=== PATIENT | male | born 1940 | race Caucasian/White ===

== ENCOUNTER 2023-05-28 14:34 | Inpatient (IN) | payer MEDICARE, SELFPAY ==
[2023-05-28] VITALS (15 sets, daily range): BP systolic 109–127; BP diastolic 56–66; BMI 28.3
--- NOTE | 2023-05-28 11:34 | ED.GENMED ---
History of Present Illness
General
Chief Complaint: Swallowing Problem
Source: patient
Exam Limitations: none
Time Seen by Provider: 05/28/23 11:19
Nursing documentation reviewed up to this point in time: agreed with
Travel History
Have you had any contact with someone who has COVID-19?: No
Do you have any symptoms of coronavirus? Fever > 100 degrees, chills, cough, shortness of breath, sore throat, loss of taste or smell, muscle aches, or headache?: No
History of Present Illness
History of Present Illness:
Patient presents to ED secondary to inability to tolerate water/food over the past 3 days. Patient had an outpatient CT performed this morning which revealed significant abnormal findings, and was subsequently referred to ED for evaluation. Per
daughter who lives with the patient, patient has had difficulty eating in the past, but never to this extent. Denies fever or chills. Patient has been coughing recently. Denies diarrhea. Denies abdominal pain. Denies chest pain. Denies back
pain. Patient takes Eliquis chronically, along with history of heart failure.
Past History
Past History
ED Past Medical History: Arrthythmia, CHF, COPD, HTN, Hypercholesterolemia and NIDDM
ED Past Surgical History: Orthopedic (Right hip, bilateral arm tendons)
Social History
Tobacco: Non-smoker
Alcohol: None
Drug: None
Living: with family
Review of Systems
Review of Systems
Allergies reviewed?: Yes
All Other Systems: ROS reviewed and negative except as documented in HPI and ROS
Constitutional: Reports no symptoms
EENT: Reports no symptoms
Respiratory: Reports cough and trouble breathing
Cardiac: Reports no symptoms; Denies chest pain
ABD/GI: Reports other (Difficulty swallowing)
: Reports no symptoms
Musculoskeletal: Reports no symptoms
Skin: Reports no symptoms
Neurological: Reports no symptoms
Phy Exam
Physical Exam
Physical Exam:
Physical Exam
General: mild distress, not acutely ill. afebrile
Head: nc/at. eomi
Neck: supple. no meningeal signs.
Heart: s1/s2 regular rate and rhythm, no murmur. equal radial pulses.
Lungs: mild respiratory distress. crackles bilaterally
Abdomen: normal bowel sounds. not tender.
Neuro: alert and oriented. no focal neurological deficits
Skin: no rash
Psychiatric: well kept. interactive and cooperative
Extremities: le b/l edema, nonpitting. no calf tenderness.
Course
Orders/Labs/Results
Orders:
Orders
05/28/23 11:29
Furosemide [Lasix] 40 mg IV NOW STA
Piperacillin/Tazo 3.375 Gram [Zosyn] 3.375 gram in 50 ml IV NOW
05/28/23 11:38
Electrocardiogram (*1) Urgent
Reason for Study: Shortness of Breath
EKG- Treatment ONCE
05/28/23 11:57
COVID-19 Antigen Urgent
Source: Nasal Swab
Complete Blood Count/With Diff Urgent
Comprehensive Metabolic Panel Urgent
Lactic Acid Q4H
Comment: CANCEL 2nd LACTIC ACID IF 1st LACTIC ACID IS LESS THAN 2
Magnesium Urgent
NT-proBNP Urgent
Blood Culture Q30M
EMMA Source: Blood/Venous
Specimen Description:
05/28/23 14:22
Admit/Transfer Patient As Directed
Co-Sign Provider:
Level of Care: Inpatient admission
Assign to:: Telemetry
Physician / Group: Arriola
Diagnosis: Dysphagia
Reason for Telemetry: Arrhythmia
Date to Stop Telemetry: 05/31/23
Time to Stop Telemetry: 11:00
Reason for Hospitalization: see progress note
Expected length of stay greater than two midnights?: Yes
ELOS- Estimated Length of Stay in days: 3
I certify the patient meets the requirements for IP care: Yes
05/28/23 14:24
Code Status As Directed
Resuscitation Status: Full Code
05/28/23 14:34
INR [Prothrombin Time] Stat
Blood Culture Q30M
EMMA Source: Blood/Venous
Specimen Description:
05/28/23 16:57
0.9% Sodium Chloride 1000 ml [Nss] 1,000 ml IV 80 mls/hr
Dextrose 50%-Water [Dextrose 50% Syringe] 12.5 grams IV [id number] PRN
Glucagon [GlucaGen] 1 mg IM PRN PRN
Insulin Aspart Corrective Low [Novolog Flexpen-Low Resistance] See Protocol SC AC
05/28/23 16:57
GASTROINTESTINAL CONSULT Routine
Consulting Provider: Canelo Cueto
Was physician already notified: Yes
Reason for consult: dysphagia
Activity As Directed
Activity Level: As Tolerated
Bedside Glucose Monitoring As Directed
Frequency: AC&HS
Comment: Change to q6h if pt on TPN, tube feeding or not eating
Bladder Scan As Directed
Follow Bladder Retention/Intermittent Cath Algorithm?: Yes
PRN if no void in __ hours: 6
Frequency: Per Retention Algorithm
If Bladder Scan Result >: 400
then:: Straight cath
I&O [Intake/ Output] As Directed
Frequency: q12h
Sequential Compression Device [Pneumatic Compression Sleeves] As Directed
Type: Knee high
Straight Cath As Directed
Frequency: Per Retention Algorithm
Additional Instructions: straight cath as needed per acute urinary retention algorithm for 24 hrs
Additional Instructions: for bladder scan greater than 400 mL
Weight As Directed
Frequency: Daily
Oxygen Therapy [O2 Therapy] [RESP] Routine
Titrate/Wean O2 to maintain O2 sat greater than (%): 93
DX Deep Vein Thrombosis Video Routine
05/28/23 18:00
Ampicillin/Sulbactam 1.5 G [Unasyn] 1.5 gm 0.9% Sodium Chloride [Nss] 50 ml IV Q12H
05/29/23 05:43
CBC/No Diff [Complete Blood Count/No Diff] IN AM
Glycohemoglobin (HgbA1c) IN AM
Abnormal Lab Results
05/28/23 05/28/23
11:57 14:34
RBC 3.15 L 10^6/uL
(4.70-6.10)
Hgb 10.5 L g/dL
(13.0-18.0)
Hct 30.6 L %
(39.0-52.0)
MCV 97.1 H fL
(80.0-94.0)
MCH 33.3 H pg
(27.0-31.0)
RDW 15.9 H %
(11.5-14.5)
MPV 10.5 H fL
(7.4-10.4)
Absolute Lymphs (auto) 0.6 L 10^3/uL
(1.2-3.4)
Neutrophils % 78.5 H %
(42.2-75.2)
Lymphocytes % 10.5 L %
(20.5-51.1)
Monocytes % 9.9 H %
(1.7-9.3)
PT 17.9 H Sec
(11.4-14.6)
Carbon Dioxide 31 H mmol/L
(22-30)
BUN 93 H mg/dl
(9-20)
Creatinine 3.4 H mg/dL
(0.7-1.3)
Magnesium 2.7 H mg/dl
(1.6-2.3)
Total Bilirubin 1.8 H mg/dl
(0.2-1.3)
Alkaline Phosphatase 181 H U/L
(38-126)
Total Protein 5.8 L g/dl
(6.3-8.2)
Albumin 3.2 L g/dl
(3.5-5.0)
05/28/23 11:57
05/28/23 11:57
Vital Signs
Initial and Last Documented VS:
Initial Vital Signs
Temp Pulse Resp BP Pulse Ox
97.9 F 72 16 117/59 94
05/28/23 10:59 05/28/23 10:59 05/28/23 10:59 05/28/23 10:59 05/28/23 10:59
Last Documented Vital Signs
Temp Pulse Resp BP Pulse Ox
97.6 F 66 20 134/54 96
05/29/23 07:25 05/29/23 07:25 05/29/23 07:25 05/29/23 07:25 05/29/23 09:08
MDM/Problems Addressed
MDM/Problems Addressed:
CT report from today reviewed and discussed with patient. Findings concerning for esophageal obstruction along with aspiration pneumonia. In light of patient's ongoing cough with shortness of breath, patient will be admitted for IV antibiotics and
GI consultation.
Blood culture pending.
*Critical Care Note
Total Time (30-74mins, 75-104mins- exclusive of procedures): Not Applicable
ED Attending Note
-
Portions of this chart may have been created with voice recognition software.� Occasional wrong word or��sound alike� substitutions may have occurred due to the inherent limitations of voice recognition software.
Discharge Plan
Departure
Patient Disposition: Admit
Date of Disposition: 05/28/23
Time of Disposition: 12:32
Admit to: Telemetry
Presentation/result/management discussed w/ accepting MD/DO: Hospitalist
Condition: Fair
Discharge Problem:
Esophageal obstruction due to food impaction, Aspiration pneumonia
Interventions
Interventions:
*Risk Screen - Suicide Last Done: 05/28/23 18:28
*General Assessment Last Done: 05/28/23 11:47
*Neglect/Abuse Screening Last Done: 05/28/23 11:47
ED- Fall Risk Assessment Last Done: 05/28/23 11:47
*ED COVID-19 Vaccine History Last Done: 05/28/23 18:28
*Nursing Disposition Last Done: 05/28/23 15:59
ED-EENT Assessment Last Done: 05/28/23 11:47
BM-Ibdpkf-Vpyiunhips Assessment Last Done: 05/28/23 11:47
ED- Pulmonary Assessment Last Done: 05/28/23 11:47
ED- Neurological Assessment Last Done: 05/28/23 11:47
ED Swallowing Screen Last Done: 05/28/23 11:47
Discharge Date and Time
Discharge Date/Time: 05/28/23 16:00
[2023-05-28] MEDS: LASIX 40 MG IV (12:06)
[2023-05-28] MEDS: ZOSYN 50 IV (12:10)
[2023-05-28 12:34] LABS: % Basophils 0.5 % (0-2); % Eosinophils 0.3 % (0-6); % Immature Granulocytes 0.3 % (0-0.5); % Lymphocytes 10.5 % (20.5-51.1); % Monocytes 9.9 % (1.7-9.3); % Neutrophils 78.5 % (42.2-75.2); Absolute Lymphocytes 0.6 10^3/uL (1.2-3.4); Absolute Monocytes 0.6 10^3/uL (0.1-0.6); Absolute Neutrophils 4.6 10^3/uL (1.4-6.5); Hematocrit 30.6 % (39.0-52.0); Hemoglobin 10.5 g/dL (13.0-18.0); Mean Corp Hgb Conc. 34.3 g/dL (33.0-37.0); Mean Corpuscular Hgb 33.3 pg (27.0-31.0); Mean Corpuscular Volume 97.1 fL (80.0-94.0); Mean Platelet Volume 10.5 fL (7.4-10.4); Nucleated Red Blood Cells % 0 % (-); Platelet Count 169 10^3/uL (130-400); Red Blood Cell Count 3.15 10^6/uL (4.70-6.10); Red Cell Dist. Width 15.9 % (11.5-14.5); White Blood Cell Count 5.9 10^3/uL (4.8-10.8)
[2023-05-28 12:35] LABS: COVID-19 Antigen Negative (Negative)
[2023-05-28 12:42] LABS: Lactic Acid 1.3 mmol/L (0.7-2.0)
[2023-05-28 12:43] LABS: ALT (SGPT) 22 U/L (0-50); AST (SGOT) 42 U/L (17-59); Albumin 3.2 g/dl (3.5-5.0); Alkaline Phosphatase 181 U/L (38-126); Blood Urea Nitrogen 93 mg/dl (9-20); Calcium 9.2 mg/dl (8.4-10.2); Carbon Dioxide 31 mmol/L (22-30); Chloride 101 mmol/L (98-107); Estimated Creatinine Clearance 19 ml/min; Glucose 95 mg/dl (70-99); Magnesium 2.7 mg/dl (1.6-2.3); Potassium 3.8 mmol/L (3.5-5.1); Sodium 142 mmol/L (135-145); Total Bilirubin 1.8 mg/dl (0.2-1.3); Total Protein 5.8 g/dl (6.3-8.2); eGFR 17.41
[2023-05-28 12:52] LABS: NT-proBNP 4140 pg/ml
--- NOTE | 2023-05-28 13:13 | CON.GI ---
Addendum entered and electronically signed by Canelo Cueto MD 05/28/23 15:06:
I saw and examined the patient.
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
--dysphagia/ food impaction
--afib - last eliquis 3 days back
-- pleural effusion
-- gastric sleeve sx
plan
NPO
EGD today ( discussed with patient/ patient's daughter at bed side )
Original Note:
Consultation
-
Date/Time Consultation Requested: 05/28/23 1230
Date/Time Consultation Performed: 05/28/23 1315
Requesting Provider: Mauro Rosa MD
Performing Provider: BRYAN Conner, Canelo Cueto MD
Reason for Consultation: diffuculty swallowing
Medical History
Chief Complaint / HPI
Chief Complaint: dysphagia
History of Present Illness:
Pt is a 82yo presents with hx afib on Eliquis, gastric sleeve for wt loss 7-8 years ago, CAD, CHF, CKD, HTN, hip fx with repair 2022 with wt loss over few months with recovery from fracture. He admits to dysphagia on a regular basis with feeling of
food sticking in upper esophagus then eventually pass vs per family occasional regurgitation of food. No hx food impaction in past. Now noted with 3 days of inability to eat. He would take food but regurgitate after eating. Also noted with
cough. This AM pt went to CT chest with concern for moderate to large effusion on right and esophagus with incomplete distention with food debris to level of GE junction at level of prior gastric sleeve. There is also small to moderate amount of
ascites.
At this time pt also admits to odynophagia with irritation of trying to eat last few days. He denies NSAID use. He denies GERD, nausea, vomiting, abdominal pain, diarrhea, constipation or bleeding. ? last EGD with gastric sleeve in past.
Colonoscopy years ago with polyps.
Past Medical History
Past Medical History: Arrhythmias (afib on Eliquis), CAD, CHF, HTN, NIDDM, Renal Failure (CKD) and Other (RBBB, former tobacco and ETOH use last 40 years ago, polyps)
Past Surgical History: Orthopedic (hip fx with repair 2022 ) and Other (gastric sleeve for weight loss)
Social History
Tobacco: Former Smoker (last 40 years ago)
Alcohol: Former (last 40 years ago)
Drug: None
Living: With Family
Employment: Retired
Family History
Family History: Reviewed & Not Pertinent
Allergies / Home Medications
Allergy/AdvReac Type Severity Reaction Status Date / Time
No Known Allergies Allergy Unverified 05/28/23 11:03
Medication Instructions Recorded
apixaban 2.5 mg tablet (Eliquis) 2.5 mg PO BID Blood Clot 11/16/22
Prevention/Tx
atorvastatin 20 mg tablet 20 mg PO DAILY High Cholesterol 11/16/22
allopurinol 300 mg tablet 300 mg PO DAILY Gout #0 tabs 04/22/23
amiodarone 200 mg tablet 200 mg PO DAILY Arrhythmia #0 tabs 04/22/23
furosemide 80 mg tablet 80 mg PO BID Fluid 04/22/23
retention/Swelling #0 tabs
hydralazine 25 mg tablet 25 mg PO BID Blood pressure #0 tabs 04/22/23
linagliptin 5 mg tablet (Tradjenta) 5 mg PO DAILY Diabetes #0 tabs 04/22/23
ascorbic acid (vitamin C) 1,000 mg 1,000 mg PO DAILY 05/28/23
tablet
gabapentin 100 mg capsule 200 mg PO HS 05/28/23
Review of Systems
-
History Source: Patient
Constitutional: Reports Weight Loss (over time)
EENT: Reports No Symptoms
Respiratory: Reports Cough
Cardiac: Reports Chest Pain (last PM with feeling of food sticking )
Abdomen/GI: Reports No Symptoms
: Reports No Symptoms
Musculoskeletal: Reports No Symptoms
Skin: Reports No Symptoms
Neurological: Reports Weakness
Endocrine: Reports No Symptoms
Hematologic/Lymphatic: Reports No Symptoms
Vital Signs
Temp Pulse Resp BP Pulse Ox
97.9 F 64 12 127/66 90
05/28/23 10:59 05/28/23 12:06 05/28/23 12:00 05/28/23 12:06 05/28/23 12:00
Physical Exam
Exam
General: Other (elderly male calm to feeling of food sticking in esophagus )
HEENT: Normocephalic and Anicteric
Respiratory: Other (decreased 92 % on RA in ER)
Cardiac: Regular Rhythm (bradicardia 55-60 in ER)
GI: Soft, Non Tender and Non Distended
Genito-urinary: No Costovertebral Tender
Musculoskeletal: No Clubbing and No Cyanosis
Skin: Warm and Dry
Neuro: Awake
Psych: Calm
Results
WBC 5.9 10^3/uL (4.8-10.8) 05/28/23 11:57
Hgb 10.5 g/dL (13.0-18.0) L 05/28/23 11:57
Hct 30.6 % (39.0-52.0) L 05/28/23 11:57
MCV 97.1 fL (80.0-94.0) H 05/28/23 11:57
Plt Count 169 10^3/uL (130-400) 05/28/23 11:57
Absolute Neuts (auto) 4.6 10^3/uL (1.4-6.5) 05/28/23 11:57
Sodium 142 mmol/L (135-145) 05/28/23 11:57
Potassium 3.8 mmol/L (3.5-5.1) 05/28/23 11:57
Chloride 101 mmol/L (98-107) 05/28/23 11:57
Carbon Dioxide 31 mmol/L (22-30) H 05/28/23 11:57
BUN 93 mg/dl (9-20) H 05/28/23 11:57
Creatinine 3.4 mg/dL (0.7-1.3) H 05/28/23 11:57
Calcium 9.2 mg/dl (8.4-10.2) 05/28/23 11:57
Total Bilirubin 1.8 mg/dl (0.2-1.3) H 05/28/23 11:57
AST 42 U/L (17-59) 05/28/23 11:57
ALT 22 U/L (0-50) 05/28/23 11:57
Alkaline Phosphatase 181 U/L (38-126) H 05/28/23 11:57
Diagnostic Image Results:
05/28/23 CT Chest/abd/pel Wo Iv Cont
1. � Moderately large bilateral pleural effusions right greater than left with bibasilar consolidation right greater than left. Does the patient aspirate? Faint opacity in the right upper lung zone, also suggests early pneumonic process which could
be associated with aspiration.
2. � The esophagus is incompletely distended with food debris. This extends to the level of the GE junction, at the level of the previous surgical procedure for gastric sleeve. The obstruction of the esophagus is likely due to the previous surgical
procedure, however without IV and oral contrast it is impossible to evaluate for a small occult lesion. Follow-up with GI to evaluate the gastric sleeve and further evaluate the appearance of the distal esophagus.
3. � There is a small to moderate amount of ascites within the abdomen and pelvis.
4. � Cholelithiasis. Diverticulosis.
5. � Limited evaluation of the solid organs without IV contrast. No focal abnormality identified.
6. � Appendix normal.
7. � Limited evaluation of the pelvis due to artifact from the right total hip replacement.
8. � Incomplete healing of the complex comminuted fracture of the left acetabulum seen on prior pelvis CT.
Prior GI Procedures:
EGD: years ago ? with gastric sleeve
Colonoscopy: years ago with polyps
Assessment / Plan
-
Pt is a 82yo presents with hx afib on Eliquis, gastric sleeve for wt loss 7-8 years ago, CAD, CHF, CKD, HTN, hip fx with repair 2022 with wt loss over few months with recovery from fracture. He admits to dysphagia on a regular basis with feeling of
food sticking in upper esophagus then eventually pass vs per family occasional regurgitation of food. No hx food impaction in past. Now noted with 3 days of inability to eat. He would take food but regurgitate after eating. Also noted with
cough. This AM pt went to CT chest with concern for moderate to large effusion on right and esophagus with incomplete distention with food debris to level of GE junction at level of prior gastric sleeve. There is also small to moderate amount of
ascites.
-chronic dysphagia with concern for food impaction
-CT with effusion
-ascites per CT
-afib on Eliquis
-hx gastric sleeve
-wt loss with hx hip fracture 2022
-acute on chronic CKD
other medical problems:
-CAD
-CHF
-HTN
-NIDDM
PLAN:
Etiology of symptoms with concern for food impaction with inability to eat last 3 days with regurgitation
plan for EGD today for impaction and eval gastric sleeve
last Eliquis 3 days ago
monitor resp status with possible aspiration -- currently 92 % on room air
will review with Dr. Arriola with effusion
NPO
IV Zosyn given in ER
updated family
-
-
Thank you for consultation and allowing me to participate in the patient's care. Please call the [facility] GI physician during the after hours with any questions or concerns.
--- NOTE | 2023-05-28 14:30 | HPS.HSE ---
Addendum entered and electronically signed by Margarito Arriola MD 05/28/23 14:44:
From medical standpoint ok for his EGD today
Original Note:
Family Physician
-
Family Physician: Francine Randolph MD
Chief Complaint
-
Dysphagia
History of Present Illness
Patient has been experiencing dysphagia for many weeks got worse in the last [address] abdomen pelvis was requested by PCP which picks up significantly esophageal food debris.
Patient had remote history of gastric sleeve surgery. In the last few weeks has been having trouble with the swallowing and regurgitation. Really got worse lately and in the last 3 days he could not eat anything and he could not drink anything.
He cannot even take his medications.
He was also having cough with his regurgitation. He was having chest pains from the cough. Denies any shortness of breath.
No fever or chills.
Since discharge in April after heart failure treatment he states his weight has been okay. No significant swelling in the legs.
Medical History
Past Medical History
Past Medical History: Reports Arrhythmia (Atrial fibrillation), CHF (Diastolic), GERD, HTN, Hypercholesterolemia, IDDM, Renal Failure (Chronic kidney disease) and Other (Sleep apnea)
Past Surgical History: Reports Other (Gastric sleeve)
Social History
Tobacco: Former Smoker
Alcohol: None
Drug: None
Living: With Family
Family History
Family History: Not pertinent
Allergies / Home Medications
Allergies reflects when Allergies were last updated in [facility].
Home Medications with original date entered in [facility]
Allergy/Medication List:
Allergies
Allergy/AdvReac Type Severity Reaction Status Date / Time
No Known Allergies Allergy Unverified 05/28/23 11:03
Home Medications
apixaban 2.5 mg tablet (Eliquis) 2.5 mg PO BID Blood Clot Prevention/Tx 11/16/22
atorvastatin 20 mg tablet 20 mg PO DAILY High Cholesterol 11/16/22
allopurinol 300 mg tablet 300 mg PO DAILY Gout #0 tabs 04/22/23
amiodarone 200 mg tablet 200 mg PO DAILY Arrhythmia #0 tabs 04/22/23
furosemide 80 mg tablet 80 mg PO BID Fluid retention/Swelling #0 tabs 04/22/23
hydralazine 25 mg tablet 25 mg PO BID Blood pressure #0 tabs 04/22/23
linagliptin 5 mg tablet (Tradjenta) 5 mg PO DAILY Diabetes #0 tabs 04/22/23
ascorbic acid (vitamin C) 1,000 mg tablet 1,000 mg PO DAILY 05/28/23
gabapentin 100 mg capsule 200 mg PO HS 05/28/23
Review of Systems
-
A 12 point ROS was completed and negative except as noted: Yes
Physical Exam
Vital Signs
Vital Signs
Temp Pulse Resp BP Pulse Ox
97.9 F 63 14 120/60 90
05/28/23 10:59 05/28/23 14:00 05/28/23 14:00 05/28/23 14:00 05/28/23 14:00
Physical Exam
General: No Apparent Distress
HEENT: Moist mucous membranes
Respiratory: Non Labored Respirations and Other (Decreased breath sounds in the bases and bronchial breathing in the right base); No Wheezes or Accessory Resp Muscle Use
GI: Soft, Non Tender, Non Distended and Normal Bowel Sounds
Musculoskeletal: Edema, Left Lower Extremity and Edema, Right Lower Extremity
Neuro: AO x 3 and No Motor Deficits
Psych: Calm; No Confused or Agitated
Laboratory Results
-
05/28/23 11:57
05/28/23 11:57
Laboratory Results
Lactic Acid Cancelled 05/28/23 15:30
Total Bilirubin 1.8 mg/dl (0.2-1.3) H 05/28/23 11:57
AST 42 U/L (17-59) 05/28/23 11:57
ALT 22 U/L (0-50) 05/28/23 11:57
Alkaline Phosphatase 181 U/L (38-126) H 05/28/23 11:57
Data Reviewed
-
CT Scan: Report Reviewed by me (ct scan )
Lab Data: Labs Reviewed by me
Impression/Plan
-
Severe dysphagia with esophageal food debris and regurgitation and concern for aspiration. Patient had a prior history of gastric sleeve and now over many weeks has been having dysphagia. Keep him n.p.o. Consult GI for endoscopy to help him with
his food debris and as well as for diagnostic testing.
Possible aspiration-patient CT shows bilateral pleural effusion right more than left with bibasilar consolidation right more than left concerning for aspiration. There is also faint opacity in the right upper zone. He has been having cough with
regurgitation. No afebrile and white count is okay and clinically concerned about aspiration. Will cover him with empirical Unasyn and follow.
Chronic diastolic heart failure. Weight is 4 pounds above his most recent discharge weight. He has not been having anything to eat or drink for the last 3 days. Clinically more concerned about volume depletion. The bilateral pleural effusions
could be chronic from heart failure or related to aspiration. Hold diuretics. Cautious IV fluid. Patient without any respiratory distress saturations are variable but around 90-93 on room air in the ER currently.
No JVD noted.
Acute kidney injury on chronic kidney disease stage IV-suspect volume depletion with no oral intake for the last 3 days. Cautious IV fluids and follow creatinine. Check urine lites for sodium and creatinine. Check bladder scan. If any worsening
consult nephrology.
Paroxysmal to permanent atrial fibrillation-currently in A-fib with rate control. Resume amiodarone after EGD if stable and resume Eliquis when okay from GI standpoint.
DM - hold Tradjenta and start on SSI
Full code
[2023-05-28 15:02] LABS: INR 1.45; PT 17.9 Sec (11.4-14.6)
[2023-05-28 16:54] LABS: Glucose - Point of Care 92 mg/dl (70-99)
--- NOTE | 2023-05-28 18:00 | PTCARENOTE ---
Received pt from PACU.Report from Stu FELIZ.Pt awake, alert and oriented x3. Pt has no c/o pain at this time. VSS 100% on 10L simple mask, will wean as tolerated. Pt Afib with BBBc rates slow, Pt has occasional MPC for thick orozco secretions, Yankauer
used as needed. Pt oriented to room, call branch within reach, cont pulse ox in place, POC ongoing.
[2023-05-28] MEDS: NSS 1000 IV (18:20)
[2023-05-28] MEDS: NOVOLOG FLEXPEN-LOW RESISTANCE SC (18:20)
[2023-05-28] MEDS: CARAFATE 1 GRAM PO ×2 (18:22→21:00)
[2023-05-28] MEDS: UNASYN IV (19:26)
[2023-05-28] MEDS: NSS (PRESERVATIVE FREE) 10 ML IV (20:56)
[2023-05-28] MEDS: PROTONIX IV 40 MG IV (20:57)
[2023-05-28 21:40] LABS: Glucose - Point of Care 269 mg/dl (70-99)
[2023-05-29] VITALS (9 sets, daily range): BP systolic 100–134; BP diastolic 47–60; PULSE 59–67; O2SAT 96; BMI 29.8
[2023-05-29] MEDS: NSS 1000 IV (05:00)
[2023-05-29] MEDS: UNASYN IV ×2 (05:01→17:43)
[2023-05-29 06:43] LABS: Hematocrit 30.3 % (39.0-52.0); Hemoglobin 10.2 g/dL (13.0-18.0); Mean Corp Hgb Conc. 33.7 g/dL (33.0-37.0); Mean Corpuscular Hgb 33.1 pg (27.0-31.0); Mean Corpuscular Volume 98.4 fL (80.0-94.0); Platelet Count 162 10^3/uL (130-400); Red Blood Cell Count 3.08 10^6/uL (4.70-6.10); Red Cell Dist. Width 15.9 % (11.5-14.5)
[2023-05-29 07:08] LABS: Glucose - Point of Care 159 mg/dl (70-99)
[2023-05-29] MEDS: CARAFATE 1 GRAM PO ×4 (09:19→20:56)
[2023-05-29] MEDS: PROTONIX IV 40 MG IV ×2 (09:19→20:34)
[2023-05-29] MEDS: NSS (PRESERVATIVE FREE) 10 ML IV ×2 (09:19→20:34)
[2023-05-29] MEDS: NOVOLOG FLEXPEN-LOW RESISTANCE 1 UNITS SC ×3 (09:39→17:42)
[2023-05-29 09:48] LABS: Glycohemoglobin (HgbA1c) 5.7 % (4.0-5.6)
--- NOTE | 2023-05-29 10:18 | W.PN.HOSP.TC ---
Today's Communication/Plan
-
Resume his home medications
DC IV fluids
Follow creatinine
Advance diet per GI
Assessment / Plan
Assessment / Plan
Severe dysphagia with esophageal food debris and regurgitation and concern for aspiration.� Patient had a prior history of gastric sleeve and now over many weeks has been having dysphagia.� s/p EGD and clearance of his esophagus . No masses/tumor
found. Sharp angulation of GE junction ,grade c esophagitis probably from food stasis noted.
-Continue with PPI
-Advance diet per GI
-Consider barium swallow if not tolerating his diet.
Possible aspiration-patient CT shows bilateral pleural effusion right more than left with bibasilar consolidation right more than left concerning for aspiration.� There is also faint opacity in the right upper zone.� He has been having cough with
regurgitation.� No afebrile and white count is okay and clinically concerned about aspiration.� cw empirical Unasyn and follow.
Chronic HFpEF.� Weight is 4 pounds above his most recent discharge weight.� He has not been having anything to eat or drink for the last 3 days.� Clinically more concerned about volume depletion.� The bilateral pleural effusions could be chronic
from heart failure or related to aspiration.� DC further IV fluids.�
No JVD noted.
Acute hypoxic respiratory insufficiency - possibly from above -wean O2
Acute kidney injury on chronic kidney disease stage IV-suspect volume depletion with no oral intake for the last 3 days.� s/p IV fluids -hold further .Follow Cr .� urine lites for sodium and creatinine pending.�Follow bladder scan.� If any worsening
consult nephrology.
Paroxysmal to permanent atrial fibrillation-currently in A-fib with� rate control.� Resume amiodarone and Eliquis
DM - hold Tradjenta and cw SSI
PIO - CPAP at HS
Full code
Anticipated Discharge: 24 - 48 hours
Subjective/Interval History
-
Date of Service: May 29, 2023
Feels better from cognition standpoint. He is aware that last night after anesthesia he was confused and agitated. This morning he is alert and oriented to place, day of the week.
Denies any chest or abdominal pain. No nausea vomiting. Currently on clear liquids.
Denies any shortness of breath or cough. Currently on 2 L of oxygen.
He states he has sleep apnea and a CPAP was recently ordered but has not arrived yet. He thinks it is 12 mmHg pressure.
Objective Data
-
Labs:
Laboratory Results
05/29/23 05/29/23
05:43 08:29
WBC 6.0
Hgb 10.2 L
Hct 30.3 L
Plt Count 162
Sodium Cancelled Pending
Potassium Cancelled Pending
Chloride Cancelled Pending
Carbon Dioxide Cancelled Pending
BUN Cancelled Pending
Creatinine Cancelled Pending
Glucose Cancelled Pending
Calcium Cancelled Pending
Total Bilirubin Cancelled Pending
AST Cancelled Pending
ALT Cancelled Pending
Alkaline Phosphatase Cancelled Pending
Vital Signs:
Vital Signs
Temp Pulse Resp BP Pulse Ox
97.6 F 66 20 134/54 96
05/29/23 07:25 05/29/23 07:25 05/29/23 07:25 05/29/23 07:25 05/29/23 09:08
I&O
05/28/23 05/29/23 05/30/23
06:59 06:59 06:59
Intake Total 2444 / 2444
Output Total 625 / 625
Balance 1819 / 1819
Review of Systems
-
Constitutional: Denies Fever or Chills
EENT: Denies Sore Throat
Neuro: Denies Dizzy
Physical Exam
-
General: No Apparent Distress
HEENT: Moist Mucous Membranes
Respiratory: Non Labored Respirations and Decreased Breath Sounds (both bases ); Negative Wheezes, Crackles or Accessory Resp Muscle Use
Cardiac: S1/S2 and Irregular Rhythm; Negative Tachycardic
GI: Soft and Nontender
Neuro: AO x 3
Psych: Calm; Negative Confused or Agitated
Data Reviewed
-
Labs: Labs Reviewed by me
[2023-05-29 10:20] LABS: ALT (SGPT) 22 U/L (0-50); AST (SGOT) 40 U/L (17-59); Albumin 3.2 g/dl (3.5-5.0); Alkaline Phosphatase 156 U/L (38-126); Blood Urea Nitrogen 88 mg/dl (9-20); Calcium 8.5 mg/dl (8.4-10.2); Carbon Dioxide 29 mmol/L (22-30); Chloride 102 mmol/L (98-107); Estimated Creatinine Clearance 20 ml/min; Glucose 218 mg/dl (70-99); Potassium 4.2 mmol/L (3.5-5.1); Sodium 139 mmol/L (135-145); Total Bilirubin 1.1 mg/dl (0.2-1.3); Total Protein 5.9 g/dl (6.3-8.2); eGFR 18.72
[2023-05-29] MEDS: ELIQUIS 2.5 MG PO ×2 (11:12→20:34)
[2023-05-29] MEDS: PACERONE 200 MG PO (11:12)
[2023-05-29 11:19] LABS: Glucose - Point of Care 170 mg/dl (70-99)
--- NOTE | 2023-05-29 11:47 | W.PN.GI.CBS2 ---
Today's Communication / Plan
-
Continue Protonix/Carafate
Speech eval
Assessment / Plan
-
Pt is a 82yo presents with hx afib on Eliquis, gastric sleeve for wt loss 7-8 years ago, CAD, CHF, CKD, HTN, hip fx with repair 2022 with wt loss over few months with recovery from fracture. He admits to dysphagia on a regular basis with feeling of
food sticking in upper esophagus then eventually pass vs per family occasional regurgitation of food. No hx food impaction in past. Now noted with 3 days of inability to eat. He would take food but regurgitate after eating. Also noted with
cough. This AM pt went to CT chest with concern for moderate to large effusion on right and esophagus with incomplete distention with food debris to level of GE junction at level of prior gastric sleeve. There is also small to moderate amount of
ascites.
-chronic dysphagia with concern for food impaction- s/p EGD with removal of food bolus 05/28/2023
-CT with effusion
-ascites per CT
-afib on Eliquis
-hx gastric sleeve
-wt loss with hx hip fracture 2022
-acute on chronic CKD
other medical problems:
-CAD
-CHF
-HTN
-NIDDM
PLAN:
Recommends speech evaluation prior to advance diet ( as per medical team)
Continue Protonix 40 mg twice daily for 8 weeks
Carafate 1 g 4 times daily for 2 weeks
Okay to restart Eliquis
Recommend follow-up in GI as outpatient with repeat EGD in 8 weeks
At this juncture no further recommendation. GI will sign off. Please call us back if any question
Total Time Spent with Patient (in minutes): 35
Subjective
Subjective
Date of Service: May 29, 2023
Tolerating full liquid diet. Denies any vomiting or difficulty swallowing. RN reports coughing with eating
Objective
Data Reviewed
Laboratory Data:
Laboratory Results
05/29/23 05:43
05/29/23 08:29
Laboratory Results
PT 17.9 Sec (11.4-14.6) H 05/28/23 14:34
INR 1.45 05/28/23 14:34
Magnesium 2.7 mg/dl (1.6-2.3) H 05/28/23 11:57
Total Bilirubin 1.1 mg/dl (0.2-1.3) 05/29/23 08:29
AST 40 U/L (17-59) 05/29/23 08:29
ALT 22 U/L (0-50) 05/29/23 08:29
Alkaline Phosphatase 156 U/L (38-126) H 05/29/23 08:29
Vital Signs and I&O:
Vital Signs
Temp Pulse Resp BP Pulse Ox
97.6 F 65 18 100/49 95
05/29/23 11:45 05/29/23 11:45 05/29/23 11:45 05/29/23 11:45 05/29/23 11:45
I&O
05/28/23 05/29/23 05/30/23
06:59 06:59 06:59
Intake Total 2444 / 2444
Output Total 625 / 625
Balance 1819 / 1819
Physical Exam
Physical Exam
GI: Soft, Non Distended and Non Tender
[2023-05-29 13:33] LABS: Urine Sodium 19 mmol/L (30-90)
--- NOTE | 2023-05-29 14:11 | PN.CDI ---
CDI
- -
CDI:
Physician Documentation Request
Admit Date: 05/28/23 14:34
Dear Doctor Flako,
Please review the following and provide your response in the progress notes.
Clinical Indicators:
- per H&P 'Chronic diastolic heart failure. Weight is 4 pounds above his most recent discharge weight'
- 'bilateral pleural effusions could be chronic from heart failure or related to aspiration'
- 05/28 40mg IV Lasix given
- proBNP 4140
Please clarify which of the following accurately represents the acuity of the HFpEF:
Acute on chronic HFpEF
Chronic HFpEF
Other
Use of terms such as suspected, likely, concern for, or probable (associated with a specific diagnosis that is being evaluated, monitored, or treated as if it exists) are acceptable and can be coded in the inpatient setting, when documented at the
time of discharge.
Thank you,
Nara Tony RN
CDI Specialist
Please use your independent medical judgment in providing your response.
--- NOTE | 2023-05-29 15:13 | PTOTSP ---
Dysphagia Evaluation
Patient presents with signs concerning for unspecified pharyngoesophageal dysphagia.
Suspect changes to CT of Chest/Abdomen/Pelvis 05/28/2023 concerning for aspiration may have been bottom up aspiration related given patient's history of food impaction this admission and GERD. However, during this clinical bedside swallowing
evaluation, patient had throat clearing with consecutive drinking of liquids and audible throat gurgling with intermittent throat clearing between trials - which may be concerning for aspiration. Cannot rule out bottom up vs top down aspiration at
the bedside. Consider video swallow study to objectively assess pharyngeal stage of swallowing.
Oral stage was functional for regular solids. Consider picking soft/moist foods and using precautions below given recent food impaction. Patient was cleared per GI to advance solids.
Recommend:
1. Regular (pick soft/moist foods), Thin Liquids
2. Medications as best tolerated
3. Strategies: upright to 90 degrees and/or OOB to chair, pick soft/moist foods, small single sips/bites, slow rate, chew foods well, alternate solids/liquids, small frequent meals, remain upright for 30 minutes after PO as a reflux precaution
4. Oral care 3-5x daily
5. Consider video swallow study to rule out pharyngeal dysphagia
6. Continue to follow with GI
--- NOTE | 2023-05-29 16:00 | PTCARENOTE ---
Pt had decreased urine output, bladder scanned for 92ml, MD made aware, plan of care ongoing.
--- NOTE | 2023-05-29 16:18 | CM ---
Alert awake oriented patient who lives with his daughter Olinda Avilez who lives in a 2 story home with 1 step to enter and 14 steps to bed and bathroom. He is independent in driving and in all activities of daily living.He was offered VN he
said he was unsure. Will need PT OT for dc plan.
Cane CPAP
No VN hx / Jignesh hx
Pharmacy [facility]
PCP DR Randolph
PLAN Will need PT OT to determine dc plan
[2023-05-29 16:39] LABS: Glucose - Point of Care 153 mg/dl (70-99)
[2023-05-29] MEDS: APRESOLINE PO (20:55)
[2023-05-29] MEDS: NEURONTIN 200 MG PO (20:58)
[2023-05-29 21:31] LABS: Glucose - Point of Care 119 mg/dl (70-99)
[2023-05-30] VITALS (7 sets, daily range): BP systolic 102–116; BP diastolic 46–60; PULSE 63; BMI 29.6
[2023-05-30] MEDS: UNASYN IV ×2 (05:02→17:24)
[2023-05-30 07:08] LABS: Blood Urea Nitrogen 99 mg/dl (9-20); Calcium 8.4 mg/dl (8.4-10.2); Carbon Dioxide 28 mmol/L (22-30); Chloride 98 mmol/L (98-107); Estimated Creatinine Clearance 18 ml/min; Glucose 114 mg/dl (70-99); Potassium 4.4 mmol/L (3.5-5.1); Sodium 137 mmol/L (135-145); eGFR 16.82
[2023-05-30 07:19] LABS: Glucose - Point of Care 118 mg/dl (70-99)
--- NOTE | 2023-05-30 08:00 | PTCARENOTE ---
Bladder scanned for 164 mls. Patient voided clear dameon urine, 150 mls.
[2023-05-30] MEDS: ELIQUIS 2.5 MG PO ×2 (08:37→21:10)
[2023-05-30] MEDS: CARAFATE 1 GRAM PO ×4 (08:37→21:10)
[2023-05-30] MEDS: NOVOLOG FLEXPEN-LOW RESISTANCE SC ×2 (08:37→16:43)
[2023-05-30] MEDS: LIPITOR 20 MG PO (08:37)
[2023-05-30] MEDS: VITAMIN C 1000 MG PO (08:38)
[2023-05-30] MEDS: NSS (PRESERVATIVE FREE) 10 ML IV ×2 (08:38→21:16)
[2023-05-30] MEDS: PROTONIX IV 40 MG IV ×2 (08:38→21:16)
[2023-05-30] MEDS: PACERONE 200 MG PO (08:38)
[2023-05-30] MEDS: APRESOLINE 25 MG PO (08:39)
[2023-05-30] MEDS: FLUSH (NSS) 1 FLUSH IV ×3 (08:39→17:24)
--- NOTE | 2023-05-30 09:00 | PTOTSP ---
Speech Language Pathology
Pt seen for dysphagia tx. Spoke with MD who would like to defer VSE (recommended to be considered 05/29) and consider esophagram if needed based on tolerance of diet. Eating breakfast on arrival. Pt eating dry belarusian toast and thin liquids.
Suggested using syrup to moisten belarusian toast, but pt stated he hates syrup. Slight effortful swallow noted at times, and pt stated swallowing is not fully back to normal yet, but is significantly improved. He denied any globus sensation. No
overt signs of aspiration or wet voice noted. Appears to have improved from yesterday.
Recommend:
(1) Continue regular solids/thin liquids
(2) Choose softer items given known esophageal issues
(3) Precautions: sit upright during meals and for at least 30 minutes post meals, slow rate, alternate solids and liquids, eat smaller more frequent meals, take liquid and/or break from P.O. if globus sensation noted
(4) Meds as tolerated
(5) MARKET RELATIONSHIP MANAGER to sign off. Please reconsult as indicated.
--- NOTE | 2023-05-30 10:26 | W.PN.HOSP.TC ---
Today's Communication/Plan
-
Resume IV fluids
Consult nephrology
Switch to oral Augmentin
Assessment / Plan
Assessment / Plan
Severe dysphagia with esophageal food debris and regurgitation and concern for aspiration.� Patient had a prior history of gastric sleeve and now over many weeks has been having dysphagia.� s/p EGD and clearance of his esophagus . No masses/tumor
found. Sharp angulation of GE junction ,grade c esophagitis probably from food stasis noted.
-Continue with PPI
-Advance diet per GI
-Consider barium swallow if not tolerating his diet. If tolerating diet the plan is PPI, Carafate and repeat endoscopy in 8 weeks. He is tolerating diet so far.
Possible aspiration-patient CT shows bilateral pleural effusion right more than left with bibasilar consolidation right more than left concerning for aspiration.� There is also faint opacity in the right upper zone.� He has been having cough with
regurgitation.� No afebrile and white count is okay and clinically concerned about aspiration.� Switch to oral Augmentin since taking p.o.'s.
Chronic HFpEF.� Weight is 4 pounds above his most recent discharge weight.� He has not been having anything to eat or drink for the last 3 days.� Clinically more concerned about volume depletion.� The bilateral pleural effusions could be chronic
from heart failure or related to aspiration.� DC further IV fluids.�
No JVD noted.
Acute hypoxic respiratory insufficiency - possibly from above -wean O2
Acute kidney injury on chronic kidney disease stage IV-suspect volume depletion with no oral intake for the last 3 days.� s/p IV fluids -with holding fluids as he was taking p.o.'s his creatinine is up again. His Fena on admission was 0.41. Will
give fluids back cautiously and follow creatinine. Consult nephrology.�Follow bladder scan no retention but decreased output noted.�
Paroxysmal to permanent atrial fibrillation-currently in A-fib with� rate control.� Resumed amiodarone and Eliquis
DM - hold Tradjenta and cw SSI
PIO - CPAP at HS
Full code
DW Nephro via TT
Anticipated Discharge: 24 - 48 hours
Subjective/Interval History
-
Date of Service: May 30, 2023
Eating okay without any reflux or regurgitation.
Thinks he is eating and drinking adequately.
Denies any shortness of breath has some cough. No chest pain.
Objective Data
-
Labs:
Laboratory Results
05/30/23
05:40
Sodium 137
Potassium 4.4
Chloride 98
Carbon Dioxide 28
BUN 99 H
Creatinine 3.5 H
Glucose 114 H
Calcium 8.4
Vital Signs:
Vital Signs
Temp Pulse Resp BP Pulse Ox
97.5 F 62 20 112/60 96
05/30/23 07:15 05/30/23 08:39 05/30/23 07:15 05/30/23 08:39 05/30/23 08:33
I&O
05/29/23 05/30/23 05/31/23
06:59 06:59 06:59
Intake Total 2444 / 2444 1350 / 1350
Output Total 625 / 625 200 / 200 100 / 100
Balance 1819 / 1819 1150 / 1150 -100 / -100
Review of Systems
-
Constitutional: Denies Fever or Chills
EENT: Denies Sore Throat
Neuro: Denies Dizzy
Physical Exam
-
General: No Apparent Distress
HEENT: Moist Mucous Membranes
Respiratory: Decreased Breath Sounds (At bases); Negative Wheezes or Crackles
Cardiac: Regular Rhythm and S1/S2
GI: Soft
Musculoskeletal: Edema, Right Lower Extrem and Edema, Left Lower Extrem (Trace bilateral)
Neuro: AO x 3
Psych: Calm
Data Reviewed
-
Labs: Labs Reviewed by me
[2023-05-30 11:17] LABS: Glucose - Point of Care 150 mg/dl (70-99)
[2023-05-30] MEDS: NSS 1000 IV ×2 (11:51→22:45)
[2023-05-30] MEDS: NOVOLOG FLEXPEN-LOW RESISTANCE 1 UNITS SC (12:43)
--- NOTE | 2023-05-30 13:59 | CON.MD ---
Consultation - Medical
-
IMP:
Severe dysphagia with esophageal food debris and regurgitation and concern for aspiration.�
history of gastric sleeve s/p EGD No masses/tumor found. Sharp angulation of GE junction ,grade c esophagitis
Chronic HFpEF.�
Acute kidney injury on chronic kidney disease stage 4-baseline cr 2-
Paroxysmal to permanent atrial fibrillation
DM
PIO CPAP at HS
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
non obst bilat renal caliculi
HLD
Plan:
A/w severe dysphagia from esophageal issues and concern of aspiration
BULMARO -suspect prerenal with poor po intake, U sodium low
BNP higher but in setting of BULMARO
agree to hold lasix, check UA
CT showed no hydro with non obst renal caliculi
ok for gentle IVF today
BP stable on home meds
follow bladder scan 165cc
no emergent indication of CHIEF METEOROLOGIST
[id number]
[2023-05-30 15:24] LABS: Urine Albumin Trace (Neg - Trace); Urine Bilirubin Negative (Negative); Urine Character Clear (Clear); Urine Color Yellow; Urine Glucose Negative (Negative); Urine Ketone Negative (Negative); Urine Leukocyte Trace (Negative); Urine Nitrite Negative (Negative); Urine Occult Blood 3+ (Negative); Urine Urobilinogen 2+ (Neg - 1+)
--- NOTE | 2023-05-30 15:25 | PTCARENOTE ---
Pt AAO x3; sl forgetful at times. MAHAJAN; Stands at bedside with assist x1/walker, tires easily; legs weak. Refused offer of OOB to chair activity. VSS. Telemetry:A fib/zuly to 50's. On nc 2 lpm- pulse ox 97%, pt with (+) slight SHER; denies SOB.
Abd large, soft, felicity PO well. Voids small amts clear yellow urine in urinal; denies urgency/discomfort; pt bladder-scanned x 1 for PVR 19 ml (voided 150 ml). IV NSS @ 80 ml/hr infusing via Rt forearm site without sx of infiltration. Resting in
bed at present, no c/o. Will continue to monitor.
[2023-05-30 15:50] LABS: Urine Hyaline Cast 0-2 /LPF (0-2); Urine Squamous Cell 0-2 /LPF (Few)
[2023-05-30 15:52] LABS: Urine Bacteria Few (Negative); Urine Mucus Few; Urine Red Blood Cell 50-60 /HPF (0-2)
[2023-05-30 15:53] LABS: Urine Calcium Oxalate Crystals Present
--- NOTE | 2023-05-30 15:56 | CM ---
Addendum entered by Brittany Kaur 05/30/23 16:24:
[facility] only accepts their own residents
Addendum entered by Brittany Kaur 05/30/23 16:10:
Spoke with patient's daughter; reports she and her work and no one is at home to care for her father
She reports that he father will resist going to SNF; but requested that we send referral to the following facilities: #1 [facility], [facility], and [facility] in [place], [place]
Plan: discharge to SNF pending Auth approval from [facility]
Original Note:
PT recommends SNF
[2023-05-30 16:17] LABS: Urine Sodium 6 mmol/L (30-90)
[2023-05-30 16:35] LABS: Glucose - Point of Care 143 mg/dl (70-99)
[2023-05-30] MEDS: NEURONTIN 200 MG PO (21:10)
[2023-05-30 21:17] LABS: Glucose - Point of Care 127 mg/dl (70-99)
[2023-05-30] MEDS: APRESOLINE PO (21:24)
--- NOTE | 2023-05-31 00:26 | RESPNOTE ---
Pt refused HS CPAP.
[2023-05-31 03:08] VITALS: BP 110/62
[2023-05-31] MEDS: UNASYN IV (05:26)
[2023-05-31 05:44] VITALS: BMI 28.8
[2023-05-31 06:19] LABS: Blood Urea Nitrogen 104 mg/dl (9-20); Calcium 8.4 mg/dl (8.4-10.2); Carbon Dioxide 29 mmol/L (22-30); Chloride 97 mmol/L (98-107); Estimated Creatinine Clearance 18 ml/min; Glucose 113 mg/dl (70-99); Potassium 4.7 mmol/L (3.5-5.1); Sodium 136 mmol/L (135-145); eGFR 16.26
[2023-05-31 07:00] VITALS: BP 113/59
--- NOTE | 2023-05-31 07:49 | PTCARENOTE ---
Pt able to make his needs known, pt lab called with BUN of 104 & cr-3.6. BRYAN Jung made aware. No new orders at this time. Pt asymptomatic,resting comfortably.call branch in reach.
[2023-05-31 08:36] LABS: Glucose - Point of Care 108 mg/dl (70-99)
[2023-05-31] MEDS: NOVOLOG FLEXPEN-LOW RESISTANCE SC ×2 (08:40→11:41)
[2023-05-31] MEDS: CARAFATE 1 GRAM PO ×4 (09:04→21:08)
[2023-05-31] MEDS: PACERONE 200 MG PO (09:05)
[2023-05-31] MEDS: LIPITOR 20 MG PO (09:05)
[2023-05-31] MEDS: APRESOLINE 25 MG PO ×2 (09:05→20:45)
[2023-05-31] MEDS: ELIQUIS 2.5 MG PO ×2 (09:05→20:46)
[2023-05-31] MEDS: NSS (PRESERVATIVE FREE) 10 ML IV ×2 (09:06→20:46)
[2023-05-31] MEDS: VITAMIN C 1000 MG PO (09:06)
[2023-05-31] MEDS: PROTONIX IV 40 MG IV ×2 (09:06→20:46)
[2023-05-31 11:00] VITALS: BP 112/55
--- NOTE | 2023-05-31 11:34 | W.PN.HOSP.TC ---
Today's Communication/Plan
-
see plan above
Assessment / Plan
Assessment / Plan
Severe dysphagia with esophageal food debris and regurgitation and concern for aspiration.� Patient had a prior history of gastric sleeve and now over many weeks has been having dysphagia.� s/p EGD and clearance of his esophagus . No masses/tumor
found. Sharp angulation of GE junction ,grade c esophagitis probably from food stasis noted.
-Continue with PPI
-Advance diet per GI
-Consider barium swallow if not tolerating his diet. If tolerating diet the plan is PPI, Carafate and repeat endoscopy in 8 weeks. He is tolerating diet so far.
Possible aspiration-patient CT shows bilateral pleural effusion right more than left with bibasilar consolidation right more than left concerning for aspiration.� There is also faint opacity in the right upper zone.� He has been having cough with
regurgitation.� No afebrile and white count is okay and clinically concerned about aspiration.� Switch to oral Augmentin since taking p.o.'s.
Chronic HFpEF.� Weight is 4 pounds above his most recent discharge weight.� He has not been having anything to eat or drink for the last 3 days.� Clinically more concerned about volume depletion.� The bilateral pleural effusions could be chronic
from heart failure or related to aspiration.� DC further IV fluids.�
No JVD noted.
Acute hypoxic respiratory insufficiency - possibly from above -wean O2
Acute kidney injury on chronic kidney disease stage IV-suspect volume depletion with no oral intake for the last 3 days.� s/p IV fluids -with holding fluids as he was taking p.o.'s his creatinine is up again. His Fena on admission was 0.41. Will
give fluids back cautiously and follow creatinine. Consult nephrology.�Follow bladder scan no retention but decreased output noted.�
Paroxysmal to permanent atrial fibrillation-currently in A-fib with� rate control.� Resumed amiodarone and Eliquis
DM - hold Tradjenta and cw SSI
PIO - CPAP at HS
Full code
DW Nephro via TT
Anticipated Discharge: > 48 hours
Subjective/Interval History
-
Date of Service: May 31, 2023
Tolerating all meals without any dysphagia and not a agitation.
Denies any shortness of breath. Currently on oxygen via nasal cannula comfortable.
Denies much of cough. No chest pain.
Objective Data
-
Labs:
Laboratory Results
05/31/23
05:22
Sodium 136
Potassium 4.7
Chloride 97 L
Carbon Dioxide 29
BUN 104 H*
Creatinine 3.6 H
Glucose 113 H
Calcium 8.4
Vital Signs:
Vital Signs
Temp Pulse Resp BP Pulse Ox
97.8 F 60 18 113/59 98
05/31/23 07:00 05/31/23 07:00 05/31/23 07:00 05/31/23 07:00 05/31/23 07:00
I&O
05/30/23 05/31/23 06/01/23
06:59 06:59 06:59
Intake Total 1350 / 1350 1620 / 1620
Output Total 200 / 200 730 / 730
Balance 1150 / 1150 890 / 890
Review of Systems
-
Constitutional: Denies Fever or Chills
Abdomen/GI: Denies Abdominal Pain, Nausea or Vomiting
Neuro: Denies Dizzy
Physical Exam
-
HEENT: Moist Mucous Membranes
Respiratory: Non Labored Respirations and Decreased Breath Sounds (Both bases with some bronchial breathing in the left base); Negative Wheezes, Crackles or Accessory Resp Muscle Use
GI: Soft, Nontender, Nondistended and Normal Bowel Sounds
Neuro: AO x 3
Psych: Calm
Data Reviewed
-
Labs: Labs Reviewed by me
[2023-05-31 11:42] LABS: Glucose - Point of Care 140 mg/dl (70-99)
[2023-05-31] MEDS: NSS 1000 IV (12:57)
--- NOTE | 2023-05-31 14:35 | W.PN.NEPH.PH ---
Today's Communication / Plan
-
d/c IVF , lasix IV
Assessment/Plan
-
IMP:
Severe dysphagia with esophageal food debris and regurgitation and concern for aspiration.�
�history of gastric sleeve s/p EGD No masses/tumor found. Sharp angulation of GE junction ,grade c esophagitis
Chronic HFpEF.�
Acute kidney injury on chronic kidney disease stage 4-baseline cr 2-
Paroxysmal to permanent atrial fibrillation
DM
PIO� CPAP at HS
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
non obst bilat renal caliculi
HLD
Plan:
A/w severe dysphagia from esophageal issues and concern of aspiration
BULMARO -suspect prerenal with poor po intake, U sodium low
BNP higher but in setting of BULMARO
micorscopic hematuria on AC and stones, check serologies
CT non obs K stones, bladder scan only 7cc
cr and BUN cont to rise despite IVF and now he seem mild hypervolemic, CXR Noted
will d/c IVF and give low dose lasix, pt noted decreased UOP
BP stable
no emergent indication of PRECISION CROP MANAGER, but reviewed that if renal function cont to worsen likely need
will dsicuss more tomorrow base don labs
d/w daughter at bedside and answered all questions
high risk encounter
-
-
Date of Service: May 31, 2023
CC / HPI / ROS
-
Chief Complaint:
BULMARO with CKD
History of Present Illness:
cr increasing still 3.6, BUN up at 104
no h/h
BP stable, non oliguric with out hayward
wt is down but per family is more puffy
on 3lit of O2
Review of Systems:
no cp or sob at rest
no n/v
Labs
-
Labs:
WBC 6.0 10^3/uL (4.8-10.8) 05/29/23 05:43
RBC 3.08 10^6/uL (4.70-6.10) L 05/29/23 05:43
Hgb 10.2 g/dL (13.0-18.0) L 05/29/23 05:43
Hct 30.3 % (39.0-52.0) L 05/29/23 05:43
Plt Count 162 10^3/uL (130-400) 05/29/23 05:43
Sodium 136 mmol/L (135-145) 05/31/23 05:22
Potassium 4.7 mmol/L (3.5-5.1) 05/31/23 05:22
Chloride 97 mmol/L (98-107) L 05/31/23 05:22
Carbon Dioxide 29 mmol/L (22-30) 05/31/23 05:22
BUN 104 mg/dl (9-20) H* 05/31/23 05:22
Creatinine 3.6 mg/dL (0.7-1.3) H 05/31/23 05:22
eGFR 16.26 05/31/23 05:22
Glucose 113 mg/dl (70-99) H 05/31/23 05:22
Calcium 8.4 mg/dl (8.4-10.2) 05/31/23 05:22
Oma-L-Didwbvxrkjb Pept 4140 pg/ml 05/28/23 11:57
Albumin 3.2 g/dl (3.5-5.0) L 05/29/23 08:29
Physical Exam
-
Vital Signs:
Vital Signs
Temp Pulse Resp BP Pulse Ox
98.3 F 64 18 112/55 97
05/31/23 11:00 05/31/23 11:00 05/31/23 11:00 05/31/23 11:00 05/31/23 11:00
Cardiovascular:: Regular rate and rhythm
Respiratory:: Bilateral: Rales
Lung Excursion:: Normal
Abdomen:: Nontender and Soft
Extremity Edema:: +1: Bilateral:
Hayward Catheter: No
[2023-05-31] MEDS: LASIX 40 MG IV (15:26)
[2023-05-31 17:35] LABS: Glucose - Point of Care 167 mg/dl (70-99)
[2023-05-31] MEDS: NOVOLOG FLEXPEN-LOW RESISTANCE 1 UNITS SC (17:35)
[2023-05-31 18:28] LABS: Protein/creatinine Ratio 1.1; Urine Protein 141 mg/dl
[2023-05-31 19:24] VITALS: BP 116/57
[2023-05-31] MEDS: AUGMENTIN 500 MG/125 MG 1 TABLET PO (20:46)
[2023-05-31 21:07] LABS: Glucose - Point of Care 132 mg/dl (70-99)
[2023-05-31] MEDS: NEURONTIN 200 MG PO (21:08)
[2023-05-31 23:44] VITALS: BP 113/54
[2023-06-01] VITALS (7 sets, daily range): BP systolic 103–126; BP diastolic 50–62; PULSE 71–73; BMI 30.7
[2023-06-01 05:44] LABS: Hematocrit 30.2 % (39.0-52.0); Mean Corp Hgb Conc. 33.1 g/dL (33.0-37.0); Mean Corpuscular Hgb 33.2 pg (27.0-31.0); Mean Corpuscular Volume 100.3 fL (80.0-94.0); Mean Platelet Volume 10.7 fL (7.4-10.4); Platelet Count 150 10^3/uL (130-400); Red Blood Cell Count 3.01 10^6/uL (4.70-6.10); Red Cell Dist. Width 15.6 % (11.5-14.5); White Blood Cell Count 6.2 10^3/uL (4.8-10.8)
[2023-06-01 06:07] LABS: Blood Urea Nitrogen 103 mg/dl (9-20); Calcium 8.3 mg/dl (8.4-10.2); Carbon Dioxide 29 mmol/L (22-30); Chloride 100 mmol/L (98-107); Estimated Creatinine Clearance 19 ml/min; Glucose 109 mg/dl (70-99); Potassium 5.2 mmol/L (3.5-5.1); Sodium 133 mmol/L (135-145); eGFR 15.24
[2023-06-01 07:14] LABS: Glucose - Point of Care 134 mg/dl (70-99)
[2023-06-01] MEDS: NOVOLOG FLEXPEN-LOW RESISTANCE SC ×3 (07:29→18:05)
[2023-06-01] MEDS: VITAMIN C 1000 MG PO (07:55)
[2023-06-01] MEDS: LIPITOR 20 MG PO (07:55)
[2023-06-01] MEDS: APRESOLINE 25 MG PO ×2 (07:55→21:09)
[2023-06-01] MEDS: PACERONE 200 MG PO (07:55)
[2023-06-01] MEDS: ELIQUIS 2.5 MG PO ×2 (07:55→21:09)
[2023-06-01] MEDS: CARAFATE 1 GRAM PO ×3 (07:55→21:10)
[2023-06-01] MEDS: AUGMENTIN 500 MG/125 MG 1 TABLET PO ×2 (07:55→21:08)
[2023-06-01] MEDS: PROTONIX IV 40 MG IV ×2 (07:56→21:10)
[2023-06-01] MEDS: NSS (PRESERVATIVE FREE) 10 ML IV ×2 (07:56→21:09)
[2023-06-01 11:25] LABS: Glucose - Point of Care 136 mg/dl (70-99)
--- NOTE | 2023-06-01 12:26 | W.PN.NEPH.PH ---
Today's Communication / Plan
-
see plan
Assessment/Plan
-
IMP:
Severe dysphagia with esophageal food debris and regurgitation and concern for aspiration.�
�history of gastric sleeve s/p EGD No masses/tumor found. Sharp angulation of GE junction ,grade c esophagitis
Chronic HFpEF.�
Acute kidney injury on chronic kidney disease stage 4-baseline cr 2-
Paroxysmal to permanent atrial fibrillation
DM
PIO� CPAP at HS
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
non obst bilat renal caliculi
HLD
hyponatremia
Plan:
A/w severe dysphagia from esophageal issues
BULMARO -suspect prerenal with poor po intake, U sodium low
micorscopic hematuria on AC and stones, check serologies, consider repeat US
tubular proteinuria-check paraprotein w/u
CT non obs K stones, bladder scan only 7cc
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
cr and BUN cont to rise despite IVF stopped on 05/31 with mild CHF
no response to IV lasix , since he is stable will use as prn
UOP decreasing, monitor closely
reviewed wiht pt in detail if renal function cont to worse likely need of HD in next few days
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
BP stable
adjust diet for hyponatremia and hyperkalemia
high risk encounter
d/w nursing
-
-
Date of Service: June 01, 2023
CC / HPI / ROS
-
Chief Complaint:
BULMARO with CKD
History of Present Illness:
cr increasing still 3.8, BUN high still at 103
hb at 10 stable
BP stable, UOP decreasing-dark per staff
wt is up
on 2lit of O2 -no change
Review of Systems:
no cp or sob at rest
no n/v
Labs
-
Labs:
WBC 6.2 10^3/uL (4.8-10.8) 06/01/23 05:22
RBC 3.01 10^6/uL (4.70-6.10) L 06/01/23 05:22
Hgb 10.0 g/dL (13.0-18.0) L 06/01/23 05:22
Hct 30.2 % (39.0-52.0) L 06/01/23 05:22
Plt Count 150 10^3/uL (130-400) 06/01/23 05:22
Sodium 133 mmol/L (135-145) L 06/01/23 05:22
Potassium 5.2 mmol/L (3.5-5.1) H 06/01/23 05:22
Chloride 100 mmol/L (98-107) 06/01/23 05:22
Carbon Dioxide 29 mmol/L (22-30) 06/01/23 05:22
BUN 103 mg/dl (9-20) H* 06/01/23 05:22
Creatinine 3.8 mg/dL (0.7-1.3) H 06/01/23 05:22
eGFR 15.24 06/01/23 05:22
Glucose 109 mg/dl (70-99) H 06/01/23 05:22
Calcium 8.3 mg/dl (8.4-10.2) L 06/01/23 05:22
Gph-S-Wntjsxxklcu Pept 4140 pg/ml 05/28/23 11:57
Albumin 3.2 g/dl (3.5-5.0) L 05/29/23 08:29
Physical Exam
-
Vital Signs:
Vital Signs
Temp Pulse Resp BP Pulse Ox
97.5 F 73 20 109/50 95
06/01/23 11:13 06/01/23 11:13 06/01/23 11:13 06/01/23 11:13 06/01/23 11:13
Cardiovascular:: Regular rate and rhythm
Respiratory:: Bilateral: CTA
Lung Excursion:: Normal
Abdomen:: Nontender and Soft
Extremity Edema:: +3: Bilateral:
Calvin Catheter: No
--- NOTE | 2023-06-01 13:21 | W.PN.HOSP.TC ---
Today's Communication/Plan
-
IV Lasix
Follow weight and fluid status
Follow BMP
Assessment / Plan
Assessment / Plan
Severe dysphagia with esophageal food debris and regurgitation and concern for aspiration.� Patient had a prior history of gastric sleeve and now over many weeks has been having dysphagia.� s/p EGD and clearance of his esophagus . No masses/tumor
found. Sharp angulation of GE junction ,grade c esophagitis probably from food stasis noted.
-Continue with PPI
- Tolerating diet
-Consider barium swallow if not tolerating his diet. If tolerating diet the plan is PPI, Carafate and repeat endoscopy in 8 weeks. He is tolerating diet so far.
Possible aspiration-patient CT shows bilateral pleural effusion right more than left with bibasilar consolidation right more than left concerning for aspiration.� There is also faint opacity in the right upper zone.� He has been having cough with
regurgitation.� No afebrile and white count is okay and clinically concerned about aspiration.� Switch to oral Augmentin since taking p.o.'s.
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
effusions could be chronic from heart failure or related to aspiration.�
Now weight going up .
Rpt CXR 05/31 shows
Small-moderate bilateral pleural effusions with associated compressive atelectasis at both lung bases
Cardiomegaly with cephalization of the pulmonary vasculature suggesting borderline pulmonary edema�
With continued worsening of renal function and now with a rising weight is clinically concerned about fluid overload.
Will rechallenge with IV Lasix today
Acute hypoxic respiratory insufficiency - possibly from above -wean O2
Acute kidney injury on chronic kidney disease stage IV-suspect volume depletion with no oral intake for the last 3 days.� s/p IV fluids without improvement in creatinine, in fact got worse. Hold further IV fluids. Lasix as above.� CT abdomen
pelvis imaging on admission showed no obstructive uropathy. Serologies are being requested by nephrology. Follow fluid status and electrolytes closely. If needed patient is okay for dialysis.
Paroxysmal to permanent atrial fibrillation-currently in A-fib with� rate control.� Resumed amiodarone and Eliquis
DM - hold Tradjenta and cw SSI
PIO - CPAP at HS
Full code
Anticipated Discharge: > 48 hours
Subjective/Interval History
-
Date of Service: June 01, 2023
Tolerating diet without any issues.
Daughter at bedside feels that he is looking better and sounding better.
Objective Data
-
Labs:
Laboratory Results
06/01/23
05:22
WBC 6.2
Hgb 10.0 L
Hct 30.2 L
Plt Count 150
Sodium 133 L
Potassium 5.2 H
Chloride 100
Carbon Dioxide 29
BUN 103 H*
Creatinine 3.8 H
Glucose 109 H
Calcium 8.3 L
Vital Signs:
Vital Signs
Temp Pulse Resp BP Pulse Ox
97.5 F 73 20 109/50 95
06/01/23 11:13 06/01/23 11:13 06/01/23 11:13 06/01/23 11:13 06/01/23 11:13
I&O
05/31/23 06/01/23 06/02/23
06:59 06:59 06:59
Intake Total 1620 / 1620 720 / 720
Output Total 730 / 730 500 / 500
Balance 890 / 890 220 / 220
Review of Systems
-
Constitutional: Denies Fever
EENT: Denies Sore Throat
Respiratory: Denies Cough or Trouble Breathing (at rest)
Cardiac: Denies Chest Pain
Abdomen/GI: Denies Abdominal Pain, Nausea or Vomiting
Neuro: Denies Dizzy
Physical Exam
-
General: No Apparent Distress
HEENT: Moist Mucous Membranes
Respiratory: Non Labored Respirations and Decreased Breath Sounds (at bases); Negative Accessory Resp Muscle Use
Cardiac: Regular Rhythm and S1/S2
GI: Soft
Neuro: AO x 3
Psych: Calm
Data Reviewed
-
Labs: Labs Reviewed by me
[2023-06-01] MEDS: LASIX 60 MG IV (14:14)
[2023-06-01 18:04] LABS: Glucose - Point of Care 323 mg/dl (70-99)
[2023-06-01 18:04] LABS: Glucose - Point of Care 136 mg/dl (70-99)
[2023-06-01] MEDS: CARAFATE PO (18:05)
[2023-06-01] MEDS: NEURONTIN 200 MG PO (21:10)
[2023-06-01 21:22] LABS: Glucose - Point of Care 193 mg/dl (70-99)
[2023-06-01 21:52] LABS: Body Fluid for Eosinophils No Eosinophils seen
[2023-06-02] VITALS (7 sets, daily range): BP systolic 89–127; BP diastolic 45–69; PULSE 66; O2SAT 96; BMI 31.0
[2023-06-02 01:04] LABS: Complement C3 72 mg/dl (88-165)
[2023-06-02 06:01] LABS: Hematocrit 29.6 % (39.0-52.0); Hemoglobin 9.9 g/dL (13.0-18.0); Mean Corp Hgb Conc. 33.4 g/dL (33.0-37.0); Mean Corpuscular Hgb 33.4 pg (27.0-31.0); Mean Platelet Volume 11.1 fL (7.4-10.4); Platelet Count 151 10^3/uL (130-400); Red Blood Cell Count 2.96 10^6/uL (4.70-6.10); Red Cell Dist. Width 15.3 % (11.5-14.5); White Blood Cell Count 5.2 10^3/uL (4.8-10.8)
[2023-06-02 07:06] LABS: Glucose - Point of Care 126 mg/dl (70-99)
[2023-06-02] MEDS: NOVOLOG FLEXPEN-LOW RESISTANCE SC ×2 (08:06→11:19)
[2023-06-02] MEDS: AUGMENTIN 500 MG/125 MG 1 TABLET PO ×2 (08:24→21:39)
[2023-06-02] MEDS: CARAFATE 1 GRAM PO ×4 (08:24→21:40)
[2023-06-02] MEDS: LIPITOR 20 MG PO (08:24)
[2023-06-02] MEDS: VITAMIN C 1000 MG PO (08:25)
[2023-06-02] MEDS: ELIQUIS 2.5 MG PO (08:25)
[2023-06-02] MEDS: NSS (PRESERVATIVE FREE) 10 ML IV ×2 (08:26→21:40)
[2023-06-02] MEDS: PROTONIX IV 40 MG IV ×2 (08:26→21:40)
[2023-06-02] MEDS: PACERONE 200 MG PO (08:27)
[2023-06-02] MEDS: APRESOLINE 25 MG PO ×2 (08:27→21:39)
[2023-06-02 09:30] LABS: Blood Urea Nitrogen 109 mg/dl (9-20); Calcium 8.4 mg/dl (8.4-10.2); Carbon Dioxide 30 mmol/L (22-30); Chloride 98 mmol/L (98-107); Estimated Creatinine Clearance 18 ml/min; Glucose 108 mg/dl (70-99); Potassium 4.9 mmol/L (3.5-5.1); Sodium 132 mmol/L (135-145); eGFR 14.77
--- NOTE | 2023-06-02 09:51 | W.PN.HOSP.TC ---
Addendum entered and electronically signed by Ever Merida MD 06/02/23 18:26:
Patient seen and examined
Discussed with resident
Discussed with gastroenterology
Impression:
Esophageal food impaction.
Status post EGD with grade C esophagitis. Biopsy report positive for Liberty.
Diet has been advanced and patient remains asymptomatic
Pending gastroenterology input on possible treatment for esophageal candidiasis.
Concern for aspiration pneumonia versus pneumonitis.
Pneumonia ruled out.
Stable respiratory status.
Monitor closely
CKD stage IV with rising creatinine.
Pending serology.
May require renal biopsy.
Monitor volume status closely. Weight is up, although stable respiratory status with no evidence of distress. Minimally supplemented with oxygen at the 1-2 L.
Currently off Lasix
Original Note:
Today's Communication/Plan
-
- Monitor Weight, I & O
- Monitor renal function
- Suture removal done
- Continue current medications.
Assessment / Plan
Assessment / Plan
Impression:
82 yo M presents to the ER with Severe Dysphagia found to have esophageal food debris and regurgitation, concern for aspiration pneumonia.�Remote H/o gastric sleeve.
Esophageal Food Debris
Aspiration Pneumonia
Acute on chronic CHF
BULMARO on CKD stage 4
Plan:
Esophageal Food Debris -
s/p EGD and clearance esophagus . No masses/tumor found. Sharp angulation of GE junction ,grade c esophagitis probably from food stasis noted. Biopsy positive for candidal esophagitis.
Continue with PPI
Tolerating diet so far. If tolerating diet the plan is PPI, Carafate and repeat endoscopy in 8 weeks.
If not tolerating diet, consider getting a Barium swallow.
Sutures from the left leg above the left medial malleolus removed, and wound dressed with a 2x2 gauge.
Aspiration Pneumonia-
CT Chest -b/l pleural effusion right more than left with bibasilar consolidation right more than left concerning for aspiration.� There is also faint opacity in the right upper zone.�
H/o cough with regurgitation in the setting of b/l pleural effusion favors clinical suspicion of aspiration pneumonia.
Afebrile, WBC count normal.�
On oral augmentin.
Acute on chronic HFpEF.�
Weight at admission - 94 kgs,
Weight today 06/02 - 103.5 kgs.
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
The bilateral pleural effusions could be chronic from heart failure or related to aspiration.�
Rpt CXR 05/31 shows
Small-moderate bilateral pleural effusions with associated compressive atelectasis at both lung bases
Cardiomegaly with cephalization of the pulmonary vasculature suggesting borderline pulmonary edema�
With continued worsening of renal function and now with a rising weight is clinically concerned about fluid overload.
rechallenged with IV Lasix, and Sr Cr elevated.
Disontinued IV lasix
Monitor patient closely.
Acute hypoxic respiratory insufficiency-
Likely secondary to Aspiration pneumonia and acute on chronic CHF.
BULMARO on CKD stage 4 -
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
S/p - IV fluids no response, creatinine worsening. Hold further IV fluids. Lasix as above.�
CT abdomen pelvis imaging on admission showed no obstructive uropathy.
Sr. Cr - 3.8(06/01) - 3.9(06/02)
Nephrology on Board. Serologies awaiting, Plan is to perform a biopsy and perform dialysis if needed.
Follow fluid status and electrolytes closely.
Paroxysmal to Permanent A fib -
currently in A-fib with�rate control.
On amiodarone and Eliquis
Eliquis renal dosing
DM
hold Tradjenta
Insulin Basal bolus regimen
PIO
CPAP at HS
DVT prophylaxis
Eliquis -renal dosing.
Code status
Full code
Anticipated Discharge: > 48 hours
Subjective/Interval History
-
Date of Service: June 02, 2023
patient reports not having symptoms. Underwent dermatological procedure x 2weeks ago, asks if sutures can be removed.
Denies CP, SOB, palpitations, Dizziness.
Reports to have passed a little urine.
Objective Data
-
Labs:
Laboratory Results
06/02/23 06/02/23
05:20 06:00
WBC 5.2
Hgb 9.9 L
Hct 29.6 L
Plt Count 151
Sodium 132 L
Potassium 4.9
Chloride 98
Carbon Dioxide 30
BUN 109 H*
Creatinine 3.9 H
Glucose 108 H
Calcium 8.4
Vital Signs:
Vital Signs
Temp Pulse Resp BP Pulse Ox
98.1 F 68 18 120/57 95
06/02/23 06:45 06/02/23 08:27 06/02/23 06:45 06/02/23 08:27 06/02/23 06:45
I&O
06/01/23 06/02/23 06/03/23
06:59 06:59 06:59
Intake Total 720 / 720 840 / 840
Output Total 500 / 500 580 / 580
Balance 220 / 220 260 / 260
Review of Systems
-
History Source: Patient
Constitutional: Reports No Symptoms
Skin: Reports Other (sutures on left leg above the medial malleolus -3 )
Neuro: Reports No Symptoms
Hematologic / Lymphatic: Reports No Symptoms
Physical Exam
-
General: Comfortable (on 2l nasal cannula flow)
HEENT: Normocephalic and Atraumatic
Respiratory: Other (b/l lower lobe crackles)
Cardiac: Regular Rhythm, S1/S2 and Other (no murmur, rubs and gallops)
GI: Soft, Nontender, Nondistended and Normal Bowel Sounds
Musculoskeletal: Edema, Right Lower Extrem (2+ pitting) and Edema, Left Lower Extrem (2+ pitting)
Neuro: AO x 3 and Nonfocal/Grossly Intact
Psych: Calm
--- NOTE | 2023-06-02 10:41 | W.PN.NEPH.PH ---
Today's Communication / Plan
-
bx
Assessment/Plan
-
IMP:
Severe dysphagia with esophageal food debris and regurgitation and concern for aspiration.�
�history of gastric sleeve s/p EGD No masses/tumor found. Sharp angulation of GE junction ,grade c esophagitis
Chronic HFpEF.�
Acute kidney injury on chronic kidney disease stage 4-baseline cr 2-
Paroxysmal to permanent atrial fibrillation
DM
PIO� CPAP at HS
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
non obst bilat renal caliculi
HLD
hyponatremia
Plan:
-await serologies
-pt amenable to bx
-hold eliquis
-follow BMP
-
-
Date of Service: June 02, 2023
CC / HPI / ROS
-
Chief Complaint:
BULMARO with CKD
History of Present Illness:
cr increasing still 3.9
hb stable
BP stable
wt is up
on supplemental O2 -no change
Review of Systems:
no cp or sob at rest
no n/v
says no issues swallowing
Labs
-
Labs:
WBC 5.2 10^3/uL (4.8-10.8) 06/02/23 05:20
RBC 2.96 10^6/uL (4.70-6.10) L 06/02/23 05:20
Hgb 9.9 g/dL (13.0-18.0) L 06/02/23 05:20
Hct 29.6 % (39.0-52.0) L 06/02/23 05:20
Plt Count 151 10^3/uL (130-400) 06/02/23 05:20
Sodium 132 mmol/L (135-145) L 06/02/23 06:00
Potassium 4.9 mmol/L (3.5-5.1) 06/02/23 06:00
Chloride 98 mmol/L (98-107) 06/02/23 06:00
Carbon Dioxide 30 mmol/L (22-30) 06/02/23 06:00
BUN 109 mg/dl (9-20) H* 06/02/23 06:00
Creatinine 3.9 mg/dL (0.7-1.3) H 06/02/23 06:00
eGFR 14.77 06/02/23 06:00
Glucose 108 mg/dl (70-99) H 06/02/23 06:00
Calcium 8.4 mg/dl (8.4-10.2) 06/02/23 06:00
Foh-M-Uwsfcaneegb Pept 4140 pg/ml 05/28/23 11:57
Albumin 3.2 g/dl (3.5-5.0) L 05/29/23 08:29
Physical Exam
-
Vital Signs:
Vital Signs
Temp Pulse Resp BP Pulse Ox
98.1 F 68 18 120/57 95
06/02/23 06:45 06/02/23 08:27 06/02/23 06:45 06/02/23 08:27 06/02/23 06:45
Cardiovascular:: Regular rate and rhythm
Respiratory:: Bilateral: Coarse
Lung Excursion:: Normal
Abdomen:: Nontender and Soft
Bowel Sounds:: Normal
Extremity Edema:: +1: Bilateral:
[2023-06-02 11:15] LABS: Glucose - Point of Care 148 mg/dl (70-99)
[2023-06-02 16:27] LABS: Glucose - Point of Care 159 mg/dl (70-99)
[2023-06-02] MEDS: NOVOLOG FLEXPEN-LOW RESISTANCE 1 UNITS SC (16:29)
--- NOTE | 2023-06-02 16:37 | CM ---
Chart reviewed. Spoke with pt at bedside
Pt for snf - Jignesh Villegas requesting additional info - will pt bring own CPAP
Per pt he will not be able to bring personal CPAP - needs to be fitted
Additional inf sent to facility
Awaiting responses from other facilities.
CM will continue to follow for d/c needs
[2023-06-02] MEDS: NEURONTIN 200 MG PO (21:38)
[2023-06-02 22:36] LABS: Glucose - Point of Care 121 mg/dl (70-99)
[2023-06-03] VITALS (7 sets, daily range): BP systolic 108–136; BP diastolic 56–71; PULSE 70; O2SAT 95; BMI 31.2
[2023-06-03 07:16] LABS: Hematocrit 28.4 % (39.0-52.0); Hemoglobin 9.8 g/dL (13.0-18.0); Mean Corp Hgb Conc. 34.5 g/dL (33.0-37.0); Mean Corpuscular Hgb 33.3 pg (27.0-31.0); Mean Corpuscular Volume 96.6 fL (80.0-94.0); Mean Platelet Volume 11.2 fL (7.4-10.4); Platelet Count 142 10^3/uL (130-400); Red Blood Cell Count 2.94 10^6/uL (4.70-6.10); Red Cell Dist. Width 15.2 % (11.5-14.5)
[2023-06-03 07:26] LABS: Blood Urea Nitrogen 117 mg/dl (9-20); Calcium 8.7 mg/dl (8.4-10.2); Carbon Dioxide 28 mmol/L (22-30); Chloride 96 mmol/L (98-107); Estimated Creatinine Clearance 19 ml/min; Glucose 105 mg/dl (70-99); Potassium 4.7 mmol/L (3.5-5.1); Sodium 133 mmol/L (135-145); eGFR 15.24
[2023-06-03 07:56] LABS: Glucose - Point of Care 112 mg/dl (70-99)
[2023-06-03] MEDS: NOVOLOG FLEXPEN-LOW RESISTANCE SC ×2 (08:06→11:39)
[2023-06-03] MEDS: NSS (PRESERVATIVE FREE) 10 ML IV ×2 (08:14→19:45)
[2023-06-03] MEDS: PROTONIX IV 40 MG IV ×2 (08:14→19:45)
[2023-06-03] MEDS: PACERONE 200 MG PO (08:16)
[2023-06-03] MEDS: CARAFATE 1 GRAM PO ×4 (08:17→21:57)
[2023-06-03] MEDS: AUGMENTIN 500 MG/125 MG 1 TABLET PO (08:17)
[2023-06-03] MEDS: APRESOLINE 25 MG PO ×2 (08:17→19:44)
[2023-06-03] MEDS: LIPITOR 20 MG PO (08:17)
[2023-06-03] MEDS: VITAMIN C 1000 MG PO (08:17)
[2023-06-03 08:58] LABS: ANA, IgG Reflex to HEp-2 None Detected (None Detected)
[2023-06-03 11:38] LABS: Glucose - Point of Care 130 mg/dl (70-99)
[2023-06-03] MEDS: DIFLUCAN 200 MG PO (11:39)
--- NOTE | 2023-06-03 12:07 | W.PN.NEPH.PH ---
Today's Communication / Plan
-
lasix
Assessment/Plan
-
IMP:
Severe dysphagia with esophageal food debris and regurgitation and concern for aspiration.�
�history of gastric sleeve s/p EGD No masses/tumor found. Sharp angulation of GE junction ,grade c esophagitis
Chronic HFpEF.�
Acute kidney injury on chronic kidney disease stage 4-baseline cr 2-
Paroxysmal to permanent atrial fibrillation
DM
PIO� CPAP at HS
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
non obst bilat renal caliculi
HLD
hyponatremia
Plan:
-await serologies
-pt amenable to bx, IRAD consulted
-hold eliquis (last dose )
-lasix 80mg IV today
-follow BMP
-
-
Date of Service: June 03, 2023
CC / HPI / ROS
-
Chief Complaint:
BULMARO with CKD
History of Present Illness:
cr stable at 3.8
hb stable
BP stable
wt is up, edema up
on supplemental O2 -no change
Review of Systems:
no cp or sob at rest
no n/v
says no issues swallowing
Labs
-
Labs:
WBC 5.0 10^3/uL (4.8-10.8) 06/03/23 06:25
RBC 2.94 10^6/uL (4.70-6.10) L 06/03/23 06:25
Hgb 9.8 g/dL (13.0-18.0) L 06/03/23 06:25
Hct 28.4 % (39.0-52.0) L 06/03/23 06:25
Plt Count 142 10^3/uL (130-400) 06/03/23 06:25
Sodium 133 mmol/L (135-145) L 06/03/23 06:25
Potassium 4.7 mmol/L (3.5-5.1) 06/03/23 06:25
Chloride 96 mmol/L (98-107) L 06/03/23 06:25
Carbon Dioxide 28 mmol/L (22-30) 06/03/23 06:25
BUN 117 mg/dl (9-20) H* 06/03/23 06:25
Creatinine 3.8 mg/dL (0.7-1.3) H 06/03/23 06:25
eGFR 15.24 06/03/23 06:25
Glucose 105 mg/dl (70-99) H 06/03/23 06:25
Calcium 8.7 mg/dl (8.4-10.2) 06/03/23 06:25
Tqe-H-Pnmwwpibzds Pept 4140 pg/ml 05/28/23 11:57
Albumin 3.2 g/dl (3.5-5.0) L 05/29/23 08:29
Physical Exam
-
Vital Signs:
Vital Signs
Temp Pulse Resp BP Pulse Ox
97.4 F 72 18 124/64 90
06/03/23 11:17 06/03/23 11:17 06/03/23 11:17 06/03/23 11:17 06/03/23 11:17
Cardiovascular:: Regular rate and rhythm
Respiratory:: Bilateral: Coarse
Lung Excursion:: Normal
Abdomen:: Nontender and Soft
Bowel Sounds:: Normal
Extremity Edema:: +3: Bilateral:
Other Findings::
scrotal edema
[2023-06-03] MEDS: LASIX 80 MG IV (12:57)
--- NOTE | 2023-06-03 15:31 | W.PN.HOSP.TC ---
Addendum entered and electronically signed by Ever Merida MD 06/03/23 16:33:
Patient seen and examined
Discussed with resident
Discussed with nephrology
Impression/plan:
Presented with dysphagia/odynophagia and food impaction.
EGD with grade C esophagitis due to above.
Biopsy from EGD positive for Liberty.
Discussed with GI.
Will initiate course of Diflucan 200 mg daily for 14 days.
Baseline EKG with QTc 540 ms.
On amiodarone.
Monitor closely with serial EKGs
BULMARO.
Volume overload.
Creatinine plateaued at 3.8.
Serology pending.
Contemplating a renal biopsy.
I agree with Lasix as per nephrology.
Original Note:
Today's Communication/Plan
-
- continue holding Eliquis
- Restart IV lasix
- Monitor Sr Cr and RFT
- Monitor I & O, and weight closely.
Assessment / Plan
Assessment / Plan
Impression:
82 yo M presents to the ER with Severe Dysphagia found to have esophageal food debris and regurgitation, concern for aspiration pneumonia.�Remote H/o gastric sleeve.
Esophageal Food Debris
Aspiration Pneumonia
Acute on chronic CHF
BULMARO on CKD stage 4, with Anasarca
Plan:
Esophageal Food Debris -
s/p EGD and clearance esophagus . No masses/tumor found. Sharp angulation of GE junction ,grade c esophagitis probably from food stasis noted. Biopsy positive for candidal esophagitis.
Continue with PPI
Tolerating diet so far. If tolerating diet the plan is PPI, Carafate and repeat endoscopy in 8 weeks.
If not tolerating diet, consider getting a Barium swallow.
Sutures from the left leg above the left medial malleolus removed, and wound dressed with a 2x2 gauge on 06/02, wound dressing intact.
Aspiration Pneumonia-
CT Chest -b/l pleural effusion right more than left with bibasilar consolidation right more than left concerning for aspiration.� There is also faint opacity in the right upper zone.�
H/o cough with regurgitation in the setting of b/l pleural effusion favors clinical suspicion of aspiration pneumonia.
Afebrile, WBC count normal.�
On oral augmentin.
Acute on chronic HFpEF.�
Weight at admission - 94 kgs,
Weight today 06/03 - 104.5kgs
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
The bilateral pleural effusions could be chronic from heart failure or related to aspiration.�
Rpt CXR 05/31 shows
Small-moderate bilateral pleural effusions with associated compressive atelectasis at both lung bases
Cardiomegaly with cephalization of the pulmonary vasculature suggesting borderline pulmonary edema�
With continued worsening of renal function and now with a rising weight is clinically concerned about fluid overload.
rechallenged with IV Lasix, and Sr Cr elevated.
Disontinued IV lasix on 05/31.
Patient developed ansarca - restarted IV lasix on him.
Acute hypoxic respiratory insufficiency-
Likely secondary to Aspiration pneumonia Vs acute on chronic CHF Vs BULMARO on CKD stage 4
Anasarca from volume overload.
BULMARO on CKD stage 4 -
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
S/p - IV fluids no response, creatinine worsening. Hold further IV fluids. Lasix as above.�
CT abdomen pelvis imaging on admission showed no obstructive uropathy.
Sr. Cr - 3.8(06/01) - 3.9(06/02)- 3.8(06/03) - plateaued
Nephrology on Board. Serologies awaiting, Plan is to perform a biopsy and perform dialysis if needed.
Follow fluid status and electrolytes closely.
Hold eliquis for renal biopsy.
Paroxysmal to Permanent A fib -
currently in A-fib with�rate control.
On amiodarone and Eliquis
Eliquis renal dosing - Hold for now
DM
hold Tradjenta
Insulin Basal bolus regimen
PIO
CPAP at HS
DVT prophylaxis
Eliquis -renal dosing.
Code status
Full code
Anticipated Discharge: > 48 hours
Subjective/Interval History
-
Date of Service: June 03, 2023
Patient complains of scrotal swelling
reports to have SOB today upon exertion, failed oxygen weaning yesterday
Objective Data
-
Labs:
Laboratory Results
06/03/23
06:25
WBC 5.0
Hgb 9.8 L
Hct 28.4 L
Plt Count 142
Sodium 133 L
Potassium 4.7
Chloride 96 L
Carbon Dioxide 28
BUN 117 H*
Creatinine 3.8 H
Glucose 105 H
Calcium 8.7
Vital Signs:
Vital Signs
Temp Pulse Resp BP Pulse Ox
97.6 F 66 18 128/68 96
06/03/23 15:30 06/03/23 15:30 06/03/23 15:30 06/03/23 15:30 06/03/23 15:30
I&O
06/02/23 06/03/23 06/04/23
06:59 06:59 06:59
Intake Total 840 / 840 575 / 575
Output Total 580 / 580
Balance 260 / 260 575 / 575
Review of Systems
-
History Source: Patient
Constitutional: Reports Fatigue and Weakness
Respiratory: Reports Trouble Breathing
Cardiac: Reports Orthopnea
Abdomen/GI: Reports No Symptoms
Genitourinary: Reports Dark Urine (< 100ml)
Musculoskeletal: Reports No Symptoms
Skin: Reports No Symptoms
Neuro: Reports No Symptoms
Endocrine: Reports No Symptoms
Physical Exam
-
General: Comfortable (on 1l nasal cannula flow,)
HEENT: Normocephalic, Atraumatic and Moist Mucous Membranes
Respiratory: Other (b/l crackles in all lobes)
Cardiac: Regular Rhythm, S1/S2 and Other (Gallop/s4 present, no murmurs, rubs)
GI: Soft, Nontender, Normal Bowel Sounds and Distended
Genito-urinary: Other
Musculoskeletal: Other (Anasarca, pitting)
Skin: Warm
Neuro: AO x 3 and Nonfocal/Grossly Intact
Psych: Calm
--- NOTE | 2023-06-03 15:45 | CM ---
Chart reviewed
Nephrology following. Creat increasing
CM will continue to follow
For snf when medically ready
Accepted to [facility] pending bed when medially stable
Will need auth
[2023-06-03 16:45] LABS: Glucose - Point of Care 151 mg/dl (70-99)
[2023-06-03] MEDS: NOVOLOG FLEXPEN-LOW RESISTANCE 1 UNITS SC (16:54)
[2023-06-03 21:08] LABS: Glucose - Point of Care 167 mg/dl (70-99)
[2023-06-03] MEDS: NEURONTIN 200 MG PO (21:57)
[2023-06-04 01:52] LABS: Myeloperoxidase Antibody 0 AU/mL (0-19); Serine Protease-3, IgG 0 AU/mL (0-19)
[2023-06-04 03:57] VITALS: BP 121/61
[2023-06-04 07:00] VITALS: BP 139/72
[2023-06-04 07:50] LABS: Glucose - Point of Care 117 mg/dl (70-99)
[2023-06-04 08:02] LABS: % Basophils 0.4 % (0-2); % Eosinophils 2.1 % (0-6); % Immature Granulocytes 0.2 % (0-0.5); % Lymphocytes 15.9 % (20.5-51.1); % Monocytes 11.2 % (1.7-9.3); % Neutrophils 70.2 % (42.2-75.2); Absolute Eosinophils 0.1 10^3/uL (0-0.7); Absolute Lymphocytes 0.9 10^3/uL (1.2-3.4); Absolute Monocytes 0.6 10^3/uL (0.1-0.6); Hematocrit 29.7 % (39.0-52.0); Hemoglobin 10.2 g/dL (13.0-18.0); Mean Corp Hgb Conc. 34.3 g/dL (33.0-37.0); Mean Corpuscular Hgb 33.3 pg (27.0-31.0); Mean Corpuscular Volume 97.1 fL (80.0-94.0); Mean Platelet Volume 11.3 fL (7.4-10.4); Nucleated Red Blood Cells % 0 % (-); Platelet Count 144 10^3/uL (130-400); Red Blood Cell Count 3.06 10^6/uL (4.70-6.10); Red Cell Dist. Width 15.5 % (11.5-14.5); White Blood Cell Count 5.7 10^3/uL (4.8-10.8)
[2023-06-04] MEDS: NOVOLOG FLEXPEN-LOW RESISTANCE SC ×3 (08:02→17:01)
[2023-06-04] MEDS: NSS (PRESERVATIVE FREE) 10 ML IV ×2 (08:04→20:50)
[2023-06-04] MEDS: PROTONIX IV 40 MG IV ×2 (08:04→20:50)
[2023-06-04] MEDS: VITAMIN C 1000 MG PO (08:05)
[2023-06-04] MEDS: APRESOLINE 25 MG PO ×2 (08:05→20:49)
[2023-06-04] MEDS: PACERONE 200 MG PO (08:05)
[2023-06-04] MEDS: CARAFATE 1 GRAM PO ×4 (08:05→21:13)
[2023-06-04] MEDS: LIPITOR 20 MG PO (08:05)
[2023-06-04] MEDS: DIFLUCAN 200 MG PO (08:06)
[2023-06-04 08:30] VITALS: BMI 31.2
[2023-06-04 08:52] LABS: Blood Urea Nitrogen 113 mg/dl (9-20); Calcium 8.7 mg/dl (8.4-10.2); Carbon Dioxide 27 mmol/L (22-30); Chloride 98 mmol/L (98-107); Estimated Creatinine Clearance 20 ml/min; Glucose 100 mg/dl (70-99); Potassium 4.6 mmol/L (3.5-5.1); Sodium 133 mmol/L (135-145); eGFR 16.26
[2023-06-04 11:00] VITALS: BP 127/61
[2023-06-04 11:51] LABS: Glucose - Point of Care 119 mg/dl (70-99)
--- NOTE | 2023-06-04 14:08 | W.PN.HOSP.TC ---
Addendum entered and electronically signed by Ever Merida MD 06/04/23 18:53:
Patient seen and examined
Discussed with resident.
Discussed with nephrology
Renal function plateaued.
BULMARO on CKD, concern remains ATN versus glomerular process.
Noted slightly decreased C3 level.
Plan is for renal biopsy in AM.
Continue diuresis.
Food impaction with esophagitis
Biopsy positive for Liberty
Initiated on Diflucan
Reduce dose by 50% as per renal recommendation (renal clearance also potential interaction with amiodarone.
Monitor QTc interval, remained stable at 500 ms.
Original Note:
Documented by User: Penny Post MD, Resident 06/04/23 16:40
Today's Communication/Plan
-
- IV lasix,
- Monitor I & 0
- Monitor weight
- Kidney biopsy tomorrow
- SCD for DVT prophylaxis
Assessment / Plan
Assessment / Plan
Impression:
82 yo M presents to the ER with Severe Dysphagia found to have esophageal food debris and regurgitation, concern for aspiration pneumonia.�Remote H/o gastric sleeve.
Esophageal Food Debris
Aspiration Pneumonia
Acute on chronic CHF
BULMARO on CKD stage 4, with Anasarca
QT prolongation with fluconazole - resolved today.
Plan:
Esophageal Food Debris -
s/p EGD and clearance esophagus . No masses/tumor found. Sharp angulation of GE junction ,grade c esophagitis probably from food stasis noted. Biopsy positive for candidal esophagitis, currently on fluconazole.
Continue with PPI
Tolerating diet so far. If tolerating diet the plan is PPI, Carafate and repeat endoscopy in 8 weeks.
If not tolerating diet, consider getting a Barium swallow.
Sutures from the left leg above the left medial malleolus removed, and wound dressed with a 2x2 gauge on 06/02, wound dressing intact.
Aspiration Pneumonia-
CT Chest -b/l pleural effusion right more than left with bibasilar consolidation right more than left concerning for aspiration.� There is also faint opacity in the right upper zone.�
H/o cough with regurgitation in the setting of b/l pleural effusion favors clinical suspicion of aspiration pneumonia.
Afebrile, WBC count normal.�
On oral Augmentin.
Acute on chronic HFpEF.�
Weight at admission - 94 kgs,
Weight today 06/03 - 104.5kgs
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
The bilateral pleural effusions could be chronic from heart failure or related to aspiration.�
Rpt CXR 05/31 shows
Small-moderate bilateral pleural effusions with associated compressive atelectasis at both lung bases
Cardiomegaly with cephalization of the pulmonary vasculature suggesting borderline pulmonary edema�
With continued worsening of renal function and now with a rising weight is clinically concerned about fluid overload.
rechallenged with IV Lasix, and Sr Cr elevated.
Disontinued IV lasix on 05/31.
Patient developed anasarca - restarted IV Lasix (06/03) on him, continue lasix today
Plan is to get Kidney biopsy tomorrow.
Acute hypoxic respiratory insufficiency-
Likely secondary to Aspiration pneumonia Vs acute on chronic CHF Vs BULMARO on CKD stage 4
Anasarca from volume overload.
BULMARO on CKD stage 4 -
Volume Depletion 3 days PLANETARIUM TECHNICIAN.
S/p - IV fluids no response, creatinine worsening. Hold further IV fluids. Lasix as above.�
CT abdomen pelvis imaging on admission showed no obstructive uropathy.
Sr. Cr - 3.8(06/01) - 3.9(06/02)- 3.8(06/03) - plateaued
IV Lasix yesterday -80 IV, Sr cr - improved, 06/04 - 3.6
Nephrology on Board. Serologies awaiting, Plan is to perform a biopsy and perform dialysis if needed.
Follow fluid status and electrolytes closely.
Hold Eliquis for renal biopsy.
Paroxysmal to Permanent A fib -
currently in A-fib with�rate control.
On amiodarone and Eliquis
Eliquis renal dosing - Hold for now
DM
hold Tradjenta
Insulin Basal bolus regimen
PIO
CPAP at HS
DVT prophylaxis
Eliquis - on Hold
SCD for now
Code status
Full code
Anticipated Discharge: > 48 hours
Subjective/Interval History
-
Date of Service: June 04, 2023
Reports to have improved color of urine
Orthopnea, and exertional dyspnea present
Objective Data
-
Labs:
Laboratory Results
06/04/23
06:32
WBC 5.7
Hgb 10.2 L
Hct 29.7 L
Plt Count 144
Sodium 133 L
Potassium 4.6
Chloride 98
Carbon Dioxide 27
BUN 113 H*
Creatinine 3.6 H
Glucose 100 H
Calcium 8.7
Vital Signs:
Vital Signs
Temp Pulse Resp BP Pulse Ox
97.4 F 63 18 127/61 98
06/04/23 11:00 06/04/23 11:00 06/04/23 11:00 06/04/23 11:00 06/04/23 11:00
I&O
06/03/23 06/04/23 06/05/23
06:59 06:59 06:59
Intake Total 1295 / 1295
Output Total 975 / 975
Balance 320 / 320
Review of Systems
-
History Source: Patient
Constitutional: Reports Fatigue and Weakness
Respiratory: Reports Cough and Trouble Breathing
Cardiac: Reports Orthopnea and Other (exertional dyspnea)
Abdomen/GI: Reports No Symptoms
Genitourinary: Reports Dark Urine (improved)
Musculoskeletal: Reports No Symptoms
Neuro: Reports Weakness
Physical Exam
-
HEENT: Normocephalic, Atraumatic and Moist Mucous Membranes
Respiratory: Other (b/l wheezing and crackles across all lobes)
Cardiac: Regular Rhythm, S1/S2, Gallop and Other (Gallop/s4)
GI: Soft, Nontender, Nondistended and Normal Bowel Sounds
Genito-urinary: No Costovertebral Tender
Skin: Warm and Other (dressing changed in the area of suture removal)
Neuro: AO x 3
Psych: Calm

Documented by User: Ever Merida MD 06/04/23 18:51
Physical Exam
-
General: Well Developed and No Apparent Distress
Rectal: Deferred by Provider
Musculoskeletal: No Clubbing, No Cyanosis and No Edema
[2023-06-04 15:00] VITALS: BP 121/64
[2023-06-04 15:30] LABS: 24 Hour Urine Total Volume Random mL; Urine Collection Length Random hr; Urine Free Lambda Light Chains 4.88 mg/L (0.00-3.79)
--- NOTE | 2023-06-04 16:02 | W.PN.NEPH.PH ---
Today's Communication / Plan
-
lasix 80mg IV now
for K biopsy tomorrow
Assessment/Plan
-
IMP:
Severe dysphagia with esophageal food debris and regurgitation and concern for aspiration.�
�history of gastric sleeve s/p EGD No masses/tumor found. Sharp angulation of GE junction ,grade c esophagitis
Chronic HFpEF.�
Acute kidney injury on chronic kidney disease stage 4-baseline cr 2-
Paroxysmal to permanent atrial fibrillation
DM
PIO� CPAP at HS
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
non obst bilat renal caliculi
HLD
hyponatremia
Plan:
BULMARO no clear etiology, cr slight improvement today at 3.6, nonoliguric
UA microhematuria, and subnephrotic tubular proteinuria 1.1gm/gm of cr
serologies all negative, but c3 mildly low, UPEP neg
for biopsy tomorrow once Eliquis wash out
cont lasix still 80mg
-follow BMP
-
-
Date of Service: June 04, 2023
CC / HPI / ROS
-
Chief Complaint:
BULMARO with CKD
History of Present Illness:
cr better at 3.6
hb stable 10.2
BP stable
wt is up-no change today, edema up
on supplemental O2 -no change
Review of Systems:
no cp or sob at rest
no n/v
Labs
-
Labs:
WBC 5.7 10^3/uL (4.8-10.8) 06/04/23 06:32
RBC 3.06 10^6/uL (4.70-6.10) L 06/04/23 06:32
Hgb 10.2 g/dL (13.0-18.0) L 06/04/23 06:32
Hct 29.7 % (39.0-52.0) L 06/04/23 06:32
Plt Count 144 10^3/uL (130-400) 06/04/23 06:32
Sodium 133 mmol/L (135-145) L 06/04/23 06:32
Potassium 4.6 mmol/L (3.5-5.1) 06/04/23 06:32
Chloride 98 mmol/L (98-107) 06/04/23 06:32
Carbon Dioxide 27 mmol/L (22-30) 06/04/23 06:32
BUN 113 mg/dl (9-20) H* 06/04/23 06:32
Creatinine 3.6 mg/dL (0.7-1.3) H 06/04/23 06:32
eGFR 16.26 06/04/23 06:32
Glucose 100 mg/dl (70-99) H 06/04/23 06:32
Calcium 8.7 mg/dl (8.4-10.2) 06/04/23 06:32
Ehj-F-Ybusywpcjfq Pept 4140 pg/ml 05/28/23 11:57
Albumin 3.2 g/dl (3.5-5.0) L 05/29/23 08:29
Physical Exam
-
Vital Signs:
Vital Signs
Temp Pulse Resp BP Pulse Ox
97.4 F 72 16 121/64 96
06/04/23 15:00 06/04/23 15:00 06/04/23 15:00 06/04/23 15:00 06/04/23 15:00
Cardiovascular:: Regular rate and rhythm
Respiratory:: Bilateral: CTA
Lung Excursion:: Normal
Abdomen:: Nontender and Soft
Extremity Edema:: +3: Bilateral:
Calvin Catheter: No
[2023-06-04] MEDS: LASIX 80 MG IV (16:07)
--- NOTE | 2023-06-04 16:36 | CM ---
Nephrology involved Bun and Creat elevated.
Had EGD today.
Maintained on oxygen 2 liters Pox 96%.
PT OT indicated SNF.
IV Lasix today
As per care port [facility] accepted patient pending bed when medially stable. Also will need auth.
Will need auth
PLAN To [place] after stable with auth obtained
[2023-06-04 16:56] LABS: Glucose - Point of Care 134 mg/dl (70-99)
[2023-06-04] MEDS: FLUSH (NSS) 1 FLUSH IV (20:50)
[2023-06-04 21:05] LABS: Glucose - Point of Care 141 mg/dl (70-99)
[2023-06-04] MEDS: NEURONTIN 200 MG PO (21:13)
[2023-06-04 21:31] LABS: Albumin 3.32 g/dL (3.75-5.01); Alpha 1 Globulin 0.29 g/dL (0.19-0.46); Alpha 2 Globulin 0.53 g/dL (0.48-1.05); SPEP IFE Reflex Not Done
[2023-06-04] MEDS: MELATONIN 5 MG PO (22:00)
[2023-06-04 23:09] VITALS: BP 113/58
[2023-06-05] VITALS (9 sets, daily range): BP systolic 66–132; BP diastolic 51–65; BMI 31.0
[2023-06-05 05:29] LABS: Glucose - Point of Care 111 mg/dl (70-99)
[2023-06-05] MEDS: NOVOLOG FLEXPEN-LOW RESISTANCE SC ×2 (07:32→17:35)
[2023-06-05] MEDS: VITAMIN C 1000 MG PO (07:33)
[2023-06-05] MEDS: PROTONIX IV 40 MG IV ×2 (07:33→20:18)
[2023-06-05] MEDS: NSS (PRESERVATIVE FREE) 10 ML IV ×2 (07:33→20:19)
[2023-06-05] MEDS: DIFLUCAN 100 MG PO (07:34)
[2023-06-05] MEDS: CARAFATE 1 GRAM PO ×4 (07:35→20:23)
[2023-06-05] MEDS: LIPITOR 20 MG PO (07:35)
[2023-06-05] MEDS: APRESOLINE 25 MG PO (07:35)
[2023-06-05] MEDS: PACERONE 200 MG PO (07:35)
[2023-06-05] MEDS: DESENEX/MITRAZOL/ZEASORB TOPICAL (07:45)
[2023-06-05 08:08] LABS: Blood Urea Nitrogen 111 mg/dl (9-20); Calcium 8.7 mg/dl (8.4-10.2); Carbon Dioxide 30 mmol/L (22-30); Chloride 100 mmol/L (98-107); Estimated Creatinine Clearance 20 ml/min; Glucose 101 mg/dl (70-99); Potassium 4.4 mmol/L (3.5-5.1); Sodium 134 mmol/L (135-145); eGFR 16.26
[2023-06-05 08:35] LABS: Hematocrit 29.2 % (39.0-52.0); Hemoglobin 10.2 g/dL (13.0-18.0); Mean Corp Hgb Conc. 34.9 g/dL (33.0-37.0); Mean Corpuscular Hgb 33.8 pg (27.0-31.0); Mean Corpuscular Volume 96.7 fL (80.0-94.0); Mean Platelet Volume 11.2 fL (7.4-10.4); Platelet Count 145 10^3/uL (130-400); Red Blood Cell Count 3.02 10^6/uL (4.70-6.10); Red Cell Dist. Width 15.3 % (11.5-14.5); White Blood Cell Count 5.6 10^3/uL (4.8-10.8)
[2023-06-05 08:46] LABS: INR 1.26; PT 15.8 Sec (11.4-14.6)
--- NOTE | 2023-06-05 11:01 | PTCARENOTE ---
Pt recvd from IR via stretcher post Renal biopsy, pt is A+Ox3 and in no distress. This pt is on strict bedrest until 1600 and will remain at 30 degress with the HOB. post op vitals taken and pt in his hospital bed, no complaints of any pain.
[2023-06-05 11:35] LABS: Glucose - Point of Care 168 mg/dl (70-99)
[2023-06-05] MEDS: NOVOLOG FLEXPEN-LOW RESISTANCE 1 UNITS SC (11:39)
[2023-06-05 14:34] LABS: Hematocrit 24.5 % (39.0-52.0); Hemoglobin 8.5 g/dL (13.0-18.0)
--- NOTE | 2023-06-05 15:29 | W.PN.NEPH.PH ---
Today's Communication / Plan
-
cont lasix
await biopsy report
Assessment/Plan
-
IMP:
Severe dysphagia with esophageal food debris and regurgitation and concern for aspiration.�
�history of gastric sleeve s/p EGD No masses/tumor found. Sharp angulation of GE junction ,grade c esophagitis
Chronic HFpEF.�
Acute kidney injury on chronic kidney disease stage 4-baseline cr 2-
Paroxysmal to permanent atrial fibrillation
DM
PIO� CPAP at HS
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
non obst bilat renal caliculi
HLD
hyponatremia
Plan:
BULMARO no clear etiology, cr no change at 3.6, nonoliguric
UA microhematuria, and subnephrotic tubular proteinuria 1.1gm/gm of cr
serologies all negative, but c3 mildly low, UPEP neg
s/p biopsy today, eliquis on hold
cont lasix still 80mg IV x1
wt decreasing
monitor h/h post biopsy-lower at 8.5
-follow BMP
-
-
Date of Service: June 05, 2023
CC / HPI / ROS
-
Chief Complaint:
BULMARO with CKD
History of Present Illness:
cr no change at 3.6
hb stable 10.2, 8.5 post biopsy
BP stable
wt is down
on supplemental O2 -no change
Review of Systems:
no cp or sob at rest
no n/v
Labs
-
Labs:
WBC 5.6 10^3/uL (4.8-10.8) 06/05/23 08:25
RBC 3.02 10^6/uL (4.70-6.10) L 06/05/23 08:25
Hgb 8.5 g/dL (13.0-18.0) L 06/05/23 14:07
Hct 24.5 % (39.0-52.0) L 06/05/23 14:07
Plt Count 145 10^3/uL (130-400) 06/05/23 08:25
Sodium 134 mmol/L (135-145) L 06/05/23 07:08
Potassium 4.4 mmol/L (3.5-5.1) 06/05/23 07:08
Chloride 100 mmol/L (98-107) 06/05/23 07:08
Carbon Dioxide 30 mmol/L (22-30) 06/05/23 07:08
BUN 111 mg/dl (9-20) H* 06/05/23 07:08
Creatinine 3.6 mg/dL (0.7-1.3) H 06/05/23 07:08
eGFR 16.26 06/05/23 07:08
Glucose 101 mg/dl (70-99) H 06/05/23 07:08
Calcium 8.7 mg/dl (8.4-10.2) 06/05/23 07:08
Xlq-M-Wmjrnmewupt Pept 4140 pg/ml 05/28/23 11:57
Albumin 3.2 g/dl (3.5-5.0) L 05/29/23 08:29
Physical Exam
-
Vital Signs:
Vital Signs
Temp Pulse Resp BP Pulse Ox
98.2 F 67 20 115/59 96
06/05/23 12:30 06/05/23 12:30 06/05/23 12:30 06/05/23 12:30 06/05/23 14:03
Cardiovascular:: Regular rate and rhythm
Respiratory:: Bilateral: CTA (anteriorly)
Lung Excursion:: Normal
Abdomen:: Nontender and Soft
Extremity Edema:: +3: Bilateral: (better)
Calvin Catheter: No
[2023-06-05] MEDS: TYLENOL 650 MG PO (15:38)
[2023-06-05] MEDS: LASIX 80 MG IV (15:39)
--- NOTE | 2023-06-05 16:51 | W.PN.HOSP.TC ---
Today's Communication/Plan
-
IV diuresis
Follow renal biopsy
Oral Diflucan for esophageal candidiasis.
Monitor QTc
Assessment / Plan
Assessment / Plan
Impression:
82 yo M presents to the ER with Severe Dysphagia found to have esophageal food debris and regurgitation, concern for aspiration pneumonia.�Remote H/o gastric sleeve.
Esophageal Food Debris
Aspiration Pneumonia ruled out
Acute on chronic CHF
BULMARO on CKD stage 4, with Anasarca
Prolonged QT improved
Plan:
Esophageal Food Debris -
s/p EGD and clearance esophagus . No masses/tumor found. Sharp angulation of GE junction ,grade c esophagitis probably from food stasis noted. Biopsy positive for candidal esophagitis, currently on fluconazole.
Continue with PPI
Tolerating diet so far. If tolerating diet the plan is PPI, Carafate and repeat endoscopy in 8 weeks.
If not tolerating diet, consider getting a Barium swallow.
Sutures from the left leg above the left medial malleolus removed, and wound dressed with a 2x2 gauge on 06/02, wound dressing intact.
Aspiration Pneumonia ruled out
CT Chest -b/l pleural effusion right more than left with bibasilar consolidation right more than left concerning for aspiration.� There is also faint opacity in the right upper zone.�
H/o cough with regurgitation in the setting of b/l pleural effusion favors clinical suspicion of aspiration pneumonia.
Afebrile, WBC count normal.�
Initially on Augmentin discontinued.
Acute on chronic HFpEF.�
Weight at admission - 94 kgs,
Weight today 06/03 - 104.5kgs
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
The bilateral pleural effusions could be chronic from heart failure or related to aspiration.�
Rpt CXR 05/31 shows
Small-moderate bilateral pleural effusions with associated compressive atelectasis at both lung bases
Cardiomegaly with cephalization of the pulmonary vasculature suggesting borderline pulmonary edema�
With continued worsening of renal function and now with a rising weight is clinically concerned about fluid overload.
rechallenged with IV Lasix, and Sr Cr elevated.
Status post renal biopsy on 06/05.
Continue IV diuresis monitor renal functions
Acute hypoxic respiratory insufficiency likely secondary to volume overload.
Monitor with diuresis.
BULMARO on CKD stage 4 -
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
S/p - IV fluids no response, creatinine worsening. Hold further IV fluids. Lasix as above.�
CT abdomen pelvis imaging on admission showed no obstructive uropathy.
Sr. Cr - 3.8(06/01) - 3.9(06/02)- 3.8(06/03) - plateaued
IV Lasix yesterday -80 IV, Sr cr - improved, 06/04 - 3.6
Nephrology on Board. Serologies awaiting, Plan is to perform a biopsy and perform dialysis if needed.
Follow fluid status and electrolytes closely.
Hold Eliquis for renal biopsy.
Paroxysmal to Permanent A fib -
currently in A-fib with�rate control.
On amiodarone and Eliquis
Eliquis renal dosing - Hold for now
DM
hold Tradjenta
Insulin Basal bolus regimen
PIO
CPAP at HS
DVT prophylaxis
Eliquis - on Hold
SCD for now
Code status
Full code
Anticipated Discharge: > 48 hours
Subjective/Interval History
-
Date of Service: June 05, 2023
Objective Data
-
Labs:
Laboratory Results
06/05/23 06/05/23 06/05/23
07:08 08:25 14:07
WBC 5.6
Hgb 10.2 L 8.5 L
Hct 29.2 L 24.5 L
Plt Count 145
PT 15.8 H
INR 1.26
Sodium 134 L
Potassium 4.4
Chloride 100
Carbon Dioxide 30
BUN 111 H*
Creatinine 3.6 H
Glucose 101 H
Calcium 8.7
Vital Signs:
Vital Signs
Temp Pulse Resp BP Pulse Ox
98.1 F 62 20 111/59 98
06/05/23 15:00 06/05/23 15:39 06/05/23 15:00 06/05/23 15:39 06/05/23 15:00
I&O
06/04/23 06/05/23 06/06/23
06:59 06:59 06:59
Intake Total 1295 / 1295 1080 / 1080 100 / 100
Output Total 975 / 975 1085 / 1085 150 / 150
Balance 320 / 320 -5 / -5 -50 / -50
Physical Exam
-
General: Well Developed and No Apparent Distress
HEENT: Normocephalic, Atraumatic and Moist Mucous Membranes
Respiratory: Clear to Auscultation
Cardiac: Regular Rhythm and S1/S2; Negative Murmur, Rub or Gallop
GI: Soft, Nontender, Nondistended and Normal Bowel Sounds; Negative Organomegaly
Rectal: Deferred by Provider
Musculoskeletal: No Clubbing, No Cyanosis and No Edema
Skin: Negative Rash
Neuro: Nonfocal/Grossly Intact
[2023-06-05 17:29] LABS: Glucose - Point of Care 127 mg/dl (70-99)
[2023-06-05] MEDS: DESENEX/MITRAZOL/ZEASORB 1 APPLIC TOPICAL (20:19)
[2023-06-05] MEDS: NEURONTIN 200 MG PO (20:23)
[2023-06-05] MEDS: APRESOLINE PO (20:27)
[2023-06-05 21:23] LABS: Glucose - Point of Care 210 mg/dl (70-99)
[2023-06-06] VITALS (8 sets, daily range): BP systolic 104–131; BP diastolic 51–60; PULSE 62; O2SAT 93–94; BMI 31.2
--- NOTE | 2023-06-06 06:35 | W.PN.UPDATE ---
Update Note
Progress Note Update
RN notified this PILLOW FILLER of Prolonged QTC of 611, will place Amiodarone on hold, Chem, Mag ordered, placed patient on Telemetry, Telephone Lineman consulted and made aware, no new orders at present. Stable Vs.
[2023-06-06 07:11] LABS: Glucose - Point of Care 113 mg/dl (70-99)
[2023-06-06 07:36] LABS: Blood Urea Nitrogen 116 mg/dl (9-20); Calcium 8.6 mg/dl (8.4-10.2); Carbon Dioxide 31 mmol/L (22-30); Chloride 99 mmol/L (98-107); Estimated Creatinine Clearance 20 ml/min; Glucose 107 mg/dl (70-99); Potassium 4.8 mmol/L (3.5-5.1); Sodium 133 mmol/L (135-145); eGFR 16.26
[2023-06-06] MEDS: LIPITOR 20 MG PO (08:14)
[2023-06-06] MEDS: CARAFATE 1 GRAM PO ×4 (08:14→20:31)
[2023-06-06] MEDS: DIFLUCAN 100 MG PO (08:14)
[2023-06-06] MEDS: APRESOLINE 25 MG PO (08:14)
[2023-06-06] MEDS: VITAMIN C 1000 MG PO (08:15)
[2023-06-06] MEDS: NSS (PRESERVATIVE FREE) 10 ML IV (08:15)
[2023-06-06] MEDS: PROTONIX IV 40 MG IV (08:16)
[2023-06-06] MEDS: NOVOLOG FLEXPEN-LOW RESISTANCE SC ×3 (08:17→17:00)
[2023-06-06] MEDS: DESENEX/MITRAZOL/ZEASORB 1 APPLIC TOPICAL ×2 (08:18→20:32)
[2023-06-06] MEDS: COMPAZINE 5 MG IV (08:24)
[2023-06-06 08:53] LABS: Magnesium 2.9 mg/dl (1.6-2.3)
--- NOTE | 2023-06-06 09:08 | CON.CAR ---
Consultation
Consultation Request
Date/Time Consultation Requested: 06/06/2023
Date/Time Consultation Performed: 06/06/2023
Requesting Provider: BRYAN Meadows
Medical History
Allergies / Home Medications
Allergy/AdvReac Type Severity Reaction Status Date / Time
No Known Allergies Allergy Unverified 05/28/23 11:03
Medication Instructions Recorded Confirmed Type
apixaban 2.5 mg tablet (Eliquis) 2.5 mg PO BID Blood Clot 11/16/22 05/28/23 History
Prevention/Tx
atorvastatin 20 mg tablet 20 mg PO DAILY High Cholesterol 11/16/22 05/28/23 History
allopurinol 300 mg tablet 300 mg PO DAILY Gout #0 tabs 04/22/23 05/28/23 Rx
amiodarone 200 mg tablet 200 mg PO DAILY Arrhythmia #0 tabs 04/22/23 05/28/23 Rx
furosemide 80 mg tablet 80 mg PO BID Fluid 04/22/23 05/28/23 Rx
retention/Swelling #0 tabs
hydralazine 25 mg tablet 25 mg PO BID Blood pressure #0 tabs 04/22/23 05/28/23 Rx
linagliptin 5 mg tablet (Tradjenta) 5 mg PO DAILY Diabetes #0 tabs 04/22/23 05/28/23 Rx
ascorbic acid (vitamin C) 1,000 mg 1,000 mg PO DAILY 05/28/23 05/28/23 History
tablet
gabapentin 100 mg capsule 200 mg PO HS 05/28/23 05/28/23 History
Physical Exam
Vital Signs
Temp Pulse Resp BP Pulse Ox
98.1 F 55 18 131/59 93
06/05/23 15:00 06/06/23 08:00 06/06/23 08:00 06/06/23 08:00 06/06/23 08:00
Lab Results
06/05/23 14:07
06/06/23 06:25
Rau-Y-Aewqvncvkpd Pept 4140 pg/ml 05/28/23 11:57
[2023-06-06 12:01] LABS: Glucose - Point of Care 134 mg/dl (70-99)
--- NOTE | 2023-06-06 13:55 | W.PN.NEPH.PH ---
Today's Communication / Plan
-
lasix zaroxolyn
Assessment/Plan
-
IMP:
Severe dysphagia with esophageal food debris and regurgitation and concern for aspiration.�
�history of gastric sleeve s/p EGD No masses/tumor found. Sharp angulation of GE junction ,grade c esophagitis
Chronic HFpEF.�
Acute kidney injury on chronic kidney disease stage 4-baseline cr 2-
Paroxysmal to permanent atrial fibrillation
DM
PIO� CPAP at HS
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
non obst bilat renal caliculi
HLD
hyponatremia
Plan:
-await biopsy results
-follow BMP
-lasix +metolazone today
-lasix BID
-
-
Date of Service: June 06, 2023
CC / HPI / ROS
-
Chief Complaint:
BULMARO with CKD
History of Present Illness:
cr no change at 3.6
hb stable
BP stable
on supplemental O2 -no change
Review of Systems:
no cp or sob at rest
no n/v
still with edema
Labs
-
Labs:
Sodium 133 mmol/L (135-145) L 06/06/23 06:25
Potassium 4.8 mmol/L (3.5-5.1) 06/06/23 06:25
Chloride 99 mmol/L (98-107) 06/06/23 06:25
Carbon Dioxide 31 mmol/L (22-30) H 06/06/23 06:25
BUN 116 mg/dl (9-20) H* 06/06/23 06:25
Creatinine 3.6 mg/dL (0.7-1.3) H 06/06/23 06:25
eGFR 16.26 06/06/23 06:25
Glucose 107 mg/dl (70-99) H 06/06/23 06:25
Calcium 8.6 mg/dl (8.4-10.2) 06/06/23 06:25
Pej-O-Nwjkvngloro Pept 4140 pg/ml 05/28/23 11:57
Albumin 3.2 g/dl (3.5-5.0) L 05/29/23 08:29
Physical Exam
-
Vital Signs:
Vital Signs
Temp Pulse Resp BP Pulse Ox
98.1 F 56 14 128/54 93
06/05/23 15:00 06/06/23 11:30 06/06/23 11:30 06/06/23 11:30 06/06/23 11:40
Cardiovascular:: Regular rate and rhythm
Respiratory:: Bilateral: Coarse
Lung Excursion:: Normal
Abdomen:: Nontender and Soft
Bowel Sounds:: Normal
Extremity Edema:: +3: Bilateral:
[2023-06-06 14:06] LABS: % Basophils 0.4 % (0-2); % Eosinophils 0.2 % (0-6); % Immature Granulocytes 0.4 % (0-0.5); % Lymphocytes 13.6 % (20.5-51.1); % Monocytes 10.4 % (1.7-9.3); Absolute Lymphocytes 0.7 10^3/uL (1.2-3.4); Absolute Monocytes 0.5 10^3/uL (0.1-0.6); Absolute Neutrophils 3.8 10^3/uL (1.4-6.5); Hematocrit 26.7 % (39.0-52.0); Hemoglobin 8.9 g/dL (13.0-18.0); Mean Corp Hgb Conc. 33.3 g/dL (33.0-37.0); Mean Corpuscular Hgb 32.6 pg (27.0-31.0); Mean Corpuscular Volume 97.8 fL (80.0-94.0); Mean Platelet Volume 10.5 fL (7.4-10.4); Nucleated Red Blood Cells % 0.4 % (-); Platelet Count 139 10^3/uL (130-400); Red Blood Cell Count 2.73 10^6/uL (4.70-6.10); Red Cell Dist. Width 15.9 % (11.5-14.5); White Blood Cell Count 5.1 10^3/uL (4.8-10.8)
[2023-06-06] MEDS: ZAROXOLYN 2.5 MG PO (14:37)
[2023-06-06] MEDS: TYLENOL 650 MG PO (14:49)
--- NOTE | 2023-06-06 15:33 | PTCARENOTE ---
Patient temp difficult to obtain. This student career development specialist used regular thermometer and digital thermometer orally axillary and rectally. Temp was 94.0 orally. Physician and RN aware
--- NOTE | 2023-06-06 15:43 | W.PN.HOSP.TC ---
Addendum entered and electronically signed by Ever Merida MD 06/06/23 16:58:
Patient seen and examined
Discussed with resident
Discussed with nursing
Impression:
Severe dysphagia.
EGD with grade C esophagitis and Liberty.
Continue PPI.
Initiated on Diflucan.
Monitor QTc remained stable while on Diflucan/amiodarone.
BULMARO on CKD 4
Creatinine plateaued.
Status post renal biopsy.
Continue diuresis Lasix Zaroxolyn.
Follow biopsy report
Anemia, acute on chronic
Noted slight drop in hemoglobin at 8.9
Monitor closely after post renal biopsy.
Has been off Eliquis
Original Note:
Today's Communication/Plan
-
- Lasix + metolazone, biopsy results pending
Trend weights and I & O
trend CBC - Hb
monitor vitals.
Assessment / Plan
Assessment / Plan
Impression:
82 yo M presents to the ER with Severe Dysphagia found to have esophageal food debris and regurgitation, concern for aspiration pneumonia.�Remote H/o gastric sleeve.
Esophageal Food Debris
Aspiration Pneumonia ruled out
Acute on chronic CHF
BULMARO on CKD stage 4, with Anasarca
Prolonged QT improved
Plan:
Esophageal Food Debris -
s/p EGD and clearance esophagus . No masses/tumor found. Sharp angulation of GE junction ,grade c esophagitis probably from food stasis noted. Biopsy positive for candidal esophagitis, currently on fluconazole.
Continue with PPI
Tolerating diet so far. If tolerating diet the plan is PPI, Carafate and repeat endoscopy in 8 weeks.
If not tolerating diet, consider getting a Barium swallow.
Acute on chronic HFpEF.�
Weight at admission - 94 kgs,
Weight today 06/03 - 104.5kgs
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
The bilateral pleural effusions could be chronic from heart failure or related to aspiration.�
Rpt CXR 05/31 shows
Small-moderate bilateral pleural effusions with associated compressive atelectasis at both lung bases
Cardiomegaly with cephalization of the pulmonary vasculature suggesting borderline pulmonary edema�
With continued worsening of renal function and now with a rising weight is clinically concerned about fluid overload.
rechallenged with IV Lasix, and Sr Cr elevated.
Status post renal biopsy on 06/05.
Continue IV diuresis monitor renal functions
BULMARO on CKD stage 4 -
Volume Depletion 3 days MEDICAL OFFICE RECEPTIONIST ASSISTANT.
S/p - IV fluids no response, creatinine worsening. Hold further IV fluids. Lasix as above.�
CT abdomen pelvis imaging on admission showed no obstructive uropathy.
Sr. Cr - 3.8(06/01) - 3.9(06/02)- 3.8(06/03) - plateaued
IV Lasix x day 3 today Sr cr - improved, 06/04 - 3.6 2/2 - 3.6 plateaued
Single dose of metolazone added today,
Nephrology on Board. Serologies resulted, biopsy performed yesterday with pending results.
Follow fluid status and electrolytes closely.
Eliquis on hold
Anemia -
Hb dropped from 10.7 to 8.5, repeat stat resulted at 8.9 - stable
suspect expanding hematoma at the biopsy site in the context of Eliquis.
Continue holding on eliquis, and trend CBC.
If further drop in Hb, plan Ct to rule out possible expanding hematoma.
Sutures from the left leg above the left medial malleolus removed, and wound dressed with a 2x2 gauge on 06/02, wound dressing intact.
Aspiration Pneumonia ruled out
CT Chest -b/l pleural effusion right more than left with bibasilar consolidation right more than left concerning for aspiration.� There is also faint opacity in the right upper zone.�
H/o cough with regurgitation in the setting of b/l pleural effusion favors clinical suspicion of aspiration pneumonia.
Afebrile, WBC count normal.�
Initially on Augmentin discontinued.
Acute hypoxic respiratory insufficiency likely secondary to volume overload.
Monitor with diuresis.
Paroxysmal to Permanent A fib -
currently in A-fib with�rate control.
On amiodarone and Eliquis
Eliquis renal dosing - Hold for now
In Sinus rhythm today
DM
hold Tradjenta
Insulin Basal bolus regimen
PIO
CPAP at HS
DVT prophylaxis
Eliquis - on Hold
SCD for now
Code status
Full code
Anticipated Discharge: > 48 hours
Subjective/Interval History
-
Date of Service: June 06, 2023
Patient is very tired and sleepy
wakes up on arousal, AO x 3, drowsy.
Objective Data
-
Labs:
Laboratory Results
06/06/23 06/06/23
06:25 13:59
WBC 5.1
Hgb 8.9 L
Hct 26.7 L
Plt Count 139
Sodium 133 L
Potassium 4.8
Chloride 99
Carbon Dioxide 31 H
BUN 116 H*
Creatinine 3.6 H
Glucose 107 H
Calcium 8.6
Vital Signs:
Vital Signs
Temp Pulse Resp BP Pulse Ox
94.0 F L 63 16 105/51 93
06/06/23 15:36 06/06/23 15:36 06/06/23 15:36 06/06/23 15:36 06/06/23 15:36
I&O
06/05/23 06/06/23 06/07/23
06:59 06:59 06:59
Intake Total 1080 / 1080 820 / 820
Output Total 1085 / 1085 350 / 350
Balance -5 / -5 470 / 470
Review of Systems
-
History Source: Patient
Constitutional: Reports Fatigue and Weakness
Respiratory: Reports Trouble Breathing
Cardiac: Reports Orthopnea and Other (SOB on exertion)
Abdomen/GI: Reports Other (decreased appetite)
Physical Exam
-
General: Comfortable (on 2l nasal cannula flow)
HEENT: Normocephalic, Atraumatic and Moist Mucous Membranes
Respiratory: Other (b/l crackles present)
Cardiac: Regular Rhythm, S1/S2 and Gallop
GI: Soft, Nontender, Nondistended and Normal Bowel Sounds
Musculoskeletal: Other (Anasarca)
Neuro: AO x 3 and Nonfocal/Grossly Intact
Psych: Calm
[2023-06-06] MEDS: LASIX 80 MG IV (15:50)
--- NOTE | 2023-06-06 16:13 | CM ---
Chart reviewed
Biopsy results pending
Cont lasix
Following labs
PT OT indicated SNF.
IV Lasix today
[facility] accepted patient pending bed when medially stable. Will need auth.
[2023-06-06 16:56] LABS: Glucose - Point of Care 148 mg/dl (70-99)
--- NOTE | 2023-06-06 19:16 | PTCARENOTE ---
Received patient this am AAOx3. pt forgetful. Pt complaine dof feeling nausea this am. Vomited x1 green bile. Dr. Castellano made aware. Pt medicated with Compazine 5mg IV with relief. Unable to get patients temperature orally or axillary. Rectal
temp 94.0. Dr. Castellano made aware. No treatment ordered. Pt complained of pain in BIlateral lower legs. Medicated with tylenol with relief. Cont to assess patient status.
--- NOTE | 2023-06-06 19:43 | PTCARENOTE ---
EARLY YEARS TEACHER made aware of the difficulty of getting temperature readings on patient. Rectal temp today 94.0. Awaiting order for warming blanket. Cont to assess patient status.
[2023-06-06] MEDS: APRESOLINE PO (20:30)
[2023-06-06] MEDS: PROTONIX 40 MG PO (20:31)
[2023-06-06] MEDS: NEURONTIN 200 MG PO (20:31)
[2023-06-06 21:56] LABS: Glucose - Point of Care 156 mg/dl (70-99)
[2023-06-06] MEDS: NSS (PRESERVATIVE FREE) IV (22:06)
[2023-06-07 03:31] VITALS: BP 103/52
[2023-06-07 03:32] VITALS: BMI 31.2
[2023-06-07 07:21] LABS: Glucose - Point of Care 126 mg/dl (70-99)
[2023-06-07 07:32] LABS: % Basophils 0.7 % (0-2); % Eosinophils 1.3 % (0-6); % Immature Granulocytes 0.2 % (0-0.5); % Lymphocytes 12.1 % (20.5-51.1); % Neutrophils 74.7 % (42.2-75.2); Absolute Eosinophils 0.1 10^3/uL (0-0.7); Absolute Lymphocytes 0.5 10^3/uL (1.2-3.4); Absolute Monocytes 0.5 10^3/uL (0.1-0.6); Absolute Neutrophils 3.3 10^3/uL (1.4-6.5); Hematocrit 23.8 % (39.0-52.0); Hemoglobin 8.2 g/dL (13.0-18.0); Mean Corp Hgb Conc. 34.5 g/dL (33.0-37.0); Mean Corpuscular Hgb 33.5 pg (27.0-31.0); Mean Corpuscular Volume 97.1 fL (80.0-94.0); Mean Platelet Volume 11.6 fL (7.4-10.4); Nucleated Red Blood Cells % 0.7 % (-); Platelet Count 133 10^3/uL (130-400); Red Blood Cell Count 2.45 10^6/uL (4.70-6.10); Red Cell Dist. Width 15.6 % (11.5-14.5); White Blood Cell Count 4.5 10^3/uL (4.8-10.8)
[2023-06-07 07:37] VITALS: BP 116/53
--- NOTE | 2023-06-07 07:39 | W.PN.HOSP.TC ---
Today's Communication/Plan
-
increased gabapentin
monitor H&H
trazodone HSPRN sleep
monitor renal function
cont diuresis as per nephro
Assessment / Plan
Assessment / Plan
Physical Exam
General: Comfortable on 2l nasal cannula flow
HEENT: Normocephalic, Atraumatic and Moist Mucous Membranes
Respiratory: CTAB no wheezes crackles rhonchi
Cardiac: Regular Rhythm, S1/S2 and Gallop
GI: Soft, Nontender, Nondistended and Normal Bowel Sounds
Musculoskeletal: +2 pitting edema lower ex
Neuro: AO x 3 and Nonfocal/Grossly Intact
Psych: Calm
Impression:
82 yo M presents to the ER with Severe Dysphagia found to have esophageal food debris and regurgitation, concern for aspiration pneumonia.�Remote H/o gastric sleeve.
Esophageal Food Debris
Aspiration Pneumonia ruled out
Acute on chronic CHF
BULMARO on CKD stage 4, with Anasarca
Prolonged QT improved
Plan:
Esophageal Food Debris -
s/p EGD and clearance esophagus . No masses/tumor found. Sharp angulation of GE junction ,grade c esophagitis probably from food stasis noted. Biopsy positive for candidal esophagitis, currently on fluconazole.
Continue with PPI
Tolerating diet so far. If tolerating diet the plan is PPI, Carafate and repeat endoscopy in 8 weeks.
If not tolerating diet, consider getting a Barium swallow.
Acute on chronic HFpEF.�
Weight at admission - 94 kgs,
Weight today 06/03 - 104.5kgs
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
The bilateral pleural effusions could be chronic from heart failure or related to aspiration.�
Rpt CXR 05/31 shows
Small-moderate bilateral pleural effusions with associated compressive atelectasis at both lung bases
Cardiomegaly with cephalization of the pulmonary vasculature suggesting borderline pulmonary edema�
With continued worsening of renal function and now with a rising weight is clinically concerned about fluid overload.
rechallenged with IV Lasix, and Sr Cr elevated.
Status post renal biopsy on 06/05.
Continue IV diuresis monitor renal functions
BULMARO on CKD stage 4 -
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
S/p - IV fluids no response, creatinine worsening. Hold further IV fluids. Lasix as above.�
CT abdomen pelvis imaging on admission showed no obstructive uropathy.
Sr. Cr - 3.8(06/01) - 3.9(06/02)- 3.8(06/03) - plateaued
IV Lasix x day 3 today Sr cr - improved, 06/04 - 3.6 2/ - 3.6 plateaued
Single dose of metolazone added today,
Nephrology on Board. Serologies resulted, biopsy performed yesterday with pending results.
Follow fluid status and electrolytes closely.
Eliquis on hold
Anemia -
Hb dropped from 10.7 to 8.5, repeat stat resulted at 8.9 - stable
suspect expanding hematoma at the biopsy site in the context of Eliquis.
Continue holding on eliquis, and trend CBC.
Renal US notes no hematoma
Anemia likely multifactorial, anemia of chronic disease and renal insufficiency
Sutures from the left leg above the left medial malleolus removed, and wound dressed with a 2x2 gauge on 06/02, wound dressing intact.
Aspiration Pneumonia ruled out
CT Chest -b/l pleural effusion right more than left with bibasilar consolidation right more than left concerning for aspiration.� There is also faint opacity in the right upper zone.�
H/o cough with regurgitation in the setting of b/l pleural effusion favors clinical suspicion of aspiration pneumonia.
Afebrile, WBC count normal.�
Initially on Augmentin discontinued.
Acute hypoxic respiratory insufficiency likely secondary to volume overload.
Monitor with diuresis.
Paroxysmal to Permanent A fib -
currently in A-fib with�rate control.
On amiodarone and Eliquis
Eliquis renal dosing - Hold for now
In Sinus rhythm today
Restless Leg Syndrome
increase home gabapentin to 300 mg HS
Poor Sleep
low dose Trazodone HSprn started
DM
hold Tradjenta
Insulin Basal bolus regimen
PIO
CPAP at HS
DVT prophylaxis
Eliquis - on Hold
SCD for now
Code status
Full code
Discussed with patient and his daughter Nicole
I spent a total of 55 minutes with the patient or on the floor. More than 50% of this time involved counseling and coordination of care.
Anticipated Discharge: Today
Subjective/Interval History
-
Date of Service: June 07, 2023
No acute distress sitting up comfortably in bed. Reports intermittent lower ext shaking/twitching/restlessness. Also reports poor sleep, requesting sleep aid. Otherwise feels well at this time. Daughter Nicole present during evaluation.
Objective Data
-
Labs:
Laboratory Results
06/07/23
06:09
WBC Pending
Hgb Pending
Hct Pending
Plt Count Pending
Sodium Pending
Potassium Pending
Chloride Pending
Carbon Dioxide Pending
BUN Pending
Creatinine Pending
Glucose Pending
Calcium Pending
Vital Signs:
Vital Signs
Temp Pulse Resp BP Pulse Ox
97.1 F 70 18 103/52 94
06/07/23 03:00 06/07/23 03:31 06/07/23 03:31 06/07/23 03:31 06/07/23 03:31
I&O
06/06/23 06/07/23 06/08/23
06:59 06:59 06:59
Intake Total 820 / 820 780 / 780
Output Total 350 / 350 475 / 475
Balance 470 / 470 305 / 305
[2023-06-07 08:29] LABS: Blood Urea Nitrogen 117 mg/dl (9-20); Calcium 8.9 mg/dl (8.4-10.2); Carbon Dioxide 27 mmol/L (22-30); Chloride 97 mmol/L (98-107); Estimated Creatinine Clearance 20 ml/min; Glucose 109 mg/dl (70-99); Magnesium 2.9 mg/dl (1.6-2.3); Potassium 4.9 mmol/L (3.5-5.1); Sodium 134 mmol/L (135-145); eGFR 16.26
[2023-06-07] MEDS: NOVOLOG FLEXPEN-LOW RESISTANCE SC ×3 (09:00→16:45)
[2023-06-07] MEDS: VITAMIN C 1000 MG PO (09:02)
[2023-06-07] MEDS: APRESOLINE 25 MG PO ×2 (09:02→19:54)
[2023-06-07] MEDS: PACERONE 200 MG PO (09:02)
[2023-06-07] MEDS: DIFLUCAN 100 MG PO (09:02)
[2023-06-07] MEDS: LIPITOR 20 MG PO (09:02)
[2023-06-07] MEDS: CARAFATE 1 GRAM PO ×4 (09:02→22:36)
[2023-06-07] MEDS: PROTONIX 40 MG PO ×2 (09:02→19:55)
[2023-06-07] MEDS: LASIX 80 MG IV ×2 (09:02→16:07)
[2023-06-07] MEDS: DESENEX/MITRAZOL/ZEASORB TOPICAL (09:55)
--- NOTE | 2023-06-07 10:42 | W.PN.NEPH.PH ---
Today's Communication / Plan
-
metolazone
Assessment/Plan
-
IMP:
Severe dysphagia with esophageal food debris and regurgitation and concern for aspiration.�
�history of gastric sleeve s/p EGD No masses/tumor found. Sharp angulation of GE junction ,grade c esophagitis
Chronic HFpEF.�
Acute kidney injury on chronic kidney disease stage 4-baseline cr 2-
Paroxysmal to permanent atrial fibrillation
DM
PIO� CPAP at HS
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
non obst bilat renal caliculi
HLD
hyponatremia
Plan:
-await biopsy results
-follow BMP
-lasix +metolazone today (10mg bid)
-lasix BID
-
-
Date of Service: June 07, 2023
CC / HPI / ROS
-
Chief Complaint:
BULMARO with CKD
History of Present Illness:
cr no change at 3.6
hb stable
BP stable
on supplemental O2 -no change
minimal diuresis with IV lasix
Review of Systems:
no cp or sob at rest
no n/v
still with edema
Labs
-
Labs:
WBC 4.5 10^3/uL (4.8-10.8) L 06/07/23 06:09
RBC 2.45 10^6/uL (4.70-6.10) L 06/07/23 06:09
Hgb 8.2 g/dL (13.0-18.0) L 06/07/23 06:09
Hct 23.8 % (39.0-52.0) L 06/07/23 06:09
Plt Count 133 10^3/uL (130-400) 06/07/23 06:09
Sodium 134 mmol/L (135-145) L 06/07/23 06:09
Potassium 4.9 mmol/L (3.5-5.1) 06/07/23 06:09
Chloride 97 mmol/L (98-107) L 06/07/23 06:09
Carbon Dioxide 27 mmol/L (22-30) 06/07/23 06:09
BUN 117 mg/dl (9-20) H* 06/07/23 06:09
Creatinine 3.6 mg/dL (0.7-1.3) H 06/07/23 06:09
eGFR 16.26 06/07/23 06:09
Glucose 109 mg/dl (70-99) H 06/07/23 06:09
Calcium 8.9 mg/dl (8.4-10.2) 06/07/23 06:09
Oww-A-Qwcprpmpnky Pept 4140 pg/ml 05/28/23 11:57
Albumin 3.2 g/dl (3.5-5.0) L 05/29/23 08:29
Physical Exam
-
Vital Signs:
Vital Signs
Temp Pulse Resp BP Pulse Ox
98.8 F 67 16 116/53 97
06/07/23 07:37 06/07/23 09:02 06/07/23 07:37 06/07/23 09:02 06/07/23 08:55
Cardiovascular:: Regular rate and rhythm
Respiratory:: Bilateral: Coarse
Lung Excursion:: Normal
Abdomen:: Nontender and Soft
Bowel Sounds:: Normal
Extremity Edema:: +3: Bilateral:
[2023-06-07 10:52] VITALS: BP 114/58
[2023-06-07] MEDS: ZAROXOLYN 10 MG PO ×2 (11:25→19:55)
[2023-06-07 11:34] LABS: Glucose - Point of Care 144 mg/dl (70-99)
[2023-06-07 15:10] VITALS: BP 114/57
--- NOTE | 2023-06-07 15:58 | CM ---
Plan: dc when medically stable to [facility] pending insurance Authorization approval
[2023-06-07 16:40] LABS: Glucose - Point of Care 141 mg/dl (70-99)
[2023-06-07 19:00] VITALS: BP 120/62
[2023-06-07] MEDS: DESENEX/MITRAZOL/ZEASORB 1 APPLIC TOPICAL (19:56)
[2023-06-07] MEDS: NEURONTIN 300 MG PO (22:36)
[2023-06-07] MEDS: DESYREL 25 MG PO (22:41)
[2023-06-07 23:40] VITALS: BP 111/52
[2023-06-08 03:26] VITALS: BP 113/50
[2023-06-08 03:58] LABS: Glucose - Point of Care 143 mg/dl (70-99)
[2023-06-08 05:51] VITALS: BMI 31.3
[2023-06-08] MEDS: CARAFATE 1 GRAM PO (06:38)
[2023-06-08 07:28] LABS: Hematocrit 21.6 % (39.0-52.0); Hemoglobin 7.4 g/dL (13.0-18.0); Mean Corp Hgb Conc. 34.3 g/dL (33.0-37.0); Mean Corpuscular Hgb 32.7 pg (27.0-31.0); Mean Corpuscular Volume 95.6 fL (80.0-94.0); Mean Platelet Volume 11.3 fL (7.4-10.4); Platelet Count 129 10^3/uL (130-400); Red Blood Cell Count 2.26 10^6/uL (4.70-6.10); Red Cell Dist. Width 15.7 % (11.5-14.5); White Blood Cell Count 5.3 10^3/uL (4.8-10.8)
[2023-06-08 07:35] VITALS: BP 113/53
[2023-06-08 07:41] LABS: Glucose - Point of Care 154 mg/dl (70-99)
--- NOTE | 2023-06-08 07:51 | W.PN.HOSP.TC ---
Today's Communication/Plan
-
Monitor H&H
would transfuse for goal Hgb>7 (patient currently declining to sign consent until transfusion is necessary)
cont hold Eliquis
diuresis as per Nephro
rubens hugger as necessary low temp, checking TSH and Cortisol in AM
increased trazodone 50 mg HSPRN insomnia
cont Qtc monitoring with amiodarone and diflucan
Assessment / Plan
Assessment / Plan
Physical Exam
General: Comfortable on 2l nasal cannula flow
HEENT: Normocephalic, Atraumatic and Moist Mucous Membranes
Respiratory: CTAB no wheezes crackles rhonchi
Cardiac: Regular Rhythm, S1/S2 and Gallop
GI: Soft, Nontender, Nondistended and Normal Bowel Sounds
Musculoskeletal: +2 pitting edema lower ex
Neuro: AO x 3 and Nonfocal/Grossly Intact
Psych: Calm
Impression:
82 yo M presents to the ER with Severe Dysphagia found to have esophageal food debris and regurgitation, concern for aspiration pneumonia.�Remote H/o gastric sleeve.
Esophageal Food Debris
Aspiration Pneumonia ruled out
Acute on chronic CHF
BULMARO on CKD stage 4, with Anasarca
Prolonged QT improved
Plan:
Esophageal Food Debris -
s/p EGD and clearance esophagus . No masses/tumor found. Sharp angulation of GE junction ,grade c esophagitis probably from food stasis noted. Biopsy positive for candidal esophagitis, currently on fluconazole.
Continue with PPI
Tolerating diet so far. If tolerating diet the plan is PPI, Carafate and repeat endoscopy in 8 weeks.
If not tolerating diet, consider getting a Barium swallow.
Acute on chronic HFpEF.�
Weight at admission - 94 kgs,
Weight today 06/03 - 104.5kgs
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
The bilateral pleural effusions could be chronic from heart failure or related to aspiration.�
Rpt CXR 05/31 shows
Small-moderate bilateral pleural effusions with associated compressive atelectasis at both lung bases
Cardiomegaly with cephalization of the pulmonary vasculature suggesting borderline pulmonary edema�
With continued worsening of renal function and now with a rising weight is clinically concerned about fluid overload.
rechallenged with IV Lasix, and Sr Cr elevated.
Status post renal biopsy on 06/05.
Continue IV diuresis monitor renal functions
BULMARO on CKD stage 4 -
Volume Depletion 3 days CENTRAL SERVICE TECH.
S/p - IV fluids no response, creatinine worsening. Hold further IV fluids. Lasix as above.�
CT abdomen pelvis imaging on admission showed no obstructive uropathy.
Cr relatively stable at 3.6-3.9 range
Cont Diuresis as per Nephrology
Serologies resulted, biopsy results pending
Follow fluid status and electrolytes closely.
Anemia -
Progressive anemia with no obvious source of bleeding
Continue hold on eliquis, and trend CBC.
Renal US notes no hematoma
Anemia likely multifactorial, anemia of chronic disease and renal insufficiency
Iron B12 Folate level wnl
Transfuse prn goal hgb>7
Discussed with patient who declines to sign consent for transfusion until transfusion is necessary
intermittent low Temp
94.8 morning 06/08 resolved with rubens hugger consistently 97.5 end of day
unclear etiology
checking morning TSH w/ reflex T4 and Random Cortisol
Sutures from the left leg above the left medial malleolus removed, and wound dressed with a 2x2 gauge on 06/02, wound dressing intact.
Aspiration Pneumonia ruled out
CT Chest -b/l pleural effusion right more than left with bibasilar consolidation right more than left concerning for aspiration.� There is also faint opacity in the right upper zone.�
H/o cough with regurgitation in the setting of b/l pleural effusion favors clinical suspicion of aspiration pneumonia.
Afebrile, WBC count normal.�
Initially on Augmentin discontinued.
Acute hypoxic respiratory insufficiency likely secondary to volume overload.
Monitor with diuresis.
Paroxysmal to Permanent A fib -
currently in A-fib with�rate control.
On amiodarone and Eliquis
Eliquis renal dosing - Hold for now
In Sinus rhythm today
Restless Leg Syndrome
increased home gabapentin to 300 mg HS, symptoms since improved, continue current dose
Poor Sleep
low dose Trazodone HSPRN started, no relief at 25 mg, QT remains stable
trazodone increased to 50 mg HSPRN
DM
hold Tradjenta
Insulin Basal bolus regimen
PIO
CPAP at HS
DVT prophylaxis
Eliquis - on Hold
SCD for now
Code status
Full code
Discussed with patient and his daughter Nicole
I spent a total of 55 minutes with the patient or on the floor. More than 50% of this time involved counseling and coordination of care.
Anticipated Discharge: > 48 hours
Subjective/Interval History
-
Date of Service: June 08, 2023
Reports resolution of twitching lower ext following increase in Gabapentin. Chills with associate temp 94.8 improved with rubens hugger. Continues to report poor sleep despite low dose trazodone last night. Otherwise no acute distress, comfortable
at this time. Daughter Nicole, Son-in-law Raghav, Granddaughter Summer, Grandson Charan present during evaluation.
Objective Data
-
Labs:
Laboratory Results
06/08/23
06:08
WBC 5.3
Hgb 7.4 L
Hct 21.6 L
Plt Count 129 L
Sodium Pending
Potassium Pending
Chloride Pending
Carbon Dioxide Pending
BUN Pending
Creatinine Pending
Glucose Pending
Calcium Pending
Vital Signs:
Vital Signs
Temp Pulse Resp BP Pulse Ox
97.4 F 65 18 113/50 93
06/08/23 03:26 06/08/23 03:26 06/08/23 03:26 06/08/23 03:26 06/08/23 03:26
I&O
06/07/23 06/08/23 06/09/23
06:59 06:59 06:59
Intake Total 780 / 780 780 / 780
Output Total 475 / 475 705 / 705
Balance 305 / 305 75 / 75
[2023-06-08 08:09] LABS: Calcium 8.8 mg/dl (8.4-10.2); Carbon Dioxide 26 mmol/L (22-30); Chloride 96 mmol/L (98-107); Estimated Creatinine Clearance 19 ml/min; Glucose 124 mg/dl (70-99); Potassium 4.4 mmol/L (3.5-5.1); Sodium 132 mmol/L (135-145); eGFR 14.77
[2023-06-08 08:19] LABS: Blood Urea Nitrogen 126 mg/dl (9-20)
[2023-06-08] MEDS: NOVOLOG FLEXPEN-LOW RESISTANCE 1 UNITS SC ×2 (08:51→12:56)
[2023-06-08] MEDS: LASIX 80 MG IV ×2 (08:52→16:23)
[2023-06-08] MEDS: PROTONIX 40 MG PO ×2 (08:52→20:28)
[2023-06-08] MEDS: PACERONE 200 MG PO (08:52)
[2023-06-08] MEDS: VITAMIN C 1000 MG PO (08:52)
[2023-06-08] MEDS: LIPITOR 20 MG PO (08:53)
[2023-06-08] MEDS: DIFLUCAN 100 MG PO (08:53)
[2023-06-08] MEDS: DESENEX/MITRAZOL/ZEASORB 1 APPLIC TOPICAL ×2 (08:53→20:28)
[2023-06-08] MEDS: ZAROXOLYN 10 MG PO ×2 (08:53→20:28)
[2023-06-08] MEDS: APRESOLINE 25 MG PO ×2 (08:53→20:29)
[2023-06-08] MEDS: CARAFATE PO ×4 (11:35→20:43)
[2023-06-08 11:44] VITALS: BP 104/55
[2023-06-08 11:46] LABS: Glucose - Point of Care 166 mg/dl (70-99)
--- NOTE | 2023-06-08 13:03 | W.PN.NEPH.PH ---
Today's Communication / Plan
-
diurese
Assessment/Plan
-
IMP:
Severe dysphagia with esophageal food debris and regurgitation and concern for aspiration.�
�history of gastric sleeve s/p EGD No masses/tumor found. Sharp angulation of GE junction ,grade c esophagitis
Chronic HFpEF.�
Acute kidney injury on chronic kidney disease stage 4-baseline cr 2-
Paroxysmal to permanent atrial fibrillation
DM
PIO� CPAP at HS
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
non obst bilat renal caliculi
HLD
hyponatremia
Plan:
-await biopsy results
-follow BMP
-lasix +metolazone today (10mg bid), then hodl metolazone
-lasix BID
-
-
Date of Service: June 08, 2023
CC / HPI / ROS
-
Chief Complaint:
BULMARO with CKD
History of Present Illness:
BULMARO/Cr up to 3.9
BUN higher at 126
hb lower at 7.4
BP stable
on supplemental O2 -no change
minimal diuresis with IV lasix, weight not much different
Review of Systems:
no cp or sob at rest
no n/v
still with edema
Labs
-
Labs:
WBC 5.3 10^3/uL (4.8-10.8) 06/08/23 06:08
RBC 2.26 10^6/uL (4.70-6.10) L 06/08/23 06:08
Hgb 7.4 g/dL (13.0-18.0) L 06/08/23 06:08
Hct 21.6 % (39.0-52.0) L 06/08/23 06:08
Plt Count 129 10^3/uL (130-400) L 06/08/23 06:08
Sodium 132 mmol/L (135-145) L 06/08/23 06:08
Potassium 4.4 mmol/L (3.5-5.1) 06/08/23 06:08
Chloride 96 mmol/L (98-107) L 06/08/23 06:08
Carbon Dioxide 26 mmol/L (22-30) 06/08/23 06:08
BUN 126 mg/dl (9-20) H* 06/08/23 06:08
Creatinine 3.9 mg/dL (0.7-1.3) H 06/08/23 06:08
eGFR 14.77 06/08/23 06:08
Glucose 124 mg/dl (70-99) H 06/08/23 06:08
Calcium 8.8 mg/dl (8.4-10.2) 06/08/23 06:08
Taq-E-Ewxqvlllqpy Pept 4140 pg/ml 05/28/23 11:57
Albumin 3.2 g/dl (3.5-5.0) L 05/29/23 08:29
Physical Exam
-
Vital Signs:
Vital Signs
Temp Pulse Resp BP Pulse Ox
94.8 F L 62 18 104/55 97
06/08/23 11:17 06/08/23 11:44 06/08/23 11:44 06/08/23 11:44 06/08/23 11:44
Cardiovascular:: Regular rate and rhythm
Respiratory:: Bilateral: Coarse
Lung Excursion:: Normal
Abdomen:: Nontender and Soft
Bowel Sounds:: Normal
Extremity Edema:: +3: Bilateral:
[2023-06-08 14:48] LABS: Iron 57 ug/dl (49-181)
[2023-06-08 14:58] LABS: Percent Saturation 17 % (20-50); Total Iron Binding Capacity 317 ug/dl (261-462)
[2023-06-08 14:58] LABS: Hemoglobin 7.2 g/dL (13.0-18.0)
[2023-06-08 15:22] LABS: Ferritin 42.8 ng/ml (17.9-464.0)
[2023-06-08 15:26] VITALS: BP 114/54
[2023-06-08 15:53] LABS: Folate 16.7 ng/ml (2.76-20); Vitamin B12 891 pg/ml (239-931)
[2023-06-08] MEDS: NOVOLOG FLEXPEN-LOW RESISTANCE SC (18:43)
[2023-06-08 18:44] LABS: Glucose - Point of Care 126 mg/dl (70-99)
[2023-06-08 19:25] VITALS: BP 110/49
[2023-06-08] MEDS: NEURONTIN 300 MG PO (20:28)
[2023-06-08] MEDS: DESYREL 50 MG PO (20:43)
[2023-06-08 21:19] LABS: Glucose - Point of Care 140 mg/dl (70-99)
[2023-06-08 23:44] VITALS: BP 143/60
[2023-06-09] VITALS (8 sets, daily range): BP systolic 94–123; BP diastolic 51–57; PULSE 58; O2SAT 94–95; BMI 31.3
--- NOTE | 2023-06-09 03:12 | PTCARENOTE ---
Patient refusing oral temp at 0313 with VS. RN and PCT attempted to get oral temp and RN explained importance. Patient still refused screaming 'get out of here!'. AAOx3. RN took axillary temperature getting 96.8.
[2023-06-09] MEDS: NSS (PRESERVATIVE FREE) 0.125 ML IV (05:05)
[2023-06-09] MEDS: ATIVAN 0.25 MG IV (05:05)
--- NOTE | 2023-06-09 05:05 | W.PN.UPDATE ---
Update Note
Progress Note Update
Responded to code purple
Per RNs pt woke up and wanted to walk into bathroom. RN states he is unsteady on his feet and advised BSC and then he became angry, took off oxygen and would not allow nurses to replace. He is angry and agitated and attempting to be combative. Pt
sitting on edge of bed and will not move. Security at bedside.
QT close to 500 and is on amio, diflucan and trazadone
Will give small dose ativan iv and reassess.
restraints x4 applied for safety
TME due to uremia vs increased trazadone?
--- NOTE | 2023-06-09 05:29 | PTCARENOTE ---
Patient called RN's in saying he needed to use the bathroom to have a bowel movement. Patient very unsteady on his feet and uses a rolling walker. RN stated that for safety, until PT can see him, he needed to either use the bed royal or the bedside
commode. Patient refused both options. Patient took his O2 off and was refusing staff to replace it. Patient became combative and tried to strike the staff when trying to assess his O2 status. Constantino young called. Security had to assist patient back
into bed. Non-violent restraints were ordered and applied. O2 sat was at 82% on RA. O2 placed back on. Medication administered see JUL.
[2023-06-09 07:31] LABS: Glucose - Point of Care 156 mg/dl (70-99)
[2023-06-09 08:15] LABS: % Basophils 0.2 % (0-2); % Immature Granulocytes 0.7 % (0-0.5); % Lymphocytes 10.8 % (20.5-51.1); % Neutrophils 78.3 % (42.2-75.2); Absolute Lymphocytes 0.6 10^3/uL (1.2-3.4); Absolute Monocytes 0.5 10^3/uL (0.1-0.6); Absolute Neutrophils 4.2 10^3/uL (1.4-6.5); Hematocrit 21.3 % (39.0-52.0); Hemoglobin 7.3 g/dL (13.0-18.0); Mean Corp Hgb Conc. 34.3 g/dL (33.0-37.0); Mean Corpuscular Hgb 33.3 pg (27.0-31.0); Mean Corpuscular Volume 97.3 fL (80.0-94.0); Mean Platelet Volume 11.2 fL (7.4-10.4); Nucleated Red Blood Cells % 0.7 % (-); Platelet Count 124 10^3/uL (130-400); Red Blood Cell Count 2.19 10^6/uL (4.70-6.10); Red Cell Dist. Width 15.7 % (11.5-14.5); White Blood Cell Count 5.4 10^3/uL (4.8-10.8)
[2023-06-09 08:45] LABS: Calcium 8.8 mg/dl (8.4-10.2); Carbon Dioxide 28 mmol/L (22-30); Chloride 95 mmol/L (98-107); Estimated Creatinine Clearance 16 ml/min; Glucose 120 mg/dl (70-99); Potassium 4.6 mmol/L (3.5-5.1); Sodium 133 mmol/L (135-145); eGFR 12.78
[2023-06-09 09:11] LABS: Cortisol, Random 31.7 ug/dl; TSH Reflex To Free T4 1.98 uIU/ml (0.47-4.68)
[2023-06-09 09:29] LABS: Blood Urea Nitrogen 138 mg/dl (9-20)
[2023-06-09] MEDS: CARAFATE 1 GRAM PO (09:57)
[2023-06-09] MEDS: NOVOLOG FLEXPEN-LOW RESISTANCE 1 UNITS SC (09:57)
[2023-06-09] MEDS: DESENEX/MITRAZOL/ZEASORB 1 APPLIC TOPICAL ×2 (09:58→22:12)
[2023-06-09] MEDS: LIPITOR 20 MG PO (09:58)
[2023-06-09] MEDS: APRESOLINE 25 MG PO ×2 (09:58→22:11)
[2023-06-09] MEDS: LASIX 80 MG IV ×2 (09:59→16:02)
[2023-06-09] MEDS: DIFLUCAN 100 MG PO (09:59)
[2023-06-09] MEDS: PACERONE 200 MG PO (09:59)
[2023-06-09] MEDS: VITAMIN C 1000 MG PO (09:59)
[2023-06-09] MEDS: PROTONIX 40 MG PO ×2 (09:59→22:11)
[2023-06-09] MEDS: FLUSH (NSS) 1 FLUSH IV ×2 (10:00→16:03)
[2023-06-09 12:04] LABS: Glucose - Point of Care 134 mg/dl (70-99)
[2023-06-09] MEDS: NOVOLOG FLEXPEN-LOW RESISTANCE SC ×2 (12:07→18:02)
[2023-06-09] MEDS: CARAFATE PO ×3 (12:07→22:12)
--- NOTE | 2023-06-09 14:40 | W.PN.NEPH.PH ---
Today's Communication / Plan
-
Hd tomorrow
contacted IR for catheter placement
Assessment/Plan
-
IMP:
Severe dysphagia with esophageal food debris and regurgitation and concern for aspiration.�
history of gastric sleeve s/p EGD No masses/tumor found. Sharp angulation of GE junction ,grade c esophagitis
Chronic HFpEF.�
Acute kidney injury on chronic kidney disease stage 4-baseline cr 2-
Paroxysmal to permanent atrial fibrillation
DM
PIO� CPAP at HS
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
non obst bilat renal caliculi
HLD
hyponatremia
Plan:
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
-follow BMP
-lasix +metolazone today (10mg bid), then holding metolazone
-lasix BID
-Uremia and worsening renal failure
-we will arrange HD catheter placement tomorrow and then initiate HD
-IR contacted for tunneled HD catheter placement tomorrow
-spoke to daughter to update her on plan for HD
-
-
Date of Service: June 09, 2023
CC / HPI / ROS
-
Chief Complaint:
BULMARO with CKD
History of Present Illness:
BULMARO/Cr up to 4.4
BUN higher at 138
hb lower at 7.3
BP stable
on supplemental O2 -no change
minimal diuresis with IV lasix, weight not much different
severely agtated over night, security was called
Review of Systems:
no cp or sob at rest
now extremely lethargic
no n/v
still with edema
Labs
-
Labs:
WBC 5.4 10^3/uL (4.8-10.8) 06/09/23 07:46
RBC 2.19 10^6/uL (4.70-6.10) L 06/09/23 07:46
Hgb 7.3 g/dL (13.0-18.0) L 06/09/23 07:46
Hct 21.3 % (39.0-52.0) L 06/09/23 07:46
Plt Count 124 10^3/uL (130-400) L 06/09/23 07:46
Sodium 133 mmol/L (135-145) L 06/09/23 07:46
Potassium 4.6 mmol/L (3.5-5.1) 06/09/23 07:46
Chloride 95 mmol/L (98-107) L 06/09/23 07:46
Carbon Dioxide 28 mmol/L (22-30) 06/09/23 07:46
BUN 138 mg/dl (9-20) H* 06/09/23 07:46
Creatinine 4.4 mg/dL (0.7-1.3) H* 06/09/23 07:46
eGFR 12.78 06/09/23 07:46
Glucose 120 mg/dl (70-99) H 06/09/23 07:46
Calcium 8.8 mg/dl (8.4-10.2) 06/09/23 07:46
Mnk-X-Ejgskhhnbxh Pept 4140 pg/ml 05/28/23 11:57
Albumin 3.2 g/dl (3.5-5.0) L 05/29/23 08:29
Physical Exam
-
Vital Signs:
Vital Signs
Temp Pulse Resp BP Pulse Ox
94 F L 58 20 112/52 94
06/09/23 10:32 06/09/23 11:00 06/09/23 11:00 06/09/23 11:00 06/09/23 11:00
Cardiovascular:: Regular rate and rhythm
Respiratory:: Bilateral: Coarse
Lung Excursion:: Normal
Abdomen:: Nontender and Soft
Bowel Sounds:: Normal
Extremity Edema:: +2: Bilateral:
Calvin Catheter: No
--- NOTE | 2023-06-09 15:45 | CM ---
CM reviewed chart
Code purple this morning, pt now in restraints and given Ativan this morning
Discussion with nephro- plan to start on new HD tomorrow
Call with dtr to review dc planning
Aware [facility] does not have HD capability
Aware that referrals will be sent to SNFs with HD capability
Also explained transition to outpt clinic if HD needed on SNF dc by SNF SW
Referral sent via [facility] to [facility]
Will need to provide HD clinicals once available
[facility] transport info provided bedside per dtr request
Discharge Disposition- SNF with new HD
--- NOTE | 2023-06-09 15:46 | W.PN.HOSP.TC ---
Today's Communication/Plan
-
HD catheter with plan for initiation of hemodialysis.
Altered mental status secondary to toxic metabolic encephalopathy/uremia.
With declining renal function, avoid oversedation
Stop trazodone.
Hold Neurontin.
Use lorazepam only if agitated and with caution.
Continue Diflucan monitoring QTc
Continue PPI
Assessment / Plan
Assessment / Plan
Impression:
82 yo M presents to the ER with Severe Dysphagia found to have esophageal food debris and regurgitation, concern for aspiration pneumonia.�Remote H/o gastric sleeve.
Esophageal Food Debris
Aspiration Pneumonia ruled out
Acute on chronic CHF
BULMARO on CKD stage 4, with Anasarca
Toxic metabolic encephalopathy secondary to uremia.
Hypothermia
Prolonged QT improved
Plan:
Esophageal Food Debris -
s/p EGD and clearance esophagus . No masses/tumor found. Sharp angulation of GE junction ,grade c esophagitis probably from food stasis noted. Biopsy positive for candidal esophagitis, currently on fluconazole.
Continue with PPI
Tolerating diet so far. If tolerating diet the plan is PPI, Carafate and repeat endoscopy in 8 weeks.
If not tolerating diet, consider getting a Barium swallow.
Acute on chronic HFpEF.�
Weight at admission - 94 kgs,
Weight today 06/03 - 104.5kgs
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
The bilateral pleural effusions could be chronic from heart failure or related to aspiration.�
Rpt CXR 05/31 shows
Small-moderate bilateral pleural effusions with associated compressive atelectasis at both lung bases
Cardiomegaly with cephalization of the pulmonary vasculature suggesting borderline pulmonary edema�
With continued worsening of renal function and now with a rising weight is clinically concerned about fluid overload.
rechallenged with IV Lasix, and Sr Cr elevated.
BULMARO on CKD stage 4 -
Renal biopsy findings consistent with ATN
Currently uremic with TME manifested with lethargy and intermittent agitation.
Discussed with nephrology transplant plan is for dialysis catheter placement and initiation of hemodialysis on 06/10.
Hypothermic
Hemodynamically stable with no evidence of infection.
Cortisol and TSH within normal limits.
? If related to uremia.
Monitor closely.
Bear hugger
Anemia -
Progressive anemia with no obvious source of bleeding
Continue hold on eliquis, and trend CBC.
Renal US notes no hematoma
Anemia likely multifactorial, anemia of chronic disease and renal insufficiency
Iron B12 Folate level wnl
Transfuse prn goal hgb>7
Discussed with patient who declines to sign consent for transfusion until transfusion is necessary
intermittent low Temp
94.8 morning 06/08 resolved with rubens hugger consistently 97.5 end of day
unclear etiology
checking morning TSH w/ reflex T4 and Random Cortisol
Sutures from the left leg above the left medial malleolus removed, and wound dressed with a 2x2 gauge on 06/02, wound dressing intact.
Aspiration Pneumonia ruled out
CT Chest -b/l pleural effusion right more than left with bibasilar consolidation right more than left concerning for aspiration.� There is also faint opacity in the right upper zone.�
H/o cough with regurgitation in the setting of b/l pleural effusion favors clinical suspicion of aspiration pneumonia.
Afebrile, WBC count normal.�
Initially on Augmentin discontinued.
Acute hypoxic respiratory insufficiency likely secondary to volume overload.
Monitor with diuresis.
Paroxysmal to Permanent A fib -
currently in A-fib with�rate control.
On amiodarone and Eliquis
Eliquis renal dosing - Hold for now
In Sinus rhythm today
Restless Leg Syndrome
increased home gabapentin to 300 mg HS, symptoms since improved, continue current dose
Poor Sleep
low dose Trazodone HSPRN started, no relief at 25 mg, QT remains stable
trazodone increased to 50 mg HSPRN
DM
hold Tradjenta
Insulin Basal bolus regimen
PIO
CPAP at HS
DVT prophylaxis
Eliquis - on Hold
SCD for now
Code status
Full code
Discussed with patient and his daughter Nicole
Anticipated Discharge: > 48 hours
Subjective/Interval History
-
Date of Service: June 09, 2023
Objective Data
-
Labs:
Laboratory Results
06/09/23
07:46
WBC 5.4
Hgb 7.3 L
Hct 21.3 L
Plt Count 124 L
Sodium 133 L
Potassium 4.6
Chloride 95 L
Carbon Dioxide 28
BUN 138 H*
Creatinine 4.4 H*
Glucose 120 H
Calcium 8.8
Vital Signs:
Vital Signs
Temp Pulse Resp BP Pulse Ox
94 F L 58 20 112/52 94
06/09/23 10:32 06/09/23 11:00 06/09/23 11:00 06/09/23 11:00 06/09/23 11:00
I&O
06/08/23 06/09/23 06/10/23
06:59 06:59 06:59
Intake Total 780 / 780 270 / 270
Output Total 705 / 705 180 / 180
Balance 75 / 75 90 / 90
Physical Exam
-
General: Well Developed and No Apparent Distress
HEENT: Normocephalic, Atraumatic and Moist Mucous Membranes
Respiratory: Clear to Auscultation
Cardiac: Regular Rhythm and S1/S2; Negative Murmur, Rub or Gallop
GI: Soft, Nontender, Nondistended and Normal Bowel Sounds; Negative Organomegaly
Rectal: Deferred by Provider
Musculoskeletal: No Clubbing, No Cyanosis and No Edema
Skin: Negative Rash
Neuro: Nonfocal/Grossly Intact
--- NOTE | 2023-06-09 15:54 | PTCARENOTE ---
Pt lethargic but attempts to open eyes to name; moves extremities weakly. Occ nods head 'yes' and 'no' to questions. VSS. Telemetry:afib; HR 40's-50's. pt with generalized anasarca. On nc 2 lpm-pulseox 97%; no resp distress noted pt laying with
mouth open. Abd large, soft, poor Po intake; refusing PO meds at present. Incont urine. Temp currently 93PO; Santino warmer applied. Multiple foam dsgs on arms currently D/I. Will continue to monitor. Pt for transfer to room 423; report given to
Denise FELIZ.
[2023-06-09 17:49] LABS: Glucose - Point of Care 142 mg/dl (70-99)
--- NOTE | 2023-06-09 18:45 | PTCARENOTE ---
1730 Pt arrived via Bed, transferred from [facility]. Noted pt more awake and talkative when stated his name. Pt's daughter at bedside. Pt requesting to get up to go to bathroom, mention to pt and daughter concern to assist pt OOB at this time, felt pt
is weak. Pt allowed with assistance to place on bedpan at this time. 1720 Pt did not have a bowel movement, removed bedpan. 1830 Pt pulled out IV and started to shout and noted increasing aggitation.1840 DR. Merida notified over phone and ordered
ativan 0.25mg IV [id number] PRN, report given to email marketing assistant nurse.
[2023-06-09 22:02] LABS: Glucose - Point of Care 158 mg/dl (70-99)
[2023-06-10] VITALS (7 sets, daily range): BP systolic 67–121; BP diastolic 47–63; BMI 31.1
[2023-06-10 07:59] LABS: % Basophils 0.2 % (0-2); % Immature Granulocytes 0.6 % (0-0.5); % Lymphocytes 6.3 % (20.5-51.1); % Neutrophils 84.9 % (42.2-75.2); Absolute Lymphocytes 0.4 10^3/uL (1.2-3.4); Absolute Monocytes 0.5 10^3/uL (0.1-0.6); Absolute Neutrophils 5.4 10^3/uL (1.4-6.5); Hematocrit 21.5 % (39.0-52.0); Hemoglobin 7.5 g/dL (13.0-18.0); Mean Corp Hgb Conc. 34.9 g/dL (33.0-37.0); Mean Corpuscular Hgb 33.2 pg (27.0-31.0); Mean Corpuscular Volume 95.1 fL (80.0-94.0); Mean Platelet Volume 11.5 fL (7.4-10.4); Nucleated Red Blood Cells % 0.8 % (-); Platelet Count 160 10^3/uL (130-400); Red Blood Cell Count 2.26 10^6/uL (4.70-6.10); Red Cell Dist. Width 15.8 % (11.5-14.5); White Blood Cell Count 6.4 10^3/uL (4.8-10.8)
[2023-06-10 08:33] LABS: Calcium 8.6 mg/dl (8.4-10.2); Carbon Dioxide 25 mmol/L (22-30); Chloride 98 mmol/L (98-107); Estimated Creatinine Clearance 14 ml/min; Glucose 105 mg/dl (70-99); Sodium 132 mmol/L (135-145)
[2023-06-10 08:49] LABS: Blood Urea Nitrogen 150 mg/dl (9-20)
[2023-06-10 08:50] LABS: Glucose - Point of Care 142 mg/dl (70-99)
[2023-06-10] MEDS: NOVOLOG FLEXPEN-LOW RESISTANCE SC ×3 (09:11→17:44)
[2023-06-10] MEDS: PACERONE 200 MG PO (09:22)
[2023-06-10] MEDS: PROTONIX 40 MG PO (09:23)
[2023-06-10] MEDS: VITAMIN C 1000 MG PO (09:23)
[2023-06-10] MEDS: DIFLUCAN 100 MG PO (09:23)
[2023-06-10] MEDS: DESENEX/MITRAZOL/ZEASORB 1 APPLIC TOPICAL ×2 (09:25→20:57)
[2023-06-10] MEDS: LIPITOR 20 MG PO (09:25)
[2023-06-10] MEDS: CARAFATE 1 GRAM PO (09:28)
[2023-06-10] MEDS: APRESOLINE 25 MG PO (09:28)
[2023-06-10] MEDS: LASIX 80 MG IV ×2 (09:30→15:59)
[2023-06-10] MEDS: FLUSH (NSS) 2 FLUSH IV ×2 (09:31→16:01)
--- NOTE | 2023-06-10 09:40 | PTCARENOTE ---
Patient swallowed most of am pills crushed in applesauce, then began coughing with sip of water and vomited PO intake. Patient cleared throat upon instruction. Patient performed a rinse and spit with water for mouth care, but unable to sip any
further water due to coughing again with oral intake. Patient maintained high solis's in bed at this time. Will consult with speech therapist as ordered in chart.
[2023-06-10 10:55] LABS: Hepatitis B Surface Antigen Negative (Negative)
[2023-06-10 11:14] LABS: Hepatitis B Core Ab, Total Negative (Negative); Hepatitis B Surface Antibody Negative; Hepatitis C Antibody Negative (Negative)
--- NOTE | 2023-06-10 12:07 | PTOTSP ---
Speech Therapy
Previous ST: Per 06/10 chart review: patient is afebrile (97F), WBC is WNL (6.4), and on a 2000 calorie (regualr consistency solids and thin liquid) diet.
05/29 speech evaluation: recommended regular consistency solids and thin liquids with a VSE to quantify swallowing function.
05/30 speech follow up: continue regular consistency solids and thin liquids with no VSE due to MD preference for a esophagram. BLOCK CABLEMAN signed off.
RN texted BLOCK CABLEMAN due to patient's coughing episodes with PO and medications.
Swallowing Function: Patient was seen positioned upright in his bed. Patient was cooperative but confused. Patient's speech appeared to be wet in quality and weak. BLOCK CABLEMAN trialed thin liquids via straw (small, singl sips) which resulted in increased
wet vocal quality and immediate wet coughing. Patient appeared to be fatigued from his coughing episodes.
Given the above information, recommend NPO at this time with ice chips (ARHP) supervised and sparingly after oral care. VSE highly recommended to objectively assess his swallowing function.
Recommendations:
1) NPO
2) ARHP: ice chips sparingly after oral care; supervised
3) Medications not by mouth
4) Aspiration precautions
5) VSE
Plan: BLOCK CABLEMAN will continue to follow; pending hospitalization.
[2023-06-10] MEDS: MANNITOL 12.5 GRAMS IV ×2 (12:10→13:24)
[2023-06-10 12:31] LABS: Glucose - Point of Care 135 mg/dl (70-99)
[2023-06-10] MEDS: CARAFATE PO ×3 (12:52→22:53)
--- NOTE | 2023-06-10 13:49 | W.PN.NEPH.HD ---
Assessment
-
Patient seen on dialysis
Remains withdrawn
Systolic blood pressure 138 at current ultrafiltration set for 1 kg
Mannitol given �2
QB 250
Dialysis again tomorrow
Progress Note - Hemodialysis
-
Date of Service: June 10, 2023
Duration: 15 minutes and 2 hours
Potassium Bath: 2
Calcium Bath: 2.5
Opti-Dialyzer: 160
Ultrafiltration: Other (1kg)
Blood Flow: 250
Dialysate Flow: 600
Heparin: none
EPO: none
[2023-06-10] MEDS: HEPARIN 2200 UNITS INTRACATH (14:16)
--- NOTE | 2023-06-10 15:48 | W.PN.HOSP.TC ---
Today's Communication/Plan
-
HD.
Monitor mental status closely
Aspiration precautions
N.p.o.
Consider VSE
Assessment / Plan
Assessment / Plan
Impression:
82 yo M presents to the ER with Severe Dysphagia found to have esophageal food debris and regurgitation, concern for aspiration pneumonia.�Remote H/o gastric sleeve.
Esophageal Food Debris
Aspiration Pneumonia ruled out
Acute on chronic CHF
BULMARO on CKD stage 4, with Anasarca
Toxic metabolic encephalopathy secondary to uremia.
Aspiration risk
Hypothermia
Prolonged QT improved
Plan:
Esophageal Food Debris -
s/p EGD and clearance esophagus . No masses/tumor found. Sharp angulation of GE junction ,grade c esophagitis probably from food stasis noted. Biopsy positive for candidal esophagitis, currently on fluconazole.
Continue with PPI
Tolerating diet so far. If tolerating diet the plan is PPI, Carafate and repeat endoscopy in 8 weeks.
If not tolerating diet, consider getting a Barium swallow.
Acute on chronic HFpEF.�
Weight at admission - 94 kgs,
Weight today 06/03 - 104.5kgs
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
The bilateral pleural effusions could be chronic from heart failure or related to aspiration.�
Rpt CXR 05/31 shows
Small-moderate bilateral pleural effusions with associated compressive atelectasis at both lung bases
Cardiomegaly with cephalization of the pulmonary vasculature suggesting borderline pulmonary edema�
With continued worsening of renal function and now with a rising weight is clinically concerned about fluid overload.
rechallenged with IV Lasix, and Sr Cr elevated.
BULMARO on CKD stage 4 -
Renal biopsy findings consistent with ATN
With worsening renal function patient became uremic.
Initiated on HD on 06/10
Hypothermic
Hemodynamically stable with no evidence of infection.
Cortisol and TSH within normal limits.
? If related to uremia.
Monitor closely.
Bear hugger
Anemia -
Progressive anemia with no obvious source of bleeding
Continue hold on eliquis, and trend CBC.
Renal US notes no hematoma
Anemia likely multifactorial, anemia of chronic disease and renal insufficiency
Iron B12 Folate level wnl
Transfuse prn goal hgb>7
Discussed with patient who declines to sign consent for transfusion until transfusion is necessary
Aspiration Pneumonia ruled out
CT Chest -b/l pleural effusion right more than left with bibasilar consolidation right more than left concerning for aspiration.� There is also faint opacity in the right upper zone.�
H/o cough with regurgitation in the setting of b/l pleural effusion favors clinical suspicion of aspiration pneumonia.
Afebrile, WBC count normal.�
Initially on Augmentin discontinued.
With toxic metabolic encephalopathy/uremia patient remains aspiration risk
Keep n.p.o.
Monitor closely
Consider VSE
Acute hypoxic respiratory insufficiency likely secondary to volume overload.
Monitor with diuresis.
Paroxysmal to Permanent A fib -
currently in A-fib with�rate control.
On amiodarone and Eliquis
Eliquis renal dosing - Hold for now
In Sinus rhythm today
Restless Leg Syndrome
increased home gabapentin to 300 mg HS, symptoms since improved, continue current dose
Poor Sleep
low dose Trazodone HSPRN started, no relief at 25 mg, QT remains stable
trazodone increased to 50 mg HSPRN
DM
hold Tradjenta
Insulin Basal bolus regimen
PIO
CPAP at HS
Sutures from the left leg above the left medial malleolus removed, and wound dressed with a 2x2 gauge on 06/02, wound dressing intact.
DVT prophylaxis
Eliquis - on Hold
SCD for now
Code status
Full code
Anticipated Discharge: > 48 hours
Subjective/Interval History
-
Date of Service: June 10, 2023
Objective Data
-
Labs:
Laboratory Results
06/10/23
07:00
WBC 6.4
Hgb 7.5 L
Hct 21.5 L
Plt Count 160 D
Sodium 132 L
Potassium 5.0
Chloride 98
Carbon Dioxide 25
BUN 150 H*
Creatinine 5.1 H*
Glucose 105 H
Calcium 8.6
Vital Signs:
Vital Signs
Temp Pulse Resp BP Pulse Ox
97.0 F 68 22 109/58 97
06/10/23 15:31 06/10/23 15:31 06/10/23 15:31 06/10/23 15:31 06/10/23 15:31
I&O
06/09/23 06/10/23 06/11/23
06:59 06:59 06:59
Intake Total 270 / 270 240 / 240
Output Total 180 / 180
Balance 90 / 90 240 / 240
Physical Exam
-
General: Well Developed and No Apparent Distress
HEENT: Normocephalic, Atraumatic and Moist Mucous Membranes
Respiratory: Clear to Auscultation
Cardiac: Regular Rhythm and S1/S2; Negative Murmur, Rub or Gallop
GI: Soft, Nontender, Nondistended and Normal Bowel Sounds; Negative Organomegaly
Rectal: Deferred by Provider
Musculoskeletal: No Clubbing, No Cyanosis and No Edema
Skin: Negative Rash
Neuro: Nonfocal/Grossly Intact and Other (Lethargic)
[2023-06-10 17:11] LABS: Glucose - Point of Care 128 mg/dl (70-99)
[2023-06-10] MEDS: PROTONIX PO (20:57)
[2023-06-10] MEDS: APRESOLINE PO (20:57)
[2023-06-10 22:18] LABS: Glucose - Point of Care 100 mg/dl (70-99)
[2023-06-11] VITALS (8 sets, daily range): BP systolic 102–116; BP diastolic 49–54; PULSE 65–68; O2SAT 96; BMI 31.5
[2023-06-11 04:05] LABS: Glucose - Point of Care 121 mg/dl (70-99)
[2023-06-11 06:29] LABS: Glucose - Point of Care 110 mg/dl (70-99)
[2023-06-11] MEDS: CARAFATE PO ×4 (08:15→22:18)
[2023-06-11] MEDS: PACERONE PO (08:16)
[2023-06-11] MEDS: PROTONIX PO ×2 (08:16→22:18)
[2023-06-11] MEDS: DIFLUCAN PO (08:16)
[2023-06-11] MEDS: LIPITOR PO (08:16)
[2023-06-11] MEDS: VITAMIN C PO (08:16)
[2023-06-11] MEDS: APRESOLINE PO ×2 (08:17→22:17)
[2023-06-11 08:42] LABS: Hemoglobin 7.1 g/dL (13.0-18.0)
[2023-06-11 08:44] LABS: Hematocrit 20.6 % (39.0-52.0)
[2023-06-11 09:18] LABS: Blood Urea Nitrogen 118 mg/dl (9-20); Calcium 8.6 mg/dl (8.4-10.2); Carbon Dioxide 26 mmol/L (22-30); Chloride 96 mmol/L (98-107); Estimated Creatinine Clearance 17 ml/min; Glucose 99 mg/dl (70-99); Potassium 4.6 mmol/L (3.5-5.1); Sodium 134 mmol/L (135-145); eGFR 12.78
--- NOTE | 2023-06-11 09:35 | PTOTSP ---
Speech Language Pathology
Pt seen for dysphagia tx. P.O. trials of ice chips, thin liquids, and puree provided. With thin liquids via straw, significant R labial leakage noted in 2/4 trials. Pt stated this was because 'you gave me too much' despite fact that pt took his
own sip from straw. Question slight R facial droop, and RN/MD notified. Intermittent slight cough noted with thin liquids. Pt has demonstrated inconsistent swallow function with known esophageal issues. Cannot rule out pharyngeal dysphagia.
Recommend:
(1) VSE
(2) Continued NPO pending VSE
(3) Allow meds in puree and ice chips per Aspiration Risk Hydration Protocol (ARHP) post oral care given supervision
(4) Oral care 4x/day with suctioning as needed
(5) SUSTAINABLE DESIGN COORDINATOR to continue to follow
[2023-06-11] MEDS: DESENEX/MITRAZOL/ZEASORB 1 APPLIC TOPICAL ×2 (10:07→22:17)
[2023-06-11] MEDS: LASIX 80 MG IV ×2 (10:08→15:42)
[2023-06-11 12:05] LABS: Glucose - Point of Care 114 mg/dl (70-99)
--- NOTE | 2023-06-11 14:14 | CM ---
Patient seen bedside.
HD today.
GLENNE (P).
Plan: Plan: skilled rehab once medically stable.
--- NOTE | 2023-06-11 16:25 | W.PN.NEPH.HD ---
Assessment
-
CC:
Patient evaluated during the hemodialysis procedure (second treatment)
HPI:
Wearing nasal cannula O2
BP low normal
Remains n.p.o. due to aspiration risk
ROS:
Patient states he has not had a BM and has not voided
Daughter at bedside concerned that he is confused
Daughter concerned about lack of nutrition
Exam:
Lying at 30 degrees
Appears confused
Wearing nasal cannula O2
Flank and lower extremity edema present
Braces on both legs
Right temporary HD CVC site intact
Assessment:
Severe dysphagia with esophageal food debris and regurgitation and concern for aspiration: Remains n.p.o.
History gastric sleeve s/p EGD without masses/tumor found, sharp angulation of GE junction, grade C esophagitis
Chronic HFpEF
Acute kidney injury on chronic kidney disease stage 4-baseline creatinine 2.0 mg/DL requiring initiation of HD June 10, 2023
Paroxysmal to permanent atrial fibrillation
DM
PIO�CPAP at HS
Mod TR and mild pulmonary hypertension echo 02/2023
Nonobstructing bilateral renal calculi
Hyperlipidemia
Hyponatremia, hypervolemic
Severe anemia Hb 7.1 GM/DL (patient declines to sign consent for transfusion)
Iron deficiency
Confusion, likely toxic metabolic encephalopathy
Plan:
Renal biopsy noted ATN, osmotic nephrosis and nephrosclerosis
No urine output recorded
Bladder scan now and straight cath for urine culture
Would hold loop diuretics
Remains n.p.o.
Spoke with daughter regarding her request for intravenous fluids and intravenous nutrition
Reviewed his hypervolemic state and inappropriateness of TPN
If he fails video swallow evaluation, an NG tube would be more appropriate
Regarding his confusion, he more than likely has a metabolic encephalopathy
Continue scheduled HD
Obtain urine culture (May straight cath)
Check bladder scan
ELVIS and IV iron with HD
Transfuse if Hb drifts below 7 GM/DL
Hold parameters on antihypertensive medication
I guess ATN on biopsy could portend partial recovery of function
Given his fragile state and existing comorbidities, he does not appear to be an optimal long-term dialysis candidate
Situation reviewed with patient's daughter at bedside
Prognosis guarded
Reviewed with nursing
HD again tomorrow
Discussion of dialysis qualifies as a high risk encounter
Progress Note - Hemodialysis
-
Date of Service: June 11, 2023
Duration: 30 minutes and 2 hours
Potassium Bath: 3
Calcium Bath: 2.5
Opti-Dialyzer: 160
Ultrafiltration: Other (1 kg)
Blood Flow: 250
Dialysate Flow: 600
Heparin: None
EPO: 10,000 units plus Ferrlecit
[2023-06-11] MEDS: MANNITOL 12.5 GRAMS IV ×2 (17:11→18:17)
--- NOTE | 2023-06-11 17:12 | W.PN.HOSP.TC ---
Today's Communication/Plan
-
HD
Monitor mental status with hope of improving toxic metabolic cephalopathy with HD initiation
Given protracted rest of abnormal MS, will check CT scan of the head
Has been off Eliquis given renal biopsy as well as severe anemia
Declining transfusion.
Aspiration precautions
Keep n.p.o. for now.
Assessment / Plan
Assessment / Plan
Impression:
82 yo M presents to the ER with Severe Dysphagia found to have esophageal food debris and regurgitation, concern for aspiration pneumonia.�Remote H/o gastric sleeve.
Esophageal Food Debris
Aspiration Pneumonia ruled out
Acute on chronic CHF
BULMARO secondary to ATN on CKD stage 4, with Anasarca
Toxic metabolic encephalopathy secondary to uremia.
Aspiration risk
Hypothermia
Prolonged QT improved
Plan:
Esophageal Food Debris -
s/p EGD and clearance esophagus . No masses/tumor found. Sharp angulation of GE junction ,grade c esophagitis probably from food stasis noted. Biopsy positive for candidal esophagitis, currently on fluconazole.
Continue with PPI
Tolerating diet so far. If tolerating diet the plan is PPI, Carafate and repeat endoscopy in 8 weeks.
If not tolerating diet, consider getting a Barium swallow.
Acute on chronic HFpEF.� In the settings of BULMARO/ATN and decreased urine output
Had no response to IV diuresis
Initiated on HD
BULMARO
Status post renal biopsy findings consistent with ATN.
Underlying CKD stage IV.
Initiated on hemodialysis
Monitor BMP.
Monitor urine output
Hypothermic
Hemodynamically stable with no evidence of infection.
Cortisol and TSH within normal limits.
? If related to uremia.
Monitor closely.
Bear hugger
Anemia -
Progressive anemia with no obvious source of bleeding
Continue hold on eliquis, and trend CBC.
Renal US notes no hematoma
Anemia likely multifactorial, anemia of chronic disease and renal insufficiency
Iron B12 Folate level wnl
Patient offered transfusion, although declined in multiple occasions
Continue to monitor hemoglobin closely
Toxic metabolic encephalopathy most likely secondary to uremia.
No focal findings on exam
Monitor closely with initiation of HD.
Aspiration risk
CT Chest -b/l pleural effusion right more than left with bibasilar consolidation right more than left concerning for aspiration.� There is also faint opacity in the right upper zone.�
H/o cough with regurgitation in the setting of b/l pleural effusion favors clinical suspicion of aspiration pneumonia.
Afebrile, WBC count normal.�
No clinical evidence of aspiration pneumonia
Initially on Augmentin discontinued. Monitor closely while off antibiotics, if fever, would be low threshold to reinstate antibiotic therapy.
With toxic metabolic encephalopathy/uremia patient remains aspiration risk
Keep n.p.o.
Monitor closely
If mental status not improved with continuous aspiration risk would consider NG tube placement for nutrition.
Paroxysmal to Permanent A fib -
currently in A-fib with�rate control.
On amiodarone and Eliquis
Eliquis renal dosing - Hold for now given severe anemia
Restless Leg Syndrome
increased home gabapentin to 300 mg HS, symptoms since improved, continue current dose
Poor Sleep
low dose Trazodone HSPRN started, no relief at 25 mg, QT remains stable
trazodone increased to 50 mg HSPRN
DM
hold Tradjenta
Insulin Basal bolus regimen
PIO
CPAP at HS
Sutures from the left leg above the left medial malleolus removed, and wound dressed with a 2x2 gauge on 06/02, wound dressing intact.
DVT prophylaxis
Eliquis - on Hold
SCD for now
Code status
Full code
Anticipated Discharge: > 48 hours
Subjective/Interval History
-
Date of Service: June 11, 2023
Objective Data
-
Labs:
Laboratory Results
06/11/23
08:23
Hgb 7.1 L
Hct 20.6 L*
Sodium 134 L
Potassium 4.6
Chloride 96 L
Carbon Dioxide 26
BUN 118 H*
Creatinine 4.4 H*
Glucose 99
Calcium 8.6
Vital Signs:
Vital Signs
Temp Pulse Resp BP Pulse Ox
97.5 F 63 16 106/49 97
06/11/23 15:00 06/11/23 15:42 06/11/23 15:00 06/11/23 15:42 06/11/23 15:00
I&O
06/10/23 06/11/23 06/12/23
06:59 06:59 06:59
Intake Total 240 / 240 0 / 0
Balance 240 / 240 0 / 0
Physical Exam
-
General: Well Developed and No Apparent Distress
HEENT: Normocephalic, Atraumatic and Moist Mucous Membranes
Respiratory: Clear to Auscultation
Cardiac: Regular Rhythm and S1/S2; Negative Murmur, Rub or Gallop
GI: Soft, Nontender, Nondistended and Normal Bowel Sounds; Negative Organomegaly
Rectal: Deferred by Provider
Musculoskeletal: No Clubbing, No Cyanosis and No Edema
Skin: Negative Rash
Neuro: Nonfocal/Grossly Intact
[2023-06-11 18:11] LABS: Glucose - Point of Care 97 mg/dl (70-99)
[2023-06-11] MEDS: EPOGEN 10000 UNITS IV (18:18)
[2023-06-11] MEDS: FERRLECIT 125 MG IV (18:18)
[2023-06-11] MEDS: HEPARIN 2200 UNITS INTRACATH (19:19)
--- NOTE | 2023-06-11 22:00 | PTCARENOTE ---
no facial droop noted.
[2023-06-11 23:21] LABS: Glucose - Point of Care 94 mg/dl (70-99)
[2023-06-12 03:20] VITALS: BP 102/49
[2023-06-12 06:00] VITALS: BMI 29.7
[2023-06-12 06:07] LABS: Glucose - Point of Care 100 mg/dl (70-99)
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
[2023-06-12] MEDS: CARAFATE PO ×3 (07:45→16:30)
[2023-06-12 07:58] VITALS: BP 111/54
[2023-06-12] MEDS: PROTONIX PO (08:00)
[2023-06-12] MEDS: LIPITOR PO (08:00)
[2023-06-12] MEDS: VITAMIN C PO (08:00)
[2023-06-12] MEDS: DESENEX/MITRAZOL/ZEASORB TOPICAL (08:00)
--- NOTE | 2023-06-12 08:10 | PTOTSP ---
Speech Language Pathology
Pt seen for dysphagia tx. P.O. trials of puree, ice chips, and thin liquids provided. Adequate oral phase with limited consistencies trialed. Brief throat clear with 1/5 trials of thin liquids. No change in vocal quality or overt coughing.
Pt would benefit from VSE and likely esophagram (has been considered for some time). However, intermittent agitation is currently a barrier to completion. Pt has been NPO with no source of nutrition. Given fairly good tolerance of P.O. trials
this date, will trial modified diet and see how pt tolerates.
Recommend:
(1) Initiate IDDSI Level 4 Solids (Puree) and Thin liquids
(2) Aspiration precautions: full supervision, slow rate, sit upright
(3) Meds whole in puree
(4) Provide break if cough or regurgitation noted
(5) Will consider VSE when appropriate
(6) MATH SPECIALIST to continue to follow
[2023-06-12 08:15] LABS: % Basophils 0.1 % (0-2); % Immature Granulocytes 0.4 % (0-0.5); % Monocytes 6.6 % (1.7-9.3); % Neutrophils 88.9 % (42.2-75.2); Absolute Immature Granulocytes 0.1 10^3/uL (0-0.05); Absolute Lymphocytes 0.5 10^3/uL (1.2-3.4); Absolute Monocytes 0.9 10^3/uL (0.1-0.6); Absolute Neutrophils 11.9 10^3/uL (1.4-6.5); Hematocrit 22.2 % (39.0-52.0); Hemoglobin 7.8 g/dL (13.0-18.0); Mean Corp Hgb Conc. 35.1 g/dL (33.0-37.0); Mean Corpuscular Hgb 33.8 pg (27.0-31.0); Mean Corpuscular Volume 96.1 fL (80.0-94.0); Nucleated Red Blood Cells % 1.3 % (-); Red Blood Cell Count 2.31 10^6/uL (4.70-6.10); Red Cell Dist. Width 15.9 % (11.5-14.5); White Blood Cell Count 13.3 10^3/uL (4.8-10.8)
[2023-06-12] MEDS: APRESOLINE PO ×2 (09:09→20:04)
[2023-06-12 09:20] LABS: Blood Urea Nitrogen 89 mg/dl (9-20); Calcium 8.2 mg/dl (8.4-10.2); Carbon Dioxide 27 mmol/L (22-30); Chloride 98 mmol/L (98-107); Estimated Creatinine Clearance 16 ml/min; Glucose 85 mg/dl (70-99); Potassium 4.2 mmol/L (3.5-5.1); Sodium 131 mmol/L (135-145); eGFR 14.77
[2023-06-12 09:29] LABS: Mean Platelet Volume 11.4 fL (7.4-10.4)
[2023-06-12 09:30] LABS: Platelet Count 117 10^3/uL (130-400)
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
[2023-06-12 11:45] VITALS: BP 108/46
--- NOTE | 2023-06-12 11:47 | CM ---
Patient seen bedside.
Refused HD this am.
Increased to Puree diet with thins.
VSE is recommended.
Per nursing continues with periods of agitation.
Plan: continue to follow for d/c needs, skilled rehab.
[2023-06-12 12:05] LABS: Glucose - Point of Care 98 mg/dl (70-99)
--- NOTE | 2023-06-12 12:19 | W.PN.NEPH.HD ---
Assessment
-
Seen on HD. no new objections to HD. VSS, access CVC
Progress Note - Hemodialysis
-
Date of Service: June 12, 2023
Duration: 45 minutes and 2 hours
Potassium Bath: 3
Calcium Bath: 2.5
Opti-Dialyzer: 160
Ultrafiltration: Other (2kg)
Blood Flow: 350
Dialysate Flow: 600
Heparin: no
EPO: 8000
[2023-06-12] MEDS: ProAmatine 2.5 MG PO (12:51)
[2023-06-12] MEDS: MANNITOL 12.5 GRAMS IV ×2 (13:13→14:15)
[2023-06-12] MEDS: EPOGEN 8000 UNITS IV (13:14)
[2023-06-12] MEDS: FERRLECIT 125 MG IV (13:14)
--- NOTE | 2023-06-12 14:19 | W.PN.UPDATE ---
Update Note
Progress Note Update
patient seen chart reviewed. spoke with dr nayak. consultation note will follow shortly
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
[2023-06-12] MEDS: HEPARIN 2200 UNITS INTRACATH (14:50)
[2023-06-12 15:18] VITALS: BP 110/54
--- NOTE | 2023-06-12 15:56 | W.PN.HOSP.TC ---
Today's Communication/Plan
-
Attempt of EGD.
Psychiatric evaluation.
Restraints for protection.
Ongoing goals of care discussion
Assessment / Plan
Assessment / Plan
Impression:
82 yo M presents to the ER with Severe Dysphagia found to have esophageal food debris and regurgitation, concern for aspiration pneumonia.�Remote H/o gastric sleeve.
Esophageal Food Debris
Aspiration Pneumonia ruled out
Acute on chronic CHF
BULMARO secondary to ATN on CKD stage 4, with Anasarca
Toxic metabolic encephalopathy secondary to uremia.
Aspiration risk
Hypothermia
Prolonged QT improved
Plan:
Esophageal Food Debris -
s/p EGD and clearance esophagus . No masses/tumor found. Sharp angulation of GE junction ,grade c esophagitis probably from food stasis noted. Biopsy positive for candidal esophagitis, currently on fluconazole.
Continue with PPI
Tolerating diet so far. If tolerating diet the plan is PPI, Carafate and repeat endoscopy in 8 weeks.
If not tolerating diet, consider getting a Barium swallow.
Acute on chronic HFpEF.� In the settings of BUMLARO/ATN and decreased urine output
Had no response to IV diuresis
Initiated on HD
BULMARO
Status post renal biopsy findings consistent with ATN.
Underlying CKD stage IV.
Initiated on hemodialysis
Monitor BMP.
Monitor urine output
Hypothermic
Hemodynamically stable with no evidence of infection.
Cortisol and TSH within normal limits.
? If related to uremia.
Monitor closely.
Bear hugger
Anemia -
Progressive anemia with no obvious source of bleeding
Continue hold on eliquis, and trend CBC.
Renal US notes no hematoma
Anemia likely multifactorial, anemia of chronic disease and renal insufficiency
Iron B12 Folate level wnl
Patient offered transfusion, although declined in multiple occasions
Continue to monitor hemoglobin closely
Toxic metabolic encephalopathy most likely secondary to uremia.
No focal findings on exam
CT scan of the head 06/11 with no acute abnormality
Fluctuating mental status with periods of agitation and belligerence. Patient refuses treatment including hemodialysis.
Will ask psychiatry for competency evaluation.
Aspiration risk
CT Chest -b/l pleural effusion right more than left with bibasilar consolidation right more than left concerning for aspiration.� There is also faint opacity in the right upper zone.�
H/o cough with regurgitation in the setting of b/l pleural effusion favors clinical suspicion of aspiration pneumonia.
Afebrile, WBC count normal.�
No clinical evidence of aspiration pneumonia
Initially on Augmentin discontinued. Monitor closely while off antibiotics, if fever, would be low threshold to reinstate antibiotic therapy.
With toxic metabolic encephalopathy/uremia patient remains aspiration risk
Keep n.p.o.
Monitor closely
If mental status not improved with continuous aspiration risk would consider NG tube placement for nutrition.
Paroxysmal to Permanent A fib -
currently in A-fib with�rate control.
On amiodarone and Eliquis
Eliquis renal dosing - Hold for now given severe anemia
Restless Leg Syndrome
increased home gabapentin to 300 mg HS, symptoms since improved, continue current dose
DM
hold Tradjenta
Insulin Basal bolus regimen
PIO
CPAP at HS
Sutures from the left leg above the left medial malleolus removed, and wound dressed with a 2x2 gauge on 06/02, wound dressing intact.
DVT prophylaxis
Eliquis - on Hold
SCD for now
Code status
Full code
Anticipated Discharge: 24 - 48 hours
Subjective/Interval History
-
Date of Service: June 12, 2023
Objective Data
-
Labs:
Laboratory Results
06/12/23
08:09
WBC 13.3 H
Hgb 7.8 L
Hct 22.2 L
Plt Count 117 L D
Sodium 131 L
Potassium 4.2
Chloride 98
Carbon Dioxide 27
BUN 89 H
Creatinine 3.9 H
Glucose 85
Calcium 8.2 L
Vital Signs:
Vital Signs
Temp Pulse Resp BP Pulse Ox
97.2 F 63 20 110/54 96
06/12/23 15:18 06/12/23 15:18 06/12/23 15:18 06/12/23 15:18 06/12/23 15:18
I&O
06/11/23 06/12/23 06/13/23
06:59 06:59 06:59
Intake Total 0 / 0 0 / 0
Output Total 30 / 30
Balance 0 / 0 -30 / -30
Physical Exam
-
General: Well Developed and No Apparent Distress
HEENT: Normocephalic, Atraumatic and Moist Mucous Membranes
Respiratory: Clear to Auscultation
Cardiac: Regular Rhythm and S1/S2; Negative Murmur, Rub or Gallop
GI: Soft, Nontender, Nondistended and Normal Bowel Sounds; Negative Organomegaly
Rectal: Deferred by Provider
Musculoskeletal: No Clubbing, No Cyanosis and No Edema
Skin: Negative Rash
Neuro: Awake, Alert, Oriented and Nonfocal/Grossly Intact
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
[2023-06-12 17:12] LABS: Glucose - Point of Care 90 mg/dl (70-99)
[2023-06-12] MEDS: DIFLUCAN 100 MG PO (18:03)
[2023-06-12] MEDS: PACERONE 200 MG PO (18:03)
[2023-06-12 19:08] VITALS: BP 108/51
[2023-06-12] MEDS: PROTONIX 40 MG PO (20:05)
[2023-06-12] MEDS: CARAFATE 1 GRAM PO (20:09)
[2023-06-12] MEDS: RISPERDAL M-TAB (ORALLY DISINTEGRATING) 0.25 MG PO (20:09)
[2023-06-12 21:29] LABS: Glucose - Point of Care 98 mg/dl (70-99)
[2023-06-12] MEDS: DESENEX/MITRAZOL/ZEASORB 1 APPLIC TOPICAL (23:37)
[2023-06-12 23:39] VITALS: BP 97/51
[2023-06-13 03:54] VITALS: BP 108/60
[2023-06-13 05:58] VITALS: BMI 28.8
[2023-06-13 08:08] VITALS: BP 113/48
[2023-06-13 08:22] LABS: Glucose - Point of Care 87 mg/dl (70-99)
--- NOTE | 2023-06-13 09:00 | PTCARENOTE ---
Dr. Merida notified for patient with generalized c/o chest pain 'for the last week.' Telemetry maintained.
[2023-06-13 09:07] LABS: Blood Urea Nitrogen 67 mg/dl (9-20); Calcium 8.2 mg/dl (8.4-10.2); Carbon Dioxide 28 mmol/L (22-30); Chloride 99 mmol/L (98-107); Estimated Creatinine Clearance 19 ml/min; Glucose 83 mg/dl (70-99); Potassium 3.9 mmol/L (3.5-5.1); Sodium 132 mmol/L (135-145); eGFR 17.41
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
[2023-06-13 09:19] LABS: % Basophils 0.2 % (0-2); % Immature Granulocytes 0.3 % (0-0.5); % Lymphocytes 6.2 % (20.5-51.1); % Monocytes 8.2 % (1.7-9.3); % Neutrophils 85.1 % (42.2-75.2); Absolute Lymphocytes 0.7 10^3/uL (1.2-3.4); Absolute Neutrophils 9.9 10^3/uL (1.4-6.5); Hematocrit 23.6 % (39.0-52.0); Hemoglobin 8.2 g/dL (13.0-18.0); Mean Corp Hgb Conc. 34.7 g/dL (33.0-37.0); Mean Corpuscular Hgb 33.5 pg (27.0-31.0); Mean Corpuscular Volume 96.3 fL (80.0-94.0); Mean Platelet Volume 12.2 fL (7.4-10.4); Platelet Count 103 10^3/uL (130-400); Red Blood Cell Count 2.45 10^6/uL (4.70-6.10); Red Cell Dist. Width 16.2 % (11.5-14.5); White Blood Cell Count 11.7 10^3/uL (4.8-10.8)
[2023-06-13] MEDS: VITAMIN C PO ×2 (09:38→09:55)
[2023-06-13] MEDS: PACERONE 200 MG PO (09:38)
[2023-06-13] MEDS: PROTONIX 40 MG PO ×2 (09:38→19:29)
[2023-06-13] MEDS: LIPITOR 20 MG PO (09:38)
[2023-06-13] MEDS: DIFLUCAN 100 MG PO (09:38)
[2023-06-13] MEDS: CARAFATE 1 GRAM PO ×4 (09:39→21:48)
[2023-06-13] MEDS: DESENEX/MITRAZOL/ZEASORB 1 APPLIC TOPICAL ×2 (09:40→21:59)
[2023-06-13] MEDS: APRESOLINE PO ×2 (09:41→19:28)
[2023-06-13] MEDS: RISPERDAL M-TAB (ORALLY DISINTEGRATING) 0.25 MG PO (09:42)
[2023-06-13 10:07] LABS: Troponin I 0.336 ng/ml
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
[2023-06-13 11:01] VITALS: BP 101/43
[2023-06-13 11:29] LABS: Glucose - Point of Care 126 mg/dl (70-99)
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
[2023-06-13 17:42] LABS: Glucose - Point of Care 148 mg/dl (70-99)
[2023-06-13 17:43] VITALS: BP 100/44
[2023-06-13 17:53] LABS: Troponin I 0.316 ng/ml
[2023-06-13] MEDS: RISPERDAL M-TAB (ORALLY DISINTEGRATING) 0.5 MG PO (19:30)
[2023-06-13 19:46] VITALS: BP 93/41
[2023-06-13 21:26] LABS: Glucose - Point of Care 131 mg/dl (70-99)
[2023-06-13 23:18] VITALS: BP 109/53
[2023-06-14] VITALS (7 sets, daily range): BP systolic 86–105; BP diastolic 39–51; BMI 28.7
[2023-06-14 00:46] LABS: Troponin I 0.299 ng/ml
[2023-06-14 06:48] LABS: Blood Urea Nitrogen 72 mg/dl (9-20); Calcium 8.1 mg/dl (8.4-10.2); Carbon Dioxide 27 mmol/L (22-30); Chloride 98 mmol/L (98-107); Estimated Creatinine Clearance 15 ml/min; Glucose 107 mg/dl (70-99); Potassium 3.9 mmol/L (3.5-5.1); Sodium 131 mmol/L (135-145); eGFR 13.13
[2023-06-14 08:48] LABS: Glucose - Point of Care 126 mg/dl (70-99)
[2023-06-14] MEDS: CARAFATE 1 GRAM PO ×3 (09:54→21:08)
[2023-06-14] MEDS: PACERONE 200 MG PO (09:55)
[2023-06-14] MEDS: APRESOLINE PO ×2 (09:55→20:28)
[2023-06-14] MEDS: LIPITOR 20 MG PO (09:55)
[2023-06-14] MEDS: DIFLUCAN 100 MG PO (09:55)
[2023-06-14] MEDS: PROTONIX 40 MG PO ×2 (09:56→20:32)
[2023-06-14] MEDS: RISPERDAL M-TAB (ORALLY DISINTEGRATING) 0.5 MG PO ×2 (09:56→20:32)
[2023-06-14] MEDS: VITAMIN C 1000 MG PO (09:56)
[2023-06-14] MEDS: DESENEX/MITRAZOL/ZEASORB 1 APPLIC TOPICAL ×2 (09:57→20:33)
[2023-06-14] MEDS: FLUSH (NSS) 1 FLUSH IV (09:57)
--- NOTE | 2023-06-14 10:59 | W.PN.HOSP.TC ---
Today's Communication/Plan
-
see bold
Assessment / Plan
Assessment / Plan
Gen: NAD, Awake and alert, appears chronically ill
Eyes: EOMI, PERRLA, no scleral icterus.
Neck: supple.
CV: RRR, +S1/S2, no m/r/g.
Resp: CTAB, no rales, wheezes, or rhonchi.
Abd: +BS, soft, NT, ND
Skin: ecchymoses and skin tears noted on the arms
Neuro: CN 2-12 intact, non-focal.
Psych: currently calm
Echo: Normal left ventricular chamber size. Moderate concentric left ventricular
�hypertrophy. Normal regional wall motion. Normal left ventricular systolic
�function. Left ventricular ejection fraction is 55-60%. Stage III diastolic
�dysfunction suggestive of restrictive filling pattern and increased filling
�pressures. Flattened septum in diastole consistent with RV pressure overload.
�Thickened mitral valve leaflets. Mitral annular calcification. Mitral valve
�opens normally. Mild mitral regurgitation.
�Severely dilated left atrium. Indexed LA volume is severely abnormal (> 48
�mL/m2).
�Trileaflet aortic valve. Mildly thickened aortic valve with normal leaflet
�excursion. Trace aortic regurgitation.
�Thickened tricuspid valve leaflets. Tricuspid valve opens normally. Severe
�tricuspid regurgitation. Estimated pulmonary artery pressure of 57 mmHg
�assuming right atrial pressure of 20 mmHg.
�Severely dilated right atrium.
�Enlarged right ventricular size. Prominent moderator band. Reduced right
�ventricular systolic function.
�Large pleural effusion present.
�Since echocardiogram February 2023, TR has worsened from moderate to severe.�
�Right ventricle is hypokinetic and large pleural effusion is noted.
Impression:
82 yo M presents to the ER with Severe Dysphagia found to have esophageal food debris and regurgitation, concern for aspiration pneumonia.�Remote H/o gastric sleeve.
Esophageal Food Debris
Aspiration Pneumonia ruled out
Acute on chronic HFpEF
BULMARO secondary to ATN on CKD stage 4, with Anasarca
Toxic metabolic encephalopathy secondary to uremia and likely psychosis
Aspiration risk
Hypothermia
Prolonged QT improved
Plan:
Esophageal Food Debris -
s/p EGD and clearance esophagus . No masses/tumor found. Sharp angulation of GE junction ,grade c esophagitis probably from food stasis noted. Biopsy positive for candidal esophagitis, currently on fluconazole.
Continue with PPI
Tolerating diet so far. If tolerating diet the plan is PPI, Carafate and repeat endoscopy in 8 weeks.
If not tolerating diet, consider getting a Barium swallow.
Acute on chronic HFpEF.� In the settings of BULMARO/ATN and decreased urine output
Had no response to IV diuresis
Initiated on HD
BULMARO
Status post renal biopsy findings consistent with ATN.
Underlying CKD stage IV.
Initiated on hemodialysis
Monitor BMP.
Monitor urine output
Hypothermic
Hemodynamically stable with no evidence of infection.
Cortisol and TSH within normal limits.
? If related to uremia.
Monitor closely.
Bear hugger
Anemia -
Progressive anemia with no obvious source of bleeding
Continue hold on eliquis, and trend CBC.
Renal US notes no hematoma
Anemia likely multifactorial, anemia of chronic disease and renal insufficiency
Iron B12 Folate level wnl
Patient offered transfusion, although declined in multiple occasions
Continue to monitor hemoglobin, currently stable at 8.1
Toxic metabolic encephalopathy most likely secondary to uremia.
No focal findings on exam
CT scan of the head 06/11 with no acute abnormality
Fluctuating mental status with periods of agitation and belligerence. Patient refuses treatment including hemodialysis.
Psychiatry input appreciated. Initiated on Risperdal on 06/12 with dose increased on 06/13. Note, case discussed with Dr. Magallanes
Aspiration risk
CT Chest -b/l pleural effusion right more than left with bibasilar consolidation right more than left concerning for aspiration.� There is also faint opacity in the right upper zone.�
H/o cough with regurgitation in the setting of b/l pleural effusion favors clinical suspicion of aspiration pneumonia.
Afebrile, WBC count normal.�
No clinical evidence of aspiration pneumonia
Initially on Augmentin discontinued. Monitor closely while off antibiotics, if fever, would have low threshold to reinstate antibiotic therapy.
With toxic metabolic encephalopathy/uremia patient remains aspiration risk
Keep n.p.o.
Monitor closely
If mental status not improved with continuous aspiration risk would consider NG tube placement for nutrition.
Paroxysmal to Permanent A fib -
currently in A-fib with�rate control.
On amiodarone and Eliquis
Eliquis renal dosing - Holding for now given severe anemia. If Hb stable tomorrow consider restarting Eliquis.
06/13: Episode of chest pain reproducible on exam.
ECG with no ischemia.
Troponin 0.336.
Echocardiogram 02/24 with LVEF of 57%.
Trend troponin
Repeat echocardiogram above with preserved ejection fraction, grade 3 diastolic dysfunction, worsening tricuspid regurgitation, hypokinetic RV
reasonable to c/s cardiology with these new findings and elevated troponin
Restless Leg Syndrome
increased home gabapentin to 300 mg HS, symptoms since improved, continue current dose
DM
hold Tradjenta
Insulin Basal bolus regimen
PIO
CPAP at HS
Sutures from the left leg above the left medial malleolus removed, and wound dressed with a 2x2 gauge on 06/02, wound dressing intact.
FULL/SCDs for now as Eliquis on hold
Anticipated Discharge: > 48 hours
Subjective/Interval History
-
Date of Service: June 14, 2023
Pt uncooperative with questioning.
Objective Data
-
Labs:
Laboratory Results
06/14/23
05:35
Sodium 131 L
Potassium 3.9
Chloride 98
Carbon Dioxide 27
BUN 72 H
Creatinine 4.3 H*
Glucose 107 H
Calcium 8.1 L
Vital Signs:
Vital Signs
Temp Pulse Resp BP Pulse Ox
97.4 F 69 18 105/49 98
06/14/23 08:25 06/14/23 09:55 06/14/23 08:25 06/14/23 09:55 06/14/23 08:25
I&O
06/13/23 06/14/23 06/15/23
06:59 06:59 06:59
Intake Total 220 / 220 780 / 780
Balance 220 / 220 780 / 780
[2023-06-14 12:04] LABS: Glucose - Point of Care 172 mg/dl (70-99)
[2023-06-14] MEDS: CARAFATE PO (13:00)
--- NOTE | 2023-06-14 13:25 | W.PN.NEPH.HD ---
Assessment
-
patient seen on Hd
sbp 141 at current u/f ~1.5kg
Progress Note - Hemodialysis
-
Date of Service: June 14, 2023
Duration: 3 hours
Potassium Bath: 3
Calcium Bath: 2.5
Opti-Dialyzer: 160
Ultrafiltration: Other (2kg)
Blood Flow: 400
Dialysate Flow: 600
Heparin: none
EPO: none
[2023-06-14] MEDS: EPOGEN 8000 UNITS IV (13:52)
[2023-06-14] MEDS: HEPARIN 2200 UNITS INTRACATH (15:18)
[2023-06-14 16:03] LABS: Glucose - Point of Care 114 mg/dl (70-99)
--- NOTE | 2023-06-14 16:15 | CON.CAR ---
Consultation
Consultation Request
Date/Time Consultation Requested: 06/14/2023 at 1300
Date/Time Consultation Performed: 06/14/2023 at 1630
Requesting Provider: Mane Alfaro MD
Performing Provider: Alex Chan MD
Reason for Consultation: HFpEF, RV dysfunction, permanent atrial fibrillation
Medical History
-
Chief Complaint: Heart failure, RV dysfunction, pulmonary hypertension
History of Present Illness:
82-year-old man with complex past history and 2 recent admissions for HFpEF admitted on May 08 with dysphagia, esophageal food debris, possible pneumonia and acute on chronic HFpEF largely related to BULMARO on CKD 4 with anasarca. He was
encephalopathic and uremic and hemodialysis initiated. Renal biopsy has been performed. Echocardiography was performed on the with progressive RV enlargement, severe TR, and pulmonary artery systolic pressure of 57. He had stage III
diastolic dysfunction on permanent A-fib and consultation was requested. Mitral regurgitation is mild. Patient has had acute changes in mental status, earlier today points to dialysis nurse. He describes himself as single,
Past Medical History
Past Medical History: Arrhythmias (Permanent atrial fibrillation, right bundle branch block, on amiodarone), CHF (HFpEF, nonischemic cardiomyopathy with cardiac catheterization at [facility] in 2019, EF 55%, RV hypokinesis,), COPD, HTN,
Hypercholesterolemia, NIDDM, Renal Failure (CKD 4 progressing to stage V started on hemodialysis May 2023) and Valvular Disease (Moderate MR by echo 2019, moderate TR)
Past Surgical History: None
Social History
Tobacco: Former Smoker
Alcohol: Former
Drug: None
Personal: Single (Has adult children)
Living: Alone
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
Family History
Family History: Reviewed & Not Pertinent
Allergies / Home Medications
Allergy/AdvReac Type Severity Reaction Status Date / Time
No Known Allergies Allergy Unverified 05/28/23 11:03
Medication Instructions Recorded Confirmed Type
apixaban 2.5 mg tablet (Eliquis) 2.5 mg PO BID Blood Clot 11/16/22 05/28/23 History
Prevention/Tx
atorvastatin 20 mg tablet 20 mg PO DAILY High Cholesterol 11/16/22 05/28/23 History
allopurinol 300 mg tablet 300 mg PO DAILY Gout #0 tabs 04/22/23 05/28/23 Rx
amiodarone 200 mg tablet 200 mg PO DAILY Arrhythmia #0 tabs 04/22/23 05/28/23 Rx
furosemide 80 mg tablet 80 mg PO BID Fluid 04/22/23 05/28/23 Rx
retention/Swelling #0 tabs
hydralazine 25 mg tablet 25 mg PO BID Blood pressure #0 tabs 04/22/23 05/28/23 Rx
linagliptin 5 mg tablet (Tradjenta) 5 mg PO DAILY Diabetes #0 tabs 04/22/23 05/28/23 Rx
ascorbic acid (vitamin C) 1,000 mg 1,000 mg PO DAILY Supplement 05/28/23 05/28/23 History
tablet
gabapentin 100 mg capsule 200 mg PO HS Neurological Condition 05/28/23 05/28/23 History
Review of Systems
-
All other systems: Negative unless noted
Physical Exam
Vital Signs
Temp Pulse Resp BP Pulse Ox
36.3 C 70 18 97/44 93
06/14/23 11:30 06/14/23 11:30 06/14/23 11:30 06/14/23 11:30 06/14/23 11:30
Lab Results
06/13/23 08:21
06/14/23 05:35
Troponin I 0.299 ng/ml H* 06/13/23 23:48
Gdk-E-Msvxpfkzdcl Pept 4140 pg/ml 05/28/23 11:57
Physical Exam
General: Other (Chronically ill-appearing)
HEENT: Normocephalic
Respiratory: Other (Diminished breath sounds)
Cardiac: Irregular Rhythm (Systolic murmur), Murmur and JVD (Elevated)
GI: Soft, Non Tender and Distended
Neuro: Awake (Speech is slightly slurred, he has asterixis, nonfocal)
Psych: Calm (Slightly slow to respond)
Impression / Plan
-
Learning Administrator: Dr. Hensley
Impression:
Acute on chronic HFpEF
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
Recent admission for acute HFpEF 02/24 and 04/2023
h/o nonobstructive CAD by cath at [facility] 2019
Chronic amiodarone therapy, apparently for rate control
Chronic Eliquis OAC
RBBB
s/p gastric sleeve
Former smoker
HTN
Type 2 DM
Acute psychosis
Dysphagia
Obstructive sleep apnea
Echo 2021: [facility] study, with EF% 55, RV hypok, biatrial enlargement, and moderate mitral and tricuspid regurgitation with RVSP 37mmHg.
Echo 03/03/23: EF 57%, normal regional wall motion, mild MR, mod TR with PAP 47 mmHg, trivial pericardial effusion
Echo 06/13/2023: Moderate LVH, EF 55-60%, stage III diastolic dysfunction, flattened septum, MAC, mild MR, severely dilated left atrium, trace aortic regurgitation with aortic sclerosis, severe tricuspid regurgitation, pulmonary artery systolic
pressure 57 mmHg with severely dilated right atrium, dilated RV, RV hypokinesis, large pleural effusion, TR has progressed since February 2023, RV is now hypokinetic
Plan:
He has acute on chronic HFpEF with progressive RV dysfunction and severe probably irreversible diastolic dysfunction. Given end-stage of restrictive physiology, there are no good options. Volume management per hemodialysis is the best choice.
SGLT2 inhibitors, spironolactone, Entresto, not good options. Beta-blockers have little role here, and in fact he is bradycardic. Unfortunately there is really nothing that can be done of note to improve his cardiac status and prognosis.
He is on amiodarone with heart rates that are in the 50s to 60s. Amiodarone is being used for rate control. With a slightly higher rate he might actually do better so I have stopped amiodarone. He can follow-up to Dr. Hensley in the office. His
heart rate will not change dramatically over the next few weeks.
Continue Eliquis for stroke prophylaxis.
Antihypertensive management per nephrology.
We will arrange for outpatient cardiac follow-up.
Data Reviewed
-
EKG: Tracing Personally Visualized and interpreted (A-fib with slow ventricular response, right axis deviation, right bundle branch block, suspect RVH, cannot exclude lateral MS)
Radiology: Image Personally Visualized and interpreted (Pleural effusions as of May 31)
Labs: Labs Reviewed by me (Hemoglobin is 8.2, white count 11,BUN/creatinine are 72 and 4.3, glucose 107, sodium 131, troponin 0.0336, proBNP 4140)
Old Records: Reviewed
--- NOTE | 2023-06-14 17:00 | PTCARENOTE ---
Pt's 1500 BP 86/39, pt asymptomatic. Pt did have HD this afternoon. Re-checked BP at 102/51, HR 64, will continue to monitor.
--- NOTE | 2023-06-14 17:55 | W.PN.UPDATE ---
Update Note
Progress Note Update
Attempted to see pt however he was being changed at the time.
Reviewed notes, still with intermittent agitation however has improved enough to receive HD earlier in the day, which is an improvement.
Ordered prn risperidone 0.25mg due to some itnermittent agitation, may be helpful for future HD COntinue risperidone otherwise
[2023-06-14 21:23] LABS: Glucose - Point of Care 141 mg/dl (70-99)
[2023-06-15] VITALS (8 sets, daily range): BP systolic 91–114; BP diastolic 38–55; BMI 28.6
[2023-06-15 07:00] LABS: Blood Urea Nitrogen 56 mg/dl (9-20); Calcium 8.1 mg/dl (8.4-10.2); Carbon Dioxide 25 mmol/L (22-30); Chloride 95 mmol/L (98-107); Estimated Creatinine Clearance 19 ml/min; Glucose 110 mg/dl (70-99); Potassium 4.3 mmol/L (3.5-5.1); Sodium 130 mmol/L (135-145); eGFR 18.05
--- NOTE | 2023-06-15 07:30 | PTCARENOTE ---
Patient with intermittent restlessness with feet over side of bed and verbalizing that he wants to 'go back to the hotel'. Patient confused and able to be partially reoriented and cooperate with nursing to stand at bedside 3 times, then side step to
head of bed. Patient then verbalizing he wants to 'go in the room across the yee.' Patient becoming agitated, but is maintained in bed with bed alarm intact and call branch in reach. Will give prn medication as ordered.
[2023-06-15] MEDS: ATIVAN 0.25 MG IV (07:45)
[2023-06-15] MEDS: NSS (PRESERVATIVE FREE) 0.125 ML IV (07:45)
[2023-06-15] MEDS: CARAFATE 1 GRAM PO (07:48)
[2023-06-15] MEDS: RISPERDAL M-TAB (ORALLY DISINTEGRATING) 0.5 MG PO ×2 (07:51→20:19)
[2023-06-15] MEDS: DESENEX/MITRAZOL/ZEASORB 1 APPLIC TOPICAL ×2 (07:53→20:20)
[2023-06-15] MEDS: VITAMIN C 1000 MG PO (07:59)
[2023-06-15] MEDS: DIFLUCAN 100 MG PO (08:00)
[2023-06-15] MEDS: APRESOLINE PO ×2 (08:01→20:20)
[2023-06-15] MEDS: LIPITOR 20 MG PO (08:01)
[2023-06-15] MEDS: PROTONIX 40 MG PO (08:02)
[2023-06-15 08:14] LABS: Glucose - Point of Care 124 mg/dl (70-99)
--- NOTE | 2023-06-15 08:40 | PTOTSP ---
SPEECH THERAPY SWALLOW FOLLOW-UP NOTE:
Patient exhibiting clinical signs of oropharyngeal dysphagia and overt signs and symptoms of aspiration at this time. Recommend VSE to further assess swallow physiology. Given patient's high risk for aspiration (both prandial and post-prandial) and
related complications, patient appears unsafe for oral diet prior to instrumental assessment of swallowing. Recommend strict NPO until VSE. Speech therapy to follow, continue to provide education regarding aspiration risks and precautions, and
provide additional recommendations following VSE results. Discussed with patient, RN, and Dr. Alfaro via tiger text. Patient reported he agrees to plan.
RECOMMEND:
1) Videofluoroscopic Swallowing Study
2) strict NPO with temporary alternate means for nutrition/medication/hydration until VSE
3) Speech therapy to follow, continue to provide education regarding aspiration risks and precautions, and provide additional recommendations following VSE results
--- NOTE | 2023-06-15 10:24 | W.PN.HOSP.TC ---
Today's Communication/Plan
-
see bold
Assessment / Plan
Assessment / Plan
Gen: NAD, Awake and alert, appears chronically ill
Eyes: EOMI, PERRLA, no scleral icterus.
Neck: supple.
CV: remains RRR, +S1/S2, no m/r/g.
Resp: remains CTAB, no rales, wheezes, or rhonchi.
Abd: remains +BS, soft, NT, ND
Skin: ecchymoses and skin tears noted on the arms
Neuro: CN 2-12 intact, non-focal.
Psych: currently calm
Echo: Normal left ventricular chamber size. Moderate concentric left ventricular
�hypertrophy. Normal regional wall motion. Normal left ventricular systolic
�function. Left ventricular ejection fraction is 55-60%. Stage III diastolic
�dysfunction suggestive of restrictive filling pattern and increased filling
�pressures. Flattened septum in diastole consistent with RV pressure overload.
�Thickened mitral valve leaflets. Mitral annular calcification. Mitral valve
�opens normally. Mild mitral regurgitation.
�Severely dilated left atrium. Indexed LA volume is severely abnormal (> 48
�mL/m2).
�Trileaflet aortic valve. Mildly thickened aortic valve with normal leaflet
�excursion. Trace aortic regurgitation.
�Thickened tricuspid valve leaflets. Tricuspid valve opens normally. Severe
�tricuspid regurgitation. Estimated pulmonary artery pressure of 57 mmHg
�assuming right atrial pressure of 20 mmHg.
�Severely dilated right atrium.
�Enlarged right ventricular size. Prominent moderator band. Reduced right
�ventricular systolic function.
�Large pleural effusion present.
�Since echocardiogram February 2023, TR has worsened from moderate to severe.�
�Right ventricle is hypokinetic and large pleural effusion is noted.
Impression:
82 yo M presents to the ER with Severe Dysphagia found to have esophageal food debris and regurgitation, concern for aspiration pneumonia.�Remote H/o gastric sleeve.
Esophageal Food Debris
Aspiration Pneumonia ruled out
Acute on chronic HFpEF
BULMARO secondary to ATN on CKD stage 4, with Anasarca
Toxic metabolic encephalopathy secondary to uremia and likely psychosis
Aspiration risk
Hypothermia
Prolonged QT improved
Plan:
Esophageal Food Debris -
s/p EGD and clearance esophagus . No masses/tumor found. Sharp angulation of GE junction ,grade c esophagitis probably from food stasis noted. Biopsy positive for candidal esophagitis, currently on fluconazole.
Continue with PPI
Tolerating diet so far. If tolerating diet the plan is PPI, Carafate and repeat endoscopy in 8 weeks.
If not tolerating diet, consider getting a Barium swallow.
Acute on chronic HFpEF.� In the settings of BULMARO/ATN and decreased urine output
Had no response to IV diuresis
Initiated on HD
BULMARO
Status post renal biopsy findings consistent with ATN.
Underlying CKD stage IV.
Initiated on hemodialysis
Monitor BMP.
Monitor urine output
Hypothermic
Hemodynamically stable with no evidence of infection.
Cortisol and TSH within normal limits.
? If related to uremia.
Monitor closely.
Bear hugger
Anemia -
Progressive anemia with no obvious source of bleeding
Continue hold on eliquis, and trend CBC.
Renal US notes no hematoma
Anemia likely multifactorial, anemia of chronic disease and renal insufficiency
Iron B12 Folate level wnl
Patient offered transfusion, although declined in multiple occasions
Continue to monitor hemoglobin, currently stable at 8.1
Toxic metabolic encephalopathy most likely secondary to uremia.
No focal findings on exam
CT scan of the head 06/11 with no acute abnormality
Fluctuating mental status with periods of agitation and belligerence. Patient refuses treatment including hemodialysis.
Psychiatry input appreciated. Initiated on Risperdal on 06/12 with dose increased on 06/13. Note, case discussed with Dr. Magallanes
Aspiration risk
CT Chest -b/l pleural effusion right more than left with bibasilar consolidation right more than left concerning for aspiration.� There is also faint opacity in the right upper zone.�
H/o cough with regurgitation in the setting of b/l pleural effusion favors clinical suspicion of aspiration pneumonia.
Afebrile, WBC count normal.�
No clinical evidence of aspiration pneumonia
Initially on Augmentin discontinued. Monitor closely while off antibiotics, if fever, would have low threshold to reinstate antibiotic therapy.
With toxic metabolic encephalopathy/uremia patient remains aspiration risk
Keep n.p.o.
Monitor closely
If mental status not improved with continuous aspiration risk would consider NG tube placement for nutrition.
Paroxysmal to Permanent A fib -
currently in A-fib with�rate control.
On amiodarone and Eliquis
Eliquis renal dosing - Holding for now given severe anemia. If Hb stable tomorrow consider restarting Eliquis.
06/13: Episode of chest pain reproducible on exam.
ECG with no ischemia.
Troponin 0.336.
Echocardiogram 02/24 with LVEF of 57%.
Trend troponin
Repeat echocardiogram above with preserved ejection fraction, grade 3 diastolic dysfunction, worsening tricuspid regurgitation, hypokinetic RV
-appreciate cardiology. As per Dr. JAZMINE Chan (quoted from consult on 06/14/23), 'Unfortunately there is really nothing that can be done of note to improve his cardiac status and prognosis.'
-Amio stopped to allow for higher heart rates
Restless Leg Syndrome
increased home gabapentin to 300 mg HS, symptoms since improved, continue current dose
DM
hold Tradjenta
Insulin Basal bolus regimen
PIO
CPAP at HS
Sutures from the left leg above the left medial malleolus removed, and wound dressed with a 2x2 gauge on 06/02, wound dressing intact.
FULL/SCDs for now as Eliquis on hold
Anticipated Discharge: > 48 hours
Subjective/Interval History
-
Date of Service: June 15, 2023
Pt does not offer any new complaints.
Objective Data
-
Labs:
Laboratory Results
06/15/23
05:51
Sodium 130 L
Potassium 4.3
Chloride 95 L
Carbon Dioxide 25
BUN 56 H
Creatinine 3.3 H
Glucose 110 H
Calcium 8.1 L
Vital Signs:
Vital Signs
Temp Pulse Resp BP Pulse Ox
97.4 F 69 20 101/49 98
06/15/23 07:57 06/15/23 08:01 06/15/23 07:57 06/15/23 08:01 06/15/23 08:10
I&O
06/14/23 06/15/23 06/16/23
06:59 06:59 06:59
Intake Total 780 / 780 600 / 600
Balance 780 / 780 600 / 600
--- NOTE | 2023-06-15 10:30 | PTCARENOTE ---
Patient asleep in bed with oxygen in, bed alarm intact and call branch and arrington phone in reach.
--- NOTE | 2023-06-15 10:55 | FALL ---
Description of Fall:
Dr. Alfaro came out of room to notify nursing that patient sitting on side of bed. Physical therapist and another nurse found patient sitting on floor with his left upper body, including left arm, still on bed mattress (left arm/elbow/upper body
making contact with bed alarm strip causing lack of audible alarm to initiate). (Also noted that PCT currently en route with med sitter that was requested by nursing as a precautionary measure due to patient with agitation earlier this am, though
asleep when PCT left unit). Patient able to stand and assisted back into bed by nursing staff. Patient denies hitting head or sustaining injury. No obvious sign of injury noted. Patient verbalizes that he was trying to 'get off the couch.' Vital
signs and bedside glucose obtained. Patient in bed with bed alarm intact, call branch and cell phone in reach and med sitter in place. Dr. Alfaro updated.
Injuries Noted:
none noted
Action Taken:
see above
Name of Provider Notified: Angelina
[2023-06-15 10:59] LABS: Glucose - Point of Care 115 mg/dl (70-99)
--- NOTE | 2023-06-15 11:45 | PTCARENOTE ---
Patient confused and making repeated attempts to get out of bed to 'leave'. Patient not receptive to redirection from med sitter. Charge nurse notified of request for bedside 1:1 for fall prevention.
[2023-06-15 11:53] LABS: Glucose - Point of Care 133 mg/dl (70-99)
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
[2023-06-15] MEDS: CARAFATE PO ×3 (12:47→20:20)
--- NOTE | 2023-06-15 14:50 | PTCARENOTE ---
Patient moved from room 423 to 415-01 to accommodate fall prevention needs. Report given to Roque FELIZ.
[2023-06-15 17:55] LABS: Glucose - Point of Care 120 mg/dl (70-99)
--- NOTE | 2023-06-15 18:21 | W.PN.UPDATE ---
Update Note
Progress Note Update
Pt seen at bedside. Is sitting calmly in chair with cell phone in his hand, has finger on screen however does not appear to be meaningfully using the phone. Mumbles in response to questions, responses are difficult to make out - remains confused and
disoriented, though overall much calmer from before.
No medication changes at this time, continue risperidone 0.5mg hs + .25mg prn
[2023-06-15] MEDS: PROTONIX PO (20:20)
[2023-06-15 23:19] LABS: Glucose - Point of Care 137 mg/dl (70-99)
[2023-06-16 03:22] VITALS: BP 90/42
[2023-06-16 05:01] VITALS: BMI 28.5
[2023-06-16 06:14] LABS: Glucose - Point of Care 99 mg/dl (70-99)
[2023-06-16] MEDS: CARAFATE PO ×4 (06:15→21:21)
[2023-06-16 07:55] VITALS: BP 88/46
[2023-06-16] MEDS: APRESOLINE PO ×2 (08:00→21:20)
[2023-06-16] MEDS: RISPERDAL M-TAB (ORALLY DISINTEGRATING) 0.5 MG PO (09:30)
[2023-06-16 10:23] LABS: % Eosinophils 1.2 % (0-6); % Immature Granulocytes 0.3 % (0-0.5); % Lymphocytes 8.5 % (20.5-51.1); % Monocytes 11.5 % (1.7-9.3); % Neutrophils 78.5 % (42.2-75.2); Absolute Eosinophils 0.1 10^3/uL (0-0.7); Absolute Lymphocytes 0.6 10^3/uL (1.2-3.4); Absolute Monocytes 0.9 10^3/uL (0.1-0.6); Absolute Neutrophils 5.8 10^3/uL (1.4-6.5); Hematocrit 23.4 % (39.0-52.0); Hemoglobin 8.1 g/dL (13.0-18.0); Mean Corp Hgb Conc. 34.6 g/dL (33.0-37.0); Mean Corpuscular Hgb 33.8 pg (27.0-31.0); Mean Corpuscular Volume 97.5 fL (80.0-94.0); Nucleated Red Blood Cells % 4.6 % (-); Red Cell Dist. Width 17.2 % (11.5-14.5); White Blood Cell Count 7.4 10^3/uL (4.8-10.8)
[2023-06-16 10:43] LABS: Blood Urea Nitrogen 64 mg/dl (9-20); Calcium 8.4 mg/dl (8.4-10.2); Carbon Dioxide 27 mmol/L (22-30); Chloride 95 mmol/L (98-107); Estimated Creatinine Clearance 14 ml/min; Glucose 94 mg/dl (70-99); Potassium 3.7 mmol/L (3.5-5.1); Sodium 131 mmol/L (135-145); eGFR 12.11
[2023-06-16 10:53] LABS: Mean Platelet Volume 11.8 fL (7.4-10.4); Platelet Count 79 10^3/uL (130-400)
[2023-06-16 11:01] VITALS: BP 96/42
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
[2023-06-16 12:05] LABS: Glucose - Point of Care 64 mg/dl (70-99)
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
[2023-06-16 12:20] LABS: Glucose - Point of Care 92 mg/dl (70-99)
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
[2023-06-16] MEDS: DESENEX/MITRAZOL/ZEASORB 1 APPLIC TOPICAL ×2 (12:51→21:21)
[2023-06-16] MEDS: LIPITOR PO (12:52)
[2023-06-16] MEDS: DIFLUCAN PO (12:52)
[2023-06-16] MEDS: VITAMIN C PO (12:52)
[2023-06-16] MEDS: PROTONIX PO ×2 (12:52→21:21)
[2023-06-16 15:15] VITALS: BP 89/40
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
--- NOTE | 2023-06-16 15:54 | CM ---
CM spoke with patients daughter, Nicole, in regards to detention facilities with HD, as of now, [facility] only accepting SNF. CM sent updated clinicals to [facility]. Nicole requesting SNF around the [place], [place] area. Nicole reports she
did receive an update from the Doctor today in regards to her father being N.P.O. Nicole appreciated update, asked that CM text her CM contact number. CM will continue to follow for discharge planning needs.
Plan; SNF with HD, patient will require auth, patient still on 1:1.
[2023-06-16 18:13] LABS: Glucose - Point of Care 104 mg/dl (70-99)
[2023-06-16] MEDS: ATIVAN 0.25 MG IV (23:11)
[2023-06-16] MEDS: NSS (PRESERVATIVE FREE) 0.125 ML IV (23:11)
[2023-06-16 23:16] VITALS: BP 145/58
[2023-06-16 23:21] LABS: Glucose - Point of Care 125 mg/dl (70-99)
[2023-06-16] MEDS: RISPERDAL M-TAB (ORALLY DISINTEGRATING) PO (23:26)
--- NOTE | 2023-06-16 23:43 | PTCARENOTE ---
pt is confused and combative. he is grabbing at nursing, saying inappropriate things, refusing treatments, and tearing off bandages and tele.
-pt refused 8pm v/s.
-pt refused mouth care, hygiene, etc... MARKETING AND PUBLIC RELATIONS MANAGER made aware. prn Ativan administered,
--- NOTE | 2023-06-17 03:00 | PTCARENOTE ---
pt placed back on rubens hugger w/ intermittent rectal temp checks. - see work list
[2023-06-17 03:04] VITALS: BP 92/53
[2023-06-17] MEDS: CARAFATE PO ×4 (04:37→23:08)
[2023-06-17 04:40] VITALS: BMI 28.4
[2023-06-17 05:27] LABS: Glucose - Point of Care 129 mg/dl (70-99)
[2023-06-17 07:59] VITALS: BP 86/39
[2023-06-17] MEDS: VITAMIN C PO (08:32)
[2023-06-17] MEDS: PROTONIX PO ×2 (08:32→20:00)
[2023-06-17] MEDS: APRESOLINE PO ×2 (08:32→20:00)
[2023-06-17] MEDS: LIPITOR PO (08:32)
[2023-06-17] MEDS: RISPERDAL M-TAB (ORALLY DISINTEGRATING) PO ×2 (08:32→20:00)
[2023-06-17] MEDS: DIFLUCAN PO (08:32)
[2023-06-17] MEDS: DESENEX/MITRAZOL/ZEASORB 1 APPLIC TOPICAL (09:17)
[2023-06-17 11:23] VITALS: BP 86/42
[2023-06-17 12:19] LABS: Glucose - Point of Care 97 mg/dl (70-99)
[2023-06-17] MEDS: MANNITOL 12.5 GRAMS IV ×2 (13:00→14:00)
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
[2023-06-17] MEDS: EPOGEN 8000 UNITS IV (13:24)
[2023-06-17] MEDS: FLEXBUMIN 25% FOR HEMODIALYSIS 12.5 GRAMS IV ×2 (13:25→13:55)
[2023-06-17 13:58] LABS: Cortisol, Random 22.3 ug/dl; TSH 3.49 uIU/ml (0.47-4.68)
--- NOTE | 2023-06-17 15:23 | W.PN.NEPH.HD ---
Assessment
-
no complaints on HD
resting comfortably
blood pressures low, keep patient net even
Progress Note - Hemodialysis
-
Date of Service: June 17, 2023
Duration: 30 minutes and 3 hours
Potassium Bath: 3
Calcium Bath: 2.5
Opti-Dialyzer: 160
Ultrafiltration: Other
Blood Flow: 400
Dialysate Flow: 600
EPO: 8K
[2023-06-17 15:30] VITALS: BP 87/45
--- NOTE | 2023-06-17 15:51 | W.PN.UPDATE ---
Update Note
Progress Note Update
Pt seen, having HD, resting quietly, opened eyes when spoken to, made eye contact briefly, then closed eyes again. Pt calm at present. Pt noted to be confused and combative last night, was given Ativan IV prn. He refused Risperidone last night;
today pt is NPO and Risperidone being held. No EPS evident. QTc 465 on 06/13/23.
Imp: TME due to medical conditions, with intermittent agitation
Rec: Continue Risperidone M-tab if pt able to manage orally disintegrating med. If he remains npo, alternative for agitation would be IM Zyprexa 2.5 to 5 mg prn. Continue IV Ativan prn.
will continue to follow
[2023-06-17] MEDS: ZOSYN 50 IV (16:58)
[2023-06-17 17:59] LABS: Glucose - Point of Care 72 mg/dl (70-99)
[2023-06-17] MEDS: DEXTROSE 50% SYRINGE 12.5 GRAMS IV (18:05)
[2023-06-17 18:56] VITALS: BP 91/41
[2023-06-17 19:07] LABS: Glucose - Point of Care 85 mg/dl (70-99)
[2023-06-17] MEDS: HEPARIN 5000 UNITS SC (23:07)
[2023-06-17 23:15] VITALS: BP 90/42
[2023-06-18] VITALS (11 sets, daily range): BP systolic 57–106; BP diastolic 35–55; PULSE 59–62; BMI 28.0
[2023-06-18] MEDS: ZOSYN 50 IV ×2 (00:02→10:30)
[2023-06-18] MEDS: DESENEX/MITRAZOL/ZEASORB 1 APPLIC TOPICAL ×3 (00:02→22:50)
[2023-06-18 00:17] LABS: Glucose - Point of Care 86 mg/dl (70-99)
[2023-06-18 06:24] LABS: Glucose - Point of Care 103 mg/dl (70-99)
[2023-06-18 08:19] LABS: % Basophils 0.1 % (0-2); % Eosinophils 0.7 % (0-6); % Immature Granulocytes 0.3 % (0-0.5); % Lymphocytes 10.8 % (20.5-51.1); % Monocytes 13.3 % (1.7-9.3); % Neutrophils 74.8 % (42.2-75.2); Absolute Eosinophils 0.1 10^3/uL (0-0.7); Absolute Lymphocytes 0.7 10^3/uL (1.2-3.4); Absolute Monocytes 0.9 10^3/uL (0.1-0.6); Hematocrit 24.1 % (39.0-52.0); Hemoglobin 8.1 g/dL (13.0-18.0); Mean Corp Hgb Conc. 33.6 g/dL (33.0-37.0); Mean Corpuscular Hgb 33.1 pg (27.0-31.0); Mean Corpuscular Volume 98.4 fL (80.0-94.0); Mean Platelet Volume 11.8 fL (7.4-10.4); Nucleated Red Blood Cells % 2.8 % (-); Platelet Count 93 10^3/uL (130-400); Red Blood Cell Count 2.45 10^6/uL (4.70-6.10); Red Cell Dist. Width 19.7 % (11.5-14.5); White Blood Cell Count 6.7 10^3/uL (4.8-10.8)
--- NOTE | 2023-06-18 08:25 | PTOTSP ---
Speech Language Pathology
Pt seen for dysphagia tx. P.O. trials of ice chips, thin liquids via cup, and puree provided. Frequent slight wet voice and delayed coughing noted with all consistencies trialed.
VSE was attempted /, but was severely limited given pt agitation. For this reason, esophagram also unlikely to be able to be completed. Diet was trialed last week (IDDSI 4-Puree and Thin liquids), which pt did not tolerate. On VSE, pharyngeal
residue noted when pt did actually initiate swallow, so suspect thickened liquids would cause more issues. Pt continues without source of nutrition and is hungry.
Recommend:
(1) Continued NPO
(2) Allow ice chips post oral care given supervision per Aspiration Risk Hydration Protocol (ARHP). Ice chips should be provided 1 at a time, but no specific limit, just as tolerated, to keep swallowing muscles active and prevent further disuse
atrophy
(3) Oral care 4x/day with suctioning as needed
(4) Continued GOC discussion
(5) HEADER OPERATOR to continue to follow
[2023-06-18 09:34] LABS: Blood Urea Nitrogen 49 mg/dl (9-20); Calcium 8.7 mg/dl (8.4-10.2); Carbon Dioxide 27 mmol/L (22-30); Chloride 95 mmol/L (98-107); Estimated Creatinine Clearance 17 ml/min; Glucose 84 mg/dl (70-99); Potassium 3.6 mmol/L (3.5-5.1); Sodium 131 mmol/L (135-145); eGFR 15.24
[2023-06-18] MEDS: CARAFATE PO ×4 (10:24→23:01)
[2023-06-18] MEDS: APRESOLINE PO (10:24)
[2023-06-18] MEDS: DIFLUCAN PO (10:25)
[2023-06-18] MEDS: HEPARIN 5000 UNITS SC ×2 (10:25→23:46)
[2023-06-18] MEDS: PROTONIX PO ×2 (10:28→21:04)
[2023-06-18] MEDS: LIPITOR PO (10:28)
[2023-06-18] MEDS: RISPERDAL M-TAB (ORALLY DISINTEGRATING) PO ×2 (10:29→21:04)
[2023-06-18] MEDS: VITAMIN C PO (10:29)
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
--- NOTE | 2023-06-18 11:31 | W.PN.UPDATE ---
Update Note
Progress Note Update
patient seen chart reviewed. spoke with nursing. i had not seen mr franco since last week. he appears to me to be much better. he was oriented to person place and time. he told me he had a daughter and a son and their ages. he was not at all
hostile as he had been last week. hopefully this represents a turning point although nursing tells me the swallowing eval did not go well. not clear how much he knows about this at this time. noted bp has been low . stopped the o.25 mg risperdal
for now. it is hoped he may no longer need it. if he remains as he is today would consider cutting back on it tomorrow.
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
--- NOTE | 2023-06-18 12:09 | CM ---
Pt continues on new HD.
PT Ot indicate SNF needed at dc.
Spoke with Jackie Powell PT she will check what HD info needed to get pt accepted.
[facility] only SNF with HD that has a bed for him.
Will need SNF auth also,
PLAN To [facility] for rehab and HD after auth
[2023-06-18 12:33] LABS: Glucose - Point of Care 93 mg/dl (70-99)
[2023-06-18 15:08] LABS: Body Fluid pH 7.52
[2023-06-18 15:13] LABS: Body Fluid WBC 75 /CUMM
[2023-06-18 15:14] LABS: Body Fluid Mononuclear 77.3 %; Body Fluid Polymorphonuclear 22.7 %
[2023-06-18 15:16] LABS: Body Fluid Second Tech EYM
[2023-06-18 15:20] LABS: Body Fluid Glucose 80 mg/dl; Body Fluid LDH 95 U/L; Body Fluid Protein < 2.0 g/dl
[2023-06-18 19:18] LABS: Glucose - Point of Care 86 mg/dl (70-99)
[2023-06-18 21:49] LABS: Glucose - Point of Care 81 mg/dl (70-99)
[2023-06-18 23:26] LABS: Glucose - Point of Care 77 mg/dl (70-99)
[2023-06-19] VITALS (7 sets, daily range): BP systolic 85–108; BP diastolic 37–55; BMI 28.0
[2023-06-19 05:35] LABS: Glucose - Point of Care 71 mg/dl (70-99)
[2023-06-19 07:47] LABS: Glucose - Point of Care 60 mg/dl (70-99)
[2023-06-19] MEDS: DEXTROSE 50% SYRINGE 12.5 GRAMS IV (07:49)
[2023-06-19] MEDS: CARAFATE PO ×4 (08:03→21:10)
[2023-06-19] MEDS: DESENEX/MITRAZOL/ZEASORB 1 APPLIC TOPICAL ×2 (08:06→21:17)
[2023-06-19] MEDS: HEPARIN 5000 UNITS SC ×2 (08:06→21:16)
[2023-06-19] MEDS: RISPERDAL M-TAB (ORALLY DISINTEGRATING) PO (08:08)
[2023-06-19] MEDS: PROTONIX PO ×2 (08:08→20:31)
[2023-06-19] MEDS: LIPITOR PO (08:08)
[2023-06-19] MEDS: VITAMIN C PO (08:08)
[2023-06-19 08:15] LABS: Glucose - Point of Care 97 mg/dl (70-99)
--- NOTE | 2023-06-19 08:30 | PTCARENOTE ---
07:44 Recheck accucheck result 60, pt awake and verbalizing. Pt NPO, I/2 amp of IV D50 given as per protocol. 08:[address] Merida notified,continue to monitor pt closely.
--- NOTE | 2023-06-19 09:35 | PTOTSP ---
Speech Language Pathology
Pt seen for dysphagia tx. Discussed trajectory of dysphagia since admission, including suspected strong esophageal component. Also discussed VSE attempted, but pt agitated, so extremely limited. Pt stated he is now feeling better, but still
agitated. Not showing any behaviors at this time to support this.
Seen with jello and thin liquids via cup. Consistent throat clear/wet voice/coughing with both. Also noted with gurling sounds at times, suspect regurgitation from esophagus, with subsequent aspiration given coughing noted post. Again, pharyngeal
dysphagia possible given disuse atrophy at this time. However, continue to suspect strong esophageal dysphagia.
Recommend:
(1) Reconsult GI for input regarding suspected strong esophageal issues which have been a barrier to diet tolerance
(2) Continued NPO
(3) Allow ice chips post oral care given supervision per Aspiration Risk Hydration Protocol (ARHP). Ice chips should be provided 1 at a time, but no specific limit, just as tolerated, to keep swallowing muscles active and prevent further disuse
atrophy
(4) Oral care 4x/day with suctioning as needed
(5) Continued GOC discussion
(6) CONSERVATION ENFORCEMENT OFFICER to continue to follow
[2023-06-19 10:13] LABS: Glucose - Point of Care 105 mg/dl (70-99)
[2023-06-19 11:09] LABS: Hematocrit 23.9 % (39.0-52.0); Hemoglobin 8.4 g/dL (13.0-18.0); Mean Corp Hgb Conc. 35.1 g/dL (33.0-37.0); Mean Corpuscular Hgb 34.4 pg (27.0-31.0); Mean Platelet Volume 11.6 fL (7.4-10.4); Platelet Count 104 10^3/uL (130-400); Red Blood Cell Count 2.44 10^6/uL (4.70-6.10); Red Cell Dist. Width 19.9 % (11.5-14.5); White Blood Cell Count 6.1 10^3/uL (4.8-10.8)
--- NOTE | 2023-06-19 11:58 | W.PN.NEPH.HD ---
Assessment
-
Patient seen on HD
sbp 98
mannitol given
no midodrine due to NPO status due to dysphagia
anuric
Progress Note - Hemodialysis
-
Date of Service: June 19, 2023
Duration: 30 minutes and 3 hours
Potassium Bath: 3
Calcium Bath: 2.5
Opti-Dialyzer: 160
Ultrafiltration: Other (change to even)
Blood Flow: 400
Dialysate Flow: 600
Heparin: none
EPO: none
--- NOTE | 2023-06-19 12:00 | W.PN.UPDATE ---
Update Note
Progress Note Update
patient seen chart reviewed. spoke with nursing and dr nayak. the patient is no longer in a confused delirious state but he has been npo for several days and is very angry that he has not been eating for a couple of days. i am fearful that he
will go back to his angry state if he does not start to eat. a decision has to be made as to whether the patient wants a feeding tube which i suspect he will refuse. he is competent in my opinion at this point to refuse a feeding tube. of course
there is a risk of aspiration which needs to be explained to him. he denied to me that he had had issues w swallowing prior to coming to . have dc'ed risperdal which he has not received given npo status and he has been cooperative (he is
currently calmly receiving dialysis). there is still a prn of ativan. will follow
[2023-06-19] MEDS: MANNITOL 12.5 GRAMS IV ×2 (12:04→13:12)
[2023-06-19 12:15] LABS: Glucose - Point of Care 83 mg/dl (70-99)
[2023-06-19 12:22] LABS: Blood Urea Nitrogen 56 mg/dl (9-20); Calcium 8.1 mg/dl (8.4-10.2); Carbon Dioxide 27 mmol/L (22-30); Chloride 98 mmol/L (98-107); Estimated Creatinine Clearance 14 ml/min; Glucose 104 mg/dl (70-99); Potassium 3.4 mmol/L (3.5-5.1); Sodium 131 mmol/L (135-145); eGFR 12.11
[2023-06-19] MEDS: HEPARIN 2200 UNITS INTRACATH (14:13)
--- NOTE | 2023-06-19 14:15 | W.PN.GI.CBS2 ---
Addendum entered and electronically signed by Cole Luis MD 06/19/23 15:52:
I saw and examined the patient.
The PA's note was reviewed and I agree with the note.
Comment:
Requested to see pt again. Had food impaction in 05/2023 which required endo removal. Liberty esophagitis was seen during that time, tx with diflucan x 2 weeks. During this period, he wasn't able to tolerate oral intake due to uremia, which
resolved after HD. Mentation improved but still failing FISH HOUSE WORKER eval. Pt is agreeable for VSE which was ordered. Will follow.
Original Note:
Today's Communication / Plan
-
Video swallow study
Assessment / Plan
-
Pt is a 82yo presents with hx afib on Eliquis, gastric sleeve for wt loss 7-8 years ago, CAD, CHF, CKD, HTN, hip fx with repair 2022 with wt loss over few months with recovery from fracture. He admits to dysphagia on a regular basis with feeling of
food sticking in upper esophagus then eventually pass vs per family occasional regurgitation of food. No hx food impaction in past. Now noted with 3 days of inability to eat. He would take food but regurgitate after eating. Also noted with
cough. Patient with food impaction s/p EGD on 05/28/23 also with liberty esophagitis s/p tx with Diflucan x 2 weeks. Patient has been unable to increase diet since becoming uremic and needed to go on HD. Patient with improved mentation now on HD but
still failing FISH HOUSE WORKER eval. Discussed with FISH HOUSE WORKER, IM Attending and Patient. Patient agreeable for Barium esophagram, Radiology would like VSE to further evaluate before esophagram. He does not want PEG tube. At this time FISH HOUSE WORKER said ok for ice chips.
EGD 05/28/23 - Food in the esophagus. Removal was successful.
�� � � � � � � � � � � - LA Grade C esophagitis. Biopsied. -> Liberty esophagitis
�� � � � � � � � � � � -Sharp angulation was noted at GEJ. No stenosis or
�� � � � � � � � � � � mass noted .
�� � � � � � � � � � � - A sleeve gastrectomy was found, characterized by
�� � � � � � � � � � � erythema.
�� � � � � � � � � � � - Normal examined duodenum.
Recommendation:- Return patient to hospital [facility] for ongoing care.
�� � � � � � � � � � � - Full liquid diet and pureed diet today.
�� � � � � � � � � � � - Use Protonix (pantoprazole) 40 mg PO BID.
�� � � � � � � � � � � - Use sucralfate tablets 1 gram PO QID for 2 weeks.
�� � � � � � � � � � � - Repeat upper endoscopy in 8 weeks to check healing.
�� � � � � � � � � � � - Telephone GI office for pathology results in 2 weeks.
Impression:
-chronic dysphagia with concern for food impaction- s/p EGD with removal of food bolus 05/28/2023
-afib on Eliquis, now on Hold
-hx gastric sleeve
-wt loss with hx hip fracture 2022
-acute on chronic CKD on HD
PLAN:
-Video swallow study to be ordered
-Continue PPI IV BID
-Further recommendations after VSE.
Subjective
Subjective
Date of Service: June 19, 2023
Asked to re-evaluate patient for dysphagia after being seen by FISH HOUSE WORKER. Discussed with Medical Attending, FISH HOUSE WORKER and Patient who is AAO at this time. Per FISH HOUSE WORKER eval : 'Seen with jello and thin liquids via cup.� Consistent throat clear/wet voice/coughing with
both.� Also noted with gurling sounds at times, suspect regurgitation from esophagus, with subsequent aspiration given coughing noted post.� Again, pharyngeal dysphagia possible given disuse atrophy at this time.� However, continue to suspect strong
esophageal dysphagia.' Patient at this time denies any sense of odynophagia. He is eager to eat. Discussed having barium esophagram to further evaluate. Patient was able to tell me what a barium esophagram was. We also discussed that if he were to
fail if he would want a PEG tube and he said no.
Objective
Data Reviewed
Laboratory Data:
Laboratory Results
06/19/23 11:02
06/19/23 10:42
Laboratory Results
PT 15.8 Sec (11.4-14.6) H 06/05/23 08:25
INR 1.26 06/05/23 08:25
Magnesium 2.9 mg/dl (1.6-2.3) H 06/07/23 06:09
Total Bilirubin 1.1 mg/dl (0.2-1.3) 05/29/23 08:29
AST 40 U/L (17-59) 05/29/23 08:29
ALT 22 U/L (0-50) 05/29/23 08:29
Alkaline Phosphatase 156 U/L (38-126) H 05/29/23 08:29
Vital Signs and I&O:
Vital Signs
Temp Pulse Resp BP Pulse Ox
97.5 F 63 20 106/55 92
06/19/23 11:16 06/19/23 11:16 06/19/23 11:16 06/19/23 11:16 06/19/23 11:16
I&O
06/18/23 06/19/23 06/20/23
06:59 06:59 06:59
Intake Total 0 / 0 60 / 60
Output Total
Balance 0 / 0 35 / 35
Physical Exam
Physical Exam
HEENT: Anicteric
Cardiology: Normal Sinus Rhythm
Pulmonary: Clear (anterior)
GI: Soft, Non Distended, Non Tender and Normal Bowel Sounds
Neuro: Non Focal (AAO x 3)
[2023-06-19] MEDS: D5/0.45%NACL 1000 IV (15:33)
--- NOTE | 2023-06-19 15:54 | CM ---
CM reviewed patients chart. CM sent additional referrals to [place] SNF's per patients daughter request. Per Gastro updated note, patient for video swallow study exam. CM will continue to follow for discharge planning needs.
Plan; SNF, will require HD, patient will need to be off medsitter.
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
[2023-06-19 18:26] LABS: Glucose - Point of Care 93 mg/dl (70-99)
--- NOTE | 2023-06-19 22:49 | PTCARENOTE ---
Addendum entered by Bennie Tracy RN 06/20/23 04:15:
0330 Pt BP rechecked, BP 96/43, HR 70. Pt non symptomatic, no signs of acute distress. MOBILE APPLICATION TESTER Bessy Arango made aware, no further orders.
Original Note:
Pt needs redirection on multiple occasions, stating he needs to go to his room upstairs and that his parents live downstairs. Pt agitated when redirected and told he is in hospital stating that staff is lying. Pt states inappropriate comments to
staff on multiple occasions as well when told he cannot leave the room at this point in time. Pt redirected and comforted each time and falls back asleep shortly after each event.
--- NOTE | 2023-06-19 23:25 | PTCARENOTE ---
Addendum entered by Bennie Tracy RN 06/20/23 04:13:
0330 Pt BP rechecked, BP 96/43, HR 70. COMFORT Arango made aware, no further orders.
Original Note:
Pt vitals checked at 23:25. Pt BP 85/37 HR 60. Pt BP rechecked 98/37 HR 63. Pt non symptomatic. COMFORT Arango made aware, told to observe for now and recheck 0300. No further orders. Pt also 96.1 axillary, could not get reading orally- pt refused
rectal temp and became agitated about rectal temps being considered. Pt placed on rubens hugger, set at medium will re check in 1 hour. COMFORT Arango made aware, no further orders.
[2023-06-20 00:27] LABS: Glucose - Point of Care 128 mg/dl (70-99)
[2023-06-20 03:28] LABS: Glucose - Point of Care 99 mg/dl (70-99)
[2023-06-20 03:30] VITALS: BP 96/43
[2023-06-20 03:37] VITALS: BP 96/43
[2023-06-20 05:21] VITALS: BMI 27.4
[2023-06-20 06:14] LABS: Glucose - Point of Care 127 mg/dl (70-99)
[2023-06-20 07:21] VITALS: BP 102/44
[2023-06-20] MEDS: LIPITOR PO (07:34)
[2023-06-20] MEDS: CARAFATE PO (07:34)
[2023-06-20] MEDS: D5/0.45%NACL 1000 IV (07:35)
[2023-06-20] MEDS: PROTONIX PO (07:35)
[2023-06-20] MEDS: VITAMIN C PO (07:35)
[2023-06-20] MEDS: DESENEX/MITRAZOL/ZEASORB 1 APPLIC TOPICAL ×2 (07:36→21:08)
[2023-06-20] MEDS: HEPARIN 5000 UNITS SC (07:55)
--- NOTE | 2023-06-20 09:10 | PTOTSP ---
Addendum entered and electronically signed by ST Zo 06/20/23 15:41:
Allow ice chips between meals post oral care given supervision per Aspiration Risk Hydration Protocol (ARHP)
Original Note:
Speech Language Pathology
VIDEOFLUOROSCOPIC SWALLOWING EXAMINATION (VSE) completed. Mild oral and mod pharyngeal dysphagia noted. Penetration/aspiration noted at times during the swallow, but also noted post swallow from spillover of residue in pyriform sinuses from
decreased PES distention. Thin liquids via tsp and cup with penetration and eventual aspiration. Chin tuck did not eliminate aspiration. Thin liquids via consecutive straw sips showed trace aspiration. All aspiration with brief throat clear
response, which was ineffective at clearing. Cued cough was intermittently effective at clearing. Puree with trace supraglottic penetration which did not fully clear (PAS 3) with trace supraglottic penetration which fully cleared (PAS 2) noted
with regular solids. No penetration/aspiration noted with nectar-thick or honey-thick liquids.
Esophageal residue noted with no obvious backflow during study. However, once study completed, pt with wet vocal quality and coughing, so possible chance of backflow of material from esophagus with subsequent aspiration.
Suspect pharyngeal component to dysphagia is acute and related to deconditioning and disuse atrophy, but suspect esophageal component chronic. Pt is at risk for both top-bottom and bottom-up aspiration.
Recommend:
(1) Trial IDDSI Level 6 (Soft/Bite-Sized) and Thin Liquids
(2) Aspiration precautions: sit upright during meals and for at least 30 minutes after, slow rate, intermittent cough, if regurgitation noted/suspected provide break
(3) Meds as tolerated
(4) CLAIM INVESTIGATOR to continue to follow
[2023-06-20 11:15] LABS: Glucose - Point of Care 131 mg/dl (70-99)
[2023-06-20] MEDS: CARAFATE 1 GRAM PO ×3 (11:17→21:08)
--- NOTE | 2023-06-20 12:29 | W.PN.GI.CBS2 ---
Addendum entered and electronically signed by Sanya Gamble MD 06/20/23 15:54:
I saw and examined the patient.
The FIRE SPRINKLER INSPECTOR or PA's note was reviewed and I agree with the note.
Comment: 82 yo M with prolonged hospitalization, had food impaction end of May underwent EGD with Dr. Cueto had stephanie and esophagitis at that time, concern about ongoing dysphagia and failing speech eval. Speech reached out to me this am -
'some aspiration related to pharyngeal weakness and tight cricopharyngeus with pooling of residue. Could be regurgitating from esophagus after fact but do not recommend esophagram with risk of aspiration. Recommend trial of IDDSI 6 soft/bite sized
and nectar thick liquids.
On d/w patient today, tolerating diet, feeling well, no complaints.
Continue ppi with esophagitis. If has odynophagia can do longer course of diflucan as well.
GI will sign off. Please call with ?s or changes in clinical status.
Original Note:
Today's Communication / Plan
-
Assessment / Plan
-
82yo presents with hx afib on Eliquis, gastric sleeve for wt loss 7-8 years ago, CAD, CHF, CKD, HTN, hip fx with repair 2022 with wt loss over few months with recovery from fracture. He admits to dysphagia on a regular basis with feeling of food
sticking in upper esophagus then eventually pass vs per family occasional regurgitation of food. No hx food impaction in past. Now noted with 3 days of inability to eat. He would take food but regurgitate after eating. Also noted with cough.
Patient with food impaction s/p EGD on 05/28/23 also with stephanie esophagitis s/p tx with Diflucan x 2 weeks. Patient has been unable to increase diet since becoming uremic and needed to go on HD. Patient with improved mentation now on HD but still
failing TRANSMISSION WORKER eval.
VSE:
Thin liquid barium by spoon: Transient penetration. Residue in the piriformis that was eventually aspirated
Thin liquid barium sip by cup: Trace penetration with eventual aspiration
Thin liquid barium consecutive sips by straw: Deep penetration with eventual aspiration
Carnation consistency barium by spoon: No penetration or aspiration
Carnation consistency barium by cup: No penetration or aspiration
Honey consistency barium by spoon: No penetration or aspiration
Barium pudding by spoon: Penetration no aspiration
Solid barium by cookie: No penetration or aspiration
He had VSE today with Speech Therapy (results above) and was recommended to try IDDSI 6 diet (soft/bite sized) with nectar thick liquids, which was tolerated well.
Per Speech, would not recommend the esophagram due to the aspiration.
Impression / Plan:
-chronic dysphagia with history of food impaction- s/p EGD with removal of food bolus 05/28/2023
-afib on Eliquis, now on Hold
-hx gastric sleeve
-wt loss with hx hip fracture 2022
-acute on chronic CKD on HD
-Continue PPI IV BID
-VSE results as described above; pt tolerated soft, bite sized foods with nectar thick liquids well
-continue dietary recommendations per Speech Therapy
Subjective
Subjective
Date of Service: June 20, 2023
Pt had VSE today.
Tolerating eating well - he had just finished lunch when I examined him.
Currently denies dysphagia, odynophagia, n/v or abdominal pain.
Objective
Data Reviewed
Laboratory Data:
Laboratory Results
06/19/23 11:02
06/19/23 10:42
Laboratory Results
PT 15.8 Sec (11.4-14.6) H 06/05/23 08:25
INR 1.26 06/05/23 08:25
Magnesium 2.9 mg/dl (1.6-2.3) H 06/07/23 06:09
Total Bilirubin 1.1 mg/dl (0.2-1.3) 05/29/23 08:29
AST 40 U/L (17-59) 05/29/23 08:29
ALT 22 U/L (0-50) 05/29/23 08:29
Alkaline Phosphatase 156 U/L (38-126) H 05/29/23 08:29
Vital Signs and I&O:
Vital Signs
Temp Pulse Resp BP Pulse Ox
97.6 F 70 16 102/44 96
06/20/23 07:21 06/20/23 07:21 06/19/23 23:25 06/20/23 07:21 06/20/23 09:33
I&O
06/19/23 06/20/23 06/21/23
06:59 06:59 06:59
Intake Total 60 / 60 720 / 720
Output Total
Balance 35 / 35 700 / 700
Physical Exam
Physical Exam
Cardiology: Normal Sinus Rhythm
Pulmonary: Clear
GI: Soft, Non Distended, Non Tender and Normal Bowel Sounds
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
--- NOTE | 2023-06-20 13:38 | W.PN.UPDATE ---
Update Note
Progress Note Update
patient seen chart reviewed. mr franco is doing much better. his sister was at bedside and feels he is back to baseline and expressed that she was very pleased with the improvement. he was very pleasant. happy to be able to eat at this point
and it is my impression that he at this moment in time has accepted necessary treatments including dialysis. he is not taking any psychotropics at this time. he has not required a prn in four days. psych will sign off. when i told him we were
going to take him off our list, mr franco told me to 'stop by' if i had extra time! i told him i hoped he'd be discharged by the time i return next friday
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
[2023-06-20 16:00] VITALS: BP 109/49
[2023-06-20 16:57] LABS: Glucose - Point of Care 128 mg/dl (70-99)
[2023-06-20] MEDS: NOVOLOG FLEXPEN-LOW RESISTANCE SC (17:15)
[2023-06-20] MEDS: PROTONIX 40 MG PO (21:07)
[2023-06-20] MEDS: ELIQUIS 2.5 MG PO (21:08)
[2023-06-20 22:07] LABS: Glucose - Point of Care 156 mg/dl (70-99)
[2023-06-20 22:46] VITALS: BP 90/52
[2023-06-21 06:00] VITALS: BMI 27.7
[2023-06-21 06:56] LABS: Glucose - Point of Care 121 mg/dl (70-99)
[2023-06-21 07:11] VITALS: BP 107/56
[2023-06-21] MEDS: NOVOLOG FLEXPEN-LOW RESISTANCE SC ×3 (07:46→16:13)
[2023-06-21] MEDS: CARAFATE 1 GRAM PO ×3 (07:56→21:31)
[2023-06-21] MEDS: ELIQUIS 2.5 MG PO ×2 (07:56→21:30)
[2023-06-21] MEDS: DESENEX/MITRAZOL/ZEASORB 1 APPLIC TOPICAL ×2 (07:56→21:30)
[2023-06-21] MEDS: PROTONIX 40 MG PO ×2 (07:56→21:31)
[2023-06-21] MEDS: LIPITOR 20 MG PO (07:56)
[2023-06-21] MEDS: VITAMIN C 1000 MG PO (07:56)
[2023-06-21 11:44] LABS: Glucose - Point of Care 107 mg/dl (70-99)
[2023-06-21 12:06] LABS: Hematocrit 23.6 % (39.0-52.0); Hemoglobin 8.3 g/dL (13.0-18.0); Mean Corp Hgb Conc. 35.2 g/dL (33.0-37.0); Mean Corpuscular Hgb 34.3 pg (27.0-31.0); Mean Corpuscular Volume 97.5 fL (80.0-94.0); Mean Platelet Volume 11.3 fL (7.4-10.4); Platelet Count 102 10^3/uL (130-400); Red Blood Cell Count 2.42 10^6/uL (4.70-6.10); Red Cell Dist. Width 21.6 % (11.5-14.5); White Blood Cell Count 5.9 10^3/uL (4.8-10.8)
[2023-06-21 12:19] LABS: Blood Urea Nitrogen 40 mg/dl (9-20); Calcium 8.2 mg/dl (8.4-10.2); Carbon Dioxide 27 mmol/L (22-30); Chloride 99 mmol/L (98-107); Estimated Creatinine Clearance 16 ml/min; Glucose 80 mg/dl (70-99); Potassium 3.2 mmol/L (3.5-5.1); Sodium 131 mmol/L (135-145); eGFR 13.91
--- NOTE | 2023-06-21 12:48 | W.PN.NEPH.HD ---
Assessment
-
UF limited by hypotension
no complaints today
Progress Note - Hemodialysis
-
Date of Service: June 21, 2023
Duration: 30 minutes and 3 hours
Potassium Bath: 3
Calcium Bath: 2.5
Opti-Dialyzer: 160
Ultrafiltration: Other
Blood Flow: 400
Dialysate Flow: 600
Heparin: none
EPO: none
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
[2023-06-21 14:20] VITALS: BP 104/52
[2023-06-21] MEDS: CARAFATE PO (15:58)
[2023-06-21 16:11] LABS: Glucose - Point of Care 95 mg/dl (70-99)
[2023-06-21 21:24] LABS: Glucose - Point of Care 101 mg/dl (70-99)
[2023-06-21] MEDS: MELATONIN 3 MG PO (21:31)
[2023-06-21 23:16] VITALS: BP 94/45
--- NOTE | 2023-06-21 23:51 | PTCARENOTE ---
Pt woke up out of sleep asking to be taken downstairs to his recreational room and thought he was at home. Pt reoriented to current place and told he is at the hospital. Pt stated, 'You're lying to me.' After some more reassurance and reorientation
pt settled back into bed and is now asleep, respirations regular no signs of acute distress.
[2023-06-22 06:00] VITALS: BMI 28.8
[2023-06-22] MEDS: CARAFATE 1 GRAM PO ×4 (07:47→20:48)
[2023-06-22] MEDS: ELIQUIS 2.5 MG PO ×2 (07:47→20:47)
[2023-06-22] MEDS: LIPITOR 20 MG PO (07:47)
[2023-06-22] MEDS: VITAMIN C 1000 MG PO (07:47)
[2023-06-22] MEDS: PROTONIX 40 MG PO ×2 (07:47→20:47)
[2023-06-22] MEDS: DESENEX/MITRAZOL/ZEASORB 1 APPLIC TOPICAL ×2 (07:54→20:49)
[2023-06-22 07:55] VITALS: BP 86/36
[2023-06-22] MEDS: NOVOLOG FLEXPEN-LOW RESISTANCE SC ×3 (07:58→15:59)
[2023-06-22 07:59] LABS: Glucose - Point of Care 83 mg/dl (70-99)
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
[2023-06-22 12:05] LABS: Glucose - Point of Care 120 mg/dl (70-99)
--- NOTE | 2023-06-22 14:43 | CM ---
Chart reviewed. Per notes, patients mental status improved. Additional referrals were sent to [place] SNF's, at this time, only accepting facility is [facility]. Patient will require HD upon discharge to SNF. CM will continue to follow for
discharge planning needs.
Plan; SNF, will require HD, will require authorization for SNF.
[2023-06-22 15:12] VITALS: BP 108/54
[2023-06-22 15:56] LABS: Glucose - Point of Care 105 mg/dl (70-99)
[2023-06-22 16:48] LABS: Glucose - Point of Care 135 mg/dl (70-99)
[2023-06-22] MEDS: TYLENOL 650 MG PO (17:19)
[2023-06-22] MEDS: MELATONIN 3 MG PO (20:48)
[2023-06-22 21:15] LABS: Glucose - Point of Care 158 mg/dl (70-99)
[2023-06-22 23:00] VITALS: BP 86/42
[2023-06-22 23:50] VITALS: BP 106/58
[2023-06-23 06:00] VITALS: BMI 29.9
[2023-06-23 07:19] VITALS: BMI 28.3
[2023-06-23 07:30] VITALS: BP 106/59
[2023-06-23 07:35] LABS: Glucose - Point of Care 100 mg/dl (70-99)
[2023-06-23] MEDS: VITAMIN C 1000 MG PO (08:14)
[2023-06-23] MEDS: NOVOLOG FLEXPEN-LOW RESISTANCE SC ×2 (08:14→12:05)
[2023-06-23] MEDS: LIPITOR 20 MG PO (08:14)
[2023-06-23] MEDS: CARAFATE 1 GRAM PO ×4 (08:14→20:58)
[2023-06-23] MEDS: ELIQUIS 2.5 MG PO ×2 (08:14→20:58)
[2023-06-23] MEDS: PROTONIX 40 MG PO ×2 (08:14→20:58)
[2023-06-23] MEDS: DESENEX/MITRAZOL/ZEASORB 1 APPLIC TOPICAL ×2 (08:15→20:58)
[2023-06-23 09:11] LABS: Hematocrit 25.2 % (39.0-52.0); Hemoglobin 8.6 g/dL (13.0-18.0); Mean Corp Hgb Conc. 34.1 g/dL (33.0-37.0); Mean Corpuscular Hgb 33.6 pg (27.0-31.0); Mean Corpuscular Volume 98.4 fL (80.0-94.0); Red Blood Cell Count 2.56 10^6/uL (4.70-6.10); Red Cell Dist. Width 22.2 % (11.5-14.5); White Blood Cell Count 4.7 10^3/uL (4.8-10.8)
[2023-06-23 09:33] LABS: Blood Urea Nitrogen 38 mg/dl (9-20); Calcium 8.4 mg/dl (8.4-10.2); Carbon Dioxide 29 mmol/L (22-30); Chloride 95 mmol/L (98-107); Estimated Creatinine Clearance 16 ml/min; Glucose 125 mg/dl (70-99); Potassium 3.7 mmol/L (3.5-5.1); Sodium 131 mmol/L (135-145); eGFR 14.33
[2023-06-23 10:28] LABS: Mean Platelet Volume 11.9 fL (7.4-10.4); Platelet Count 79 10^3/uL (130-400)
[2023-06-23 11:37] LABS: Glucose - Point of Care 85 mg/dl (70-99)
--- NOTE | 2023-06-23 14:11 | CM ---
Patient seen at bedside. Patient accepted by [facility] for SN[facility]/HD, [facility] asking about HD after stay at their facility. Several facilities do not accept patient insurance and [facility] is saying [facility] have no available beds. CM will send updated
clinicals to [facility] and to [facility]. CM will continue to follow for discharge planning needs.
Plan; SNF/HD
--- NOTE | 2023-06-23 14:13 | W.PN.NEPH.PH ---
Today's Communication / Plan
-
HD tomorrow
Assessment/Plan
-
IMP:
Severe dysphagia with esophageal food debris and regurgitation and concern for aspiration.�
Acute Psychosis
history of gastric sleeve s/p EGD No masses/tumor found. Sharp angulation of GE junction ,grade c esophagitis
aspiration risk, speech/swallow eval with improvement
Chronic HFpEF.� Diastolic dysfunction with severe TR and hypokinetic right ventricle
Acute kidney injury on chronic kidney disease stage 4-baseline cr 2-
Paroxysmal to permanent atrial fibrillation
DM
PIO� CPAP at HS
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
non obst bilat renal caliculi
HLD
hyponatremia
Plan:
-renal biopsy results note ATN, osmotic nephrosis and nephrosclerosis
-HD initiated 06/10, had some psychosis which seem improving
HD plan tomorrow
no renal recovery noted yet with no UOP
-Check postvoid bladder scan to evaluate for obstructive component
BP remains soft with out meds, cortisol was ok , echo normal EF
d/w pt and his friends with pt permission
awaiting placement
-
-
Date of Service: June 23, 2023
CC / HPI / ROS
-
Chief Complaint:
BULMARO with CKD
History of Present Illness:
BULMARO/Cr now on HD
Hypotensive (improved)
psychosis improved
esophageal candidiasis s/p fluconazole
Review of Systems:
no cp or sob at rest
no n/v
no UOP
Labs
-
Labs:
WBC 4.7 10^3/uL (4.8-10.8) L 06/23/23 08:48
RBC 2.56 10^6/uL (4.70-6.10) L 06/23/23 08:48
Hgb 8.6 g/dL (13.0-18.0) L 06/23/23 08:48
Hct 25.2 % (39.0-52.0) L 06/23/23 08:48
Plt Count 79 10^3/uL (130-400) L D 06/23/23 08:48
Sodium 131 mmol/L (135-145) L 06/23/23 08:48
Potassium 3.7 mmol/L (3.5-5.1) 06/23/23 08:48
Chloride 95 mmol/L (98-107) L 06/23/23 08:48
Carbon Dioxide 29 mmol/L (22-30) 06/23/23 08:48
BUN 38 mg/dl (9-20) H 06/23/23 08:48
Creatinine 4.0 mg/dL (0.7-1.3) H 06/23/23 08:48
eGFR 14.33 06/23/23 08:48
Glucose 125 mg/dl (70-99) H 06/23/23 08:48
Calcium 8.4 mg/dl (8.4-10.2) 06/23/23 08:48
Zrp-T-Drkzahvjhjf Pept 4140 pg/ml 05/28/23 11:57
Albumin 3.2 g/dl (3.5-5.0) L 05/29/23 08:29
Physical Exam
-
Vital Signs:
Vital Signs
Temp Pulse Resp BP Pulse Ox
97.3 F 58 16 106/59 97
06/22/23 23:00 06/23/23 07:30 06/23/23 07:30 06/23/23 07:30 06/23/23 08:00
Cardiovascular:: Regular rate and rhythm
Respiratory:: Bilateral: CTA (decreased)
Lung Excursion:: Normal
Abdomen:: Nontender and Soft
Extremity Edema:: +1: Bilateral:
Calvin Catheter: No
[2023-06-23 14:54] VITALS: BP 109/47; PULSE 63; PULSE 64; O2SAT 95; O2SAT 98
[2023-06-23 15:30] VITALS: BP 106/46
[2023-06-23 16:46] LABS: Glucose - Point of Care 161 mg/dl (70-99)
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
[2023-06-23] MEDS: NOVOLOG FLEXPEN-LOW RESISTANCE 1 UNITS SC (17:05)
[2023-06-23] MEDS: MELATONIN 3 MG PO (20:58)
[2023-06-23 21:51] LABS: Glucose - Point of Care 133 mg/dl (70-99)
[2023-06-23 22:40] VITALS: BP 107/49
[2023-06-23] MEDS: REFRESH EYE DROPS (PF) 1 DROPS OPHTH (23:31)
[2023-06-24] MEDS: REFRESH EYE DROPS (PF) 1 DROPS OPHTH ×3 (06:11→18:30)
[2023-06-24 07:17] LABS: Glucose - Point of Care 88 mg/dl (70-99)
[2023-06-24] MEDS: LIPITOR 20 MG PO (07:19)
[2023-06-24] MEDS: VITAMIN C 1000 MG PO (07:19)
[2023-06-24] MEDS: ELIQUIS 2.5 MG PO ×2 (07:19→19:24)
[2023-06-24] MEDS: PROTONIX 40 MG PO ×2 (07:20→19:24)
[2023-06-24] MEDS: CARAFATE 1 GRAM PO ×4 (07:20→23:46)
[2023-06-24] MEDS: TYLENOL 650 MG PO (07:20)
[2023-06-24 07:36] VITALS: BP 95/40
--- NOTE | 2023-06-24 07:41 | PTCARENOTE ---
pt aao to self and place. follows simple commands. states headache tylenol given. pt oob in chair. nurse sitting in room for fall risk.
[2023-06-24] MEDS: MANNITOL 12.5 GRAMS IV ×2 (08:45→09:46)
[2023-06-24] MEDS: NOVOLOG FLEXPEN-LOW RESISTANCE SC ×3 (08:57→17:59)
[2023-06-24] MEDS: RETACRIT 8000 UNITS IV (08:58)
[2023-06-24] MEDS: FLEXBUMIN 25% FOR HEMODIALYSIS 12.5 GRAMS IV ×2 (08:59→09:46)
[2023-06-24 09:00] LABS: Hematocrit 24.5 % (39.0-52.0); Hemoglobin 8.5 g/dL (13.0-18.0); Mean Corp Hgb Conc. 34.7 g/dL (33.0-37.0); Mean Corpuscular Hgb 33.7 pg (27.0-31.0); Mean Corpuscular Volume 97.2 fL (80.0-94.0); Platelet Count 80 10^3/uL (130-400); Red Blood Cell Count 2.52 10^6/uL (4.70-6.10); White Blood Cell Count 4.8 10^3/uL (4.8-10.8)
[2023-06-24] MEDS: NEURONTIN 300 MG PO ×2 (09:31→23:46)
[2023-06-24] MEDS: ProAmatine 2.5 MG PO (09:31)
[2023-06-24] MEDS: DESENEX/MITRAZOL/ZEASORB 1 APPLIC TOPICAL ×2 (09:33→20:26)
[2023-06-24 09:35] LABS: Blood Urea Nitrogen 46 mg/dl (9-20); Calcium 8.2 mg/dl (8.4-10.2); Carbon Dioxide 26 mmol/L (22-30); Chloride 98 mmol/L (98-107); Estimated Creatinine Clearance 14 ml/min; Glucose 107 mg/dl (70-99); Potassium 4.1 mmol/L (3.5-5.1); Sodium 130 mmol/L (135-145); eGFR 12.44
--- NOTE | 2023-06-24 10:19 | W.PN.NEPH.HD ---
Assessment
-
pt seen during HD
BP are soft s/p low dose midodrine
s/p Dilaudid for leg cramp
SBP 87, redose midodrine
wt gain noted but UF is limited by low BPs and cramp
no renal recovery noted will need to change to tunneled catheter
d/w nursing and pt
Progress Note - Hemodialysis
-
Date of Service: June 24, 2023
Duration: 30 minutes and 3 hours
Potassium Bath: 3
Calcium Bath: 2.5
Opti-Dialyzer: 160
Ultrafiltration: Other (0.5-1kg)
Blood Flow: 400
Dialysate Flow: 600
Heparin: no
EPO: 8000
[2023-06-24] MEDS: ProAmatine 5 MG PO (10:23)
[2023-06-24 12:14] LABS: Glucose - Point of Care 112 mg/dl (70-99)
--- NOTE | 2023-06-24 13:42 | PTCARENOTE ---
pt done eating lunch and began to regurgitate some liquid and coughing. pt in no distress.
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
[2023-06-24 14:38] VITALS: BP 98/45; PULSE 57; O2SAT 97
--- NOTE | 2023-06-24 15:47 | CM ---
Chart reviewed, patient for video swallow study tomorrow. Per dialysis note, patient will need to change to tunnel catheter. CM will send updated notes to Jackie pres[facility], will follow for discharge planning needs.
Plan; SNF with HD once medically stable.
[2023-06-24 16:46] LABS: Glucose - Point of Care 124 mg/dl (70-99)
[2023-06-24 20:37] VITALS: BP 95/50
[2023-06-24 22:02] LABS: Glucose - Point of Care 111 mg/dl (70-99)
[2023-06-24] MEDS: NEURONTIN PO (23:02)
[2023-06-24] MEDS: CARAFATE PO (23:03)
[2023-06-24] MEDS: MELATONIN PO (23:03)
[2023-06-24 23:38] VITALS: BP 102/55
[2023-06-24] MEDS: MELATONIN 3 MG PO (23:46)
--- NOTE | 2023-06-25 04:07 | DOWNTIME ---
There was a [facility] Financial Cost Analyst Downtime on 06/25/2023 from 0111 to 06/25/2023 at 0405. Downtime documentation of patient's care, including medication administrations, has been reconciled in the electronic record per guidelines. Refer to the
patient's paper chart under the miscellaneous tab to see printed paper medication records and downtime forms.
[2023-06-25 06:00] VITALS: BMI 28.5
--- NOTE | 2023-06-25 06:28 | PTCARENOTE ---
rectal temp 93.8. rubens hugger applied per protocol. will monitor.
[2023-06-25 07:05] VITALS: BP 87/45
[2023-06-25 07:41] LABS: Glucose - Point of Care 61 mg/dl (70-99)
[2023-06-25] MEDS: DEXTROSE 50% SYRINGE 12.5 GRAMS IV (07:58)
[2023-06-25] MEDS: VITAMIN C 1000 MG PO (08:09)
[2023-06-25] MEDS: ELIQUIS 2.5 MG PO ×2 (08:10→22:47)
[2023-06-25] MEDS: LIPITOR 20 MG PO (08:10)
[2023-06-25] MEDS: PROTONIX 40 MG PO ×2 (08:10→22:47)
[2023-06-25] MEDS: DESENEX/MITRAZOL/ZEASORB 1 APPLIC TOPICAL ×2 (08:11→22:47)
[2023-06-25] MEDS: NOVOLOG FLEXPEN-LOW RESISTANCE SC ×3 (08:11→16:59)
[2023-06-25] MEDS: CARAFATE 1 GRAM PO ×4 (08:12→22:47)
[2023-06-25 08:19] LABS: Glucose - Point of Care 123 mg/dl (70-99)
[2023-06-25 10:15] LABS: Glucose - Point of Care 96 mg/dl (70-99)
--- NOTE | 2023-06-25 10:35 | PTCARENOTE ---
pt with rubens brent on upon arrival to shift. removed at 1015 for oral temp of 98. pts blood sugar was 61 this AM, requiring IV dextrose as PT was NPO. PT with no IV access, PIV obtained in the Right hand by this Rn, dextrose administered with BS
increasing to 123 shortly afterwards. MD Merida aware of event. pt remains aaox3 before and after low blood sugar. pt refusing AM care, wound care and assistance with turning and repositioning. pt is upset he is NPO, pt educated on need for
NPO status. care plan continues to be followed.
[2023-06-25 11:48] VITALS: BP 82/41
[2023-06-25 12:09] LABS: Glucose - Point of Care 83 mg/dl (70-99)
--- NOTE | 2023-06-25 14:16 | W.PN.NEPH.PH ---
Today's Communication / Plan
-
- plan for HD tomorrow
- TDC placement today
Assessment/Plan
-
IMP:
Severe dysphagia with esophageal food debris and regurgitation and concern for aspiration.�
Acute Psychosis
history of gastric sleeve s/p EGD No masses/tumor found. Sharp angulation of GE junction ,grade c esophagitis
aspiration risk, speech/swallow eval with improvement
Chronic HFpEF.� Diastolic dysfunction with severe TR and hypokinetic right ventricle
Acute kidney injury on chronic kidney disease stage 4-baseline cr 2-
Paroxysmal to permanent atrial fibrillation
DM
PIO� CPAP at HS
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
non obst bilat renal caliculi
HLD
hyponatremia
Plan:
-renal biopsy results note ATN, osmotic nephrosis and nephrosclerosis
-HD initiated 06/10, had some psychosis which seem improving
-HD plan tomorrow
-no renal recovery noted yet with no UOP
-Check postvoid bladder scan to evaluate for obstructive component
-BP remains soft with out meds, cortisol was ok , echo normal EF
-TDC placement today at 1PM
-awaiting placement
-
-
Date of Service: June 25, 2023
CC / HPI / ROS
-
Chief Complaint:
BULMARO with CKD
History of Present Illness:
BULMARO/Cr now on HD
Hypotensive (improved)
psychosis improved
esophageal candidiasis s/p fluconazole
Review of Systems:
no cp or sob at rest
no n/v
no UOP
Labs
-
Labs:
WBC 4.8 10^3/uL (4.8-10.8) 06/24/23 07:59
RBC 2.52 10^6/uL (4.70-6.10) L 06/24/23 07:59
Hgb 8.5 g/dL (13.0-18.0) L 06/24/23 07:59
Hct 24.5 % (39.0-52.0) L 06/24/23 07:59
Plt Count 80 10^3/uL (130-400) L 06/24/23 07:59
Sodium 130 mmol/L (135-145) L 06/24/23 07:59
Potassium 4.1 mmol/L (3.5-5.1) 06/24/23 07:59
Chloride 98 mmol/L (98-107) 06/24/23 07:59
Carbon Dioxide 26 mmol/L (22-30) 06/24/23 07:59
BUN 46 mg/dl (9-20) H 06/24/23 07:59
Creatinine 4.5 mg/dL (0.7-1.3) H* 06/24/23 07:59
eGFR 12.44 06/24/23 07:59
Glucose 107 mg/dl (70-99) H 06/24/23 07:59
Calcium 8.2 mg/dl (8.4-10.2) L 06/24/23 07:59
Rlp-I-Rqkiatluxhv Pept 4140 pg/ml 05/28/23 11:57
Albumin 3.2 g/dl (3.5-5.0) L 05/29/23 08:29
Physical Exam
-
Vital Signs:
Vital Signs
Temp Pulse Resp BP Pulse Ox
98 F 65 18 82/41 93
06/25/23 10:15 06/25/23 11:48 06/25/23 11:48 06/25/23 11:48 06/25/23 11:48
Cardiovascular:: Regular rate and rhythm
Respiratory:: Bilateral: CTA
Lung Excursion:: Normal
Abdomen:: Nontender and Soft
Bowel Sounds:: Normal
Extremity Edema:: None: Bilateral:
Calvin Catheter: No
[2023-06-25 14:22] VITALS: BP 95/53; BP_SYST 65
[2023-06-25] MEDS: ANCEF 10 IV (14:53)
[2023-06-25 16:22] VITALS: BP 84/40
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
[2023-06-25] MEDS: REFRESH EYE DROPS (PF) 1 DROPS OPHTH (16:53)
[2023-06-25 17:04] LABS: Glucose - Point of Care 95 mg/dl (70-99)
[2023-06-25 22:43] LABS: Glucose - Point of Care 130 mg/dl (70-99)
[2023-06-25] MEDS: NEURONTIN 300 MG PO (22:47)
[2023-06-25] MEDS: MELATONIN 3 MG PO (22:47)
[2023-06-25 23:08] VITALS: BP 88/42
--- NOTE | 2023-06-25 23:42 | PTCARENOTE ---
pt is aaox3, pt is pleasant. assisted to brp then back into recliner.
[2023-06-26 06:00] VITALS: BMI 28.6
[2023-06-26 07:12] LABS: Glucose - Point of Care 93 mg/dl (70-99)
[2023-06-26 07:17] VITALS: BP 96/50
[2023-06-26] MEDS: NOVOLOG FLEXPEN-LOW RESISTANCE SC ×3 (07:28→16:44)
[2023-06-26] MEDS: PROTONIX 40 MG PO ×2 (07:28→20:11)
[2023-06-26] MEDS: VITAMIN C 1000 MG PO (07:29)
[2023-06-26] MEDS: ELIQUIS 2.5 MG PO ×2 (07:29→20:11)
[2023-06-26] MEDS: LIPITOR 20 MG PO (07:29)
[2023-06-26] MEDS: CARAFATE 1 GRAM PO ×4 (07:29→21:25)
[2023-06-26 08:39] LABS: Hematocrit 24.6 % (39.0-52.0); Hemoglobin 8.3 g/dL (13.0-18.0)
[2023-06-26 09:13] LABS: Blood Urea Nitrogen 40 mg/dl (9-20); Calcium 8.3 mg/dl (8.4-10.2); Carbon Dioxide 28 mmol/L (22-30); Chloride 98 mmol/L (98-107); Estimated Creatinine Clearance 15 ml/min; Glucose 86 mg/dl (70-99); Potassium 4.4 mmol/L (3.5-5.1); Sodium 131 mmol/L (135-145); eGFR 13.51
[2023-06-26] MEDS: RETACRIT 10000 UNITS IV (09:28)
[2023-06-26 12:05] LABS: Glucose - Point of Care 105 mg/dl (70-99)
[2023-06-26] MEDS: DESENEX/MITRAZOL/ZEASORB TOPICAL (12:16)
--- NOTE | 2023-06-26 13:37 | W.PN.NEPH.HD ---
Assessment
-
resting comfortably on HD
without issues
BP stable
Progress Note - Hemodialysis
-
Date of Service: June 26, 2023
Duration: 30 minutes and 3 hours
Potassium Bath: 3
Calcium Bath: 2.5
Opti-Dialyzer: 160
Ultrafiltration: Other
Blood Flow: 400
Dialysate Flow: 600
EPO: 10K
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
[2023-06-26 15:36] VITALS: BP 88/49
--- NOTE | 2023-06-26 15:58 | CM ---
CM left voicemail for patients daughter, Nicole, to discuss SNF accepting facilities, at this time only accepting facility with HD is [facility]. CM spoke with Jackie Liasion at [facility], will send over updated dialysis information. CM will
continue to follow for discharge planning needs.
Plan; SNF with HD, will need auth, only accepting facility at this time continues to be [facility].
[2023-06-26 16:38] LABS: Glucose - Point of Care 109 mg/dl (70-99)
--- NOTE | 2023-06-26 16:45 | PTOTSP ---
Video Swallow Examination
Delayed swallow onset/laryngeal vestibular closure, inconsistent full epiglottic inversion, and reduced tongue base retraction combined to result in silent aspiration of thin liquid by cup. Use of chin tuck signficantly reduced degree of laryngeal
penetration/aspiration but trace transient aspiration was observed. Reduced sensory awareness to aspiration with cued cough clearing portion of sub/supraglottic material. Mild to moderate vallecular stasis with trace tongue base and pyriform sinus
stasis noted. Cued dry swallows cleared portion of vallecular stasis. Observation of esophageal emptying in upright position revealed retained contrast that suggest contents are slow to empty.
Recommend
1. Regular solids - avoid overly dry dense solids. If symptoms of sternal retention return downgrade back to IDDSI 6 - soft/bite-sized.
2. Mildly Thick Liquids - single sips
3. Chin tuck
4. Dry swallow
5. Cyclic ingestion taking sip of liquid after every 2-3 bites of solid.
6. Aspiration and reflux precautions.
7. Allow ice chips per [facility].
[2023-06-26] MEDS: DESENEX/MITRAZOL/ZEASORB 1 APPLIC TOPICAL (20:12)
[2023-06-26] MEDS: NEURONTIN 300 MG PO (21:25)
[2023-06-26] MEDS: MELATONIN 3 MG PO (21:26)
[2023-06-26 21:28] LABS: Glucose - Point of Care 125 mg/dl (70-99)
[2023-06-26] MEDS: TYLENOL 650 MG PO (21:41)
[2023-06-26] MEDS: ROXICODONE 2.5 MG PO (22:57)
[2023-06-26 23:00] VITALS: BP 99/47
[2023-06-27 06:00] VITALS: BMI 28.5
[2023-06-27 07:30] VITALS: BP 99/53
[2023-06-27 08:02] LABS: Glucose - Point of Care 53 mg/dl (70-99)
[2023-06-27 08:39] LABS: Glucose 85 mg/dl (70-99)
[2023-06-27] MEDS: NOVOLOG FLEXPEN-LOW RESISTANCE SC ×3 (08:47→16:57)
[2023-06-27] MEDS: DESENEX/MITRAZOL/ZEASORB 1 APPLIC TOPICAL ×2 (08:49→19:13)
[2023-06-27] MEDS: CARAFATE 1 GRAM PO ×4 (08:51→21:12)
[2023-06-27] MEDS: PROTONIX 40 MG PO ×2 (08:51→19:14)
[2023-06-27] MEDS: ELIQUIS 2.5 MG PO ×2 (08:52→19:14)
[2023-06-27] MEDS: VITAMIN C 1000 MG PO (08:52)
[2023-06-27] MEDS: LIPITOR 20 MG PO (08:52)
--- NOTE | 2023-06-27 10:57 | CM ---
Addendum entered by Tiny Kruse 06/27/23 14:43:
Per Jackie, awaiting to hear back from [facility]. CM will continue to follow for discharge planning needs.
Plan; [facility] SNF with HD, will require auth, awaiting confirmation from Jackie at .
Original Note:
CM spoke with patients daughter, Nicole, agreeable to [facility]. CM spoke with Jackie from [facility], will fax paper copies of HD clinicals to [phone]. Patient will require auth for SNF. CM will continue to follow for discharge
planning needs.
Plan; [facility] SNF with HD, will require auth, pending review of HD clinicals.
[2023-06-27 11:30] VITALS: BP 85/50
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
[2023-06-27 12:50] LABS: Glucose - Point of Care 83 mg/dl (70-99)
--- NOTE | 2023-06-27 14:25 | PTOTSP ---
ST Follow-UP Note
Pt continues to present with mild oropharyngeal dysphagia characterized by prolonged and reduced bolus formation, oral residue, and delayed wet vocal quality suspicious for retrograde flow-related penetration/aspiration that is adequately cleared
with a prompted cough + swallow sequence. Pt still needs mild to mod support to use this compensatory strategy to manage his intermittent airway invasion.
Recommendations:
- Upgrade to REGULAR SOLIDS; continue with mildly thick liquids
- Meds whole with thickened liquids
- Prompt pt to cough + swallow when pt presents with wet vocal quality.
- [employer] to continue to follow for dysphagia tx.
--- NOTE | 2023-06-27 15:28 | W.PN.NEPH.PH ---
Today's Communication / Plan
-
midodrine
HD tomorrow
Assessment/Plan
-
IMP:
Severe dysphagia with esophageal food debris and regurgitation and concern for aspiration.�
Acute Psychosis
history of gastric sleeve s/p EGD No masses/tumor found. Sharp angulation of GE junction ,grade c esophagitis
aspiration risk, speech/swallow eval with improvement
Chronic HFpEF.� Diastolic dysfunction with severe TR and hypokinetic right ventricle
Acute kidney injury on chronic kidney disease stage 4-baseline cr 2-
Paroxysmal to permanent atrial fibrillation
DM
PIO� CPAP at HS
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
non obst bilat renal caliculi
HLD
hyponatremia
Plan:
-renal biopsy results note ATN, osmotic nephrosis and nephrosclerosis
-HD initiated 06/10, had some psychosis which seem improving
-HD plan tomorrow, eventual change to [facility] as he accepted to go to [facility]
-no renal recovery noted yet with no UOP
-Check postvoid bladder scan to evaluate for obstructive component
-BP remains soft with out meds, cortisol was ok , echo normal EF
will start midodrine 5mg TID
d/c plan
-
-
Date of Service: June 27, 2023
CC / HPI / ROS
-
Chief Complaint:
BULMARO with CKD
History of Present Illness:
BULMARO/Cr now on HD
BP remains soft, no fever, no UOP
psychosis improved
esophageal candidiasis s/p fluconazole
Review of Systems:
no cp or sob at rest
no n/v
Labs
-
Labs:
WBC 4.8 10^3/uL (4.8-10.8) 06/24/23 07:59
RBC 2.52 10^6/uL (4.70-6.10) L 06/24/23 07:59
Hgb 8.3 g/dL (13.0-18.0) L 06/26/23 08:27
Hct 24.6 % (39.0-52.0) L 06/26/23 08:27
Plt Count 80 10^3/uL (130-400) L 06/24/23 07:59
Sodium 131 mmol/L (135-145) L 06/26/23 08:27
Potassium 4.4 mmol/L (3.5-5.1) 06/26/23 08:27
Chloride 98 mmol/L (98-107) 06/26/23 08:27
Carbon Dioxide 28 mmol/L (22-30) 06/26/23 08:27
BUN 40 mg/dl (9-20) H 06/26/23 08:27
Creatinine 4.2 mg/dL (0.7-1.3) H* 06/26/23 08:27
eGFR 13.51 06/26/23 08:27
Glucose 85 mg/dl (70-99) 06/27/23 08:17
Calcium 8.3 mg/dl (8.4-10.2) L 06/26/23 08:27
Uxd-H-Ahpulmvdejh Pept 4140 pg/ml 05/28/23 11:57
Albumin 3.2 g/dl (3.5-5.0) L 05/29/23 08:29
Physical Exam
-
Vital Signs:
Vital Signs
Temp Pulse Resp BP Pulse Ox
97.6 F 52 19 85/50 99
06/27/23 11:30 06/27/23 11:30 06/27/23 11:30 06/27/23 11:30 06/27/23 11:30
Cardiovascular:: Regular rate and rhythm
Respiratory:: Bilateral: CTA
Lung Excursion:: Normal
Abdomen:: Nontender and Soft
Extremity Edema:: +1: Bilateral:
Calvin Catheter: No
[2023-06-27 15:30] VITALS: BP 88/55
[2023-06-27] MEDS: ProAmatine 5 MG PO (16:50)
[2023-06-27 16:57] LABS: Glucose - Point of Care 135 mg/dl (70-99)
[2023-06-27] MEDS: REFRESH EYE DROPS (PF) 1 DROPS OPHTH (19:13)
[2023-06-27] MEDS: MELATONIN 3 MG PO ×2 (21:12→23:17)
[2023-06-27] MEDS: NEURONTIN 300 MG PO (21:12)
[2023-06-27 21:29] LABS: Glucose - Point of Care 137 mg/dl (70-99)
[2023-06-27 22:58] VITALS: BP 94/45
[2023-06-28 05:59] VITALS: BMI 28.7
[2023-06-28 07:10] LABS: Glucose - Point of Care 107 mg/dl (70-99)
[2023-06-28] MEDS: PROTONIX 40 MG PO ×2 (07:11→19:17)
[2023-06-28] MEDS: VITAMIN C 1000 MG PO (07:11)
[2023-06-28] MEDS: ELIQUIS 2.5 MG PO ×2 (07:11→19:17)
[2023-06-28] MEDS: LIPITOR 20 MG PO (07:11)
[2023-06-28] MEDS: CARAFATE 1 GRAM PO ×4 (07:11→21:01)
[2023-06-28] MEDS: ProAmatine 5 MG PO ×3 (07:12→12:52)
[2023-06-28] MEDS: NOVOLOG FLEXPEN-LOW RESISTANCE SC ×3 (07:14→16:45)
[2023-06-28] MEDS: DESENEX/MITRAZOL/ZEASORB 1 APPLIC TOPICAL ×2 (07:15→19:17)
[2023-06-28 07:19] VITALS: BP 94/46
[2023-06-28] MEDS: MANNITOL 12.5 GRAMS IV ×2 (08:22→09:39)
[2023-06-28] MEDS: RETACRIT 10000 UNITS IV (08:50)
[2023-06-28] MEDS: FLEXBUMIN 25% FOR HEMODIALYSIS 12.5 GRAMS IV ×2 (08:50→10:09)
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
[2023-06-28 09:04] LABS: Hematocrit 24.2 % (39.0-52.0); Hemoglobin 8.1 g/dL (13.0-18.0)
[2023-06-28 09:36] LABS: Carbon Dioxide 30 mmol/L (22-30); Chloride 98 mmol/L (98-107); Potassium 4.5 mmol/L (3.5-5.1); Sodium 131 mmol/L (135-145)
[2023-06-28] MEDS: HEPARIN 4300 UNITS IV (11:05)
[2023-06-28 11:45] LABS: Glucose - Point of Care 96 mg/dl (70-99)
--- NOTE | 2023-06-28 11:52 | W.PN.NEPH.HD ---
Assessment
-
pt seen during HD
SBP in 100 range during visit but mostly in 80s despite 10mg midodrine
he has edema, unable to do UF with low BPs
spoke to daughter on phone explained the situation in detail
asked her to reviewed with family about difficulty of continuing HD
will increase midodrine to 10mg TID and likely try 20mg pre HD
d/w primary
HD Friday
Progress Note - Hemodialysis
-
Date of Service: June 28, 2023
Duration: 30 minutes and 3 hours
Potassium Bath: 3
Calcium Bath: 2.5
Opti-Dialyzer: 160
Ultrafiltration: Other (0.5kg)
Blood Flow: 400
Dialysate Flow: 600
Heparin: no
EPO: [id number]
[2023-06-28 16:44] LABS: Glucose - Point of Care 108 mg/dl (70-99)
[2023-06-28 17:41] VITALS: BP 98/52
[2023-06-28] MEDS: ProAmatine 10 MG PO (17:42)
[2023-06-28] MEDS: MELATONIN 3 MG PO (21:01)
[2023-06-28] MEDS: REFRESH EYE DROPS (PF) 1 DROPS OPHTH (21:01)
[2023-06-28] MEDS: NEURONTIN 300 MG PO (21:01)
[2023-06-28 21:10] LABS: Glucose - Point of Care 83 mg/dl (70-99)
[2023-06-28 23:30] VITALS: BP 99/50
[2023-06-29 04:54] VITALS: BMI 28.7
[2023-06-29] MEDS: CARAFATE 1 GRAM PO ×4 (07:11→21:35)
[2023-06-29] MEDS: ProAmatine 10 MG PO (07:11)
[2023-06-29 07:12] LABS: Glucose - Point of Care 81 mg/dl (70-99)
[2023-06-29] MEDS: LIPITOR 20 MG PO (07:14)
[2023-06-29] MEDS: VITAMIN C 1000 MG PO (07:15)
[2023-06-29] MEDS: ELIQUIS 2.5 MG PO ×2 (07:15→21:34)
[2023-06-29] MEDS: PROTONIX 40 MG PO ×2 (07:15→21:34)
[2023-06-29] MEDS: NOVOLOG FLEXPEN-LOW RESISTANCE SC ×3 (07:19→17:22)
[2023-06-29] MEDS: DESENEX/MITRAZOL/ZEASORB 1 APPLIC TOPICAL ×2 (07:20→21:34)
[2023-06-29 07:44] VITALS: BP 99/52
--- NOTE | 2023-06-29 09:54 | W.PN.HOSP.TC ---
Today's Communication/Plan
-
Reconsult cards
Assessment / Plan
Assessment / Plan
Impression:
Regan Cabrera, 82 year-old male, presents to the ER with Severe Dysphagia found to have esophageal food debris and regurgitation, concern for aspiration pneumonia.�Remote H/o gastric sleeve.
* Esophageal food debris/aspiration risk
* Bilateral pleural effusion
* Hypotension/hypothermia
* Toxic metabolic encephalopathy
* Acute on chronic HFpEF
* Acute kidney injury on chronic kidney disease
* Anemia
* Paroxysmal to Permanent A fib
* Restless Leg Syndrome
* DM
* PIO
Plan:
Esophageal food debris/aspiration risk
- S/p EGD and clearance esophagus.
- No masses/tumor found.
- Sharp angulation of GE junction, grade c esophagitis probably from food stasis noted; biopsy positive for candidal esophagitis.
- Completed 2 weeks course of Diflucan.
- Continue with PPI.
- Video swallow evaluation on 06-26-23 was reassuring.
Aspiration syndrome
- Multifactorial with toxic metabolic encephalopathy as well as generalized deconditioning. Improving.
- Approved for modified diet.
- Stable oral intake with no symptoms for overt aspiration.
- Repeat VSE on 06/25 showed improvement.
Bilateral pleural effusion
- CT Chest -b/l pleural effusion right more than left with bibasilar consolidation right more than left concerning for aspiration.� There is also faint opacity in the right upper zone.�
- H/o cough with regurgitation in the setting of b/l pleural effusion favors clinical suspicion of aspiration pneumonia.
- Afebrile, WBC count normal.�
- No clinical evidence of aspiration pneumonia
- Initially on Augmentin discontinued.
- CXR on 06-17-23 demonstrated large right pleural effusion (significantly increased) and moderate left pleural effusion (likely slightly increased).
- Given aspiration risk as well as right lower lobe process/pleural effusion,� infiltrate with reasonable aspiration risk, started empiric piperacillin+tazobactam; now stopped.
- Blood cultures were negative.
- Thoracocentesis yielded 1500 cc of�clear dameon pleural fluid on 06-18-23.
- clinically seems it reaccumulated -obtain CXR
Toxic metabolic encephalopathy
- No focal findings on exam
- CT scan of the head 06/11 with no acute abnormality
- Fluctuating mental status with periods of agitation and belligerence.
- Patient refuses treatment including hemodialysis.
- Psychiatry input appreciated.
- Initiated on Risperdal on 06/12 with dose increased on 06/13; stopped for now.
- psych following
- Mental status improved and close to baseline
Hypotension/hypothermia
- Normalized temp
- Discontinued hydralazine.
- BP still on lower side -on midodrine
- Cortisol, TSH, lactic acid, CBC and BMP unremarkable.
- Blood cultures negative.
Acute on chronic HFpEF.�
- In the settings of BULMARO/ATN and decreased urine output
- CW HD for volume management
- Back to baseline now.
Acute kidney injury on chronic kidney disease stage 4-baseline cr 2-
- Status post renal biopsy findings consistent with ATN.
- Underlying CKD stage IV.
- Initiated on hemodialysis.
- No recovery of renal function remains anuric.
- Tunneled right internal jugular hemodialysis catheter was placed on 06-25-23.
-Patient having issues with ultrafiltration-not able to pull much due to hypotension. Looking at his echo on this admission there is RV dysfunction unclear if that is playing a role. There was no evidence of pericardial effusion on that echo.
Probably appropriate to repeat an echocardiogram due to inability to ultrafiltrate. Reconsult cardiology. Repeated chest x-ray to rule out any recurrence of pleural effusion.
Anemia
- Progressive anemia with no obvious source of bleeding
- Stable H&H
- Renal US notes no hematoma
- Anemia likely multifactorial, anemia of chronic disease and renal insufficiency
- Iron B12 Folate level wnl
- Patient offered transfusion, although declined in multiple occasions
- Hemoglobin currently stable at 8.3 on 06-27-23.
Paroxysmal to Permanent A fib
- Currently in A-fib with�rate control.
- Eliquis renal dosing -
06/13: Episode of chest pain reproducible on exam.
- ECG with no ischemia.
- Troponin 0.336.
- Echocardiogram 02/24 with LVEF of 57%.
- Repeat echocardiogram above with preserved ejection fraction, grade 3 diastolic dysfunction, worsening tricuspid regurgitation, hypokinetic RV
- As per Dr. JAZMINE Chan (quoted from consult on 06/14/23), 'Unfortunately there is really nothing that can be done of note to improve his cardiac status and prognosis.'
- Amiodarone stopped to allow for higher heart rates
Restless Leg Syndrome
- Increased home gabapentin to 300 mg HS, symptoms since improved, continue current dose
DM
- Hold linagliptin.
- Insulin Basal bolus regimen
PIO
- CPAP at HS
Wound care
- Sutures from the left leg above the left medial malleolus removed, and wound dressed with a 2x2 gauge on 06/02, wound dressing intact.
DVT prophylaxis
- SCDs; apixaban - renal dosing.
Code status
- DNR.
Plan for disposition to [facility] for tomorrow noted. With issues of ultrafiltration will hold discharge and reevaluate clinically for any reversible factors.
Anticipated Discharge: Within 24 hours
Subjective/Interval History
-
Date of Service: June 29, 2023
Sitting in chair and voicing no specific complaints.
Denies dizziness.
Denies shortness of breath or chest pain. No nausea vomiting.
Objective Data
-
Vital Signs:
Vital Signs
Temp Pulse Resp BP Pulse Ox
97.4 F 60 18 99/52 94
06/29/23 07:44 06/29/23 07:44 06/29/23 07:44 06/29/23 07:44 06/29/23 08:21
I&O
06/28/23 06/29/23 06/30/23
06:59 06:59 06:59
Intake Total 1080 / 1080 820 / 820
Output Total 50 / 50
Balance 1080 / 1080 770 / 770
Review of Systems
-
Constitutional: Denies Fever or Chills
EENT: Denies Sore Throat
Physical Exam
-
General: No Apparent Distress
HEENT: Moist Mucous Membranes
Respiratory: Other (Decreased breath sounds right base)
Cardiac: Regular Rhythm and S1/S2
GI: Soft
Musculoskeletal: Edema, Right Lower Extrem and Edema, Left Lower Extrem
Neuro: Awake, Alert and Oriented (place and person)
Psych: Calm
[2023-06-29 12:33] LABS: Glucose - Point of Care 90 mg/dl (70-99)
--- NOTE | 2023-06-29 12:39 | W.PN.CARDCBS ---
Today's Communication / Plan
-
Asked by primary service to reevaluate patient after previous sign off
Patient has been unable to tolerate ultrafiltration due to hypotension. Nephrology is unable to take weight off with dialysis
Patient with echo this admission showing RV dilatation and hypokinesis.
RV dysfunction may be limiting ability to take volume off with HD.
Hypotension remains despite increase in Midodrine. If he fails to tolerate HD his prognosis is grave as per discussion with nephrology.
Check echo in AM to reeval EF and RV function.
Patient's care has been limited by hypotension and renal failure. No POLO/ARB/Entresto/Aldactone with acute on chronic renal failure. Bradycardia has limited ability to add beta-sabino
Amiodarone was stopped due to bradycardia.
Continue Eliquis for history Permanent AFib.
Impression / Plan
-
.
Home Organizer: Dr. Hensley
Impression:
Acute on chronic HFpEF
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
Recent admission for acute HFpEF 02/24 and 04/2023
History nonobstructive CAD by cath at [facility] 2019
Permanent atrial fibrillation
Previously on chronic amiodarone therapy, apparently for rate control
Chronic Eliquis OAC
RBBB
s/p gastric sleeve
Former smoker
HTN
Type 2 DM
Acute psychosis
Dysphagia
Obstructive sleep apnea
Echo 2021: [facility] study, with EF% 55, RV hypok, biatrial enlargement, and moderate mitral and tricuspid regurgitation with RVSP 37mmHg.
Echo 03/03/23: EF 57%, normal regional wall motion, mild MR, mod TR with PAP 47 mmHg, trivial pericardial effusion
Echo 06/13/2023: Moderate LVH, EF 55-60%, stage III diastolic dysfunction, flattened septum, MAC, mild MR, severely dilated left atrium, trace aortic regurgitation with aortic sclerosis, severe tricuspid regurgitation, pulmonary artery systolic
pressure 57 mmHg with severely dilated right atrium, dilated RV, RV hypokinesis, large pleural effusion, TR has progressed since February 2023, RV is now hypokinetic
Plan:
-Presented with dysphagia, possible pneumonia, and acute HFpEF.
Asked by primary service to reevaluate patient after previous sign off
Patient has been unable to tolerate ultrafiltration due to hypotension. Nephrology is unable to take weight off with dialysis
Patient with echo this admission showing RV dilatation and hypokinesis.
RV dysfunction may be limiting ability to take volume off with HD.
Hypotension remains despite increase in Midodrine. If he fails to tolerate HD his prognosis is grave as per discussion with nephrology.
Check echo in AM to reeval EF and RV function.
Patient's care has been limited by hypotension and renal failure. No POLO/ARB/Entresto/Aldactone with acute on chronic renal failure. Bradycardia has limited ability to add beta-sabino
Amiodarone was stopped due to bradycardia.
Continue Eliquis for history Perm AFib.
Discussed with nursing.
Discussed with nephrology and daughter at bedside.
HPI: 82-year-old man with complex past history and 2 recent admissions for HFpEF admitted on May 08 with dysphagia, esophageal food debris, possible pneumonia and acute on chronic HFpEF largely related to BULMARO on CKD 4 with anasarca.� He was
encephalopathic and uremic and hemodialysis initiated.� Renal biopsy has been performed.� Echocardiography was performed on the with progressive RV enlargement, severe TR, and pulmonary artery systolic pressure of 57.� He had stage III
diastolic dysfunction on permanent A-fib and consultation was requested.� Mitral regurgitation is mild.� Patient has had acute changes in mental status, earlier today points to dialysis nurse.� He describes himself as single
Progress Note - Home Organizer
Subjective
Date of Service: June 29, 2023
Patient seen and examined. No chest pain
Objective
Labs:
06/28/23 08:48
06/28/23 08:48
Labs
Hgb 8.1 g/dL (13.0-18.0) L 06/28/23 08:48
Hct 24.2 % (39.0-52.0) L 06/28/23 08:48
Plt Count 80 10^3/uL (130-400) L 06/24/23 07:59
PT 15.8 Sec (11.4-14.6) H 06/05/23 08:25
INR 1.26 06/05/23 08:25
Sodium 131 mmol/L (135-145) L 06/28/23 08:48
Potassium 4.5 mmol/L (3.5-5.1) 06/28/23 08:48
BUN 40 mg/dl (9-20) H 06/26/23 08:27
Creatinine 4.2 mg/dL (0.7-1.3) H* 06/26/23 08:27
Glucose 85 mg/dl (70-99) 06/27/23 08:17
Vital Signs and I&O:
Vital Signs
Temp Pulse Resp BP Pulse Ox
97.4 F 60 18 99/52 94
06/29/23 07:44 06/29/23 07:44 06/29/23 07:44 06/29/23 07:44 06/29/23 08:21
Vital Signs
Temp Pulse Resp BP Pulse Ox
97.4 F 60 18 99/52 94
06/29/23 07:44 06/29/23 07:44 06/29/23 07:44 06/29/23 07:44 06/29/23 08:21
Intake & Output
06/27/23 06/28/23 06/29/23 06/30/23
06:59 06:59 06:59 06:59
Intake Total 120 / 120 1080 / 1080 820 / 820
Output Total 50 / 50
Balance 120 / 120 1080 / 1080 770 / 770
Physical Exam
Physical Exam
General: No acute distress, AAOX3
Neck: Negative JVD
Heart: Irregularly irregular, Negative S3 positive S1/S2, Negative S4, No murmur
Lungs: CTA b/l, negative wheezes/rales/rhonchi
Abd: Positive BS, NT/ND, neg rebound/rigidity/guarding
Ext: Negative cyanosis/clubbing/edema
Neuro: nonfocal
--- NOTE | 2023-06-29 13:10 | W.PN.NEPH.PH ---
Today's Communication / Plan
-
increase midodrine
TEDs, elevate legs
echo
HD tomorrow
Assessment/Plan
-
IMP:
Severe dysphagia with esophageal food debris and regurgitation and concern for aspiration.�
Acute Psychosis
history of gastric sleeve s/p EGD No masses/tumor found. Sharp angulation of GE junction ,grade c esophagitis
aspiration risk, speech/swallow eval with improvement
Chronic HFpEF.� Diastolic dysfunction with severe TR and hypokinetic right ventricle
Acute kidney injury on chronic kidney disease stage 4-baseline cr 2-
Paroxysmal to permanent atrial fibrillation
DM
PIO� CPAP at HS
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
non obst bilat renal caliculi
HLD
hyponatremia
Plan:
-renal biopsy results note ATN, osmotic nephrosis and nephrosclerosis
-HD initiated 06/10, had some psychosis which seem improving
-HD plan tomorrow, as he accepted to go to [facility]
-no renal recovery noted yet with no UOP
-BP remains soft with out meds, cortisol was ok , echo normal EF but with pulm HTN
increase midodrine 15mg TID, so far made no difference, cards reconsulted, echo in am
increasing pleural effusion right side on CXR
starts TEDs
If we can not get UF on HDs not much to offer from our end-this was convoyed to daughter on 06/28 and today
d/w cards
-
-
Date of Service: June 29, 2023
CC / HPI / ROS
-
Chief Complaint:
BULMARO with CKD
History of Present Illness:
BULMARO/Cr now on HD
BP remains soft, no fever, no UOP
psychosis improved
esophageal candidiasis s/p fluconazole
Review of Systems:
no cp or sob at rest
no n/v
feels well per family
Labs
-
Labs:
WBC 4.8 10^3/uL (4.8-10.8) 06/24/23 07:59
RBC 2.52 10^6/uL (4.70-6.10) L 06/24/23 07:59
Hgb 8.1 g/dL (13.0-18.0) L 06/28/23 08:48
Hct 24.2 % (39.0-52.0) L 06/28/23 08:48
Plt Count 80 10^3/uL (130-400) L 06/24/23 07:59
Sodium 131 mmol/L (135-145) L 06/28/23 08:48
Potassium 4.5 mmol/L (3.5-5.1) 06/28/23 08:48
Chloride 98 mmol/L (98-107) 06/28/23 08:48
Carbon Dioxide 30 mmol/L (22-30) 06/28/23 08:48
BUN 40 mg/dl (9-20) H 06/26/23 08:27
Creatinine 4.2 mg/dL (0.7-1.3) H* 06/26/23 08:27
eGFR 13.51 06/26/23 08:27
Glucose 85 mg/dl (70-99) 06/27/23 08:17
Calcium 8.3 mg/dl (8.4-10.2) L 06/26/23 08:27
Rvk-N-Zywpvgbrhuc Pept 4140 pg/ml 05/28/23 11:57
Albumin 3.2 g/dl (3.5-5.0) L 05/29/23 08:29
Physical Exam
-
Vital Signs:
Vital Signs
Temp Pulse Resp BP Pulse Ox
97.4 F 60 18 99/52 94
06/29/23 07:44 06/29/23 07:44 06/29/23 07:44 06/29/23 07:44 06/29/23 08:21
Cardiovascular:: Regular rate and rhythm
Lung Excursion:: Abnormal (decreased right base)
Abdomen:: Nontender and Soft
Extremity Edema:: +2: Bilateral:
Calvin Catheter: No
[2023-06-29] MEDS: ProAmatine PO (13:19)
[2023-06-29 13:33] VITALS: BP 108/54
[2023-06-29] MEDS: ProAmatine 15 MG PO ×2 (13:34→17:31)
[2023-06-29 15:51] VITALS: BP 108/53
[2023-06-29 17:21] LABS: Glucose - Point of Care 119 mg/dl (70-99)
[2023-06-29 21:29] LABS: Glucose - Point of Care 121 mg/dl (70-99)
[2023-06-29] MEDS: MELATONIN 3 MG PO (21:35)
[2023-06-29] MEDS: NEURONTIN 300 MG PO (21:35)
[2023-06-29 22:45] VITALS: BP 102/49
[2023-06-30 05:36] VITALS: BMI 29.1
[2023-06-30 09:08] LABS: Glucose - Point of Care 78 mg/dl (70-99)
[2023-06-30 10:15] VITALS: BP 98/55
[2023-06-30] MEDS: VITAMIN C 1000 MG PO (10:18)
[2023-06-30] MEDS: LIPITOR 20 MG PO (10:18)
[2023-06-30] MEDS: ProAmatine 15 MG PO ×2 (10:18→18:03)
[2023-06-30] MEDS: PROTONIX 40 MG PO ×2 (10:18→20:01)
[2023-06-30] MEDS: NOVOLOG FLEXPEN-LOW RESISTANCE SC ×3 (10:18→18:02)
[2023-06-30] MEDS: ELIQUIS 2.5 MG PO ×2 (10:19→20:01)
[2023-06-30] MEDS: CARAFATE 1 GRAM PO ×3 (10:19→21:31)
[2023-06-30 10:36] VITALS: BP 88/41; BP 98/55; PULSE 49
[2023-06-30] MEDS: ProAmatine 5 MG PO (12:27)
[2023-06-30 12:30] VITALS: BP 114/56
--- NOTE | 2023-06-30 13:13 | W.PN.NEPH.HD ---
Assessment
-
Seen on HD. no complaints. VSS, access ok
Progress Note - Hemodialysis
-
Date of Service: June 30, 2023
Duration: 30 minutes and 3 hours
Potassium Bath: 3
Calcium Bath: 2.5
Opti-Dialyzer: 160
Ultrafiltration: Other (1kg)
Blood Flow: 400
Dialysate Flow: 600
Heparin: no
EPO: 33680 units
[2023-06-30 13:36] LABS: Hematocrit 25.3 % (39.0-52.0); Hemoglobin 8.5 g/dL (13.0-18.0)
--- NOTE | 2023-06-30 13:37 | W.PN.CARDCBS ---
Addendum entered and electronically signed by Joao Hensley DO 06/30/23 15:31:
I saw and examined the patient.
The Fire Management Officer's note was reviewed and I agree with the note.
Comment:
General: No acute distress, AAOX3
Neck: Negative JVD
Heart: Irregularly irregular, Negative S3 positive S1/S2, Negative S4, No murmur
Lungs: CTA b/l, negative wheezes/rales/rhonchi
Abd: Positive BS, NT/ND, neg rebound/rigidity/guarding
Ext: Negative cyanosis/clubbing/edema
Neuro: nonfocal
Plan:
Patient has been unable to tolerate ultrafiltration due to hypotension.� Nephrology is unable to take weight off with dialysis, currently getting dialysis but they are not taking volume.
Cont Midodrine for bp support. If he fails to tolerate HD his prognosis is grave as per ongoing discussion with nephrology.
Patient with echo 06/13/2023 this admission showing RV dilatation and hypokinesis.
RV dysfunction may be limiting ability to take volume off with HD.
Repeat echo pending to reeval EF and RV function.
Patient's care has been limited by hypotension and renal failure.� No POLO/ARB/Entresto/Aldactone with acute on chronic renal failure.� Bradycardia has limited ability to add beta-sabino
Amiodarone was stopped due to bradycardia.
Continue Eliquis for history perm AFib.
Discussed with nephrology
Original Note:
Today's Communication / Plan
-
Dialysis today
Continue Midodrine
Repeat echo today
Impression / Plan
-
.
Entry Level Financial Analyst: Dr. Hensley
Impression:
Acute on chronic HFpEF
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
Recent admission for acute HFpEF 02/24 and 04/2023
History nonobstructive CAD by cath at [facility] 2019
Permanent atrial fibrillation
Previously on chronic amiodarone therapy, apparently for rate control
Chronic Eliquis OAC
RBBB
s/p gastric sleeve
Former smoker
HTN
Type 2 DM
Acute psychosis
Dysphagia
Obstructive sleep apnea
Echo 2021: [facility] study, with EF% 55, RV hypok, biatrial enlargement, and moderate mitral and tricuspid regurgitation with RVSP 37mmHg.
Echo 03/03/23: EF 57%, normal regional wall motion, mild MR, mod TR with PAP 47 mmHg, trivial pericardial effusion
Echo 06/13/2023: Moderate LVH, EF 55-60%, stage III diastolic dysfunction, flattened septum, MAC, mild MR, severely dilated left atrium, trace aortic regurgitation with aortic sclerosis, severe tricuspid regurgitation, pulmonary artery systolic
pressure 57 mmHg with severely dilated right atrium, dilated RV, RV hypokinesis, large pleural effusion, TR has progressed since February 2023, RV is now hypokinetic
Plan:
Presented with dysphagia, possible pneumonia, and acute HFpEF.
Asked by primary service to reevaluate patient after previous sign off
Patient has been unable to tolerate ultrafiltration due to hypotension. Nephrology is unable to take weight off with dialysis, currently getting dialysis seems to be tolerating better with high dose Midodrine
Patient with echo 06/13/2023 this admission showing RV dilatation and hypokinesis.
RV dysfunction may be limiting ability to take volume off with HD.
Repeat echo 06/30/2023 pending to reeval EF and RV function.
Hypotension remains despite increase in Midodrine. If he fails to tolerate HD his prognosis is grave as per discussion with nephrology.
Patient's care has been limited by hypotension and renal failure. No POLO/ARB/Entresto/Aldactone with acute on chronic renal failure. Bradycardia has limited ability to add beta-sabino
Amiodarone was stopped due to bradycardia.
Continue Eliquis for history Perm AFib.
HPI: 82-year-old man with complex past history and 2 recent admissions for HFpEF admitted on May 08 with dysphagia, esophageal food debris, possible pneumonia and acute on chronic HFpEF largely related to BULMARO on CKD 4 with anasarca.� He was
encephalopathic and uremic and hemodialysis initiated.� Renal biopsy has been performed.� Echocardiography was performed on the ninth with progressive RV enlargement, severe TR, and pulmonary artery systolic pressure of 57.� He had stage III
diastolic dysfunction on permanent A-fib and consultation was requested.� Mitral regurgitation is mild.� Patient has had acute changes in mental status, earlier today points to dialysis nurse.� He describes himself as single
Progress Note - Entry Level Financial Analyst
Subjective
Date of Service: June 30, 2023
Objective
Labs:
Labs
Hgb 8.1 g/dL (13.0-18.0) L 06/28/23 08:48
Hct 24.2 % (39.0-52.0) L 06/28/23 08:48
Plt Count 80 10^3/uL (130-400) L 06/24/23 07:59
PT 15.8 Sec (11.4-14.6) H 06/05/23 08:25
INR 1.26 06/05/23 08:25
Sodium 131 mmol/L (135-145) L 06/28/23 08:48
Potassium 4.5 mmol/L (3.5-5.1) 06/28/23 08:48
BUN 40 mg/dl (9-20) H 06/26/23 08:27
Creatinine 4.2 mg/dL (0.7-1.3) H* 06/26/23 08:27
Glucose 85 mg/dl (70-99) 06/27/23 08:17
Vital Signs and I&O:
Vital Signs
Temp Pulse Resp BP Pulse Ox
97.0 F 75 18 114/56 95
06/29/23 22:45 06/30/23 12:30 06/30/23 12:30 06/30/23 12:30 06/30/23 10:15
Vital Signs
Temp Pulse Resp BP Pulse Ox
97.0 F 75 18 114/56 95
06/29/23 22:45 06/30/23 12:30 06/30/23 12:30 06/30/23 12:30 06/30/23 10:15
Intake & Output
06/28/23 06/29/23 06/30/23 07/01/23
06:59 06:59 06:59 06:59
Intake Total 1080 / 1080 820 / 820 750 / 750
Output Total 50 / 50
Balance 1080 / 1080 770 / 770 750 / 750
--- NOTE | 2023-06-30 13:52 | W.PN.HOSP.TC ---
Addendum entered and electronically signed by Ever Merida MD 06/30/23 15:33:
Patient seen and examined
Discussed with resident
Discussed with nursing
Impression/plan:
Esophagitis with esophageal food decrease pain
Aspiration syndrome multifactorial due to above as well as TME.
Acute kidney injury requiring initiation of hemodialysis
Paroxysmal A-fib on anticoagulation
Persistent hypotension
Bilateral pleural effusion status post right thoracentesis 06/18
Mental status improved
Tolerates diet with aspiration precautions
Blood pressure remains soft and midodrine increased to 50 mg 3 times daily
Repeated echocardiogram pending to reassess RV function
Follow-up chest x-ray with likely reaccumulating right pleural effusion. May need repeat thoracentesis given persistent cough, although current respiratory status is stable with no requirements of supplemental oxygen.
Original Note:
Today's Communication/Plan
-
- Hemodialysis today.
Assessment / Plan
Assessment / Plan
Impression:
Regan Cabrera, 82 year-old male, presents to the ER with Severe Dysphagia found to have esophageal food debris and regurgitation, concern for aspiration pneumonia.�Remote H/o gastric sleeve.
* Esophageal food debris/aspiration risk
* Bilateral pleural effusion
* Hypotension/hypothermia
* Toxic metabolic encephalopathy
* Hypotension/hypothermia
* Acute on chronic HFpEF
* Acute kidney injury on chronic kidney disease
* Anemia
* Paroxysmal to Permanent A fib
* Restless Leg Syndrome
* DM
* PIO
Plan:
Esophageal food debris/aspiration risk
- S/p EGD and clearance esophagus.
- No masses/tumor found.
- Sharp angulation of GE junction, grade c esophagitis probably from food stasis noted; biopsy positive for candidal esophagitis.
- Completed 2 weeks course of Diflucan.
- Continue with PPI.
- Video swallow evaluation on 06-26-23 was reassuring.
Aspiration syndrome
- Multifactorial with toxic metabolic encephalopathy as well as generalized deconditioning. Improving.
- Approved for modified diet.
- Stable oral intake with no symptoms for overt aspiration.
- Repeat VSE on 06/25 showed improvement.
Bilateral pleural effusion
- CT Chest -b/l pleural effusion right more than left with bibasilar consolidation right more than left concerning for aspiration.� There is also faint opacity in the right upper zone.�
- H/o cough with regurgitation in the setting of b/l pleural effusion favors clinical suspicion of aspiration pneumonia.
- Afebrile, WBC count normal.�
- No clinical evidence of aspiration pneumonia
- Initially on Augmentin discontinued.
- CXR on 06-17-23 demonstrated large right pleural effusion (significantly increased) and moderate left pleural effusion (likely slightly increased).
- Given aspiration risk as well as right lower lobe process/pleural effusion,� infiltrate with reasonable aspiration risk, started empiric piperacillin+tazobactam; now stopped.
- Blood cultures were negative.
- Thoracocentesis yielded 1500 cc of�clear dameon pleural fluid on 06-18-23.
- clinically seems it reaccumulated -obtain CXR
Toxic metabolic encephalopathy
- No focal findings on exam
- CT scan of the head 06/11 with no acute abnormality
- Fluctuating mental status with periods of agitation and belligerence.
- Patient refuses treatment including hemodialysis.
- Psychiatry input appreciated.
- Initiated on Risperdal on 06/12 with dose increased on 06/13; stopped for now.
- psych following
- Mental status improved and close to baseline
Hypotension/hypothermia
- Normalized temp
- Discontinued hydralazine.
- BP still on lower side - on midodrine, increased dosing now.
- Cortisol, TSH, lactic acid, CBC and BMP unremarkable.
- Blood cultures negative.
Acute on chronic HFpEF.�
- In the settings of BULMARO/ATN and decreased urine output
- CW HD for volume management
- Back to baseline now.
Acute kidney injury on chronic kidney disease stage 4-baseline cr 2-
- Status post renal biopsy findings consistent with ATN.
- Underlying CKD stage IV.
- Initiated on hemodialysis.
- No recovery of renal function remains anuric.
- Tunneled right internal jugular hemodialysis catheter was placed on 06-25-23.
- Patient was having issues with ultrafiltration - not able to pull much due to hypotension.
- There is RV dysfunction unclear if that is playing a role.
- Repeat echocardiogram to reevaluate.
- Reconsulted cardiology.
- Repeated chest x-ray to rule out any recurrence of pleural effusion.
- Prognosis is poor if he fails to tolerate HD.
Anemia
- Progressive anemia with no obvious source of bleeding
- Stable H&H
- Renal US notes no hematoma
- Anemia likely multifactorial, anemia of chronic disease and renal insufficiency
- Iron B12 Folate level wnl
- Patient offered transfusion, although declined in multiple occasions
- Hemoglobin currently stable at 8.3 on 06-27-23.
Paroxysmal to Permanent A fib
- Currently in A-fib with�rate control.
- Eliquis renal dosing -
06/13: Episode of chest pain reproducible on exam.
- ECG with no ischemia.
- Troponin 0.336.
- Echocardiogram 02/24 with LVEF of 57%.
- Repeat echocardiogram above with preserved ejection fraction, grade 3 diastolic dysfunction, worsening tricuspid regurgitation, hypokinetic RV
- As per Dr. JAZMINE Chan (quoted from consult on 06/14/23), 'Unfortunately there is really nothing that can be done of note to improve his cardiac status and prognosis.'
- Amiodarone stopped to allow for higher heart rates
Restless Leg Syndrome
- Increased home gabapentin to 300 mg HS, symptoms since improved, continue current dose
DM
- Hold linagliptin.
- Insulin Basal bolus regimen
PIO
- CPAP at HS
Wound care
- Sutures from the left leg above the left medial malleolus removed, and wound dressed with a 2x2 gauge on 06/02, wound dressing intact.
DVT prophylaxis
- SCDs; apixaban - renal dosing.
Code status
- DNR.
Plan for disposition to [facility] noted. With issues of ultrafiltration will hold discharge and reevaluate clinically for any reversible factors.
Anticipated Discharge: 24 - 48 hours
Subjective/Interval History
-
Date of Service: June 30, 2023
Objective Data
-
Labs:
Laboratory Results
06/30/23 06/30/23
13:23 13:24
Hgb 8.5 L
Hct 25.3 L
Sodium Pending
Potassium Pending
Chloride Pending
Carbon Dioxide Pending
BUN Pending
Creatinine Pending
Glucose Pending
Calcium Pending
Vital Signs:
Vital Signs
Temp Pulse Resp BP Pulse Ox
97.0 F 75 18 114/56 95
06/29/23 22:45 06/30/23 12:30 06/30/23 12:30 06/30/23 12:30 06/30/23 10:15
I&O
06/29/23 06/30/23 07/01/23
06:59 06:59 06:59
Intake Total 820 / 820 750 / 750
Output Total 50 / 50
Balance 770 / 770 750 / 750
Review of Systems
-
History Source: Patient
Constitutional: Reports Fatigue
Respiratory: Reports No Symptoms
Cardiac: Reports No Symptoms
Abdomen/GI: Reports No Symptoms
Genitourinary: Reports No Symptoms
Musculoskeletal: Reports No Symptoms
Skin: Reports No Symptoms
Neuro: Reports No Symptoms
Endocrine: Reports No Symptoms
Hematologic / Lymphatic: Reports No Symptoms
Physical Exam
-
General: No Apparent Distress and Comfortable
HEENT: Normocephalic, Atraumatic, Moist Mucous Membranes and Anicteric
Respiratory: Clear to Auscultation
Cardiac: Regular Rhythm and S1/S2
GI: Soft, Nontender, Nondistended and No Hepatosplenomegaly
Genito-urinary: No Costovertebral Tender
Musculoskeletal: No Clubbing, No Cyanosis and No Edema
Neuro: Awake, Alert, Oriented and No Motor Deficits
Hematologic / Lymphatic: No Lymphadenopathy
Psych: Calm
[2023-06-30 14:10] LABS: Blood Urea Nitrogen 52 mg/dl (9-20); Calcium 8.4 mg/dl (8.4-10.2); Carbon Dioxide 28 mmol/L (22-30); Chloride 98 mmol/L (98-107); Estimated Creatinine Clearance 15 ml/min; Glucose 150 mg/dl (70-99); Potassium 4.6 mmol/L (3.5-5.1); Sodium 131 mmol/L (135-145); eGFR 13.13
[2023-06-30] MEDS: ProAmatine PO (14:30)
[2023-06-30] MEDS: RETACRIT 10000 UNITS IV (14:35)
[2023-06-30 15:11] VITALS: BP 152/65
--- NOTE | 2023-06-30 15:11 | PTCARENOTE ---
Patient AAOx3 throughout day, alert and OOB for breakfast. Receiving HD tx in afternoon. RN has been unable to obtain oral temperature throughout day, no outward s/s of hypothermia noted. MD aware. Patient refusing rectal temp.
--- NOTE | 2023-06-30 16:03 | CM ---
CM reviewed chart. TT with Hospitalist, patient not clear for discharge today, per updated notes, lhold discharge and reevaluate clinically for any reversible factors. CM will continue to update [place]
[2023-06-30] MEDS: HEPARIN 4200 UNITS INTRACATH (16:13)
[2023-06-30] MEDS: CARAFATE PO (16:35)
[2023-06-30 16:57] LABS: Glucose - Point of Care 90 mg/dl (70-99)
[2023-06-30] MEDS: DESENEX/MITRAZOL/ZEASORB 1 APPLIC TOPICAL (17:32)
[2023-06-30 17:57] LABS: Glucose - Point of Care 103 mg/dl (70-99)
[2023-06-30] MEDS: DESENEX/MITRAZOL/ZEASORB TOPICAL (20:02)
[2023-06-30] MEDS: NEURONTIN 300 MG PO (21:30)
[2023-06-30] MEDS: MELATONIN 3 MG PO (21:30)
[2023-06-30 22:15] LABS: Glucose - Point of Care 153 mg/dl (70-99)
[2023-06-30 23:00] VITALS: BP 116/46
[2023-07-01 06:00] VITALS: BMI 28.8
[2023-07-01 07:00] VITALS: BP 116/50
[2023-07-01 08:54] LABS: Glucose - Point of Care 96 mg/dl (70-99)
[2023-07-01] MEDS: NOVOLOG FLEXPEN-LOW RESISTANCE SC ×3 (09:10→17:21)
[2023-07-01] MEDS: ProAmatine 15 MG PO ×3 (09:45→17:17)
[2023-07-01] MEDS: ELIQUIS 2.5 MG PO (09:46)
[2023-07-01] MEDS: LIPITOR 20 MG PO (09:46)
[2023-07-01] MEDS: CARAFATE 1 GRAM PO ×4 (09:46→21:31)
[2023-07-01] MEDS: PROTONIX 40 MG PO ×2 (09:46→19:34)
[2023-07-01] MEDS: VITAMIN C 1000 MG PO (09:46)
[2023-07-01] MEDS: DESENEX/MITRAZOL/ZEASORB TOPICAL ×2 (09:57→19:33)
--- NOTE | 2023-07-01 10:58 | WOUNDNOTE ---
L DORSAL HAND AND WRIST
--- NOTE | 2023-07-01 11:01 | WOUNDNOTE ---
R MEDIAL LOWER LEG
--- NOTE | 2023-07-01 11:05 | WOUNDNOTE ---
WON RN note: Patient admitted with esophageal obstruction due to food impaction, aspiration pneumonia.
See H&P for complete history.
PMH: COPD,HTN,NIDDM,skin cancer, R hip and b/l arm(tendon) repair.
Wound Location and type/assessment: Patient was reported to have developed a stage 2 PI on Sacrum. Patient was also reported to have a fall onto buttock at side of bed day prior. PCT Jasmin assisted this justowriter operator to stand patient from recliner chair
for assessment. Using air chair cushion and has a versa care air bed. Stage 2 PI deep dermal with scattered fibrin at base and tiny bruise lateral area of sacrum, wound nestled within a skin fold. L dorsal hand and wrist with healing skin tears,
hand one with slight weeping. Legs elevated while in recliner, R medial lower leg with small weeping venous ulcer. L medial leg with scab, patient states he had skin cancer removed there in past. Heels are intact. Legs with 2+ edema, very dry flaky
skin on legs and feet. + pulses audible with Doppler. Has worn compression in past but not recently. Does not own any compression stockings currently states patient.
Appetite: PCT states recently has been excellent. Encourage protein in diet.
Pressure redistribution devices in place: Versa care air, air chair cushion, turning schedule.
Plan: Silicone foam changed on sacrum.Will order honey gel to sacral wound to start tomorrow, continue offloading measures. L hand and R medial lower leg applied silicone foams. applied Vaseline to both legs and feet today, will order mineral oil to
start tomorrow. Applied Pedro wraps both legs knee high, patient tolerated. Encouraged leg elevation while sitting.Will confirm orders with hospitalist and updated nurse Petra on the above.
Updated care plan and will follow as needed.
Note to case management of equipment requested for discharge: VN for wound care if home.
Recommend follow up at wound care center upon discharge.
[2023-07-01] MEDS: TYLENOL 650 MG PO (11:17)
--- NOTE | 2023-07-01 11:44 | W.PN.NEPH.PH ---
Today's Communication / Plan
-
HD tomorrow
Assessment/Plan
-
IMP:
Severe dysphagia with esophageal food debris and regurgitation and concern for aspiration.�
Acute Psychosis
history of gastric sleeve s/p EGD No masses/tumor found. Sharp angulation of GE junction ,grade c esophagitis
aspiration risk, speech/swallow eval with improvement
Chronic HFpEF.� Diastolic dysfunction with severe TR and hypokinetic right ventricle
Acute kidney injury on chronic kidney disease stage 4-baseline cr 2-
Paroxysmal to permanent atrial fibrillation
DM
PIO� CPAP at HS
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
non obst bilat renal caliculi
HLD
hyponatremia
Plan:
-renal biopsy results note ATN, osmotic nephrosis and nephrosclerosis
-HD initiated 06/10
-HD tomorrow
-no renal recovery noted yet with no UOP
-echo with right heart failure, severe TR, mod MR
-If we cannot UF on HD, there is not much to offer from our end-this was conveyed to daughter previously
-
-
Date of Service: July 01, 2023
CC / HPI / ROS
-
Chief Complaint:
BULMARO with CKD
History of Present Illness:
tolerated HD yesterday, limited UF
BP remains soft on high midodrine dosing
psychosis improved
esophageal candidiasis s/p fluconazole
Review of Systems:
no cp or sob at rest
no n/v
Labs
-
Labs:
WBC 4.8 10^3/uL (4.8-10.8) 06/24/23 07:59
RBC 2.52 10^6/uL (4.70-6.10) L 06/24/23 07:59
Hgb 8.5 g/dL (13.0-18.0) L 06/30/23 13:24
Hct 25.3 % (39.0-52.0) L 06/30/23 13:24
Plt Count 80 10^3/uL (130-400) L 06/24/23 07:59
Sodium 131 mmol/L (135-145) L 06/30/23 13:23
Potassium 4.6 mmol/L (3.5-5.1) 06/30/23 13:23
Chloride 98 mmol/L (98-107) 06/30/23 13:23
Carbon Dioxide 28 mmol/L (22-30) 06/30/23 13:23
BUN 52 mg/dl (9-20) H 06/30/23 13:23
Creatinine 4.3 mg/dL (0.7-1.3) H* 06/30/23 13:23
eGFR 13.13 06/30/23 13:23
Glucose 150 mg/dl (70-99) H 06/30/23 13:23
Calcium 8.4 mg/dl (8.4-10.2) 06/30/23 13:23
Ric-J-Ifytsgiyqit Pept 4140 pg/ml 05/28/23 11:57
Albumin 3.2 g/dl (3.5-5.0) L 05/29/23 08:29
Physical Exam
-
Vital Signs:
Vital Signs
Temp Pulse Resp BP Pulse Ox
98.2 F 53 18 116/50 98
07/01/23 07:00 07/01/23 07:00 07/01/23 07:00 07/01/23 07:00 07/01/23 07:00
Cardiovascular:: Regular rate and rhythm
Respiratory:: Bilateral: Coarse
Lung Excursion:: Normal
Abdomen:: Nontender and Soft
Bowel Sounds:: Normal
Extremity Edema:: +2: Bilateral:
[2023-07-01 11:52] LABS: Glucose - Point of Care 146 mg/dl (70-99)
--- NOTE | 2023-07-01 12:12 | WOUNDNOTE ---
JOSESITO RN ADDENDUM: Notified BRITTA Mejia that patient will need an air mattress at SNF.
[2023-07-01 13:16] VITALS: BP 102/46; BP 103/49; PULSE 49; O2SAT 98
--- NOTE | 2023-07-01 13:46 | W.PN.HOSP.TC ---
Addendum entered and electronically signed by Ever Merida MD 07/01/23 15:33:
Patient seen and examined
Discussed with resident
Mental status improved
Tolerates diet with no overt aspiration.
Repeated echocardiogram unchanged with known RV dysfunction.
HD in a.m. monitor blood pressure while on midodrine.
Discharge planing.
Original Note:
Today's Communication/Plan
-
- Echo was unremarkable; has not required supplemental oxygen.
- Overall stable and could be discharged tomorrow.
Assessment / Plan
Assessment / Plan
Impression:
Regan Cabrera, 82 year-old male, presents to the ER with Severe Dysphagia found to have esophageal food debris and regurgitation, concern for aspiration pneumonia.�Remote H/o gastric sleeve.
* Esophageal food debris/aspiration risk
* Bilateral pleural effusion
* Hypotension/hypothermia
* Toxic metabolic encephalopathy
* Hypotension/hypothermia
* Acute on chronic HFpEF
* Acute kidney injury on chronic kidney disease
* Anemia
* Paroxysmal to Permanent A fib
* Restless Leg Syndrome
* DM
* IPO
Plan:
Esophageal food debris/aspiration risk
- S/p EGD and clearance esophagus.
- No masses/tumor found.
- Sharp angulation of GE junction, grade c esophagitis probably from food stasis noted; biopsy positive for candidal esophagitis.
- Completed 2 weeks course of Diflucan.
- Continue with PPI.
- Video swallow evaluation on 06-26-23 was reassuring.
Aspiration syndrome
- Multifactorial with toxic metabolic encephalopathy as well as generalized deconditioning. Improving.
- Approved for modified diet.
- Stable oral intake with no symptoms for overt aspiration.
- Repeat VSE on 06/25 showed improvement.
Bilateral pleural effusion
- CT Chest -b/l pleural effusion right more than left with bibasilar consolidation right more than left concerning for aspiration.� There is also faint opacity in the right upper zone.�
- H/o cough with regurgitation in the setting of b/l pleural effusion favors clinical suspicion of aspiration pneumonia.
- Afebrile, WBC count normal.�
- No clinical evidence of aspiration pneumonia
- Initially on Augmentin discontinued.
- CXR on 06-17-23 demonstrated large right pleural effusion (significantly increased) and moderate left pleural effusion (likely slightly increased).
- Given aspiration risk as well as right lower lobe process/pleural effusion,� infiltrate with reasonable aspiration risk, started empiric piperacillin+tazobactam; now stopped.
- Blood cultures were negative.
- Thoracocentesis yielded 1500 cc of�clear dameon pleural fluid on 06-18-23.
- clinically seems it reaccumulated
- Follow-up chest x-ray with likely reaccumulating right pleural effusion.
- May need repeat thoracentesis given persistent cough, although current respiratory status is stable with no requirements of supplemental oxygen.
Toxic metabolic encephalopathy
- No focal findings on exam
- CT scan of the head 06/11 with no acute abnormality
- Fluctuating mental status with periods of agitation and belligerence.
- Patient refuses treatment including hemodialysis.
- Psychiatry input appreciated.
- Initiated on Risperdal on 06/12 with dose increased on 06/13; stopped for now.
- psych following
- Mental status improved and close to baseline
Hypotension/hypothermia
- Normalized temp
- Discontinued hydralazine.
- BP still on lower side - on midodrine, increased dosing now.
- Cortisol, TSH, lactic acid, CBC and BMP unremarkable.
- Blood cultures negative.
Acute on chronic HFpEF.�
- In the settings of BULMARO/ATN and decreased urine output
- CW HD for volume management
- Back to baseline now.
- Repeat echo was unremarkable on 07-01-23.
Acute kidney injury on chronic kidney disease stage 4-baseline cr 2-
- Status post renal biopsy findings consistent with ATN.
- Underlying CKD stage IV.
- Initiated on hemodialysis.
- No recovery of renal function remains anuric.
- Tunneled right internal jugular hemodialysis catheter was placed on 06-25-23.
- Patient was having issues with ultrafiltration - not able to pull much due to hypotension.
- There is RV dysfunction unclear if that is playing a role.
- Repeat echocardiogram to reevaluate.
- Reconsulted cardiology.
- Repeated chest x-ray to rule out any recurrence of pleural effusion.
- Prognosis is poor if he fails to tolerate HD.
Anemia
- Progressive anemia with no obvious source of bleeding
- Stable H&H
- Renal US notes no hematoma
- Anemia likely multifactorial, anemia of chronic disease and renal insufficiency
- Iron B12 Folate level wnl
- Patient offered transfusion, although declined in multiple occasions
- Hemoglobin currently stable at 8.3 on 06-27-23.
Paroxysmal to Permanent A fib
- Currently in A-fib with�rate control.
- Eliquis renal dosing -
06/13: Episode of chest pain reproducible on exam.
- ECG with no ischemia.
- Troponin 0.336.
- Echocardiogram 02/24 with LVEF of 57%.
- Repeat echocardiogram above with preserved ejection fraction, grade 3 diastolic dysfunction, worsening tricuspid regurgitation, hypokinetic RV
- As per Dr. JAZMINE Chan (quoted from consult on 06/14/23), 'Unfortunately there is really nothing that can be done of note to improve his cardiac status and prognosis.'
- Amiodarone stopped to allow for higher heart rates
Restless Leg Syndrome
- Increased home gabapentin to 300 mg HS, symptoms since improved, continue current dose
DM
- Hold linagliptin.
- Insulin Basal bolus regimen
PIO
- CPAP at HS
Wound care
- Sutures from the left leg above the left medial malleolus removed, and wound dressed with a 2x2 gauge on 06/02, wound dressing intact.
DVT prophylaxis
- SCDs; apixaban - renal dosing.
Code status
- DNR.
Plan for disposition to [facility] noted. With issues of ultrafiltration will hold discharge and reevaluate clinically for any reversible factors.
Anticipated Discharge: 24 - 48 hours
Subjective/Interval History
-
Date of Service: July 01, 2023
Objective Data
-
Vital Signs:
Vital Signs
Temp Pulse Resp BP Pulse Ox
98.2 F 53 18 116/50 98
07/01/23 07:00 07/01/23 07:00 07/01/23 07:00 07/01/23 07:00 07/01/23 07:00
I&O
06/30/23 07/01/23 07/02/23
06:59 06:59 06:59
Intake Total 750 / 750 120 / 120
Balance 750 / 750 120 / 120
Review of Systems
-
History Source: Patient
Constitutional: Reports Fatigue
EENT: Reports No Symptoms Reported
Respiratory: Reports No Symptoms
Cardiac: Reports No Symptoms
Abdomen/GI: Reports No Symptoms
Genitourinary: Reports No Symptoms
Musculoskeletal: Reports No Symptoms
Skin: Reports No Symptoms
Neuro: Reports No Symptoms
Physical Exam
-
General: No Apparent Distress and Comfortable
HEENT: Normocephalic, Atraumatic, Moist Mucous Membranes and Anicteric
Respiratory: Clear to Auscultation and Non Labored Respirations
Cardiac: Regular Rhythm and S1/S2
GI: Soft, Nontender, Nondistended and No Hepatosplenomegaly
Genito-urinary: No Costovertebral Tender
Musculoskeletal: No Clubbing, No Cyanosis and No Edema
Skin: Warm, Dry and IV Access / Catheter Site
Neuro: Awake, Alert, Oriented, No Motor Deficits and No Sensory Deficits
Hematologic / Lymphatic: No Lymphadenopathy
Psych: Calm
--- NOTE | 2023-07-01 14:22 | CM ---
Clinicals updated to Jackie at [facility]. Auth faxed to [facility] [phone], reference number [id number]. CM will continue to follow for discharge planning needs.
Plan; [facility] SNF, pending auth status.
[2023-07-01 15:00] VITALS: BP 118/53
--- NOTE | 2023-07-01 16:10 | W.PN.CARDCBS ---
Addendum entered and electronically signed by Jose Rodrigues MD 07/01/23 16:43:
I saw and examined the patient.
The Rn Bsn's note was reviewed and I agree with the note.
Comment: Briefly, 82-year-old man past medical history of end-stage renal disease on dialysis who presented initially with concern for aspiration pneumonia and superimposed heart failure
Nephrology has had difficulty removing fluid with dialysis and therefore echo was repeated which confirmed right ventricular dysfunction but was largely unchanged from prior echo
Consideration of right heart catheterization to better evaluate cardiac filling pressures, will hold Eliquis in anticipation
Original Note:
Today's Communication / Plan
-
follow BPs with HD.
continue midodrine
hold eliquis, may benefit from RHC per nephro
Impression / Plan
-
[place]: Dr. Hensley
Impression:
Acute on chronic HFpEF
CKD 4 with BULMARO currently on hemodialysis started this admission
Recent admission for acute HFpEF 02/24 and 04/2023
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
Permanent atrial fibrillation
Previously on chronic amiodarone therapy, apparently for rate control
Chronic Eliquis OAC
RBBB
s/p gastric sleeve
Former smoker
HTN
Type 2 DM
Acute psychosis
Dysphagia
Obstructive sleep apnea
Echo 2021: [facility] [place] study, with EF% 55, RV hypok, biatrial enlargement, and moderate mitral and tricuspid regurgitation with RVSP 37mmHg.
Echo 03/03/23: EF 57%, normal regional wall motion, mild MR, mod TR with PAP 47 mmHg, trivial pericardial effusion
Echo 06/13/2023: Moderate LVH, EF 55-60%, stage III diastolic dysfunction, flattened septum, MAC, mild MR, severely dilated left atrium, trace aortic regurgitation with aortic sclerosis, severe tricuspid regurgitation, pulmonary artery systolic
pressure 57 mmHg with severely dilated right atrium, dilated RV, RV hypokinesis, large pleural effusion, TR has progressed since February 2023, RV is now hypokinetic
ECHO 07/01/23: EF 55 to 60%, moderate concentric LVH, stage III diastolic dysfunction, moderately dilated RV, reduced RV systolic function, severely dilated bilateral atria, mild to moderate MR, aortic sclerosis, mild AR, severe TR, PAP 40 to 45 mmHg
Plan:
-Presented with dysphagia, possible pneumonia, and acute HFpEF.
-started on HD this admission, however has been unable to tolerate ultrafiltration due to hypotension. now on high dose midodrine
-RV dysfunction may be limiting ability to take volume off with HD.
-repeat echo 07/01 with preserved EF, mod dilated RV, reduced RV systolic function, severe TR
-next HD session in AM
-d/w nephrology. RHC may be beneficial to help determine dry weight. will hold eliquis and discuss with interventional cards in AM
-Medical therapy has been limited by bradycardia, renal failure, and hypotension
-on eliquis 2.5mg BID for permanent afib
-if he fails to tolerate HD, hospice would be recommended
HPI: 82-year-old man with complex past history and 2 recent admissions for HFpEF admitted on May 08 with dysphagia, esophageal food debris, possible pneumonia and acute on chronic HFpEF largely related to BULMARO on CKD 4 with anasarca.� He was
encephalopathic and uremic and hemodialysis initiated.� Renal biopsy has been performed.� Echocardiography was performed on the with progressive RV enlargement, severe TR, and pulmonary artery systolic pressure of 57.� He had stage III
diastolic dysfunction on permanent A-fib and consultation was requested.� Mitral regurgitation is mild.� Patient has had acute changes in mental status, earlier today points to dialysis nurse.� He describes himself as single
Progress Note - [place]
Subjective
Date of Service: July 01, 2023
no issues overnight noted
Objective
Labs:
06/30/23 13:24
06/30/23 13:23
Labs
Hgb 8.5 g/dL (13.0-18.0) L 06/30/23 13:24
Hct 25.3 % (39.0-52.0) L 06/30/23 13:24
Plt Count 80 10^3/uL (130-400) L 06/24/23 07:59
PT 15.8 Sec (11.4-14.6) H 06/05/23 08:25
INR 1.26 06/05/23 08:25
Sodium 131 mmol/L (135-145) L 06/30/23 13:23
Potassium 4.6 mmol/L (3.5-5.1) 06/30/23 13:23
BUN 52 mg/dl (9-20) H 06/30/23 13:23
Creatinine 4.3 mg/dL (0.7-1.3) H* 06/30/23 13:23
Glucose 150 mg/dl (70-99) H 06/30/23 13:23
Vital Signs and I&O:
Vital Signs
Temp Pulse Resp BP Pulse Ox
98.2 F 53 18 116/50 98
07/01/23 07:00 07/01/23 07:00 07/01/23 07:00 07/01/23 07:00 07/01/23 07:00
Vital Signs
Temp Pulse Resp BP Pulse Ox
98.2 F 53 18 116/50 98
07/01/23 07:00 07/01/23 07:00 07/01/23 07:00 07/01/23 07:00 07/01/23 07:00
Intake & Output
06/29/23 06/30/23 07/01/23 07/02/23
07:59 07:59 07:59 07:59
Intake Total 820 / 820 750 / 750 120 / 120
Output Total 50 / 50
Balance 770 / 770 750 / 750 120 / 120
[2023-07-01 16:56] LABS: Glucose - Point of Care 99 mg/dl (70-99)
[2023-07-01] MEDS: NEURONTIN 300 MG PO (21:30)
[2023-07-01] MEDS: MELATONIN 3 MG PO (21:31)
[2023-07-01 21:44] LABS: Glucose - Point of Care 110 mg/dl (70-99)
[2023-07-01 23:01] VITALS: BP 112/60
--- NOTE | 2023-07-01 23:29 | PTCARENOTE ---
Unable to obtain temperature on patient, patient feels cool to touch. Patient refusing RN to obtain rectal temp stating he feels fine and that his temperature is always low. Patient remains AAOx3, ambulatory, VSS otherwise. SPOUTING INSTALLER Bessy Arango
notified, no new orders at this time.
[2023-07-02] VITALS (9 sets, daily range): BP systolic 90–136; BP diastolic 45–66
[2023-07-02 08:06] LABS: Glucose - Point of Care 105 mg/dl (70-99)
[2023-07-02] MEDS: NOVOLOG FLEXPEN-LOW RESISTANCE SC ×2 (08:11→12:22)
[2023-07-02] MEDS: CARAFATE 1 GRAM PO ×4 (08:14→21:33)
[2023-07-02] MEDS: ProAmatine 15 MG PO ×3 (08:14→17:41)
[2023-07-02] MEDS: PROTONIX 40 MG PO ×2 (08:14→21:33)
[2023-07-02] MEDS: LIPITOR 20 MG PO (08:14)
[2023-07-02] MEDS: HYDROPHOR 1 APPLIC TOPICAL (08:15)
[2023-07-02] MEDS: DESENEX/MITRAZOL/ZEASORB 1 APPLIC TOPICAL (08:17)
[2023-07-02] MEDS: VITAMIN C 1000 MG PO (08:20)
[2023-07-02] MEDS: ProAmatine 5 MG PO (08:23)
[2023-07-02 08:32] LABS: Hematocrit 25.1 % (39.0-52.0); Hemoglobin 8.7 g/dL (13.0-18.0); Mean Corp Hgb Conc. 34.7 g/dL (33.0-37.0); Mean Corpuscular Hgb 33.7 pg (27.0-31.0); Mean Corpuscular Volume 97.3 fL (80.0-94.0); Mean Platelet Volume 11.3 fL (7.4-10.4); Platelet Count 129 10^3/uL (130-400); Red Blood Cell Count 2.58 10^6/uL (4.70-6.10); Red Cell Dist. Width 22.5 % (11.5-14.5); White Blood Cell Count 4.7 10^3/uL (4.8-10.8)
--- NOTE | 2023-07-02 08:43 | CM ---
Addendum entered by Tiny Kruse 07/02/23 14:39:
Per Hospitalist, patient not clear for discharge today. CM updated Jackie at [facility] along with daughter, Nicole. CM will continue to follow for discharge planning needs.
Plan; [facility] SNF when medically stable, auth approved 07/02-07/03
Original Note:
CM spoke with Luz, auth approved #[id number], reference number [id number] to [facility], start date 07/02-07/03, next review 07/03 to Evette Dumont, fax updates to [phone].
Plan; [facility] today
[2023-07-02 08:53] LABS: Glucose 78 mg/dl (70-99)
[2023-07-02 08:54] LABS: Blood Urea Nitrogen 52 mg/dl (9-20); Calcium 8.6 mg/dl (8.4-10.2); Carbon Dioxide 31 mmol/L (22-30); Chloride 96 mmol/L (98-107); Estimated Creatinine Clearance 15 ml/min; Potassium 4.6 mmol/L (3.5-5.1); Sodium 132 mmol/L (135-145); eGFR 13.51
[2023-07-02] MEDS: RETACRIT 10000 UNITS IV (09:23)
--- NOTE | 2023-07-02 09:57 | W.PN.NEPH.HD ---
Assessment
-
pt seen during HD
vitals stable on high dose midodrine
UF as tolerates
may have to tolerate some degree of LE edema to maintain hemodynamics
consideration of RHC will help to decide vol status
CVC functions well
Progress Note - Hemodialysis
-
Date of Service: July 02, 2023
Duration: 30 minutes and 3 hours
Potassium Bath: 2
Calcium Bath: 2.5
Opti-Dialyzer: 160
Ultrafiltration: Other (1-1.5kg)
Blood Flow: 400
Dialysate Flow: 600
Heparin: no
EPO: [id number]
[2023-07-02] MEDS: HEPARIN 4200 UNITS INTRACATH (11:36)
[2023-07-02 11:52] LABS: Glucose - Point of Care 85 mg/dl (70-99)
[2023-07-02] MEDS: CARAFATE PO (12:21)
--- NOTE | 2023-07-02 13:53 | W.PN.CARDCBS ---
Addendum entered and electronically signed by Zafar Sesay MD 07/02/23 16:22:
I saw and examined the patient.
The Risk Control Product Liability Director's note was reviewed and I agree with the note.
Comment:
GEN: No distress, awake, Ox3
HEENT: supple, anicteric, mmm
LUNGS: CTA, no wheezes/rales
CV: Irred, S1/S2, 1/6 syst LSB, no murmur
ABD: soft, BS+, NT/ND
EXT: No edema
NEURO: Gross non-focal
SKIN: No rash
plan:
Continues to have episodes of hypotension. Will proceed with right heart catheterization today after hemodialysis.
A-fib remains rate controlled. Continue Eliquis after procedures today.
Will review recent echocardiogram. Long-term prognosis appears to be very poor.
Original Note:
Today's Communication / Plan
-
RHC later today vs in AM
continue midodrine
Impression / Plan
-
System Developer Associate Manager: Dr. Hensley
Impression:
Acute on chronic HFpEF
CKD 4 with BULMARO currently on hemodialysis started this admission
Recent admission for acute HFpEF 02/24 and 04/2023
History nonobstructive CAD by cath at [facility] 2019
Permanent atrial fibrillation
Previously on chronic amiodarone therapy, apparently for rate control
Chronic Eliquis OAC
RBBB
s/p gastric sleeve
Former smoker
HTN
Type 2 DM
Acute psychosis
Dysphagia
Obstructive sleep apnea
Echo 2021: [facility] study, with EF% 55, RV hypok, biatrial enlargement, and moderate mitral and tricuspid regurgitation with RVSP 37mmHg.
Echo 03/03/23: EF 57%, normal regional wall motion, mild MR, mod TR with PAP 47 mmHg, trivial pericardial effusion
Echo 06/13/2023: Moderate LVH, EF 55-60%, stage III diastolic dysfunction, flattened septum, MAC, mild MR, severely dilated left atrium, trace aortic regurgitation with aortic sclerosis, severe tricuspid regurgitation, pulmonary artery systolic
pressure 57 mmHg with severely dilated right atrium, dilated RV, RV hypokinesis, large pleural effusion, TR has progressed since February 2023, RV is now hypokinetic
ECHO 07/01/23: EF 55 to 60%, moderate concentric LVH, stage III diastolic dysfunction, moderately dilated RV, reduced RV systolic function, severely dilated bilateral atria, mild to moderate MR, aortic sclerosis, mild AR, severe TR, PAP 40 to 45 mmHg
Plan:
-Presented with dysphagia, possible pneumonia, and acute HFpEF.
-started on HD this admission, however has been unable to tolerate ultrafiltration due to hypotension. now on high dose midodrine
-RV dysfunction may be limiting ability to take volume off with HD.
-repeat echo 07/01 with preserved EF, mod dilated RV, reduced RV systolic function, severe TR
-s/p HD this AM
-for RHC later today vs in AM to help determine dry weight. last dose eliquis 07/01AM
-Medical therapy has been limited by bradycardia, renal failure, and hypotension
-if he fails to tolerate HD, hospice would be recommended
HPI: 82-year-old man with complex past history and 2 recent admissions for HFpEF admitted on May 08 with dysphagia, esophageal food debris, possible pneumonia and acute on chronic HFpEF largely related to BULMARO on CKD 4 with anasarca.� He was
encephalopathic and uremic and hemodialysis initiated.� Renal biopsy has been performed.� Echocardiography was performed on the with progressive RV enlargement, severe TR, and pulmonary artery systolic pressure of 57.� He had stage III
diastolic dysfunction on permanent A-fib and consultation was requested.� Mitral regurgitation is mild.� Patient has had acute changes in mental status, earlier today points to dialysis nurse.� He describes himself as single
Progress Note - System Developer Associate Manager
Subjective
Date of Service: July 02, 2023
HD today. for RHC today vs in AM
Objective
Labs:
07/02/23 08:19
07/02/23 08:19
Labs
Hgb 8.7 g/dL (13.0-18.0) L 07/02/23 08:19
Hct 25.1 % (39.0-52.0) L 07/02/23 08:19
Plt Count 129 10^3/uL (130-400) L 07/02/23 08:19
PT 15.8 Sec (11.4-14.6) H 06/05/23 08:25
INR 1.26 06/05/23 08:25
Sodium 132 mmol/L (135-145) L 07/02/23 08:19
Potassium 4.6 mmol/L (3.5-5.1) 07/02/23 08:19
BUN 52 mg/dl (9-20) H 07/02/23 08:19
Creatinine 4.2 mg/dL (0.7-1.3) H* 07/02/23 08:19
Glucose 78 mg/dl (70-99) 07/02/23 08:19
Vital Signs and I&O:
Vital Signs
Temp Pulse Resp BP Pulse Ox
98.0 F 47 18 136/66 96
07/01/23 15:00 07/02/23 07:30 07/02/23 07:30 07/02/23 07:30 07/02/23 07:30
Vital Signs
Temp Pulse Resp BP Pulse Ox
98.0 F 47 18 136/66 96
07/01/23 15:00 07/02/23 07:30 07/02/23 07:30 07/02/23 07:30 07/02/23 07:30
Intake & Output
06/30/23 07/01/23 07/02/23 07/03/23
07:59 07:59 07:59 07:59
Intake Total 750 / 750 120 / 120
Balance 750 / 750 120 / 120
--- NOTE | 2023-07-02 14:11 | W.PN.HOSP.TC ---
Addendum entered and electronically signed by Ever Merida MD 07/02/23 16:11:
Patient seen and examined
Discussed with resident
Discussed with cardiology and nephrology
Persistent hypotension
BULMARO required initiation of hemodialysis.
A-fib on anticoagulation.
Esophagitis with candidiasis completed course of Diflucan.
Resolved TME.
Aspiration syndrome improved with resolution of TME.
Given persistent hypotension requiring midodrine, repeated echocardiogram with RV dysfunction plan is for right heart cath in a.m.
Hold Eliquis
Original Note:
Today's Communication/Plan
-
- Hold apixaban, in anticipation of cath.
- Continue midodrine.
Assessment / Plan
Assessment / Plan
Impression:
Regan Cabrera, 82 year-old male, presents to the ER with Severe Dysphagia found to have esophageal food debris and regurgitation, concern for aspiration pneumonia.�Remote H/o gastric sleeve.
* Esophageal food debris/aspiration risk
* Bilateral pleural effusion
* Hypotension/hypothermia
* Toxic metabolic encephalopathy
* Hypotension/hypothermia
* Acute on chronic HFpEF
* Acute kidney injury on chronic kidney disease
* Anemia
* Paroxysmal to Permanent A fib
* Restless Leg Syndrome
* DM
* PIO
Plan:
Esophageal food debris/aspiration risk
- S/p EGD and clearance esophagus.
- No masses/tumor found.
- Sharp angulation of GE junction, grade c esophagitis probably from food stasis noted; biopsy positive for candidal esophagitis.
- Completed 2 weeks course of Diflucan.
- Continue with PPI.
- Video swallow evaluation on 06-26-23 was reassuring.
Aspiration syndrome
- Multifactorial with toxic metabolic encephalopathy as well as generalized deconditioning. Improving.
- Approved for modified diet.
- Stable oral intake with no symptoms for overt aspiration.
- Repeat VSE on 06/25 showed improvement.
Bilateral pleural effusion
- CT Chest -b/l pleural effusion right more than left with bibasilar consolidation right more than left concerning for aspiration.� There is also faint opacity in the right upper zone.�
- H/o cough with regurgitation in the setting of b/l pleural effusion favors clinical suspicion of aspiration pneumonia.
- Afebrile, WBC count normal.�
- No clinical evidence of aspiration pneumonia
- Initially on Augmentin discontinued.
- CXR on 06-17-23 demonstrated large right pleural effusion (significantly increased) and moderate left pleural effusion (likely slightly increased).
- Given aspiration risk as well as right lower lobe process/pleural effusion,� infiltrate with reasonable aspiration risk, started empiric piperacillin+tazobactam; now stopped.
- Blood cultures were negative.
- Thoracocentesis yielded 1500 cc of�clear dameon pleural fluid on 06-18-23.
- clinically seems it reaccumulated
- Follow-up chest x-ray with likely reaccumulating right pleural effusion.
- May need repeat thoracentesis given persistent cough, although current respiratory status is stable with no requirements of supplemental oxygen.
Toxic metabolic encephalopathy
- No focal findings on exam
- CT scan of the head 06/11 with no acute abnormality
- Fluctuating mental status with periods of agitation and belligerence.
- Patient refuses treatment including hemodialysis.
- Psychiatry input appreciated.
- Initiated on Risperdal on 06/12 with dose increased on 06/13; stopped for now.
- psych following
- Mental status improved and close to baseline
Hypotension/hypothermia
- Normalized temp
- Discontinued hydralazine.
- BP still on lower side - on midodrine, increased dosing now.
- Cortisol, TSH, lactic acid, CBC and BMP unremarkable.
- Blood cultures negative.
Acute on chronic HFpEF.�
- In the settings of BULMARO/ATN and decreased urine output
- CW HD for volume management
- Back to baseline now.
- Repeat echo was unremarkable on 07-01-23.
- Holding apixaban, pending cardiology evaluation for a potential cath.
Acute kidney injury on chronic kidney disease stage 4-baseline cr 2-
- Status post renal biopsy findings consistent with ATN.
- Underlying CKD stage IV.
- Initiated on hemodialysis.
- No recovery of renal function remains anuric.
- Tunneled right internal jugular hemodialysis catheter was placed on 06-25-23.
- Patient was having issues with ultrafiltration - not able to pull much due to hypotension.
- There is RV dysfunction unclear if that is playing a role.
- Repeat echocardiogram to reevaluate.
- Reconsulted cardiology.
- Repeated chest x-ray to rule out any recurrence of pleural effusion.
- Prognosis is poor if he fails to tolerate HD.
Anemia
- Progressive anemia with no obvious source of bleeding
- Stable H&H
- Renal US notes no hematoma
- Anemia likely multifactorial, anemia of chronic disease and renal insufficiency
- Iron B12 Folate level wnl
- Patient offered transfusion, although declined in multiple occasions
- Hemoglobin currently stable at 8.3 on 06-27-23.
Paroxysmal to Permanent A fib
- Currently in A-fib with�rate control.
- Eliquis renal dosing -
06/13: Episode of chest pain reproducible on exam.
- ECG with no ischemia.
- Troponin 0.336.
- Echocardiogram 02/24 with LVEF of 57%.
- Repeat echocardiogram above with preserved ejection fraction, grade 3 diastolic dysfunction, worsening tricuspid regurgitation, hypokinetic RV
- As per Dr. JAZMINE Chan (quoted from consult on 06/14/23), 'Unfortunately there is really nothing that can be done of note to improve his cardiac status and prognosis.'
- Amiodarone stopped to allow for higher heart rates
Restless Leg Syndrome
- Increased home gabapentin to 300 mg HS, symptoms since improved, continue current dose
DM
- Hold linagliptin.
- Insulin Basal bolus regimen
PIO
- CPAP at HS
Wound care
- Sutures from the left leg above the left medial malleolus removed, and wound dressed with a 2x2 gauge on 06/02, wound dressing intact.
DVT prophylaxis
- SCDs; apixaban - renal dosing.
Code status
- DNR.
Plan for disposition to [place] [facility] noted. With issues of ultrafiltration will hold discharge and reevaluate clinically for any reversible factors.
Anticipated Discharge: 24 - 48 hours
Subjective/Interval History
-
Date of Service: July 02, 2023
Objective Data
-
Labs:
Laboratory Results
07/02/23
08:19
WBC 4.7 L
Hgb 8.7 L
Hct 25.1 L
Plt Count 129 L
Sodium 132 L
Potassium 4.6
Chloride 96 L
Carbon Dioxide 31 H
BUN 52 H
Creatinine 4.2 H*
Glucose 78
Calcium 8.6
Vital Signs:
Vital Signs
Temp Pulse Resp BP Pulse Ox
98.0 F 47 18 136/66 96
07/01/23 15:00 07/02/23 07:30 07/02/23 07:30 07/02/23 07:30 07/02/23 07:30
I&O
07/01/23 07/02/23 07/03/23
06:59 06:59 06:59
Intake Total 120 / 120
Balance 120 / 120
Review of Systems
-
History Source: Patient
Constitutional: Reports No Symptoms
EENT: Reports No Symptoms Reported
Respiratory: Reports No Symptoms
Cardiac: Reports No Symptoms
Abdomen/GI: Reports No Symptoms
Genitourinary: Reports No Symptoms
Musculoskeletal: Reports No Symptoms
Neuro: Reports No Symptoms
Endocrine: Reports No Symptoms
Hematologic / Lymphatic: Reports No Symptoms
Physical Exam
-
General: No Apparent Distress and Comfortable
HEENT: Normocephalic, Atraumatic, Moist Mucous Membranes and Anicteric
Respiratory: Clear to Auscultation and Non Labored Respirations
Cardiac: Regular Rhythm and S1/S2
GI: Soft, Nontender, Nondistended, Normal Bowel Sounds and No Hepatosplenomegaly
Genito-urinary: No Costovertebral Tender
Musculoskeletal: No Clubbing, No Cyanosis and No Edema
Skin: Warm, Dry and IV Access / Catheter Site
Neuro: Awake, Alert, Oriented, No Motor Deficits and No Sensory Deficits
Hematologic / Lymphatic: No Lymphadenopathy
Psych: Calm
--- NOTE | 2023-07-02 15:16 | ITS.CL.CATH ---
[facility] - Catheterization
Cardiac Catheterization
Procedure Report:
RIGHT HEART CATHETERIZATION
Date of Procedure: July 02, 2023
Referring: Jose Rodrigues
INDICATION: Assess invasive hemodynamics given ongoing difficulty with hypotension and hemodialysis.
Hemodynamics (mmHg):
RA (m) : 20
RV (s/d,m) : 53/19, 30
PA (s/d, m) : 55/24, 34
PCWP (m) : 23
PA saturation: 56.0% on room air
AO saturation: 92.0% on room air
RA saturation: 58.4% on room air
Heart rate: 52 bpm
Cardiac Output : 5.82 L/min by Doris
Cardiac Index : 2.67 L/min/m-2 by Doris
Pulmonary vascular resistance: 2.92 longoria unit
RADIATION SUMMARY: Fluoro Time (min): 3.1, Dose (mGy): 31.4, DAP (Gy.cm2) : 4.6
CONCLUSION:
1. Significantly elevated right and left-sided filling pressures (right more than left) with severe pulmonary hypertension and normal cardiac output.
Copy to: Jose Rodrigues
Jaqueline Mahmood MD, FACC, [facility]
[2023-07-02 17:25] LABS: Glucose - Point of Care 173 mg/dl (70-99)
[2023-07-02] MEDS: NOVOLOG FLEXPEN-LOW RESISTANCE 1 UNITS SC (17:41)
[2023-07-02] MEDS: NEURONTIN 300 MG PO (21:32)
[2023-07-02] MEDS: MELATONIN 3 MG PO (21:33)
[2023-07-02 21:35] LABS: Glucose - Point of Care 156 mg/dl (70-99)
--- NOTE | 2023-07-02 21:38 | PTCARENOTE ---
Pt was put on tele per order, due to pt procedure done during day shift. vitals were taken when pt was put on tele, BP is 96/45 and Hr 53. Pt is comfortable laying in bed with call branch in reach. Will continue to monitor.
[2023-07-02] MEDS: DESENEX/MITRAZOL/ZEASORB TOPICAL (21:58)
--- NOTE | 2023-07-03 00:48 | PTCARENOTE ---
While performing post cardiac cath neurovascular checks, it was noted that patients lower right arm was edematous. Patient has + radial and brachial pulse. Patient denies pain or discomfit with no sensation loss. RN also spoke with daughter Nicole
who states she did notice edema in same area earlier after cardiac cath. SPORTS EQUIPMENT RACKER notified and assessed patient herself noting same assessment as RN with + pulses. SPORTS EQUIPMENT RACKER states since edema is soft and + pulses with no sensation loss, to monitor for
now. No increased edema noted on further neurovascular checks .
[2023-07-03 03:00] VITALS: BP 94/39
[2023-07-03 05:26] VITALS: BMI 27.4
[2023-07-03 07:30] VITALS: BP 110/51
[2023-07-03 07:43] LABS: Glucose - Point of Care 111 mg/dl (70-99)
[2023-07-03] MEDS: NOVOLOG FLEXPEN-LOW RESISTANCE SC ×3 (07:46→16:44)
[2023-07-03] MEDS: ProAmatine 15 MG PO ×3 (08:04→17:07)
[2023-07-03] MEDS: PROTONIX 40 MG PO ×2 (08:04→21:52)
[2023-07-03] MEDS: LIPITOR 20 MG PO (08:04)
[2023-07-03] MEDS: VITAMIN C 1000 MG PO (08:04)
[2023-07-03] MEDS: HYDROPHOR 1 APPLIC TOPICAL (08:05)
[2023-07-03] MEDS: ELIQUIS 2.5 MG PO (08:08)
[2023-07-03] MEDS: CARAFATE 1 GRAM PO ×4 (08:08→21:52)
[2023-07-03 11:22] LABS: Glucose - Point of Care 127 mg/dl (70-99)
[2023-07-03 11:30] VITALS: BP 101/52
--- NOTE | 2023-07-03 11:50 | CM ---
Yumiko from [facility] [phone] she was asking for update. PROFICIO number will be [phone] option 3 then 1 for live person.
CM updated
[2023-07-03] MEDS: ProAmatine PO (12:59)
--- NOTE | 2023-07-03 14:40 | CM ---
CM spoke with Hospitalist, plan for discharge tomorrow. CM spoke with Jackie from [facility], will need auth extension. CM will continue to follow for discharge planning needs.
Plan; [facility] SN[facility] after HD, will need auth extension.
[2023-07-03 16:00] VITALS: BP 120/57
--- NOTE | 2023-07-03 16:39 | W.PN.NEPH.PH ---
Today's Communication / Plan
-
HD tomorrow
move midodrine to 20mg TID
Assessment/Plan
-
IMP:
Severe dysphagia with esophageal food debris and regurgitation and concern for aspiration.�
Acute Psychosis
history of gastric sleeve s/p EGD No masses/tumor found. Sharp angulation of GE junction ,grade c esophagitis
aspiration risk, speech/swallow eval with improvement
Chronic HFpEF.� Diastolic dysfunction with severe TR and hypokinetic right ventricle
Acute kidney injury on chronic kidney disease stage 4-baseline cr 2-
Paroxysmal to permanent atrial fibrillation
DM
PIO� CPAP at HS
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
non obst bilat renal caliculi
HLD
hyponatremia
Plan:
-renal biopsy results note ATN, osmotic nephrosis and nephrosclerosis
-HD initiated 06/10
-HD tomorrow-MWF schedule
-no renal recovery noted yet with no UOP
-echo with right heart failure, severe TR, mod MR, RHC on 07/02 with high Right heart pressures and severe pulm HTN , PCWP was 23
-Since high dose of midodrine mild improvement of BP noted but unclear if it is enough to support UF on HD
currently he has no resp symp but edema upto thighs, cont compression stocks
Reviewed with pt in detail that if we can not dialyze him adequately then not much to offer from renal point
I think we achieved maximum supportive care for him
He can d/c to [facility] after HD tomorrow assuming that he is at high risk of readmit
This info was conveyed to daughter previously
d/w primary
-
-
Date of Service: July 03, 2023
CC / HPI / ROS
-
Chief Complaint:
BULMARO with CKD
History of Present Illness:
tolerated HD yesterday, 1lit UF
BP remains soft on high midodrine dosing
psychosis improved
RHC 07/02 noted
Review of Systems:
no cp or sob at rest
no n/v
Labs
-
Labs:
WBC 4.7 10^3/uL (4.8-10.8) L 07/02/23 08:19
RBC 2.58 10^6/uL (4.70-6.10) L 07/02/23 08:19
Hgb 8.7 g/dL (13.0-18.0) L 07/02/23 08:19
Hct 25.1 % (39.0-52.0) L 07/02/23 08:19
Plt Count 129 10^3/uL (130-400) L 07/02/23 08:19
Sodium 132 mmol/L (135-145) L 07/02/23 08:19
Potassium 4.6 mmol/L (3.5-5.1) 07/02/23 08:19
Chloride 96 mmol/L (98-107) L 07/02/23 08:19
Carbon Dioxide 31 mmol/L (22-30) H 07/02/23 08:19
BUN 52 mg/dl (9-20) H 07/02/23 08:19
Creatinine 4.2 mg/dL (0.7-1.3) H* 07/02/23 08:19
eGFR 13.51 07/02/23 08:19
Glucose 78 mg/dl (70-99) 07/02/23 08:19
Calcium 8.6 mg/dl (8.4-10.2) 07/02/23 08:19
Pnq-B-Usobadbwudw Pept 4140 pg/ml 05/28/23 11:57
Albumin 3.2 g/dl (3.5-5.0) L 05/29/23 08:29
Physical Exam
-
Vital Signs:
Vital Signs
Temp Pulse Resp BP Pulse Ox
97.4 F 49 17 120/57 97
07/03/23 16:00 07/03/23 16:00 07/03/23 16:00 07/03/23 16:00 07/03/23 16:00
Cardiovascular:: Regular rate and rhythm
Lung Excursion:: Normal (decreased)
Abdomen:: Nontender and Soft
Extremity Edema:: +3: Bilateral:
Calvin Catheter: No
[2023-07-03 16:44] LABS: Glucose - Point of Care 93 mg/dl (70-99)
--- NOTE | 2023-07-03 17:22 | W.PN.HOSP.TC ---
Today's Communication/Plan
-
Right heart catheterization reviewed.
HD in AM.
Continue midodrine.
Discharge planing to [facility] facility with HD.
Assessment / Plan
Assessment / Plan
Impression:
Regan Cabrera, 82 year-old male, presents to the ER with Severe Dysphagia found to have esophageal food debris and regurgitation, concern for aspiration pneumonia.�Remote H/o gastric sleeve.
* Esophageal food debris/aspiration risk
* Bilateral pleural effusion
* Hypotension/hypothermia
* Toxic metabolic encephalopathy
* Hypotension/hypothermia
* Acute on chronic HFpEF
* Acute kidney injury on chronic kidney disease
* Anemia
* Paroxysmal to Permanent A fib
* Restless Leg Syndrome
* DM
* PIO
Plan:
Esophageal food debris/aspiration risk
- S/p EGD and clearance esophagus.
- No masses/tumor found.
- Sharp angulation of GE junction, grade c esophagitis probably from food stasis noted; biopsy positive for candidal esophagitis.
- Completed 2 weeks course of Diflucan.
- Continue with PPI.
- Video swallow evaluation on 06-26-23 was reassuring.
Aspiration syndrome
- Multifactorial with toxic metabolic encephalopathy as well as generalized deconditioning. Improving.
- Approved for modified diet.
- Stable oral intake with no symptoms for overt aspiration.
- Repeat VSE on 06/25 showed improvement.
Bilateral pleural effusion
- CT Chest -b/l pleural effusion right more than left with bibasilar consolidation right more than left concerning for aspiration.� There is also faint opacity in the right upper zone.�
- H/o cough with regurgitation in the setting of b/l pleural effusion favors clinical suspicion of aspiration pneumonia.
- Afebrile, WBC count normal.�
- No clinical evidence of aspiration pneumonia
- Initially on Augmentin discontinued.
- CXR on 06-17-23 demonstrated large right pleural effusion (significantly increased) and moderate left pleural effusion (likely slightly increased).
- Given aspiration risk as well as right lower lobe process/pleural effusion,� infiltrate with reasonable aspiration risk, started empiric piperacillin+tazobactam; now stopped.
- Blood cultures were negative.
- Thoracocentesis yielded 1500 cc of�clear dameon pleural fluid on 06-18-23.
- clinically seems it reaccumulated
- Follow-up chest x-ray with likely reaccumulating right pleural effusion.
- May need repeat thoracentesis given persistent cough, although current respiratory status is stable with no requirements of supplemental oxygen.
Toxic metabolic encephalopathy
- No focal findings on exam
- CT scan of the head 06/11 with no acute abnormality
- Fluctuating mental status with periods of agitation and belligerence.
- Patient refuses treatment including hemodialysis.
- Psychiatry input appreciated.
- Initiated on Risperdal on 06/12 with dose increased on 06/13; stopped for now.
- psych following
- Mental status improved and close to baseline
Hypotension/hypothermia
- Normalized temp
- Discontinued hydralazine.
- BP still on lower side - on midodrine, increased dosing now.
- Cortisol, TSH, lactic acid, CBC and BMP unremarkable.
- Blood cultures negative.
Acute on chronic HFpEF.�
- In the settings of BULMARO/ATN and decreased urine output
- CW HD for volume management
- Back to baseline now.
- Repeat echo was unremarkable on 07-01-23.
- Holding apixaban, pending cardiology evaluation for a potential cath.
-Chronic hypotension requiring midodrine. Right heart cath on consistent with RV dysfunction and severe pulmonary hypertension.
Acute kidney injury on chronic kidney disease stage 4-baseline cr 2-
- Status post renal biopsy findings consistent with ATN.
- Underlying CKD stage IV.
- Initiated on hemodialysis.
- No recovery of renal function remains anuric.
- Tunneled right internal jugular hemodialysis catheter was placed on 06-25-23.
- Patient was having issues with ultrafiltration - not able to pull much due to hypotension.
- There is RV dysfunction unclear if that is playing a role.
- Repeat echocardiogram to reevaluate.
- Reconsulted cardiology.
- Repeated chest x-ray to rule out any recurrence of pleural effusion.
- Prognosis is poor if he fails to tolerate HD.
Anemia
- Progressive anemia with no obvious source of bleeding
- Stable H&H
- Renal US notes no hematoma
- Anemia likely multifactorial, anemia of chronic disease and renal insufficiency
- Iron B12 Folate level wnl
- Patient offered transfusion, although declined in multiple occasions
- Hemoglobin currently stable at 8.3 on 06-27-23.
Paroxysmal to Permanent A fib
- Currently in A-fib with�rate control.
- Eliquis renal dosing -
06/13: Episode of chest pain reproducible on exam.
- ECG with no ischemia.
- Troponin 0.336.
- Echocardiogram 02/24 with LVEF of 57%.
- Repeat echocardiogram above with preserved ejection fraction, grade 3 diastolic dysfunction, worsening tricuspid regurgitation, hypokinetic RV
- As per Dr. JAZMINE Chan (quoted from consult on 06/14/23), 'Unfortunately there is really nothing that can be done of note to improve his cardiac status and prognosis.'
- Amiodarone stopped to allow for higher heart rates
Restless Leg Syndrome
- Increased home gabapentin to 300 mg HS, symptoms since improved, continue current dose
DM
- Hold linagliptin.
- Insulin Basal bolus regimen
PIO
- CPAP at HS
Wound care
- Sutures from the left leg above the left medial malleolus removed, and wound dressed with a 2x2 gauge on 06/02, wound dressing intact.
DVT prophylaxis
- SCDs; apixaban - renal dosing.
Code status
- DNR.
Plan for disposition to [place] [facility] noted. With issues of ultrafiltration will hold discharge and reevaluate clinically for any reversible factors.
Anticipated Discharge: 24 - 48 hours
Subjective/Interval History
-
Date of Service: July 03, 2023
Objective Data
-
Vital Signs:
Vital Signs
Temp Pulse Resp BP Pulse Ox
97.4 F 49 17 120/57 97
07/03/23 16:00 07/03/23 16:00 07/03/23 16:00 07/03/23 17:07 07/03/23 16:00
I&O
07/02/23 07/03/23 07/04/23
06:59 06:59 06:59
Intake Total 610 / 610 180 / 180
Balance 610 / 610 180 / 180
Physical Exam
-
General: Well Developed and No Apparent Distress
HEENT: Normocephalic, Atraumatic and Moist Mucous Membranes
Respiratory: Clear to Auscultation
Cardiac: Regular Rhythm and S1/S2; Negative Murmur, Rub or Gallop
GI: Soft, Nontender, Nondistended and Normal Bowel Sounds; Negative Organomegaly
Rectal: Deferred by Provider
Musculoskeletal: No Clubbing, No Cyanosis and No Edema
Skin: Negative Rash
Neuro: Nonfocal/Grossly Intact
--- NOTE | 2023-07-03 18:02 | W.PN.CARDCBS ---
Today's Communication / Plan
-
Spoke with nephrology about dialysis difficulties -continue midodrine and dialysis efforts as able
Reviewed slow atrial fibrillation with EP -no class I indication for pacemaker implant at this time. Will plan for outpatient satellite project site monitor after washout of amiodarone
Impression / Plan
-
Plant Control Operator: Dr. Hensley
Impression:
Acute on chronic HFpEF
CKD 4 with BULMARO currently on hemodialysis started this admission
Recent admission for acute HFpEF 02/24 and 04/2023
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
Permanent atrial fibrillation
Previously on chronic amiodarone therapy, apparently for rate control
Chronic Eliquis OAC
RBBB
s/p gastric sleeve
Former smoker
HTN
Type 2 DM
Acute psychosis
Dysphagia
Obstructive sleep apnea
Echo 2021: [facility] study, with EF% 55, RV hypok, biatrial enlargement, and moderate mitral and tricuspid regurgitation with RVSP 37mmHg.
Echo 03/03/23: EF 57%, normal regional wall motion, mild MR, mod TR with PAP 47 mmHg, trivial pericardial effusion
Echo 06/13/2023: Moderate LVH, EF 55-60%, stage III diastolic dysfunction, flattened septum, MAC, mild MR, severely dilated left atrium, trace aortic regurgitation with aortic sclerosis, severe tricuspid regurgitation, pulmonary artery systolic
pressure 57 mmHg with severely dilated right atrium, dilated RV, RV hypokinesis, large pleural effusion, TR has progressed since February 2023, RV is now hypokinetic
ECHO 07/01/23: EF 55 to 60%, moderate concentric LVH, stage III diastolic dysfunction, moderately dilated RV, reduced RV systolic function, severely dilated bilateral atria, mild to moderate MR, aortic sclerosis, mild AR, severe TR, PAP 40 to 45 mmHg
Plan:
-Medically complex 82 year old with prolonged hospitalization
-Remains volume overloaded�despite dialysis efforts. Spoke with Nephrology- have been unable to tolerate ultrafiltration due to hypotension on high dose midodrine
-RHC 07/02/23 found significantly elevated right and left-sided filling pressures (right more than left) with severe pulmonary hypertension and normal cardiac output
-Echo 07/01 with preserved EF, mod dilated RV, reduced RV systolic function, severe TR
-Persistent AF with slow ventricular response - Toprol and amio stopped this admission. No class 1 indications for PPM. Reviewed with EP- plan for outpatient satellite project site monitor in one month after wash out of amiodarone
-If he fails to tolerate HD, hospice would be recommended
HPI: 82-year-old man with complex past history and 2 recent admissions for HFpEF admitted on May 08 with dysphagia, esophageal food debris, possible pneumonia and acute on chronic HFpEF largely related to BULMARO on CKD 4 with anasarca.� He was
encephalopathic and uremic and hemodialysis initiated.� Renal biopsy has been performed.� Echocardiography was performed on the with progressive RV enlargement, severe TR, and pulmonary artery systolic pressure of 57.� He had stage III
diastolic dysfunction on permanent A-fib and consultation was requested.� Mitral regurgitation is mild.� Patient has had acute changes in mental status, earlier today points to dialysis nurse.� He describes himself as single
Progress Note - Plant Control Operator
Subjective
Date of Service: July 03, 2023
Seen and examined with family at bedside. c/o waekness but offers no complaints. No dizziness or hx of syncope.
Objective
Labs:
07/02/23 08:19
07/02/23 08:19
Labs
Hgb 8.7 g/dL (13.0-18.0) L 07/02/23 08:19
Hct 25.1 % (39.0-52.0) L 07/02/23 08:19
Plt Count 129 10^3/uL (130-400) L 07/02/23 08:19
PT 15.8 Sec (11.4-14.6) H 06/05/23 08:25
INR 1.26 06/05/23 08:25
Sodium 132 mmol/L (135-145) L 07/02/23 08:19
Potassium 4.6 mmol/L (3.5-5.1) 07/02/23 08:19
BUN 52 mg/dl (9-20) H 07/02/23 08:19
Creatinine 4.2 mg/dL (0.7-1.3) H* 07/02/23 08:19
Glucose 78 mg/dl (70-99) 07/02/23 08:19
Vital Signs and I&O:
Vital Signs
Temp Pulse Resp BP Pulse Ox
97.4 F 49 17 120/57 97
07/03/23 16:00 07/03/23 16:00 07/03/23 16:00 07/03/23 17:07 07/03/23 16:00
Vital Signs
Temp Pulse Resp BP Pulse Ox
97.4 F 49 17 120/57 97
07/03/23 16:00 07/03/23 16:00 07/03/23 16:00 07/03/23 17:07 07/03/23 16:00
Intake & Output
07/01/23 07/02/23 07/03/23 07/04/23
06:59 06:59 06:59 06:59
Intake Total 120 / 120 610 / 610 180 / 180
Balance 120 / 120 610 / 610 180 / 180
Physical Exam
Physical Exam
General: No acute distress, AAOX3
Heart: Irregularly irregular, bradycardic. Positive S1-S2. 2/6 SM
Lungs: Bronchovesicular breath sounds with crackles at bases. Dialysis catheter
Abd: Positive BS, NT/ND, neg rebound/rigidity/guarding
Ext:++ edema
[2023-07-03 20:23] VITALS: BP 125/60
[2023-07-03 21:38] LABS: Glucose - Point of Care 134 mg/dl (70-99)
[2023-07-03] MEDS: NEURONTIN 300 MG PO (21:52)
[2023-07-03] MEDS: MELATONIN 3 MG PO (21:52)
[2023-07-04] VITALS (7 sets, daily range): BP systolic 95–120; BP diastolic 45–55; BMI 27.3
[2023-07-04] MEDS: MELATONIN 3 MG PO (01:26)
--- NOTE | 2023-07-04 07:49 | PTCARENOTE ---
Notified provider that an oral or axillary temperature was unable to be obtained and the patient refused a rectal temperature reading. Patient educated about rationale for temperature readings.
[2023-07-04] MEDS: NOVOLOG FLEXPEN-LOW RESISTANCE SC ×3 (07:54→16:39)
[2023-07-04 07:55] LABS: Glucose - Point of Care 102 mg/dl (70-99)
[2023-07-04] MEDS: CARAFATE 1 GRAM PO ×3 (08:09→17:06)
[2023-07-04] MEDS: HYDROPHOR 1 APPLIC TOPICAL (08:09)
[2023-07-04] MEDS: PROTONIX 40 MG PO (08:09)
[2023-07-04] MEDS: VITAMIN C 1000 MG PO (08:09)
[2023-07-04] MEDS: LIPITOR 20 MG PO (08:09)
[2023-07-04] MEDS: ProAmatine 15 MG PO ×3 (08:09→17:06)
[2023-07-04] MEDS: ProAmatine 5 MG PO (08:09)
[2023-07-04] MEDS: RETACRIT 8000 UNITS IV (08:35)
[2023-07-04] MEDS: FLEXBUMIN 25% FOR HEMODIALYSIS 12.5 GRAMS IV ×2 (08:42→09:47)
[2023-07-04] MEDS: MANNITOL 12.5 GRAMS IV ×2 (09:20→10:09)
--- NOTE | 2023-07-04 11:06 | CM ---
Luz, auth approved #[id number], reference number [id number] to Sherry Velez, start date 07/02-07/03
Spoke with Jackie Powell pt accepted at [facility] after auth update.
Pt currently receiving HD .
PT contacted that after HD pt needs PT OT evals .
After HD and PT evals . [facility] will need to be contacted and get updated auth.
Spoke with Nicole bean she said she agrees with dc . IMM reviewed IMM copy to [email or web address].
Tim requested an ambulance . Medical nec form completed.
[facility]
report [phone]
fax [phone]
PLAN DC to [facility] after auth
[2023-07-04] MEDS: HEPARIN 4300 UNITS INTRACATH (11:12)
[2023-07-04 11:45] LABS: Glucose - Point of Care 100 mg/dl (70-99)
--- NOTE | 2023-07-04 12:29 | W.PN.NEPH.HD ---
Assessment
-
Seen on HD. no complaints. VSS on high dose midodrine. access ok
prognosis poor
Progress Note - Hemodialysis
-
Date of Service: July 04, 2023
Duration: 30 minutes and 3 hours
Potassium Bath: 3
Calcium Bath: 2.5
Opti-Dialyzer: 160
Ultrafiltration: Other (1 kg)
Blood Flow: 350
Dialysate Flow: 600
Heparin: no
EPO: 8000 units
--- NOTE | 2023-07-04 14:08 | W.PN.CARDCBS ---
Today's Communication / Plan
-
Outpatient cardiac follow-up arranged
Impression / Plan
-
Pipe Layer Helper: Dr. Hensley
Impression:
Acute on chronic HFpEF
CKD 4 with BULMARO currently on hemodialysis started this admission
Recent admission for acute HFpEF 02/24 and 04/2023
History nonobstructive CAD by cath at [facility] 2019
Permanent atrial fibrillation
Previously on chronic amiodarone therapy, apparently for rate control
Chronic Eliquis OAC
RBBB
s/p gastric sleeve
Former smoker
HTN
Type 2 DM
Acute psychosis
Dysphagia
Obstructive sleep apnea
Echo 2021: [facility] study, with EF% 55, RV hypok, biatrial enlargement, and moderate mitral and tricuspid regurgitation with RVSP 37mmHg.
Echo 03/03/23: EF 57%, normal regional wall motion, mild MR, mod TR with PAP 47 mmHg, trivial pericardial effusion
Echo 06/13/2023: Moderate LVH, EF 55-60%, stage III diastolic dysfunction, flattened septum, MAC, mild MR, severely dilated left atrium, trace aortic regurgitation with aortic sclerosis, severe tricuspid regurgitation, pulmonary artery systolic
pressure 57 mmHg with severely dilated right atrium, dilated RV, RV hypokinesis, large pleural effusion, TR has progressed since February 2023, RV is now hypokinetic
ECHO 07/01/23: EF 55 to 60%, moderate concentric LVH, stage III diastolic dysfunction, moderately dilated RV, reduced RV systolic function, severely dilated bilateral atria, mild to moderate MR, aortic sclerosis, mild AR, severe TR, PAP 40 to 45 mmHg
Plan:
-Medically complex 82 year old with prolonged hospitalization
-Remains volume overloaded�despite dialysis efforts. Spoke with Nephrology- have been unable to tolerate ultrafiltration due to hypotension on high dose midodrine
-RHC 07/02/23 found significantly elevated right and left-sided filling pressures (right more than left) with severe pulmonary hypertension and normal cardiac output
-Echo 07/01 with preserved EF, mod dilated RV, reduced RV systolic function, severe TR
-Persistent AF with slow ventricular response - Toprol and amio stopped this admission. No class 1 indications for PPM. Reviewed with EP- plan for outpatient cardiac cath technician in one month after wash out of amiodarone
-If he fails to tolerate HD, hospice would be recommended
Will arrange outpatient cardiac follow-up with plan for outpatient cardiac cath technician in 1 month.
Will sign off, recall if needed
HPI: 82-year-old man with complex past history and 2 recent admissions for HFpEF admitted on May 08 with dysphagia, esophageal food debris, possible pneumonia and acute on chronic HFpEF largely related to BULMARO on CKD 4 with anasarca.� He was
encephalopathic and uremic and hemodialysis initiated.� Renal biopsy has been performed.� Echocardiography was performed on the with progressive RV enlargement, severe TR, and pulmonary artery systolic pressure of 57.� He had stage III
diastolic dysfunction on permanent A-fib and consultation was requested.� Mitral regurgitation is mild.� Patient has had acute changes in mental status, earlier today points to dialysis nurse.� He describes himself as single
Progress Note - Pipe Layer Helper
Subjective
Date of Service: July 04, 2023
Seen and examined following dialysis. Patient is dressed but tells me he will not be discharged until tomorrow. Offers no new complaints
Objective
Labs:
07/02/23 08:19
07/02/23 08:19
Labs
Hgb 8.7 g/dL (13.0-18.0) L 07/02/23 08:19
Hct 25.1 % (39.0-52.0) L 07/02/23 08:19
Plt Count 129 10^3/uL (130-400) L 07/02/23 08:19
PT 15.8 Sec (11.4-14.6) H 06/05/23 08:25
INR 1.26 06/05/23 08:25
Sodium 132 mmol/L (135-145) L 07/02/23 08:19
Potassium 4.6 mmol/L (3.5-5.1) 07/02/23 08:19
BUN 52 mg/dl (9-20) H 07/02/23 08:19
Creatinine 4.2 mg/dL (0.7-1.3) H* 07/02/23 08:19
Glucose 78 mg/dl (70-99) 07/02/23 08:19
Vital Signs and I&O:
Vital Signs
Temp Pulse Resp BP Pulse Ox
97.3 F 47 14 95/47 96
07/04/23 10:15 07/04/23 10:39 07/04/23 10:39 07/04/23 10:39 07/04/23 10:39
Vital Signs
Temp Pulse Resp BP Pulse Ox
97.3 F 47 14 95/47 96
07/04/23 10:15 07/04/23 10:39 07/04/23 10:39 07/04/23 10:39 07/04/23 10:39
Intake & Output
07/02/23 07/03/23 07/04/23 07/05/23
06:59 06:59 06:59 06:59
Intake Total 610 / 610 420 / 420
Output Total 25 / 25
Balance 610 / 610 395 / 395
Physical Exam
Physical Exam
General: No acute distress, AAOX3
Heart: Irregularly irregular, bradycardic. Positive S1-S2. 2/6 SM
Lungs: Bronchovesicular breath sounds with crackles at bases. Dialysis catheter
Abd: Positive BS, NT/ND, neg rebound/rigidity/guarding
Ext:++ edema
--- NOTE | 2023-07-04 15:23 | W.PN.HOSP.TC ---
Addendum entered and electronically signed by Ever Merida MD 07/04/23 16:50:
He has intermittent bradycardia/A-fib with slow ventricular response
Asymptomatic.
Has been off amiodarone
Discussed with cardiology. Currently no indication for pacemaker placement
Plan is for outpatient cardiac monitoring once amiodarone washout.
Addendum entered and electronically signed by Ever Merida MD 07/04/23 16:40:
Patient seen and examined
Discussed with resident.
Discussed with patient's daughter at the bedside.
Impression/plan:
Esophagitis/esophageal candidiasis completed course of Diflucan.
Aspiration syndrome multifactorial and secondary to above as well as TME improved with diet has been advanced.
Acute kidney injury requiring initiation of hemodialysis
Persistent hypotension/pulmonary hypertension requiring midodrine.
Acute CHF preserved EF, volume status improved and managed with HD
Obstructive sleep apnea
Atrial fibrillation
Anticoagulation with Eliquis
Resolved acute hypoxic respiratory failure.
Bilateral pleural effusion status post bilateral thoracentesis.
Severe deconditioning.
Medically optimized.
Hold given multiple comorbidities and overall severe deconditioning remains high risk for rehospitalization.
Original Note:
Today's Communication/Plan
-
- Anticipated discharge soon; pending authorization from insurance.
Assessment / Plan
Assessment / Plan
Impression:
Regan Cabrera, 82 year-old male, presents to the ER with Severe Dysphagia found to have esophageal food debris and regurgitation, concern for aspiration pneumonia.�Remote H/o gastric sleeve.
* Esophageal food debris/aspiration risk
* Bilateral pleural effusion
* Hypotension/hypothermia
* Toxic metabolic encephalopathy
* Hypotension/hypothermia
* Acute on chronic HFpEF
* Acute kidney injury on chronic kidney disease
* Anemia
* Paroxysmal to Permanent A fib
* Restless Leg Syndrome
* DM
* PIO
Plan:
Esophageal food debris/aspiration risk
- S/p EGD and clearance esophagus.
- No masses/tumor found.
- Sharp angulation of GE junction, grade c esophagitis probably from food stasis noted; biopsy positive for candidal esophagitis.
- Completed 2 weeks course of Diflucan.
- Continue with PPI.
- Video swallow evaluation on 06-26-23 was reassuring.
Aspiration syndrome
- Multifactorial with toxic metabolic encephalopathy as well as generalized deconditioning. Improving.
- Approved for modified diet.
- Stable oral intake with no symptoms for overt aspiration.
- Repeat VSE on 06/25 showed improvement.
Bilateral pleural effusion
- CT Chest -b/l pleural effusion right more than left with bibasilar consolidation right more than left concerning for aspiration.� There is also faint opacity in the right upper zone.�
- H/o cough with regurgitation in the setting of b/l pleural effusion favors clinical suspicion of aspiration pneumonia.
- Afebrile, WBC count normal.�
- No clinical evidence of aspiration pneumonia
- Initially on Augmentin discontinued.
- CXR on 06-17-23 demonstrated large right pleural effusion (significantly increased) and moderate left pleural effusion (likely slightly increased).
- Given aspiration risk as well as right lower lobe process/pleural effusion,� infiltrate with reasonable aspiration risk, started empiric piperacillin+tazobactam; now stopped.
- Blood cultures were negative.
- Thoracocentesis yielded 1500 cc of�clear dameon pleural fluid on 06-18-23.
- clinically seems it reaccumulated
- Follow-up chest x-ray with likely reaccumulating right pleural effusion.
- May need repeat thoracentesis given persistent cough, although current respiratory status is stable with no requirements of supplemental oxygen.
Toxic metabolic encephalopathy
- No focal findings on exam
- CT scan of the head 06/11 with no acute abnormality
- Fluctuating mental status with periods of agitation and belligerence.
- Patient refuses treatment including hemodialysis.
- Psychiatry input appreciated.
- Initiated on Risperdal on 06/12 with dose increased on 06/13; stopped for now.
- psych following
- Mental status improved and close to baseline
Hypotension/hypothermia
- Normalized temp
- Discontinued hydralazine.
- BP still on lower side - on midodrine, increased dosing now.
- Cortisol, TSH, lactic acid, CBC and BMP unremarkable.
- Blood cultures negative.
Acute on chronic HFpEF.�
- In the settings of BULMARO/ATN and decreased urine output
- CW HD for volume management
- Back to baseline now.
- Repeat echo was unremarkable on 07-01-23.
- Holding apixaban, pending cardiology evaluation for a potential cath.
- Chronic hypotension requiring midodrine.
- Right heart cath on consistent with RV dysfunction and severe pulmonary hypertension.
Acute kidney injury on chronic kidney disease stage 4-baseline cr 2-
- Status post renal biopsy findings consistent with ATN.
- Underlying CKD stage IV.
- Initiated on hemodialysis.
- No recovery of renal function remains anuric.
- Tunneled right internal jugular hemodialysis catheter was placed on 06-25-23.
- Patient was having issues with ultrafiltration - not able to pull much due to hypotension.
- There is RV dysfunction unclear if that is playing a role.
- Repeat echocardiogram to reevaluate.
- Reconsulted cardiology.
- Repeated chest x-ray to rule out any recurrence of pleural effusion.
- Prognosis is poor if he fails to tolerate HD.
Anemia
- Progressive anemia with no obvious source of bleeding
- Stable H&H
- Renal US notes no hematoma
- Anemia likely multifactorial, anemia of chronic disease and renal insufficiency
- Iron B12 Folate level wnl
- Patient offered transfusion, although declined in multiple occasions
- Hemoglobin currently stable at 8.3 on 06-27-23.
Paroxysmal to Permanent A fib
- Currently in A-fib with�rate control.
- Eliquis renal dosing -
06/13: Episode of chest pain reproducible on exam.
- ECG with no ischemia.
- Troponin 0.336.
- Echocardiogram 02/24 with LVEF of 57%.
- Repeat echocardiogram above with preserved ejection fraction, grade 3 diastolic dysfunction, worsening tricuspid regurgitation, hypokinetic RV
- As per Dr. JAZMINE Chan (quoted from consult on 06/14/23), 'Unfortunately there is really nothing that can be done of note to improve his cardiac status and prognosis.'
- Amiodarone stopped to allow for higher heart rates
Restless Leg Syndrome
- Increased home gabapentin to 300 mg HS, symptoms since improved, continue current dose
DM
- Hold linagliptin.
- Insulin Basal bolus regimen
PIO
- CPAP at HS
Wound care
- Sutures from the left leg above the left medial malleolus removed, and wound dressed with a 2x2 gauge on 06/02, wound dressing intact.
DVT prophylaxis
- SCDs; apixaban - renal dosing.
Code status
- DNR.
Plan for disposition to [place] point noted. With issues of ultrafiltration will hold discharge and reevaluate clinically for any reversible factors.
Anticipated Discharge: Within 24 hours
Subjective/Interval History
-
Date of Service: July 04, 2023
Objective Data
-
Vital Signs:
Vital Signs
Temp Pulse Resp BP Pulse Ox
96.6 F L 41 14 108/52 97
07/04/23 14:58 07/04/23 14:58 07/04/23 14:58 07/04/23 14:58 07/04/23 14:58
I&O
07/03/23 07/04/23 07/05/23
06:59 06:59 06:59
Intake Total 610 / 610 420 / 420
Output Total
Balance 610 / 610 395 / 395
Review of Systems
-
History Source: Patient
Constitutional: Reports No Symptoms and Fatigue
EENT: Reports No Symptoms Reported
Respiratory: Reports No Symptoms
Cardiac: Reports No Symptoms
Abdomen/GI: Reports No Symptoms
Genitourinary: Reports No Symptoms
Musculoskeletal: Reports No Symptoms
Skin: Reports No Symptoms
Neuro: Reports No Symptoms
Endocrine: Reports No Symptoms
Hematologic / Lymphatic: Reports No Symptoms
Allergy / Immunology: Reports No Symptoms
Physical Exam
-
General: No Apparent Distress and Comfortable
HEENT: Normocephalic, Atraumatic, Moist Mucous Membranes and Anicteric
Respiratory: Clear to Auscultation and Non Labored Respirations
Cardiac: Regular Rhythm and S1/S2
GI: Soft, Nontender, Nondistended and No Hepatosplenomegaly
Genito-urinary: No Costovertebral Tender
Musculoskeletal: No Clubbing, No Cyanosis and No Edema
Skin: Warm, Dry and IV Access / Catheter Site
Neuro: Awake, Alert and Oriented
Hematologic / Lymphatic: No Lymphadenopathy
Psych: Calm
--- NOTE | 2023-07-04 16:09 | W.DCSUMMARY ---
Documented by User: Matthieu Leon MD, Resident 07/04/23 16:44
Discharge Summary
Discharge Data
Date of Admission: 05/28/23
Date of Discharge: 07/04/23
-
Pending Results: No
Hospital Course
DISCHARGE DIAGNOSES:
1. Severe dysphagia
2. Esophageal food impaction
3. Aspiration syndrome
4. Bilateral pleural effusion
5. Toxic metabolic encephalopathy
6. Hypotension
7. Hypothermia
8. Heart failure with preserved ejection fraction
9. Atrial fibrillation
10. Acute tubular necrosis
11. End-stage renal disease
12. Anemia in chronic kidney disease
HOSPITAL COURSE:
Regan Cabrera, 82 year-old male, presented to the emergency with inability to tolerate water/food and altered mental status on 05-28-23. Imaging showed bilateral pleural effusions, esophageal distention with food impaction, ascites, and swallowing
studies indicated aspiration. Esophageal biopsy demonstrated stephanie esophagitis and he was treated with fluconazole. His hospital stay was complicated with biopsy-proven acute tubular necrosis, and he was initiated on hemodialysis. He developed
agitation, possibly because of underlying toxic metabolic encephalopathy, and was put on antipsychotics briefly. He received thoracocentesis twice for pleural effusions, which occurred in the setting of volume overload from worsening renal and
cardiac function.
Subsequently the dysphagia improved and he was progressively tolerating diet better. Mental status improved concurrently. Unfortunately, his renal function remained poor, and he required escalating doses of midodrine to tolerate hemodialysis because
of recurrent hypotension. Now in end-stage renal disease. Through his hospital stay, he was intermittently hypothermic, hypotensive and had electrolyte imbalances. Echocardiogram (performed twice) demonstrated reduced right ventricular function and
diastolic dysfunction, chronic heart failure with preserved ejection fraction. Cath results were consistent with severe pulmonary hypertension and normal cardiac output. Prognosis is poor unfortunately. He was discharged on 07-04-23, and will
continue to receive hemodialysis and follow-up with cardiology outpatient.
Discharge Plan
-
Patient Disposition: Long-Term/SNF
Discharge Diagnosis/Procedures: * Esophageal food debris/aspiration risk
* Bilateral pleural effusion
* Hypotension/hypothermia
* Toxic metabolic encephalopathy
* Hypotension/hypothermia
* Acute on chronic HFpEF
* Acute kidney injury on chronic kidney disease
* Anemia
* Paroxysmal to Permanent A fib
* Restless Leg Syndrome
* DM
* PIO
Condition: Good
Diet: Regular and Other diet
Additional Diets: nectar thick liquids
Activity Restrictions/Additional Instructions:
Wound Care Instructions
Sacrum: clean with soap and water, skin prep periwound, smear of honey gel, adaptic and silicone foam or dry dressing change daily and prn soilage
R lower leg: clean with soap and water, silicone foam or abd pad and danis, change daily and prn drainage
L hand: clean with soap and water, silicone foam change q 3 days and prn soilage.
Mineral oil to legs and feet daily, cee wraps knee high, leg elevation.
Increase protein in diet.
Air mattress with turning schedule
air chair cushion when sitting, can take upon discharge.
Follow up at wound care center call for an appointment.
Stand Alone Forms: DC Instructions- Cath/EP Lab
Referrals:
Susy Lomeli PA-C [Specified Professional Personl] - 08/07/23 1:00 pm (You have a cardiology follow up appointment at the [place] office with Dr. Hensley's physician fast food sales assistant, Susy. Please call with questions. )
Francine Randolph MD [Family Provider] -
Prescriptions:
New
sucralfate 1 gram Tablet
1 g PO ACHS Qty: 30 0RF
melatonin 3 mg Tablet
3 mg PO HS Qty: 20 0RF
midodrine 5 mg Tablet
15 mg PO TID@0800,1300,1800 Qty: 90 0RF
pantoprazole 40 mg Tablet,Delayed Release (Dr/Ec)
40 mg PO BID Qty: 60 0RF
Refresh Classic (PF) 1.4-0.6 % Dropperette
1 drp ophthalmic (eye) QIDPRN PRN (Reason: dry eyes) Qty: 30 0RF
acetaminophen 325 mg Tablet
650 mg PO Q4HPRN PRN (Reason: headache) Qty: 30 0RF
Continued
atorvastatin 20 mg Tablet
20 mg PO DAILY
Eliquis 2.5 mg Tablet
2.5 mg PO BID
ascorbic acid (vitamin C) 1,000 mg Tablet
1,000 mg PO DAILY
gabapentin 100 mg Capsule
200 mg PO HS
Discontinued
amiodarone 200 mg Tablet
200 mg PO DAILY Qty: 0 0RF
hydralazine 25 mg Tablet
25 mg PO BID Qty: 0 0RF
furosemide 80 mg Tablet
80 mg PO BID Qty: 0 0RF
allopurinol 300 mg Tablet
300 mg PO DAILY Qty: 0 0RF
Tradjenta 5 mg Tablet
5 mg PO DAILY Qty: 0 0RF
Discharge Orders:
Discharge Patient (As Directed); Ordered 07/04/23
Ordered By: Ever Merida

Documented by User: Ever Merida MD 07/04/23 16:50
Discharge Summary
Discharge Data
Date of Admission: 05/28/23
Date of Discharge: 07/04/23
Discharge Plan
-
Patient Disposition: Long-Term/SNF
Discharge Diagnosis/Procedures: * Esophageal food debris/aspiration risk
* Bilateral pleural effusion
* Hypotension/hypothermia
* Toxic metabolic encephalopathy
* Hypotension/hypothermia
* Acute on chronic HFpEF
* Acute kidney injury on chronic kidney disease
* Anemia
* Paroxysmal to Permanent A fib
* Restless Leg Syndrome
* DM
* PIO
Condition: Good
Diet: Regular and Other diet
Additional Diets: nectar thick liquids
Activity Restrictions/Additional Instructions:
Wound Care Instructions
Sacrum: clean with soap and water, skin prep periwound, smear of honey gel, adaptic and silicone foam or dry dressing change daily and prn soilage
R lower leg: clean with soap and water, silicone foam or abd pad and danis, change daily and prn drainage
L hand: clean with soap and water, silicone foam change q 3 days and prn soilage.
Mineral oil to legs and feet daily, cee wraps knee high, leg elevation.
Increase protein in diet.
Air mattress with turning schedule
air chair cushion when sitting, can take upon discharge.
Follow up at wound care center call for an appointment.
Stand Alone Forms: DC Instructions- Cath/EP Lab
Referrals:
Susy Lomeli PA-C [Specified Professional Personl] - 08/07/23 1:00 pm (You have a cardiology follow up appointment at the [place] office with Dr. Hensley's physician fast food sales assistant, Susy. Please call with questions. )
Francine Randolph MD [Family Provider] -
Prescriptions:
New
sucralfate 1 gram Tablet
1 g PO ACHS Qty: 30 0RF
melatonin 3 mg Tablet
3 mg PO HS Qty: 20 0RF
midodrine 5 mg Tablet
15 mg PO TID@0800,1300,1800 Qty: 90 0RF
pantoprazole 40 mg Tablet,Delayed Release (Dr/Ec)
40 mg PO BID Qty: 60 0RF
Refresh Classic (PF) 1.4-0.6 % Dropperette
1 drp ophthalmic (eye) QIDPRN PRN (Reason: dry eyes) Qty: 30 0RF
acetaminophen 325 mg Tablet
650 mg PO Q4HPRN PRN (Reason: headache) Qty: 30 0RF
Continued
atorvastatin 20 mg Tablet
20 mg PO DAILY
Eliquis 2.5 mg Tablet
2.5 mg PO BID
ascorbic acid (vitamin C) 1,000 mg Tablet
1,000 mg PO DAILY
gabapentin 100 mg Capsule
200 mg PO HS
Discontinued
amiodarone 200 mg Tablet
200 mg PO DAILY Qty: 0 0RF
hydralazine 25 mg Tablet
25 mg PO BID Qty: 0 0RF
furosemide 80 mg Tablet
80 mg PO BID Qty: 0 0RF
allopurinol 300 mg Tablet
300 mg PO DAILY Qty: 0 0RF
Tradjenta 5 mg Tablet
5 mg PO DAILY Qty: 0 0RF
Discharge Orders:
Discharge Patient (As Directed); Ordered 07/04/23
Ordered By: Ever Merida
[2023-07-04 16:38] LABS: Glucose - Point of Care 113 mg/dl (70-99)
--- NOTE | 2023-07-04 20:00 | PTCARENOTE ---
Patient picked up by [facility] and transported to [facility] via ambulance. Patient's IVs and tele monitor removed. Patient in no acute distress.
== END 2023-07-04 20:04 | DRG 393 ==
LOC: 4 WEST ACU 14:34
PROVIDERS: Internal Medicine; Internal Medicine Interventional Cardiology; Nurse Practitioner Adult Health; Nurse Practitioner Gerontology; Radiology Diagnostic Radiology; Radiology Vascular & Interventional Radiology; Specialist; Student in an Organized Health Care Education/Training Program; ADMITTING PHYSICIAN Internal Medicine; ATTENDING PHYSICIAN Internal Medicine; CONSULT PHYSICIAN Internal Medicine; CONSULT PHYSICIAN Internal Medicine Cardiovascular Disease; CONSULT PHYSICIAN Internal Medicine Gastroenterology; CONSULT PHYSICIAN Psychiatry & Neurology Psychiatry; EMERGENCY PHYSICIAN Emergency Medicine; FAMILY PHYSICIAN Family Medicine
PROC: 0DB58ZX Excision of Esophagus, Via Natural or Artificial Opening Endoscopic, Diagnostic (ICD-10-PCS; 2023-05-28)
PROC: 0DC58ZZ Extirpation of Matter from Esophagus, Via Natural or Artificial Opening Endoscopic (ICD-10-PCS; 2023-05-28)
PROC: 5A09357 Assistance with Respiratory Ventilation, Less than 24 Consecutive Hours, Continuous Positive Airway Pressure (ICD-10-PCS; 2023-05-29)
PROC: 0TB03ZX Excision of Right Kidney, Percutaneous Approach, Diagnostic (ICD-10-PCS; 2023-06-05)
PROC: 5A1D70Z Performance of Urinary Filtration, Intermittent, Less than 6 Hours Per Day (ICD-10-PCS; 2023-06-10)
PROC: 02H633Z Insertion of Infusion Device into Right Atrium, Percutaneous Approach (ICD-10-PCS; 2023-06-10)
PROC: 0W993ZZ Drainage of Right Pleural Cavity, Percutaneous Approach (ICD-10-PCS; 2023-06-18)
PROC: 0JH63XZ Insertion of Tunneled Vascular Access Device into Chest Subcutaneous Tissue and Fascia, Percutaneous Approach (ICD-10-PCS; 2023-06-25)
PROC: 4A023N6 Measurement of Cardiac Sampling and Pressure, Right Heart, Percutaneous Approach (ICD-10-PCS; 2023-07-02)
DX: T18.128A Food in esophagus causing other injury, initial encounter (principal); G92.8 Other toxic encephalopathy; I50.33 Acute on chronic diastolic (congestive) heart failure; N18.6 End stage renal disease; N17.0 Acute kidney failure with tubular necrosis; I48.21 Permanent atrial fibrillation; I13.2 Hypertensive heart and chronic kidney disease with heart failure and with stage 5 chronic kidney disease, or end stage renal disease; R18.8 Other ascites; B37.81 Candidal esophagitis; I42.8 Other cardiomyopathies; J91.8 Pleural effusion in other conditions classified elsewhere; E87.1 Hypo-osmolality and hyponatremia; F23 Brief psychotic disorder; T17.828A Food in other parts of respiratory tract causing other injury, initial encounter; Z66 Do not resuscitate; W44.F3XA Food entering into or through a natural orifice, initial encounter; I25.10 Atherosclerotic heart disease of native coronary artery without angina pectoris; I95.9 Hypotension, unspecified; R68.0 Hypothermia, not associated with low environmental temperature; D63.1 Anemia in chronic kidney disease; G25.81 Restless legs syndrome; J44.9 Chronic obstructive pulmonary disease, unspecified; K22.2 Esophageal obstruction; K21.9 Gastro-esophageal reflux disease without esophagitis; E78.00 Pure hypercholesterolemia, unspecified; E11.22 Type 2 diabetes mellitus with diabetic chronic kidney disease; G47.33 Obstructive sleep apnea (adult) (pediatric); I27.20 Pulmonary hypertension, unspecified; I08.1 Rheumatic disorders of both mitral and tricuspid valves; N20.0 Calculus of kidney; I45.10 Unspecified right bundle-branch block; Z11.52 Encounter for screening for COVID-19; Z79.01 Long term (current) use of anticoagulants; Z79.84 Long term (current) use of oral hypoglycemic drugs; Z79.899 Other long term (current) drug therapy; Z87.891 Personal history of nicotine dependence; Z98.84 Bariatric surgery status
CPT/HCPCS: 88305; 93308; 32555; 36556; 36558; 50200; 70450; 71045; 71046; 74230; 76775; 76937; 76942; 77001; 80048; 80051; 80053; 81003; 81015; 81099; 82533; 82570; 82607; 82728; 82746; 82945; 82947; 82962; 83036; 83516; 83521; 83540; 83550; 83605; 83615; 83735; 83880; 83986; 84155; 84156; 84157; 84165; 84300; 84443; 84484; 85014; 85018; 85025; 85027; 85610; 86038; 86160; 86335; 86704; 86706; 86803; 86850; 86900; 86901; 87015; 87040; 87070; 87086; 87205; 87340; 87811; 88342; 89051; 92526; 92610; 92611; 93005; 93306; 93321; 93325; 93451; 94660; 96365; 96375; 97110; 97112; 97116; 97162; 97166; 97530; 97535; 99152; 99153; 99285; C1750; C1752; C1769; C1894; G0257; J0885; J2916; P9047; Q5106

== ENCOUNTER 2023-07-05 22:45 | Inpatient (IN) | payer MEDICARE, SELFPAY ==
[2023-07-05] VITALS (11 sets, daily range): BP systolic 37–126; BP diastolic 25–90; PULSE 45–63; BMI 29.7
--- NOTE | 2023-07-05 19:54 | ED.GENMED ---
History of Present Illness
General
Chief Complaint: Heart Rate Problem
Source: records and family
Time Seen by Provider: 07/05/23 19:32
Travel History
Have you had any contact with someone who has COVID-19?: No
Do you have any symptoms of coronavirus? Fever > 100 degrees, chills, cough, shortness of breath, sore throat, loss of taste or smell, muscle aches, or headache?: No
History of Present Illness
History of Present Illness:
82-year-old male sent to the emergency room from [facility] where the patient was found to be hypotensive with a blood pressure in the 60s. Patient was recently admitted there after a prolonged hospitalization here at [place].
Patient recently was started on hemodialysis. There has been difficulty performing ultrafiltration due to hypotension. Patient also has a known bradycardic rhythm which is atrial fibrillation with slow ventricular response. Patient is lethargic
but when aroused offers no complaints. Patient's daughter is here in the room with him. She states that he had a fall this morning while lifting point. Also notes a area of ecchymosis on his right cheek was not present earlier today.
Past History
Past History
ED Past Medical History: Arrthythmia, CHF, COPD, HTN, Hypercholesterolemia and NIDDM
ED Past Surgical History: Orthopedic (Right hip, bilateral arm tendons)
Social History
Tobacco: Non-smoker
Alcohol: None
Drug: None
Living: with family
Phy Exam
Physical Exam
Physical Exam:
General: Sleepy but arousable. Oriented to person. Appears chronically ill
Vitals: Bradycardic
Head: Atraumatic
Eyes: Pupils equal, EOMI
Throat: Airway intact, no exudates, dry mucosa
Neck: Trachea midline
Lungs: Decreased breath sounds bilateral bases,
Heart: Bradycardic, systolic murmur
Abd: Soft, Nontender, No pulsatile mass
Neuro: Nonfocal
Skin: Warm, dry, no rash
Extremities: pulses equal b/l, 2+ edema. Various areas of ecchymosis upper extremities
Course
Orders/Labs/Results
Orders:
Orders
07/05/23 19:30
EKG [Electrocardiogram (*1)] Urgent
Reason for Study: Bradycardia / Tachycardia
EKG- Treatment ONCE
07/05/23 19:41
CR Chest Portable - 1 View Urgent
Comment:
Reason For Exam: shortness of breath
Reason Study Needs to be Portable: Patient Unstable
07/05/23 19:46
Complete Blood Count/With Diff Urgent
Comprehensive Metabolic Panel Urgent
Lactic Acid Q4H
Comment: CANCEL 2nd LACTIC ACID IF 1st LACTIC ACID IS LESS THAN 2
Lipase Urgent
07/05/23 20:37
CT Head W/o Iv Contrast Urgent
Comment:
Reason For Exam: fall, ? head injury
07/05/23 22:00
DOPamine INF (STD CONC) CONTINUOUS DOPamine 400 MG/D5W 250 ML [DOPamine 400 MG] 400 mg in 250 ml IV PER PROTOCOL
Initial dose in mcg/kg/min, then titrate:: 5
Titrate to keep:: Heart Rate
Keep Heart Rate (bpm) greater than:: 45
Titrate by mcg/kg/min:: 1-2 mcg/kg/min
Frequency of titrations (minutes):: 15
Maximum dose in ICU in mcg/kg/min:: 20
Maximum dose in IMU in mcg/kg/min:: 10
Begin to taper infusion when:: Remained at goal for 4hrs
Taper by mcg/kg/min:: 1-2 mcg/kg/min
Frequency of taper (minutes) if patient maintains goal:: 30
Taper to off?: Yes
If infusion off & no longer maintaining goal:: Contact Provider
Abnormal Lab Results
07/05/23
19:46
WBC 3.0 L 10^3/uL
(4.8-10.8)
RBC 2.51 L 10^6/uL
(4.70-6.10)
Hgb 8.6 L g/dL
(13.0-18.0)
Hct 25.2 L %
(39.0-52.0)
MCV 100.4 H fL
(80.0-94.0)
MCH 34.3 H pg
(27.0-31.0)
RDW 23.8 H %
(11.5-14.5)
Plt Count 80 L D 10^3/uL
(130-400)
MPV 10.9 H fL
(7.4-10.4)
Absolute Lymphs (auto) 0.6 L 10^3/uL
(1.2-3.4)
Monocytes % 17.1 H %
(1.7-9.3)
Sodium 131 L mmol/L
(135-145)
BUN 34 H mg/dl
(9-20)
Creatinine 3.4 H mg/dL
(0.7-1.3)
Alkaline Phosphatase 251 H U/L
(38-126)
Total Protein 5.3 L g/dl
(6.3-8.2)
Albumin 2.9 L g/dl
(3.5-5.0)
07/05/23 19:46
07/05/23 19:46
Vital Signs
Initial and Last Documented VS:
Initial Vital Signs
Temp Pulse Resp Pulse Ox
97.7 F 54 20 94
07/05/23 19:30 07/05/23 19:30 07/05/23 19:30 07/05/23 19:30
Last Documented Vital Signs
Temp Pulse Resp BP Pulse Ox
97.7 F 46 20 90/54 92
07/05/23 19:30 07/05/23 20:00 07/05/23 20:00 07/05/23 20:00 07/05/23 20:00
MDM/Problems Addressed
Differential Diagnosis Includes:
hyperkalemia, uremia, chf, sick sinus syndrome
MDM/Problems Addressed:
Patient presents with low heart rate low blood pressure from the [facility]. Patient has a quite complex medical history. He was discharged to [facility] yesterday after a prolonged hospitalization here at [place]. During that hospitalization
he developed renal failure requiring the initiation of dialysis. Dialysis has been complicated by low blood pressures preventing ultrafiltration. He also has bradycardia and is beta-sabino and amiodarone were discontinued during the
hospitalization. The hope was heart rate would improve as this washed out. I discussed the patient's presentation with Dr. oCrona. Given his low heart rate we will start dopamine for tonight. She had reviewed the patient's case with EPS and
given his overall medical frailty and status he is not deemed to be a very good candidate for pacemaker. She will evaluate the patient tomorrow to further assess this. Patient does have some increased interstitial markings on the chest x-ray
suggestive some pulmonary edema. Again there is been difficulty dialyzing him because of hypotension. Nephrology can evaluate the patient tomorrow to see if there is any further interventions appropriate. My overall impression however is that the
patient is actively dying and probably appropriate for hospice. I did discuss this with the patient's daughter. We will hospitalize the patient for specialist evaluation tomorrow to see if they feel there is any further appropriate interventions
or if they agree that hospice is appropriate.
*Radiology
Radiology exam reviewed: preliminary read by ED provider (Pulmonary edema)
*Pulse Oximetry
Patient hypoxic: no
*EKG
Interpreted by ED Provider?: Yes
Heart Rate: 52
Rate: bradycardiac
Rhythm: a-fib
QRS Pattern: right bundle branch block
Ischemia: non-specific ST changes
*Site Reliability Engineer Interpretation
Rate: bradycardiac
Interpretation: abnormal
Rhythm: a-fib
*Critical Care Note
Total Time (30-74mins, 75-104mins- exclusive of procedures): 35 min
comment:
Critical care statement: A total of 35 minutes of critical care time was provided for this patient. This includes management of unstable vital signs, evaluation of the patient at bedside, reviewing the patient's pertinent medical records, discussion
with consultants, review of old EKGs and review of pertinent medical records. This time with separate from time utilized to perform the aforementioned documented procedures
Patient Management
Social determinants of health affecting care: Living situation and Strong social support
ED Attending Note
-
Portions of this chart may have been created with voice recognition software.� Occasional wrong word or��sound alike� substitutions may have occurred due to the inherent limitations of voice recognition software.
Discharge Plan
Departure
Prescriptions:
No Action
atorvastatin 20 mg Tablet
20 mg PO DAILY
Eliquis 2.5 mg Tablet
2.5 mg PO BID
ascorbic acid (vitamin C) 1,000 mg Tablet
1,000 mg PO DAILY
gabapentin 100 mg Capsule
200 mg PO HS
sucralfate 1 gram Tablet
1 g PO ACHS Qty: 30 0RF
melatonin 3 mg Tablet
3 mg PO HS Qty: 20 0RF
midodrine 5 mg Tablet
15 mg PO TID@0800,1300,1800 Qty: 90 0RF
pantoprazole 40 mg Tablet,Delayed Release (Dr/Ec)
40 mg PO BID Qty: 60 0RF
Refresh Classic (PF) 1.4-0.6 % Dropperette
1 drp ophthalmic (eye) QIDPRN PRN (Reason: dry eyes) Qty: 30 0RF
acetaminophen 325 mg Tablet
650 mg PO Q4HPRN PRN (Reason: headache) Qty: 30 0RF
magnesium hydroxide [Milk of Magnesia] 400 mg/5 mL Suspension
30 ml PO PRN PRN (Reason: constipation)
bisacodyl 10 mg Suppository
10 mg MN DAILY PRN (Reason: constipation)
Referrals:
Francine Randolph MD [Family Provider] -
Interventions
Interventions:
*Risk Screen - Suicide Last Done: 07/05/23 19:30
*General Assessment Last Done: 07/05/23 19:30
*Neglect/Abuse Screening Last Done: 07/05/23 19:30
ED- Fall Risk Assessment Last Done: 07/05/23 19:39
ED- Cardiac Assessment Last Done: 07/05/23 19:39
ED- Pulmonary Assessment Last Done: 07/05/23 19:39
[2023-07-05 19:55] LABS: % Basophils 0.7 % (0-2); % Eosinophils 0.7 % (0-6); % Immature Granulocytes 0.3 % (0-0.5); % Lymphocytes 20.7 % (20.5-51.1); % Monocytes 17.1 % (1.7-9.3); % Neutrophils 60.5 % (42.2-75.2); Absolute Lymphocytes 0.6 10^3/uL (1.2-3.4); Absolute Monocytes 0.5 10^3/uL (0.1-0.6); Absolute Neutrophils 1.8 10^3/uL (1.4-6.5); Hematocrit 25.2 % (39.0-52.0); Hemoglobin 8.6 g/dL (13.0-18.0); Mean Corp Hgb Conc. 34.1 g/dL (33.0-37.0); Mean Corpuscular Hgb 34.3 pg (27.0-31.0); Mean Corpuscular Volume 100.4 fL (80.0-94.0); Red Blood Cell Count 2.51 10^6/uL (4.70-6.10); Red Cell Dist. Width 23.8 % (11.5-14.5)
[2023-07-05 20:05] LABS: Lactic Acid 1.5 mmol/L (0.7-2.0)
[2023-07-05 20:16] LABS: ALT (SGPT) 11 U/L (0-50); AST (SGOT) 33 U/L (17-59); Albumin 2.9 g/dl (3.5-5.0); Alkaline Phosphatase 251 U/L (38-126); Blood Urea Nitrogen 34 mg/dl (9-20); Calcium 8.7 mg/dl (8.4-10.2); Carbon Dioxide 29 mmol/L (22-30); Chloride 98 mmol/L (98-107); Estimated Creatinine Clearance 19 ml/min; Glucose 98 mg/dl (70-99); Lipase 112 U/L (23-300); Potassium 4.3 mmol/L (3.5-5.1); Sodium 131 mmol/L (135-145); Total Bilirubin 1.3 mg/dl (0.2-1.3); Total Protein 5.3 g/dl (6.3-8.2); eGFR 17.41
[2023-07-05 20:37] LABS: Mean Platelet Volume 10.9 fL (7.4-10.4)
[2023-07-05 20:38] LABS: Anisocytosis 2+; Normal RBC Morphology No; Platelet Count 80 10^3/uL (130-400)
[2023-07-05 20:39] LABS: Acanthocytes 1+; Hypochromasia 1+; Macrocytosis 2+; Target Cells 2+
[2023-07-05] MEDS: DOPamine 400 MG 250 IV (21:57)
--- NOTE | 2023-07-05 21:59 | ED.GENMED ---
History of Present Illness
General
Chief Complaint: Heart Rate Problem
Time Seen by Provider: 07/05/23 19:32
Travel History
Have you had any contact with someone who has COVID-19?: No
Do you have any symptoms of coronavirus? Fever > 100 degrees, chills, cough, shortness of breath, sore throat, loss of taste or smell, muscle aches, or headache?: No
Past History
Past History
ED Past Medical History: Arrthythmia, CHF, COPD, HTN, Hypercholesterolemia and NIDDM
ED Past Surgical History: Orthopedic (Right hip, bilateral arm tendons)
Social History
Tobacco: Non-smoker
Alcohol: None
Drug: None
Living: with family
Course
Orders/Labs/Results
Orders:
Orders
07/05/23 19:30
EKG [Electrocardiogram (*1)] Urgent
Reason for Study: Bradycardia / Tachycardia
EKG- Treatment ONCE
07/05/23 19:41
CR Chest Portable - 1 View Urgent
Comment:
Reason For Exam: shortness of breath
Reason Study Needs to be Portable: Patient Unstable
07/05/23 19:46
Complete Blood Count/With Diff Urgent
Comprehensive Metabolic Panel Urgent
Lactic Acid Q4H
Comment: CANCEL 2nd LACTIC ACID IF 1st LACTIC ACID IS LESS THAN 2
Lipase Urgent
07/05/23 20:37
CT Head W/o Iv Contrast Urgent
Comment:
Reason For Exam: fall, ? head injury
07/05/23 22:00
DOPamine 400 MG/D5W 250 ML [DOPamine 400 MG] 400 mg in 250 ml IV PER PROTOCOL
Initial dose in mcg/kg/min, then titrate:: 5
Titrate to keep:: Heart Rate
Keep Heart Rate (bpm) greater than:: 45
Titrate by mcg/kg/min:: 1-2 mcg/kg/min
Frequency of titrations (minutes):: 15
Maximum dose in ICU in mcg/kg/min:: 20
Maximum dose in IMU in mcg/kg/min:: 10
Begin to taper infusion when:: Remained at goal for 4hrs
Taper by mcg/kg/min:: 1-2 mcg/kg/min
Frequency of taper (minutes) if patient maintains goal:: 30
Taper to off?: Yes
If infusion off & no longer maintaining goal:: Contact Provider
Abnormal Lab Results
07/05/23
19:46
WBC 3.0 L 10^3/uL
(4.8-10.8)
RBC 2.51 L 10^6/uL
(4.70-6.10)
Hgb 8.6 L g/dL
(13.0-18.0)
Hct 25.2 L %
(39.0-52.0)
MCV 100.4 H fL
(80.0-94.0)
MCH 34.3 H pg
(27.0-31.0)
RDW 23.8 H %
(11.5-14.5)
Plt Count 80 L D 10^3/uL
(130-400)
MPV 10.9 H fL
(7.4-10.4)
Absolute Lymphs (auto) 0.6 L 10^3/uL
(1.2-3.4)
Monocytes % 17.1 H %
(1.7-9.3)
Sodium 131 L mmol/L
(135-145)
BUN 34 H mg/dl
(9-20)
Creatinine 3.4 H mg/dL
(0.7-1.3)
Alkaline Phosphatase 251 H U/L
(38-126)
Total Protein 5.3 L g/dl
(6.3-8.2)
Albumin 2.9 L g/dl
(3.5-5.0)
07/05/23 19:46
07/05/23 19:46
Vital Signs
Initial and Last Documented VS:
Initial Vital Signs
Temp Pulse Resp Pulse Ox
97.7 F 54 20 94
07/05/23 19:30 07/05/23 19:30 07/05/23 19:30 07/05/23 19:30
Last Documented Vital Signs
Temp Pulse Resp BP Pulse Ox
97.7 F 46 20 90/54 92
07/05/23 19:30 07/05/23 20:00 07/05/23 20:00 07/05/23 20:00 07/05/23 20:00
ED Attending Note
-
Portions of this chart may have been created with voice recognition software.� Occasional wrong word or��sound alike� substitutions may have occurred due to the inherent limitations of voice recognition software.
Discharge Plan
Departure
Patient Disposition: Admit
Date of Disposition: 07/05/23
Time of Disposition: 22:00
Admit to: IMU
Presentation/result/management discussed w/ accepting MD/DO: Hospitalist
Condition: Serious
Discharge Problem:
Symptomatic bradycardia, Heart failure
Prescriptions:
No Action
atorvastatin 20 mg Tablet
20 mg PO DAILY
Eliquis 2.5 mg Tablet
2.5 mg PO BID
ascorbic acid (vitamin C) 1,000 mg Tablet
1,000 mg PO DAILY
gabapentin 100 mg Capsule
200 mg PO HS
sucralfate 1 gram Tablet
1 g PO ACHS Qty: 30 0RF
melatonin 3 mg Tablet
3 mg PO HS Qty: 20 0RF
midodrine 5 mg Tablet
15 mg PO TID@0800,1300,1800 Qty: 90 0RF
pantoprazole 40 mg Tablet,Delayed Release (Dr/Ec)
40 mg PO BID Qty: 60 0RF
Refresh Classic (PF) 1.4-0.6 % Dropperette
1 drp ophthalmic (eye) QIDPRN PRN (Reason: dry eyes) Qty: 30 0RF
acetaminophen 325 mg Tablet
650 mg PO Q4HPRN PRN (Reason: headache) Qty: 30 0RF
magnesium hydroxide [Milk of Magnesia] 400 mg/5 mL Suspension
30 ml PO PRN PRN (Reason: constipation)
bisacodyl 10 mg Suppository
10 mg [place] DAILY PRN (Reason: constipation)
Referrals:
Francine Randolph MD [Family Provider] -
Interventions
Interventions:
*Risk Screen - Suicide Last Done: 07/05/23 19:30
*General Assessment Last Done: 07/05/23 19:30
*Neglect/Abuse Screening Last Done: 07/05/23 19:30
ED- Fall Risk Assessment Last Done: 07/05/23 19:39
ED- Cardiac Assessment Last Done: 07/05/23 19:39
ED- Pulmonary Assessment Last Done: 07/05/23 19:39
--- NOTE | 2023-07-05 22:01 | HPS.HSE ---
Family Physician
-
Family Physician: Francine Randolph MD
Chief Complaint
-
Bradycardia and hypotension
History of Present Illness
82 y/o M with PMHx:
Severe dysphagia
Esophageal food impaction
Aspiration syndrome
Bilateral pleural effusions
Hypotension
Bradycardia
Heart failure with preserved ejection fraction
ESRD on HD
Permanent atrial fibrillation
Anemia of chronic disease
Essential hypertension
Coronary disease, nonobstructive
DM2
PIO
who presents from [facility] with bradycardia/hypotension. The patient currently cannot give history due to acuity of illness. The history is obtained via discussion with Dr. Johnson as well as the patient's daughter and son-in-law at bedside.
The patient was hypotensive with a systolic blood pressure in the 60s. Patient is lethargic but arousable for brief period of time. He does not offer acute complaints.
Medical History
Past Medical History
Past Medical History: Reports Other (as per HPI)
Past Surgical History: Reports Other (N/A)
Social History
Tobacco: Non-smoker
Alcohol: None
Drug: None
Family History
Family History: Not pertinent
Allergies / Home Medications
Allergies reflects when Allergies were last updated in [facility].
Home Medications with original date entered in [facility]
Allergy/Medication List:
Allergies
Allergy/AdvReac Type Severity Reaction Status Date / Time
No Known Allergies Allergy Unverified 05/28/23 11:03
Home Medications
apixaban 2.5 mg tablet (Eliquis) 2.5 mg PO BID Blood Clot Prevention/Tx 11/16/22
atorvastatin 20 mg tablet 20 mg PO DAILY High Cholesterol 11/16/22
ascorbic acid (vitamin C) 1,000 mg tablet 1,000 mg PO DAILY Supplement 05/28/23
gabapentin 100 mg capsule 200 mg PO HS Neurological Condition 05/28/23
acetaminophen 325 mg tablet 650 mg PO Q4HPRN PRN headache #30 tabs 07/04/23
melatonin 3 mg tablet 3 mg PO HS #20 tabs 07/04/23
midodrine 5 mg tablet 15 mg PO TID@0800,1300,1800 #90 tabs 07/04/23
pantoprazole 40 mg tablet,delayed release 40 mg PO BID #60 tabs 07/04/23
polyvinyl alcohol-povidone (PF) 1.4 %-0.6 % eye drops in a dropperette (Refresh Classic (PF)) 1 drp ophthalmic (eye) QIDPRN PRN dry eyes #30 ea 07/04/23
sucralfate 1 gram tablet 1 g PO ACHS #30 tabs 07/04/23
bisacodyl 10 mg rectal suppository 10 mg IN DAILY PRN constipation 07/05/23
magnesium hydroxide 400 mg/5 mL oral suspension (Milk of Magnesia) 30 ml PO PRN PRN constipation 07/05/23
Review of Systems
-
Unable to obtain full review of systems at this time due to: Acuity
Physical Exam
Vital Signs
Vital Signs
Temp Pulse Resp BP Pulse Ox
97.7 F 46 20 90/54 92
07/05/23 19:30 07/05/23 20:00 07/05/23 20:00 07/05/23 20:00 07/05/23 20:00
Physical Exam
General: Other (.)
Laboratory Results
-
07/05/23 19:46
07/05/23 19:46
Laboratory Results
Lactic Acid Cancelled 07/05/23 23:45
Total Bilirubin 1.3 mg/dl (0.2-1.3) 07/05/23 19:46
AST 33 U/L (17-59) 07/05/23 19:46
ALT 11 U/L (0-50) 03/02/24 19:46
Alkaline Phosphatase 251 U/L (38-126) H 07/05/23 19:46
Lipase 112 U/L (23-300) 07/05/23 19:46
Impression/Plan
-
Gen: NAD, appears chronically ill, NCAT aside from small ecchymoses over R maxilla
Eyes: EOMI, PERRLA, no scleral icterus.
Neck: supple.
CV: zuly, irreg/irreg, +S1/S2, no m/r/g.
Resp: CTAB, no rales, wheezes, or rhonchi.
Abd: +BS, soft, NT, ND
Skin: 1+ B/L LE edema, +ecchymoses on arms and chest around tunneled HD catheter. B/L LE chronic venous stasis dermatitis.
Neuro: CN 2-12 intact, non-focal.
Psych: calm
CXR and CT brain done, reads pending
Hypotension, bradycardia:
-Dr. Johnson discussed the case with Dr. Saez, will start Dopamine
-cont midodrine if pt can take pills
-acutely with acute metabolic encephalopathy, likely due to hypotension in the setting of end-stage renal disease
ESRD:
-cont HD if BP can tolerate
-note, I did have a discussion with the pt's daughter and son-in-law regarding the fact that dialysis may be impossible if his blood pressure does not improve. I did also discuss that due to his current clinical and functional status in the setting
of multiple, active, severe comorbidities that hospice would be appropriate.
Permanent Afib:
-cont Eliquis although with pancytopenia and falls risk benefit analysis regarding anticoagulation should be considered prior to discharge
HFpEF:
-Echo 07/01/23: EF 55-60%, no RWMA, G3DD, Moderately dilated right ventricle. Reduced right ventricular systolic�function.�Severely biatrial dilation. Mild/mod MR, mild AR, severe TR, PASP 40-45mmHg
-volume removal via HD to maintain euvolemia if possible
Other problems:
Pancytopenia
Hyponatremia, mild
Severe dysphagia with aspiration in the past: NPO until speech eval
Bilateral pleural effusions
Anemia of chronic disease
Coronary disease, nonobstructive: cont statin
DM2: recent BG trend unremarkable. For now, check BGs BID.
Total critical care time spent equals 52 minutes (managing hypotension and bradycardia with dopamine)
[2023-07-06] VITALS (46 sets, daily range): BP systolic 82–131; BP diastolic 35–87; PULSE 33–77; BMI 29.7; BMI 28.5
--- NOTE | 2023-07-06 02:11 | PTCARENOTE ---
Addendum entered by Adriana Daley RN 07/06/23 02:30:
Patient increasingly agitated, kicking off bairhugger, taking off nonrebreather, attempting to get out of bed. Soft left and right wrist restraints applied.
Original Note:
Received patient from ED, lethargic, drowsy, confused. Pupils 6 mm, nonreactive, equal. Cash Conway SCRAP DEALER aware, no further intervention at this time. Following commands, garbled and incomprehensible speech, desaturating to 85% on room air. Dry,
infrequent cough. Placed on 15 liters midflow and nonrebreather, now saturating 96%. Moves all extremities. Afib, 60s-70s, heart rate dropped to high 30s and came back up immediately. On dopamine gtt. BP stable, 90s-110s/60s-70s. Palpable radial
pulses bilaterally, weak pedal pulses bilaterally. +3 pitting edema bilateral lower extremities. Rectal temp 92.4, placed on bairhugger with rectal probe. Lung sounds diminished throughout. Right chest dialysis catheter present on admission. PIV
patent, WNL. Stage 3 on sacrum, pink wound bed, yellow/orozco slough, foam on sacrum. Right lower leg blister, vaseline gauze with foam on top. Left hand skin tear, foam intact. Bruises and scabs throughout arms. Hourly rounding and patient safety
checks ongoing.
--- NOTE | 2023-07-06 02:43 | PTCARENOTE ---
Patient has new blood vessel burst on outer corner of right eye. Cash Conway CLINICAL LABORATORY DIRECTOR aware, no further intervention at this time.
[2023-07-06 03:32] LABS: Hematocrit 27.6 % (39.0-52.0); Hemoglobin 9.3 g/dL (13.0-18.0); Mean Corp Hgb Conc. 33.7 g/dL (33.0-37.0); Mean Corpuscular Hgb 33.5 pg (27.0-31.0); Mean Corpuscular Volume 99.3 fL (80.0-94.0); Mean Platelet Volume 11.4 fL (7.4-10.4); Platelet Count 98 10^3/uL (130-400); Red Blood Cell Count 2.78 10^6/uL (4.70-6.10); Red Cell Dist. Width 23.2 % (11.5-14.5); White Blood Cell Count 5.3 10^3/uL (4.8-10.8)
[2023-07-06 03:47] LABS: Blood Urea Nitrogen 37 mg/dl (9-20); Calcium 8.8 mg/dl (8.4-10.2); Carbon Dioxide 25 mmol/L (22-30); Chloride 99 mmol/L (98-107); Estimated Creatinine Clearance 17 ml/min; Glucose 115 mg/dl (70-99); Potassium 4.5 mmol/L (3.5-5.1); Sodium 131 mmol/L (135-145); eGFR 15.73
[2023-07-06] MEDS: DOPamine 400 MG 250 IV (09:41)
--- NOTE | 2023-07-06 09:41 | CON.INTV ---
Consultation
Consultation Request
Date/Time Consultation Requested: 07/06/2023915
Date/Time Consultation Performed: 07.06.2023934
Requesting Provider: Dr. Chang
Performing Provider: Dr. Cabrera
Reason for Consultation: Bradycardia/Hypoxia
Medical History
-
Chief Complaint: Hypotension, bradycardic
History of Present Illness:
82-year-old male with a past medical history of DM type II, former tobacco use disorder, reported history of COPD on home oxygen as needed, history of hypertension, kidney stones, GERD who presented from [facility] due to low blood pressure and
heart rate in the 30s. EMS called to administered 1 mg of atropine prior to arrival to ER. While in triage, patient had no complaints. Patient is on dialysis with last session on Friday [employer]. Patient afebrile in the ER to 97.7 �F, heart rate 54,
respiratory rate 20 breaths/min, and patient hypotensive to 83/50. Patient was saturating 94% on room air. Initial labs showed hyponatremia to 131, leukopenia with WBC of 3, Hb 8.6, platelet 80. CXR showed bilateral pleural effusions with low
lung volumes, and CT head showed no acute intracranial abnormality. Due to bradycardia, dopamine drip was started and patient transferred to ICU for further care. Cement Contractor service is consulted for additional management/recommendations.
By the time I saw the patient, he was unresponsive, family members were coming in to see the patient and he was being transitioned to comfort care. He initially had a nonrebreather mask on his face but this was removed shortly after additional
family members arrived. I answered all the patient's family's questions and emotional support was provided.
PMHx: Diastolic heart failure, CKD on HD, DM type II, sleep apnea, valvular heart disease, history of hypertension, kidney stones, GERD, hyperlipidemia, former tobacco use disorder, reported history of COPD on O2 as needed
PSHx: Right hip surgery, spinal stenosis surgery, bilateral arm tendon surgery
Past Medical History
Past Medical History: Other (Above as per HPI)
Past Surgical History: Other (Above as per HPI)
Social History
Tobacco: Former Smoker
Alcohol: None
Drug: None
Family History
Family History: Reviewed & Not Pertinent
Allergies / Home Medications
Allergies
Allergy/AdvReac Type Severity Reaction Status Date / Time
No Known Allergies Allergy Unverified 05/28/23 11:03
Home Medications
Medication Instructions Recorded Confirmed Last Taken Type
apixaban 2.5 mg tablet (Eliquis) 2.5 mg PO BID Blood Clot 11/16/22 07/05/23 3 Days Ago History
Prevention/Tx ~05/25/23
atorvastatin 20 mg tablet 20 mg PO DAILY High Cholesterol 11/16/22 07/05/23 3 Days Ago History
~05/25/23
ascorbic acid (vitamin C) 1,000 mg 1,000 mg PO DAILY Supplement 05/28/23 07/05/23 3 Days Ago History
tablet ~05/25/23
gabapentin 100 mg capsule 200 mg PO HS Neurological Condition 05/28/23 07/05/23 3 Days Ago History
~05/25/23
acetaminophen 325 mg tablet 650 mg PO Q4HPRN PRN headache #30 07/04/23 07/05/23 Unknown Rx
tabs
melatonin 3 mg tablet 3 mg PO HS #20 tabs 07/04/23 07/05/23 Unknown Rx
midodrine 5 mg tablet 15 mg PO TID@0800,1300,1800 #90 07/04/23 07/05/23 Unknown Rx
tabs
pantoprazole 40 mg tablet,delayed 40 mg PO BID #60 tabs 07/04/23 07/05/23 Unknown Rx
release
polyvinyl alcohol-povidone (PF) 1 drp ophthalmic (eye) QIDPRN PRN 07/04/23 07/05/23 Unknown Rx
1.4 %-0.6 % eye drops in a dry eyes #30 ea
dropperette (Refresh Classic (PF))
sucralfate 1 gram tablet 1 g PO ACHS #30 tabs 07/04/23 07/05/23 Unknown Rx
bisacodyl 10 mg rectal suppository 10 mg AL DAILY PRN constipation 07/05/23 07/05/23 Unknown History
magnesium hydroxide 400 mg/5 mL 30 ml PO PRN PRN constipation 07/05/23 07/05/23 Unknown History
oral suspension (Milk of Magnesia)
Review of Systems
-
Unable to Obtain full review of systems at this time due to: Acuity
Vitals / Labs / Diagnostic Testing
Vital Signs
Temp Pulse Resp BP Pulse Ox
96.5 F L 72 18 92/46 97
07/06/23 07:26 07/06/23 08:45 07/06/23 08:45 07/06/23 08:00 07/06/23 08:45
Lab Data
07/06/23 03:24
07/06/23 03:24
Diagnostic Testing:
Physical Exam
-
HEENT: Normocephalic and Anicteric
Cardiovascular: Peripheral Edema (negative) and Other (bradycardic)
Respiratory: Wheeze (n), Rales (negative) and Accessory Resp Muscle Use
GI: Soft, Non Distended and Non Tender
Neurology: Other (unresponsive)
Skin: Warm and Dry
General: Chills (n) and Sweats (n)
Assessment
-
Assessment: 82-year-old male with a past medical history of DM type II, former tobacco use disorder, reported history of COPD on home oxygen as needed, history of hypertension, kidney stones, GERD who presented from [facility] due to low blood
pressure and heart rate in the 30s. EMS called to administered 1 mg of atropine prior to arrival to ER. While in triage, patient had no complaints. Patient is on dialysis with last session on Friday [employer]. Patient afebrile in the ER to 97.7 �F,
heart rate 54, respiratory rate 20 breaths/min, and patient hypotensive to 83/50. Patient was saturating 94% on room air. Initial labs showed hyponatremia to 131, leukopenia with WBC of 3, Hb 8.6, platelet 80. CXR showed bilateral pleural
effusions with low lung volumes, and CT head showed no acute intracranial abnormality. Due to bradycardia, dopamine drip was started and patient transferred to ICU for further care. Cement Contractor service is consulted for additional
management/recommendations.
Chronic medical conditions [employer]: Diastolic heart failure, CKD on HD, DM type II, sleep apnea, valvular heart disease, history of hypertension, kidney stones, GERD, hyperlipidemia, former tobacco use disorder, reported history of COPD on O2 as needed
Impression:
#Bradycardia - EKG shows ventricular rate in low 50s, and given Hx of A-fib this is due to A-fib with slow ventricular response (he was bradycardic on 07/03/2023 as well and has Hx of A-fib w/ slow VR)
#Hypotension - due to cardiogenic shock in setting of severe bradycardia
#AMS - likely due to hypotension with reduced CPP
#ESRD on HD
#Anemia
#Acute respiratory failure with hypoxemia due to volume overload in setting of hypoventilation in setting of AMS with hypotension
Plan:
- Patient has history of atrial fibrillation with slow ventricular response; Toprol and amiodarone were stopped his prior admission. There were no class I indications for a pacemaker at that time as per cardiology. He was supposed to have an
outpatient quality assurance monitor in 1 month after washout of amiodarone.
- Continue dopamine for now, however family are actively arriving to the hospital and patient is being transitioned to hospice care/comfort care.
- Continue oxygen for now until all family arrives at which point we will remove oxygen as this is going to prolong suffering
- Use prn dilaudid vs fentanyl for air hunger
- prn ativan for anxiety
- prn hyoscyamine for excessive secretions
- If patient survives tonight then consult hospice in the morning
- Emotional support was provided
I answered all the patient's family's questions. Considering this patient is being transitioned to comfort care, adoption manager/pulmonary service will now sign off. Thank you for allowing me to be involved in the care of this patient. Please
reconsult if there are any additional questions/concerns.
Data:
CT Head 07-05-2023: No acute intracranial abnormality.
CXR 07-05-2023: Low lung volumes with bibasilar atelectasis and probable small bilateral pleural effusions.
--- NOTE | 2023-07-06 09:45 | W.CON.NEPH ---
Consultation
-
Date/Time Consultation Requested: 07/05/2023 9 AM
Date/Time Consultation Performed: 07/05/2023 10:15 AM
Requesting Provider: Dr. Alfaro
Performing Provider: Dr. Elam
Reason for Consultation: ESRD
Medical History
-
Chief Complaint: ESRD
History of Present Illness:
This is an 82-year-old gentleman who had recently been in the hospital on a prolonged hospitalization. He had acute kidney injury on top of CKD 4 resulting in initiation of dialysis. Unfortunately he has had severe hypotension due to heart failure
and had to be placed on high-dose midodrine therapy. As a result dialysis has been difficult with extremely difficult ultrafiltration efforts. He did go for renal biopsy which had shown ATN with nephrosclerosis and osmotic nephrosis. No recovery
was anticipated. He ultimately had stabilized and was sent to [facility] where he was therefore less than 24 hours when he was sent back for hypotension. He is now on facemask and dopamine drip. He is critically ill in the ICU. We are asked
to assist with management of his ESRD issues. It had previously been discussed with the family that he is reaching a point of futility as his blood pressures limit the ability to dialyze him.
Past Medical History
1. History of diastolic CHF.
2. CKD stage 4, baseline creatinine of 2.
3. Diabetes mellitus with Tradjenta.
4. Sleep apnea.
5. Moderate tricuspid regurgitation with mild pulmonary
hypertension.
6. History of kidney stones.
7. GERD.
8. Hyperlipidemia.
Social History
Tobacco: Former Smoker
Alcohol: None
Family History
Family History: Not Pertinent
Allergies / Home Medications
Allergy/AdvReac Type Severity Reaction Status Date / Time
No Known Allergies Allergy Unverified 05/28/23 11:03
Medication Instructions Recorded Confirmed Type
apixaban 2.5 mg tablet (Eliquis) 2.5 mg PO BID Blood Clot 11/16/22 07/05/23 History
Prevention/Tx
atorvastatin 20 mg tablet 20 mg PO DAILY High Cholesterol 11/16/22 07/05/23 History
ascorbic acid (vitamin C) 1,000 mg 1,000 mg PO DAILY Supplement 05/28/23 07/05/23 History
tablet
gabapentin 100 mg capsule 200 mg PO HS Neurological Condition 05/28/23 07/05/23 History
acetaminophen 325 mg tablet 650 mg PO Q4HPRN PRN headache #30 07/04/23 07/05/23 Rx
tabs
melatonin 3 mg tablet 3 mg PO HS #20 tabs 07/04/23 07/05/23 Rx
midodrine 5 mg tablet 15 mg PO TID@0800,1300,1800 #90 07/04/23 07/05/23 Rx
tabs
pantoprazole 40 mg tablet,delayed 40 mg PO BID #60 tabs 07/04/23 07/05/23 Rx
release
polyvinyl alcohol-povidone (PF) 1 drp ophthalmic (eye) QIDPRN PRN 07/04/23 07/05/23 Rx
1.4 %-0.6 % eye drops in a dry eyes #30 ea
dropperette (Refresh Classic (PF))
sucralfate 1 gram tablet 1 g PO ACHS #30 tabs 07/04/23 07/05/23 Rx
bisacodyl 10 mg rectal suppository 10 mg [place] DAILY PRN constipation 07/05/23 07/05/23 History
magnesium hydroxide 400 mg/5 mL 30 ml PO PRN PRN constipation 07/05/23 07/05/23 History
oral suspension (Milk of Magnesia)
Review of Systems
-
Unresponsive on pressors
Physical Exam
Vital Signs
Vital Signs
Temp Pulse Resp BP Pulse Ox
96.5 F L 72 18 92/46 97
07/06/23 07:26 07/06/23 08:45 07/06/23 08:45 07/06/23 08:00 07/06/23 08:45
Lab Results
WBC 5.3 10^3/uL (4.8-10.8) 07/06/23 03:24
RBC 2.78 10^6/uL (4.70-6.10) L 07/06/23 03:24
Hgb 9.3 g/dL (13.0-18.0) L 07/06/23 03:24
Hct 27.6 % (39.0-52.0) L 07/06/23 03:24
Plt Count 98 10^3/uL (130-400) L D 07/06/23 03:24
Sodium 131 mmol/L (135-145) L 07/06/23 03:24
Potassium 4.5 mmol/L (3.5-5.1) 07/06/23 03:24
Chloride 99 mmol/L (98-107) 07/06/23 03:24
Carbon Dioxide 25 mmol/L (22-30) 07/06/23 03:24
BUN 37 mg/dl (9-20) H 07/06/23 03:24
Creatinine 3.7 mg/dL (0.7-1.3) H 07/06/23 03:24
eGFR 15.73 07/06/23 03:24
Glucose 115 mg/dl (70-99) H 07/06/23 03:24
Calcium 8.8 mg/dl (8.4-10.2) 07/06/23 03:24
Albumin 2.9 g/dl (3.5-5.0) L 07/05/23 19:46
Physical Exam
General: Nontoxic
HEENT: Oropharynx Clear/Moist, Neck Supple, Trachea Midline and No Thyromegaly
Respiratory: Crackels
Cardiac: S1/S2
Abdomen: Soft, Nontender, Nondistended, Normal Bowel Sounds and No Hepatosplenomegaly
Musculoskeletal: Edema
Assessment/Plan
-
IMP:
Severe dysphagia with esophageal food debris and regurgitation and concern for aspiration.�
Acute Psychosis
history of gastric sleeve s/p EGD No masses/tumor found. Sharp angulation of GE junction ,grade c esophagitis
aspiration risk, speech/swallow eval with improvement
Chronic HFpEF.� Diastolic dysfunction with severe TR and hypokinetic right ventricle
Acute kidney injury on chronic kidney disease stage 4-baseline cr 2-
Paroxysmal to permanent atrial fibrillation
DM
PIO� CPAP at HS
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
non obst bilat renal caliculi
HLD
hyponatremia
Plan:
-renal biopsy results note ATN, osmotic nephrosis and nephrosclerosis
-HD initiated 06/10
-HD MWF schedule
-no renal recovery expected with no UOP
-echo with right heart failure, severe TR, mod MR, RHC on 07/02 with high Right heart pressures and severe pulm HTN , PCWP was 23
-Increase midodrine to 20 mg 3 times daily
-Next dialysis session tomorrow
-We have reached a point of futility given his persistent hypotension. Hospice is recommended
-Critical care time spent 32 minutes
Data Reviewed
-
Radiology: Image Personally Visualized and interpreted (Chest x-ray on 07/05/2023 by my reading shows low lung volumes bibasilar atelectasis)
CT Scan: Report Reviewed by me (CT head on 07/05/2023 shows no acute disease)
Medical Tests (Nuc Med, Echo etc): Image Personally Visualized and interpreted (EKG on 07/06/2023 by my reading shows sinus tachycardia secondary AV block supraventricular complexes with PVCs nonspecific T wave abnormality) and Report Reviewed by me
(Cardiac catheterization on 07/02/2023 shows wedge pressure 23 RA pressure 20)
Labs: Labs Reviewed by me
Old Records: Reviewed
--- NOTE | 2023-07-06 11:43 | PTCARENOTE ---
Pt received from shift superintendent RN. Pt is minimally responsive, pupils 6mm and nonreactive with blood vessel burst in the R eye. Afib in the 70's w/BBB and long QT, +3 pitting edema of the legs, +1 generalized edema. Pt's temperature at goal, Santino
hugger placed on standby. 100% NRB in place, 99% sat. Breath sounds diminished. Round ABD. Pt is anuric on HD MWF. Stage 3 on sacrum, foam dressing in place. R AC 18 with dopamine infusing at 10mcg/min. Family is agreeable to starting comfort
directed care.
--- NOTE | 2023-07-06 11:54 | W.PN.HOSP.TC ---
Today's Communication/Plan
-
see note
Assessment / Plan
Assessment / Plan
Gen: NAD, appears chronically ill, NCAT aside from small ecchymoses over R maxilla
Eyes: EOMI, b/l pupils are dilated, no scleral icterus.
Neck: supple.
CV: , irreg/irreg, +S1/S2, no m/r/g.
Resp: CTAB, no rales, wheezes, or rhonchi. oxygen
Abd: +BS, soft, NT, ND
Skin: 1+ B/L LE edema, +ecchymoses on arms and chest around tunneled HD catheter. B/L LE chronic venous stasis dermatitis.
Neuro: confused. unable to follow commands. restraints noted
#Shock likely autonomic dysfunction in the setting of ESRD
#Atrial fibrillation with slow ventricular response with bradycardia
-Started on dopamine drip leading to improvement in heart rate and blood pressure
-Unable to take any pills
-Patient wit recent prolonged hospitalization where he was initiated on hemodialysis. Hemodialysis ultrafiltration was extremely difficult due to persistent hypotension.
-Afebrile. No elevated body temperature.
-Recent echo with diastolic dysfunction.
-TSH and cortisol recently checked and found to be normal.
-Cardiology has been consulted. Cardiology discussed case with family with plan to transition patient to comfort care/hospice.
#acute metabolic encephalopathy, likely due to hypotension in the setting of end-stage renal disease
-CT head noted.
-Patient not responding.
-Case d/w with daughter family with plan to transition patient to comfort care/hospice.
#Acute hypoxic respiratory failure likely secondary to volume overload in the setting of ESRD vs. recent aspiration event
-Currently on metformin nonrebreather. May require to be transition to high flow nasal cannula.
-Underwent right-sided thoracentesis recently 06/18.
-Family decided transition to comfort care/hospice
#ESRD:
-cont HD if BP can tolerate
-Also was noted from prior hospitalization that hemodialysis ultrafiltration has been extremely difficult due to hypotension and unable to remove volume.
-s/p recent renal biopsy. Path noted. Per nephr-no renal recovery was expected.
-nephro on board
#Permanent Afib with bradycardia:
-Plan as above. Cardiology is on board. Heart rate improved with dopamine. Taken off amiodarone recently.
HFpEF:
-Echo 07/01/23: EF 55-60%, no RWMA, G3DD, Moderately dilated right ventricle. Reduced right ventricular systolic�function.�Severely biatrial dilation. Mild/mod MR, mild AR, severe TR, PASP 40-45mmHg
-volume removal via HD to maintain euvolemia if possible
Other problems:
Pancytopenia
Hyponatremia, mild
Severe dysphagia with aspiration in the past: NPO until speech eval
Bilateral pleural effusions
Anemia of chronic disease
Coronary disease, nonobstructive: cont statin
DM2: recent BG trend unremarkable. For now, check BGs BID.
Prognosis guarded
Consult cardiology
Discussed with hotel controller
Discussed with RN
Discussed with daughter Nicole and son-in-law at bedside in detail. Plan is for comfort measures transition to hospice. Awaiting further family members.
Total Critical Care Time_ 35 _ minutes. I was immediately available to the patient and staff. I personally examined, reviewed labs, diagnostic images/reports, interpretations, treatment plans, discussed patient care with other providers and
family or caregivers (if patient is unable to make decisions), entered orders as appropriate and documented the medical record.
Anticipated Discharge: > 48 hours
Subjective/Interval History
-
Date of Service: July 06, 2023
not responsive
on midflow and NRB
Remains on dopamine with hypotension and dose uptitrated
Objective Data
-
Labs:
Laboratory Results
07/06/23
03:24
WBC 5.3
Hgb 9.3 L
Hct 27.6 L
Plt Count 98 L D
Sodium 131 L
Potassium 4.5
Chloride 99
Carbon Dioxide 25
BUN 37 H
Creatinine 3.7 H
Glucose 115 H
Calcium 8.8
Vital Signs:
Vital Signs
Temp Pulse Resp BP Pulse Ox
97.3 F 72 18 92/46 99
07/06/23 11:13 07/06/23 08:45 07/06/23 08:45 07/06/23 08:00 07/06/23 10:14
I&O
07/05/23 07/06/23 07/07/23
06:59 06:59 06:59
Intake Total 159.8 / 178.4 37.2 / 37.2
Output Total 0 / 0
Balance 159.8 / 178.4 37.2 / 37.2
--- NOTE | 2023-07-06 12:57 | CON.CAR ---
Consultation
Consultation Request
Date/Time Consultation Requested: 07/05/23
Date/Time Consultation Performed: 07/06/23
Requesting Provider: Dr. Johnson
Performing Provider: Dr. Saez
Reason for Consultation: Heart failure, bradycardia, hypotension
Medical History
-
Chief Complaint: Change in mental status with hypotension and bradycardia
History of Present Illness:
I saw Regan in ICU bed 3363 this morning at 8 AM. I met Regan at the end of his prolonged hospitalization from May 28 to July 04, 2023. He has a history of persistent atrial fibrillation with slow ventricular response, right bundle branch block,
right-sided heart failure with preserved ejection fraction, hypertension, COPD, type 2 diabetes mellitus who initially presented with failure to thrive, dysphagia, Liberty esophagitis, and worsening renal insufficiency with biopsy-proven acute
tubular necrosis initiated on dialysis. Unfortunately despite aggressive efforts he remained significantly volume overloaded with inability to dialyze secondary to severe hypotension despite high-dose midodrine. During this hospitalization, his
beta-sabino and amiodarone were discontinued secondary to bradycardia arrhythmia. He was discharged to [facility] and readmitted 24 hours with change in mental status associated with hypotension and bradycardia. In the ED blood pressures were
90/54 with heart rates in the 40s with poor mentation. Spoke with the ER physician Dr. Johnson and started dopamine with improved heart rate and blood pressure but no improvement in mental status. He is critically ill in the ICU on facemask O2 on
dopamine drip at 10. He is unresponsive to verbal and tactile stimuli.
Past medical history: Right heart failure, pulmonary hypertension, diastolic heart failure, chronic kidney disease on dialysis with inability to effectively dialyze, type 2 diabetes mellitus, hypertension, GERD, dyslipidemia, former tobacco use,
permanent atrial fibrillation, bradycardia, history of gastric sleeve, dysphagia, failure to thrive
Past surgical history: Right hip surgery, back surgery, dialysis catheter placement
Past Medical History
Past Medical History: Other (See above)
Past Surgical History: Other (See above)
Social History
Tobacco: Former Smoker
Alcohol: None
Drug: None
Personal:
Living: Other (Recently discharged to [facility] 07/04/2023)
Employment: Retired
Family History
Family History: Unable to Obtain
Allergies / Home Medications
Allergy/AdvReac Type Severity Reaction Status Date / Time
No Known Allergies Allergy Unverified 05/28/23 11:03
Medication Instructions Recorded Confirmed Type
apixaban 2.5 mg tablet (Eliquis) 2.5 mg PO BID Blood Clot 11/16/22 07/05/23 History
Prevention/Tx
atorvastatin 20 mg tablet 20 mg PO DAILY High Cholesterol 11/16/22 07/05/23 History
ascorbic acid (vitamin C) 1,000 mg 1,000 mg PO DAILY Supplement 05/28/23 07/05/23 History
tablet
gabapentin 100 mg capsule 200 mg PO HS Neurological Condition 05/28/23 07/05/23 History
acetaminophen 325 mg tablet 650 mg PO Q4HPRN PRN headache #30 07/04/23 07/05/23 Rx
tabs
melatonin 3 mg tablet 3 mg PO HS #20 tabs 07/04/23 07/05/23 Rx
midodrine 5 mg tablet 15 mg PO TID@0800,1300,1800 #90 07/04/23 07/05/23 Rx
tabs
pantoprazole 40 mg tablet,delayed 40 mg PO BID #60 tabs 07/04/23 07/05/23 Rx
release
polyvinyl alcohol-povidone (PF) 1 drp ophthalmic (eye) QIDPRN PRN 07/04/23 07/05/23 Rx
1.4 %-0.6 % eye drops in a dry eyes #30 ea
dropperette (Refresh Classic (PF))
sucralfate 1 gram tablet 1 g PO ACHS #30 tabs 07/04/23 07/05/23 Rx
bisacodyl 10 mg rectal suppository 10 mg MD DAILY PRN constipation 07/05/23 07/05/23 History
magnesium hydroxide 400 mg/5 mL 30 ml PO PRN PRN constipation 07/05/23 07/05/23 History
oral suspension (Milk of Magnesia)
Review of Systems
-
Unable to obtain full review of systems at this time due to: Acuity and Patient Non Verbal
History Source: Transfer Record and Coordinating Provider
All other systems: Negative unless noted
Physical Exam
Vital Signs
Temp Pulse Resp BP Pulse Ox
97.3 F 73 17 98/51 97
07/06/23 11:13 07/06/23 12:15 07/06/23 12:15 07/06/23 11:33 07/06/23 12:15
Lab Results
07/06/23 03:24
07/06/23 03:24
Physical Exam
General: Other (Critically ill 82-year-old gentleman on facemask, unresponsive)
HEENT: Normocephalic
Respiratory: Other (Bronchovesicular breath sounds very decreased bilaterally with crackles throughout)
Cardiac: Irregular Rhythm, Murmur (2/6 ) and Other (Heart rates in the 60s-70s on dopamine drip at 10); Negative Rub
GI: Soft and Normal Bowel Sounds
Musculoskeletal: Edema
Neuro: Other (Unresponsive)
Impression / Plan
-
Water Pump Servicer: Dr. Hensley
Impression
Change in mental status
Atrial fibrillation with slow ventricular response requiring dopamine
Cardiogenic shock/volume overload RV failure and pulmonary hypertension
End-stage renal disease on dialysis with inability to adequately dialyze
Severe dysphagia with esophageal food debris and regurgitation and concern for aspiration/history of gastric sleeve s/p EGD
Chronic HFpEF.� Diastolic dysfunction with severe TR and hypokinetic right ventricle
DM
PIO� CPAP at HS
Remote history of catheterization in 2019 with nonobstructive coronary artery disease
Echo 2021: [facility] study, with EF% 55, RV hypok, biatrial enlargement, and moderate mitral and tricuspid regurgitation with RVSP 37mmHg.
Echo 03/03/23: EF 57%, normal regional wall motion, mild MR, mod TR with PAP 47 mmHg, trivial pericardial effusion
Echo 06/13/2023: Moderate LVH, EF 55-60%, stage III diastolic dysfunction, flattened septum, MAC, mild MR, severely dilated left atrium, trace aortic regurgitation with aortic sclerosis, severe tricuspid regurgitation, pulmonary artery systolic
pressure 57 mmHg with severely dilated right atrium, dilated RV, RV hypokinesis, large pleural effusion, TR has progressed since February 2023, RV is now hypokinetic
ECHO 07/01/23: EF 55 to 60%, moderate concentric LVH, stage III diastolic dysfunction, moderately dilated RV, reduced RV systolic function, severely dilated bilateral atria, mild to moderate MR, aortic sclerosis, mild AR, severe TR, PAP 40 to 45 mmHg
Plan:
82-year-old medically complex gentleman at end-of-life
-He was discharged to [facility] [facility] 07/03/2020 after prolonged hospitalization and readmitted last evening with change in mental status now unresponsive, hypotension and bradycardia who remains very volume overloaded with inability to dialyze.
-Heart rates and blood pressures have improved with dopamine however mental status has not
-Discussed with his daughter Nicole over the telephone and they wish for comfort measures/hospice.
-At family's request I have consulted the landscape architect to provide spiritual support
-Hospitalist, nephrology and petroleum blending plant operator notified
Data Reviewed
-
EKG: Report Reviewed by me
Labs: Labs Reviewed by me
Total Time Spent with Patient (in minutes): 60
--- NOTE | 2023-07-06 14:22 | CM ---
CM met with pt daughter Mohini at bedside. Offered emotional support. Discussed hospice and offer choice. Preference is for [facility]. CM sent referral via [facility]. Also TT to hospice stamp redemption clerk RN. Daughter is family contact.
[2023-07-06] MEDS: DILAUDID 0.25 MG IV (14:23)
[2023-07-06] MEDS: ROBINUL 0.200000000000000011 MG IV (14:24)
--- NOTE | 2023-07-06 15:28 | HOSPNOTE ---
Spoke with patient's daughter Nicole and reviewed hospice services, she is in agreement for hospice care. Chart reviewed by hospice medical coding instructor Dr. Davila, patient meets GIP appropriateness for Acute hypoxic respiratory failure. Spoke with BRITTA Berrios
Willis and notified Georgina Rojo RN will be arriving soon to perform hospice admission.
--- NOTE | 2023-07-06 16:23 | CHAP ---
Paged for eRgan and his family, while a decision was being made for comfort care. Daughter, Nicole, grief-stricken, was at his side, along with her and their two children. Later, Regan's sister arrived. They wanted a team assembly line machine operator to come, if
possible - I called [facility] team assembly line machine operator line. I provided emotional and spiritual support, asking about Regan's life and listening to their stories and remembrances. We prayed together, offering prayers and readings from the [employer], and asking
blessings of peace for all, thanking God for Regan's life and love. I made the sign of the Cross on Regan's forehead, and comforted the family, assuring them we are here for them all along the way.
--- NOTE | 2023-07-06 16:52 | W.PN.DEATH ---
Pronouncement of
-
Called to see patient to pronounce.
No spontaneous heart tones or respirations noted.
Patient not responsive to verbal stimuli.
Patient is pronounced .
Time of : 16:45
Date of : 07/06/23
Cause of : Hypotension due to cardiogenic shock in setting of severe bradycardia and autonomic dysfunction in the setting of ESRD
acute metabolic encephalopathy, likely due to hypotension in the setting of end-stage renal disease
Acute hypoxic respiratory failure likely secondary to volume overload in the setting of ESRD vs. recent aspiration event
Family Notified: Yes (at bedside )
--- NOTE | 2023-07-06 16:59 | HOSPNOTE ---
Arrived to admit patient onto hospice under [facility] level of care. Patient passed before initiating hospice services. Dr. Chang notified and pronounced patient. Much emotional support provided and daughter given list of homes. Will notify
bereavement team to offer support.
--- NOTE | 2023-07-06 17:12 | W.DCSUMMARY ---
Discharge Summary
Discharge Data
Date of Admission: 07/05/23
Date of Discharge: 07/06/23
-
Pending Results: No
Hospital Course
Acute hypoxic respiratory failure
Hypotension likely cardiogenic shock in the setting of severe bradycardia and suspected autonomic dysfunction due to ESRD
Toxic metabolic encephalopathy
ESRD on hemodialysis
Chronic anemia
Permanent A-fib with bradycardia
Chronic HFpEF
Pancytopenia
Severe dysphagia with aspiration syndrome
Bilateral pleural effusion
Diabetes mellitus type 2
82-year-old male past medical history of recent aspiration septic, pleural effusions, chronic hypertension, chronic HFpEF, atrial fibrillation, ATN leading to ESRD, anemia of chronic disease, diabetes mellitus type 2, sleep apnea, valvular heart
disease, kidney stones, hyperlipidemia, COPD who is presenting from halfway with hypotension. Of note patient was recently admitted to hospital and had a prolonged hospitalization. At the halfway patient was found to be hypotensive and
bradycardic. Received atropine and IV fluids. Patient case was discussed with cardiology and patient was started on dopamine drip. Patient bradycardia resolved with IV dopamine. Patient was recently taken off amiodarone. Previous admission
there was no class I indication for pacemaker and plan was for outpatient follow-up. Patient was also found to be severely hypotension secondary to cardiogenic shock in the setting of severe bradycardia. Patient also with altered mental status
which was seen multifactorial hypotension and bradycardia. Patient case was discussed by multiple specialty. Family understood patient poor prognosis due to significant difficulty of undergoing hemodialysis/ultrafiltration due to hypotension
leading to hypoxemia at times. Family decided for comfort care and hospice. Patient at 1645. Expressed condolences to patient daughter and other family numbers at bedside.
Discharge Plan
-
Patient Disposition:
Date/Time
Date/Time: 07/06/23 16:45
--- NOTE | 2023-07-06 17:26 | PTCARENOTE ---
Addendum entered by Rick Davis RN 07/06/23 17:32:
Reported inpatient to [facility].
Original Note:
Preparing pt for transport to [address] [place] [address]. When preparing pt at bedside family noticed pt was no longer breathing. No heart tones able to be auscultated, at bedside to pronounce pt at 1645.
== END 2023-07-06 17:30 | disposition expired | DRG 308 ==
LOC: ICU 22:45
PROVIDERS: ADMITTING PHYSICIAN Internal Medicine; ATTENDING PHYSICIAN Hospitalist; CONSULT PHYSICIAN Internal Medicine Cardiovascular Disease; CONSULT PHYSICIAN Internal Medicine Critical Care Medicine; CONSULT PHYSICIAN Specialist; EMERGENCY PHYSICIAN Emergency Medicine; FAMILY PHYSICIAN Family Medicine
DX: R00.1 Bradycardia, unspecified (principal); G92.8 Other toxic encephalopathy; J96.01 Acute respiratory failure with hypoxia; N17.0 Acute kidney failure with tubular necrosis; N18.6 End stage renal disease; I50.32 Chronic diastolic (congestive) heart failure; I13.2 Hypertensive heart and chronic kidney disease with heart failure and with stage 5 chronic kidney disease, or end stage renal disease; D61.818 Other pancytopenia; E87.1 Hypo-osmolality and hyponatremia; R57.0 Cardiogenic shock; I48.21 Permanent atrial fibrillation; E11.43 Type 2 diabetes mellitus with diabetic autonomic (poly)neuropathy; Z51.5 Encounter for palliative care; E11.22 Type 2 diabetes mellitus with diabetic chronic kidney disease; E78.00 Pure hypercholesterolemia, unspecified; J44.9 Chronic obstructive pulmonary disease, unspecified; I45.10 Unspecified right bundle-branch block; D63.8 Anemia in other chronic diseases classified elsewhere; F41.9 Anxiety disorder, unspecified; G47.33 Obstructive sleep apnea (adult) (pediatric); R62.7 Adult failure to thrive; I50.82 Biventricular heart failure; I27.29 Other secondary pulmonary hypertension; I25.10 Atherosclerotic heart disease of native coronary artery without angina pectoris; I08.3 Combined rheumatic disorders of mitral, aortic and tricuspid valves; K21.9 Gastro-esophageal reflux disease without esophagitis; I87.2 Venous insufficiency (chronic) (peripheral); W19.XXXA Unspecified fall, initial encounter; Z91.81 History of falling; Y93.9 Activity, unspecified; Y92.129 Unspecified place in nursing home as the place of occurrence of the external cause; Z79.01 Long term (current) use of anticoagulants; Z87.891 Personal history of nicotine dependence; Z87.442 Personal history of urinary calculi; Z99.2 Dependence on renal dialysis; Z99.81 Dependence on supplemental oxygen
CPT/HCPCS: 70450; 71045; 80048; 80053; 83605; 83690; 85025; 85027; 93005; 96365; 96366; 99291; P9047; Q5106